=== PATIENT | female | born 1940 | race Native Hawaiian/Other Pacific Islander ===

== ENCOUNTER 2018-01-06 08:29 | Day surgery (SDC) | payer MEDICARE ==
[~2018-01-06] VITALS: Ht 157.5 cm; Wt 41.0 kg
[~2018-01-06 08:29] MED LIST: BUDE10.2 IH; CEFD300C3 PO; CIPR-225 PO; CIPR-226 PO; DOCU100C37 PO; GUAI177L4 PO; IBUP-1780 PO; OXYC-465 PO; TIOT18CA2 IH
[2018-01-06] MEDS ORDERED: MIDAZOLAM 2 MG/2 ML (VERSED) VIAL ONE (08:45)
[2018-01-06 09:00] VITALS: BP 139/68
[2018-01-06] MEDS ORDERED: POVIDONE (BETADINE) OPHTH SOLN 5% 30 ML OP ONE (09:00)
[2018-01-06] MEDS: TETRACAINE 0.5% OPHTH SOLN 4 ML BTL (SINGLE DOSE ONLY) OU PRN ×4 (09:15→09:46)
[2018-01-06] MEDS: PHENYLEPHRINE 10% OPHTH (NEO-SYN) 5 ML BTL OU SCH ×3 (09:28→09:46)
[2018-01-06] MEDS: CYCLOPENTOLATE 1% (CYCLOGYL) 2 ML DROPS OP SCH ×3 (09:28→09:46)
--- NOTE | 2018-01-06 09:47 | Progress Note-Pre Operative ---
Pre-Operative Progress Note H&P Reviewed The H&P was reviewed, patient examined and no changes noted. Date Seen by Provider: Jan 06, 2018 Time Seen by Provider: :46 Date H&P Reviewed: Jan 06, 2018 Time H&P Reviewed: 09:46 Pre-Operative Diagnosis: CATARACT MICHELLE GREENE MD Jan 06, 2018 09:47
[2018-01-06] MEDS: VANCOMYCIN/BSS (COMPOUNDED) 10 MG/ML SYR OP ONE (10:00)
[2018-01-06 10:14] VITALS: BP 139/71
--- NOTE | 2018-01-06 10:16 | Ophthalmology Operative Report ---
Cataract removal/placement IOL PREOPERATIVE DIAGNOSIS: Cataract Right Eye POSTOPERATIVE DIAGNOSIS: Cataract Right Eye PROCEDURE: Cataract removal and placement of posterior chamber implant, right eye SURGEON: Saad Greene ANESTHESIA: Topical with sedation COMPLICATIONS: None ESTIMATED BLOOD LOSS: Minimal DESCRIPTION OF PROCEDURE: After proper informed consent was obtained, the patient, a 77 female, was taken to the Operating Room and the right eye was anesthetized with tetracaine. They right eye was then prepped and draped in the usual manner. A wire lid speculum was placed. A paracentesis was made at the left hand position. Preservative free lidocaine was injected into the anterior chamber followed by viscoelastic. A clear corneal incision was made in the temporal position. A capsulorrhexis was preformed and the central nuclear and cortical material were removed. The posterior capsule was polished and an Selvin SN6CWS 26.5 IOL was placed into the capsular bag. The residual viscoelastic was aspirated and balanced saline solution was injected into the anterior chamber. 0.1 ml of Vancomycin (1mg/0.1ml ) was injected into the anterior chamber. The would was checked and found to be water tight. The patient tolerated the procedure well without complications. SAAD GREENE MD Jan 06, 2018 10:16
[2018-01-06] MEDS ORDERED: VANCOMYCIN/BSS (COMPOUNDED) 10 MG/ML SYR OP ONE (12:00)
[2018-01-06] MEDS ORDERED: TIMOLOL MALEATE 0.5% 5 ML (TIMOPTIC) BTL OU ONE (12:00)
[2018-01-06] MEDS ORDERED: LIDOCAINE PF 1% 2 ML AMP INJ ONE (12:00)
--- OUTSIDE RECORDS SUMMARY | 2018-01-06 16:24 | XMS REPORT | Continuity of Care Document ---
Author Author [facility] Organization [facility] Address Unknown Phone Unavailable Allergies Active Description Code Type Severity Reaction Onset Reported/Identified Relationship to Patient Clinical Status Yes No Known Drug Allergies [id number] Drug Allergy Unknown N/A 03/12/2009 Yes budesonide [id number] Drug Allergy Mild NAUSEA 01/06/2016 Yes formoterol [id number] Drug Allergy Mild NAUSEA 01/06/2016 Medications There is no data. Problems Date Dx Coded Attending Type Code Diagnosis Diagnosed By 11/25/2014 Ot 496 11/25/2014 Ot 786.7 11/25/2014 Ot 793.19 12/20/2014 RAJESH DAVENPORT MD Ot 786.2 12/20/2014 RAJESH DAVENPORT MD Ot 786.9 11/10/2015 NIKOLAS CHAHAL MD Ot N32.81 11/10/2015 NIKOLAS CHAHAL MD Ot N39.0 01/08/2016 LEOPOLDO GUADALUPE MD, Ot E87.70 FLUID OVERLOAD, UNSPECIFIED 01/08/2016 LEOPOLDO GUADAULPE MD, Ot J44.9 CHRONIC OBSTRUCTIVE PULMONARY DISEASE, U 01/08/2016 LEOPOLDO GUADALUPE MD, Ot J81.1 CHRONIC PULMONARY EDEMA 01/08/2016 LEOPOLDO GUADALUPE MD, Ot N32.81 OVERACTIVE BLADDER 01/08/2016 LEOPOLDO GUADALUPE MD, Ot N36.42 INTRINSIC SPHINCTER DEFICIENCY (ISD) 01/08/2016 LEOPOLDO GUADALUPE MD, Ot N39.3 STRESS INCONTINENCE (FEMALE) (MALE) 01/08/2016 LEOPOLDO GUADALUPE MD, Ot N81.10 CYSTOCELE, UNSPECIFIED 01/08/2016 LEOOPLDO GUADALUPE MD, Ot R09.02 HYPOXEMIA 01/08/2016 LEOPOLDO GUADALUPE MD, Ot N81.5 01/08/2016 LEOPOLDO GUADALUPE MD Ot Z01.812 01/08/2016 LEOPOLDO GUADALUPE MD Ot Z11.2 Procedures There is no data. Results There is no data. Encounters ACCT No. Visit Date/Time Discharge Status Pt. Type Provider Facility Loc./Unit Complaint [id number] 01/07/2016 15:05:00 01/08/2016 13:10:00 DIS Inpatient LEOPOLDO GUADALUPE MD [facility] LDRP [id number] 12/29/2015 10:16:00 12/29/2015 23:59:59 CLS Outpatient LEOPOLDO GUADALUPE MD [facility] PREOP [id number] 10/28/2015 14:28:00 10/28/2015 23:59:59 CLS Outpatient NIKOLAS CHAHAL MD [facility] RAD [id number] 11/25/2014 11:57:00 11/25/2014 23:59:59 CLS Outpatient RAJESH DAVENPORT MD [facility] RAD [id number] 01/06/2018 09:48:00 Document Registration [id number] 05/04/2012 11:27:00 Document Registration [id number] 04/10/2012 11:20:00 Document Registration [id number] 11/04/2011 11:31:00 Document Registration
[2018-01-10] MEDS ORDERED: EPINEPHrine INJECTION 1 MG/ML AMP IR ONE (12:59)
== END 2018-01-06 10:20 | disposition home or self-care (01) ==
LOC: SDC 08:29
PROVIDERS: ATTEND Specialist
DX: H26.9 Unspecified cataract (principal); J44.9 Chronic obstructive pulmonary disease, unspecified

== ENCOUNTER 2018-01-20 05:41 | Outpatient (CLI) | payer MEDICARE | END 2018-01-20 15:07 | LOC: PREOP 05:41 | PROVIDERS: ATTEND Specialist | DX: Z01.818 Encounter for other preprocedural examination (principal); H25.12 Age-related nuclear cataract, left eye ==

== ENCOUNTER 2018-01-27 08:31 | Day surgery (SDC) | payer MEDICARE ==
[~2018-01-27] VITALS: Ht 157.5 cm; Wt 41.0 kg
[2018-01-27] MEDS ORDERED: EPINEPHrine INJECTION 1 MG/ML AMP INJ ONE (08:45)
[2018-01-27] MEDS ORDERED: POVIDONE (BETADINE) OPHTH SOLN 5% 30 ML OP ONE (08:45)
[2018-01-27] MEDS ORDERED: LIDOCAINE PF 1% 2 ML AMP IR PRN (08:45)
[2018-01-27] MEDS ORDERED: VANCOMYCIN/BSS (COMPOUNDED) 10 MG/ML SYR OP ONE (08:45)
[2018-01-27] MEDS ORDERED: TIMOLOL MALEATE 0.5% 5 ML (TIMOPTIC) BTL OU PRN (08:45)
[2018-01-27 08:55] VITALS: BP 132/74
[2018-01-27] MEDS: TETRACAINE 0.5% OPHTH SOLN 4 ML BTL (SINGLE DOSE ONLY) OU PRN ×4 (08:55→09:17)
[2018-01-27] MEDS: CYCLOPENTOLATE 1% (CYCLOGYL) 2 ML DROPS OP SCH ×3 (09:05→09:17)
[2018-01-27] MEDS: PHENYLEPHRINE 10% OPHTH (NEO-SYN) 5 ML BTL OU SCH ×3 (09:05→09:17)
--- NOTE | 2018-01-27 09:42 | Ophthalmologist Pre-Op Note ---
Pre-Operative Progress Note H&P Reviewed The H&P was reviewed, patient examined and no changes noted. Date H&P Reviewed: Jan 27, 2018 Time H&P Reviewed: 09:42 Pre-Op Dx Cataract, Left Eye MICHELLE GREENE MD Jan 27, 2018 09:42
[2018-01-27] MEDS ORDERED: MIDAZOLAM 2 MG/2 ML (VERSED) VIAL ONE (09:52)
--- NOTE | 2018-01-27 10:07 | Ophthalmology Operative Report ---
Cataract removal/placement IOL PREOPERATIVE DIAGNOSIS: Cataract Left Eye POSTOPERATIVE DIAGNOSIS: Cataract Left Eye PROCEDURE: Cataract removal and placement of posterior chamber implant, left eye SURGEON: Saad Greene ANESTHESIA: Topical with sedation COMPLICATIONS: None ESTIMATED BLOOD LOSS: Minimal DESCRIPTION OF PROCEDURE: After proper informed consent was obtained, the patient, a 77 female, was taken to the Operating Room and the left eye was anesthetized with tetracaine. They left eye was then prepped and draped in the usual manner. A wire lid speculum was placed. A paracentesis was made at the left hand position. Preservative free lidocaine was injected into the anterior chamber followed by viscoelastic. A clear corneal incision was made in the temporal position. A capsulorrhexis was preformed and the central nuclear and cortical material were removed. The posterior capsule was polished and Selvin SN6CWS 24.0 IOL was placed into the capsular bag. The residual viscoelastic was aspirated and balanced saline solution was injected into the anterior chamber. 1.0 ml of Vancomycin (10mg/ 1.0ml) was injected into the anterior chamber. The would was checked and found to be water tight. The patient tolerated the procedure well without complications. SAAD GREENE MD Jan 27, 2018 10:07
[2018-01-27 10:15] VITALS: BP 131/73
--- NOTE | 2018-01-27 15:04 | Anesthesia-General Post-Op ---
MAC Patient Condition Mental Status/LOC: Same as Preop Cardiovascular: Satisfactory Nausea/Vomiting: Absent Respiratory: Satisfactory Pain: Controlled Complications: Absent Post Op Complications Complications None Follow Up Care/Instructions Patient Instructions None needed. Anesthesiology Discharge Order Discharge Order Patient is doing well, no complaints, stable vital signs, no apparent adverse anesthesia problems. No complications reported per nursing. GEGE BILL CRNA Jan 27, 2018 15:04
--- OUTSIDE RECORDS SUMMARY | 2018-01-29 04:08 | XMS REPORT | Continuity of Care Document ---
Author Author [facility] Organization [facility] Address Unknown Phone Unavailable Allergies Active Description Code Type Severity Reaction Onset Reported/Identified Relationship to Patient Clinical Status Yes No Known Drug Allergies [id number] Drug Allergy Unknown N/A 03/12/2009 Yes budesonide [id number] Drug Allergy Mild NAUSEA 01/06/2016 Yes formoterol [id number] Drug Allergy Mild NAUSEA 01/06/2016 Medications There [...] Ot E87.70 FLUID OVERLOAD, UNSPECIFIED 01/08/2016 LEOPOLDO GUADALUPE MD, Ot J44.9 CHRONIC OBSTRUCTIVE PULMONARY DISEASE, U 01/08/2016 LEOPOLDO GUADALUPE MD, Ot J81.1 CHRONIC PULMONARY EDEMA 01/08/2016 LEOPOLDO GUADALUPE MD, Ot N32.81 OVERACTIVE BLADDER 01/08/2016 LEOPOLDO GUADALUPE MD, Ot N36.42 INTRINSIC SPHINCTER DEFICIENCY (ISD) 01/08/2016 LEOPOLDO GUADALUPE MD, Ot N39.3 STRESS INCONTINENCE (FEMALE) (MALE) 01/08/2016 LEOPOLDO GUADALUPE MD, Ot N81.10 CYSTOCELE, UNSPECIFIED 01/08/2016 LEOPOLDO GUADALUPE MD, Ot R09.02 HYPOXEMIA 01/08/2016 LEOPOLDO GUADALUPE MD, Ot N81.5 01/08/2016 LEOPOLDO GUADALUPE MD Ot Z01.812 01/08/2016 LEOPOLDO GUADALUPE MD Ot Z11.2 01/04/2018 MICHELLE GREENE MD Ot H26.9 UNSPECIFIED CATARACT 01/04/2018 MICHELLE GREENE MD Ot Z01.818 ENCOUNTER FOR OTHER PREPROCEDURAL EXAMIN 01/05/2018 MICHELLE GREENE MD Ot H26.9 UNSPECIFIED CATARACT 01/05/2018 MICHELLE GREENE MD Ot Z01.818 ENCOUNTER FOR OTHER PREPROCEDURAL EXAMIN 01/10/2018 MICHELLE GREENE MD Ot H26.9 UNSPECIFIED CATARACT 01/10/2018 MICHELLE GREENE MD Ot J44.9 CHRONIC OBSTRUCTIVE PULMONARY DISEASE, U 01/10/2018 MICHELLE GREENE MD Ot H26.9 UNSPECIFIED CATARACT 01/10/2018 MICHELLE GREENE MD Ot Z01.818 ENCOUNTER FOR OTHER PREPROCEDURAL EXAMIN 01/24/2018 MICHELLE GREENE MD Ot H25.12 AGE-RELATED NUCLEAR CATARACT, LEFT EYE 01/24/2018 IMCHELLE GREENE MD Ot Z01.818 ENCOUNTER FOR OTHER PREPROCEDURAL EXAMIN Procedures There is no data. Results There is no data. Encounters ACCT No. Visit Date/Time Discharge Status Pt. Type Provider Facility Loc./Unit Complaint [id number] 01/20/2018 05:41:00 01/20/2018 15:07:00 DIS Outpatient MICHELLE GREENE MD [facility] PREOP CATARACT LEFT EYE [id number] 01/06/2018 08:29:00 01/06/2018 10:20:00 DIS Outpatient MICHELLE GREENE MD [facility] SDC CATARACT RIGHT EYE [id number] 01/05/2018 12:00:00 01/05/2018 23:59:59 CLS Outpatient MICHELLE GREENE MD [facility] PREOP CATARACT RIGHT EYE [id number] 01/07/2016 15:05:00 01/08/2016 13:10:00 DIS Inpatient LEOPOLDO GUADALUPE MD [facility] LDRP [id number] 12/29/2015 10:16:00 12/29/2015 23:59:59 CLS Outpatient COLLINS MOHAN, LEOPOLDO Linares [facility] PREOP [id number] 10/28/2015 14:28:00 10/28/2015 23:59:59 CLS Outpatient FELA MOHAN, NIKOLAS Sutton [facility] RAD [id number] 11/25/2014 11:57:00 11/25/2014 23:59:59 CLS Outpatient ISSAC MOHAN, RAJESH Coates [facility] RAD [id number] 01/27/2018 10:00:00 PEN Preadmit RAMONA [facility]AN[facility] [id number] 05/04/2012 11:27:00 Document Registration [id number] 04/10/2012 11:20:00 Document Registration [id number] 11/04/2011 11:31:00 Document Registration
== END 2018-01-27 10:24 | disposition home or self-care (01) ==
LOC: SDC 08:31
PROVIDERS: ATTEND Specialist
DX: H25.9 Unspecified age-related cataract (principal); J44.9 Chronic obstructive pulmonary disease, unspecified

== ENCOUNTER 2020-09-19 19:20 | Inpatient (IN) | payer MEDICARE ==
[~2020-09-19] VITALS: Ht 157 cm; Wt 45.1 kg
[~2020-09-19 19:20] MED LIST changes: +ALBU90AE PO; +CIPR250T3 PO; +IBUP-30 PO; -OXYC-465 PO; +OXYC-556 PO; +TIOT4MIS2 PO
[2020-09-19] MEDS ORDERED: RT-ALBUTEROL SULF 2.5 MG/3 ML PRE-MIX VIAL ONE (19:26)
[2020-09-19] MEDS ORDERED: methylPREDNISolone 125 MG (Solu-MEDROL) VIAL IV STA (19:30)
[2020-09-19] MEDS ORDERED: RT-ALBUTEROL/IPRATROPIUM 3 ML (DUONEB) VIAL INH ONE (19:30)
[2020-09-19] MEDS ORDERED: RT-ALBUTEROL SULF 2.5 MG/3 ML PRE-MIX VIAL INH STA (19:30)
[2020-09-19] MEDS ORDERED: LACTATED RINGERS 1,000 ML IV ONE ×2 (19:30→21:42)
[2020-09-19] MEDS ORDERED: methylPREDNISolone 125 MG (Solu-MEDROL) VIAL IVP ONE (19:30)
[2020-09-19] MEDS ORDERED: RT-IPRATROPIUM (ATROVENT) 0.5MG/2.5ML AMP IH ONE (19:35)
[2020-09-19] MEDS ORDERED: NS IV 1000 ML 1,000 ML IV SCH ×2 (19:43→20:24)
--- NOTE | 2020-09-19 19:45 | NUR ---
Pt arrived by EMS with c/o respiratory distress; pt had recently been at and had a trach placed. Pt arrived being bagged via BVM with little chest rise and fall. No notable sp02 noted on the monitor. RT at bedside as well as Dr. Potter and Rosalino Emanuel. Trach suctioned, in-line breathing treatment started and pt to vent. IV's x 2 started, and meds given as ordered. sp02 to nare and noted to be 100% on the monitor.
[2020-09-19 19:48] LABS: BASOPHILS # (AUTO) 0.1 10^3/uL (0.0-0.1); BASOPHILS % (AUTO) 1 % (0-10); EOSINOPHILS # (AUTO) 0.5 10^3/uL (0.0-0.3); EOSINOPHILS % (AUTO) 2 % (0-10); HEMATOCRIT 40 % (35-52); HEMOGLOBIN 11.7 g/dL (11.5-16.0); LYMPHOCYTES # (AUTO) 4.3 10^3/uL (1.0-4.0); LYMPHOCYTES % (AUTO) 21 % (12-44); MEAN CORPUSCULAR HEMOGLOBIN 28 pg (25-34); MEAN CORPUSCULAR HGB CONC 29 g/dL (32-36); MEAN CORPUSCULAR VOLUME 95 fL (80-99); MEAN PLATELET VOLUME 9.6 fL (9.0-12.2); MONOCYTES # (AUTO) 1.6 10^3/uL (0.0-1.0); MONOCYTES % (AUTO) 8 % (0-12); NEUTROPHILS # (AUTO) 13.8 10^3/uL (1.8-7.8); NEUTROPHILS % (AUTO) 67 % (42-75); PLATELET COUNT 659 10^3/uL (130-400); WHITE BLOOD COUNT 20.5 10^3/uL (4.3-11.0)
[2020-09-19 19:54] LABS: BILIRUBIN,URINE NEGATIVE (NEGATIVE); CLARITY,URINE CLOUDY; COLOR,URINE YELLOW; GLUCOSE, URINE (UA) NEGATIVE (NEGATIVE); KETONES,URINE NEGATIVE (NEGATIVE); LEUKOCYTE ESTERASE ,URINE 2+ (NEGATIVE); NITRITE,URINE POSITIVE (NEGATIVE); PROTEIN,URINE TRACE (NEGATIVE)
[2020-09-19 19:59] LABS: BACTERIA,URINE LARGE /HPF; CALCIUM OXALATE CRYSTALS,UR FEW /LPF; RBC,URINE RARE /HPF; SQUAMOUS EPITHELIAL CELL,UR 0-2 /HPF; WBC,URINE TNTC /HPF
[2020-09-19 20:04] LABS: ABG BASE EXCESS 2.2 MMOL/L (-2.5-2.5); ABG OXYGEN SATURATION 100 % (94-100); ABG PCO2 66 MMHG (35-45); ABG PO2 273 MMHG (79-93); ABG TCO2 30.9 MMOL/L (21.0-31.0)
[2020-09-19 20:05] LABS: INSPIRED O2 80%; PATIENT TEMP 36.3; VENTILATOR YES
[2020-09-19 20:06] LABS: ABG PH 7.26 (7.37-7.43)
[2020-09-19 20:06] LABS: ANISOCYTOSIS SLIGHT; BAND NEUTROPHILS 0 %; BASOPHILS % (MANUAL) 1 %; ELLIPT/OVALOCYTES SLIGHT; EOSINOPHILS % (MANUAL) 2 %; HYPOCHROMASIA SLIGHT; LYMPHOCYTES % (MANUAL) 16 %; MONOCYTES % (MANUAL) 7 %; NEUTROPHILS % (MANUAL) 74 %; POIKILOCYTOSIS SLIGHT; POLYCHROMASIA SLIGHT; TOXIC GRANULATION/VACUOLAZATIO 1+
[2020-09-19 20:07] LABS: ERYTHROCYTE SEDIMENTATION RATE 60 MM/HR (0-30)
[2020-09-19 20:10] LABS: INR 1.1 (0.8-1.4); PROTHROMBIN TIME PATIENT 14.9 SEC (12.2-14.7)
[2020-09-19 20:12] LABS: ALANINE AMINOTRANSFERASE 13 U/L (0-55); ALBUMIN 3.2 GM/DL (3.2-4.5); ALKALINE PHOSPHATASE 108 U/L (40-136); BILIRUBIN,TOTAL 0.2 MG/DL (0.1-1.0); BUN/CREATININE RATIO 21; CALCIUM 8.9 MG/DL (8.5-10.1); CARBON DIOXIDE 30 MMOL/L (21-32); CHLORIDE 99 MMOL/L (98-107); CREATINE KINASE 25 U/L (29-168); CREATININE SERUM 0.78 MG/DL (0.60-1.30); GFR ESTIMATED > 60; GLUCOSE 274 MG/DL (70-105); LIPASE 112 U/L (8-78); MAGNESIUM 2.1 MG/DL (1.6-2.4); POTASSIUM 4.5 MMOL/L (3.6-5.0); SODIUM 142 MMOL/L (135-145); TOTAL PROTEIN 7.6 GM/DL (6.4-8.2)
[2020-09-19] MEDS ORDERED: CEFEPIME INJECTION 2,000 MG in WATER (STERILE) FOR INJECTION 20 ML IV ONE (20:15)
[2020-09-19] MEDS ORDERED: VANCOMYCIN INJECTION 1,000 MG in NS (IVPB) 250 ML IV ONE (20:15)
--- NOTE | 2020-09-19 20:20 | Diagnostic Imaging Report ---
INDICATION: Respiratory distress, tracheostomy. COMPARISON: 06/03/2020. EXAMINATION: Single view of the chest was obtained. FINDINGS: Cardiac enlargement with central vascular congestion with questionable interstitial edema. There is some increasing consolidation in the mid right lung base. Bilateral pleural effusions are present. There is no pneumothorax. Tracheostomy appears midline. IMPRESSION: 1. Worsening and/or new consolidation infiltrate right base. 2. Cardiac enlargement, central vascular congestion and likely underlying pulmonary edema. 3. Bilateral pleural effusions, right greater than left. Dictated by: Dictated on workstation # [id number]
--- NOTE | 2020-09-19 20:30 | NUR ---
Rosalino Emanuel in room for central line placement. Room prepared for placement. Pt able to communicate consent for procedure.
[2020-09-19 20:33] LABS: CREATINE KINASE MB 2.1 NG/ML (<6.6)
--- NOTE | 2020-09-19 20:36 | ED Respiratory ---
General Chief Complaint: Respiratory Problems Stated Complaint: LOW OXYGEN LEVEL Nursing Triage Note: Pt here with respiratory distress; EMS reports patient was recently in [facility]. Pt has a trach but little air movement with bagging by BVM. Source: patient, spouse (MISTY DOWNS DO) History of Present Illness Date Seen by Provider: Sep 19, 2020 Time Seen by Provider: 19:20 Initial Comments PT ARRIVES VIA EMS FROM HOME EMS CALLED FOR PT WITH RESPIRATORY DISTRESS "HAS BEEN BAD SINCE TUESDAY" PT HAS HAD INCREASED "CONGESTION" AND "ALOT OF PHLEGM" AND VERY SHORT OF BREATH THE LAST FEW DAYS, AND WORSE SINCE EATING DINNER TONIGHT, DENIES ANY CHOKING, ETC. NO FEVER PT HAS HAD EXTENSIVE RESPIRATORY PROBLEMS THE LAST FEW MONTHS PT WAS ADMITTED HERE 05/16/20-06/03/20 FOR COPD WITH RESPIRATORY FAILURE FEEDING TUBE WAS PLACED DURING THAT ADMIT. WAS THEN TRANSFERRED TO [facility] IN [place], WHERE SHE HAS BEEN UNTIL BEING DISMISSED TO HOME 08/21/20 PT HAD A TRACHEOSTOMY PLACED WHILE THERE PT HAS BEEN ON HOME VENTILATOR SINCE THEN REPORTS THAT PT HAD BEEN USING THE VENT MOSTLY AT NIGHT, AND ON O2/NC DURING THE DAY, BUT FOR THE LAST WEEK "COULDN'T COME OFF THE VENT" --HAS BEEN ON VENTILATOR / FOR THE LAST WEEK DUE TO SHORTNESS OF BREATH TONIGHT, O2 SAT GOT DOWN TO 74% PT IS BEING BAGGED VIA TRACH BY EMS ON ARRIVAL PCP: DR. DAVENPOTR (MISTY DOWNS DO) Allergies and Home Medications Allergies Coded Allergies: budesonide (Unverified Allergy, Mild, NAUSEA, 01/06/16) PT REPORTS NAUSEA, FLUSHING AND NIGHTMARES formoterol (Unverified Allergy, Mild, NAUSEA, 01/06/16) PT REPORTS NAUSEA, FLUSHING AND NIGHTMARES Home Medications ALPRAZolam 0.25 Mg Tablet, 0.25 MG Q6H PRN for ANXIETY/SLEEP, (Reported) Acetaminophen 650 Mg/20.3 Ml Oral.susp, 650 MG PO Q6H PRN for PAIN-MILD (1-4) OR TEMPATURE, (Reported) Acetylcysteine 200 Mg/1 Ml Vial, 3 ML NEB QID, (Reported) Apixaban 5 Mg Tablet, 5 MG BID, (Reported) Cholecalciferol (Vitamin D3) 25 Mcg Capsule, 100 MCG DAILY, (Reported) TAKES 4 (25MCG) TABS Ciprofloxacin HCl 250 Mg Tablet, 250 MG PO DAILY, (Reported) LAST FILLED 02-05-2020 #90/90 DAY SUPPLY Furosemide 20 Mg Tablet, 20 MG DAILY, (Reported) Hydrocodone/Acetaminophen 1 Each Tablet, 1 EA BID PRN for PAIN-SEVERE (8-10), (Reported) Ipratropium/Albuterol Sulfate 3 Ml Ampul.neb, 3 ML NEB BID, (Reported) Levothyroxine Sodium 75 Mcg Tablet, 75 MCG DAILY, (Reported) Melatonin 3 Mg Tablet, 3 MG PO HS PRN for SLEEP, (Reported) Meropenem 1 Gm Vial, 2 GM IV Q12H Prescribed by: THELMA PEREZ on 09/25/20 0721 Pantoprazole Sodium 40 Mg Tablet.dr, 40 MG DAILY, (Reported) Potassium Chloride 10 Meq Tab.er.prt, 10 MEQ DAILY, (Reported) Sennosides/Docusate Sodium 1 Each Tablet, 2 EACH HS, (Reported) Sertraline HCl 50 Mg Tablet, 50 MG DAILY, (Reported) Patient Home Medication List Home Medication List Reviewed: Yes (MISTY DOWNS DO) Review of Systems Review of Systems Constitutional: No diaphoresis, No fever; malaise, weakness EENTM: no symptoms reported Respiratory: cough, orthopnea, phlegm, short of breath Cardiovascular: No chest pain, No edema Gastrointestinal: no symptoms reported; No abdominal pain, No nausea, No vomiting Genitourinary: no symptoms reported, other (PT ON CIPRO DAILY FOR UTI'S ) Musculoskeletal: no symptoms reported Skin: no symptoms reported Psychiatric/Neurological: No Symptoms Reported Hematologic/Lymphatic: No Symptoms Reported Immunological/Allergic: no symptoms reported (MISTY DOWNS DO) Past Dfwjcyu-Hnyjlt-Qkqsmc Hx Past Med/Social Hx: Reviewed and Corrections made (MISTY DOWNS DO) Patient Social History 2nd Hand Smoke Exposure: No Recent Foreign Travel: No Contact w/Someone Who Travel: No Recent Infectious Disease Expo: No Recent Hopitalizations: Yes (MISTY DOWNS DO) Immunizations Up To Date Date of Pneumonia Vaccine: Aug 21, 2014 Date of Influenza Vaccine: Aug 21, 2015 (MISTY DOWNS DO) Past Medical History Surgeries: Yes ( HERNIA REPAIR; FEEDING TUBE ; BILATERAL CATARACTS) Abdominal, Eye Surgery, Tracheostomy Respiratory: Yes (COPD; TRACH PLACED 05/2020; PULMONARY EDEMA) Pneumonia, COPD Cardiac: Yes Atrial Fibrillation, Hypertension Neurological: No Reproductive Disorders: No Genitourinary: Yes UTI-Chronic Gastrointestinal: Yes (FEEDING TUBE IN PLACE 05/2020) Musculoskeletal: Yes Arthritis Endocrine: No HEENT: Yes Cataract Cancer: No Psychosocial: No Integumentary: No Blood Disorders: No Adverse Reaction/Blood Tranf: No (BLOOD TRANSFUSION AFTER CHILDBIRTH) (MISTY DOWNS DO) Family Medical History Cardiovascular disease G8 BROTHER Congenital heart disease G8 BROTHER FH: cancer G8 SISTER (UTERINE) Glaucoma 19 MOTHER Hypertension G8 SISTER Respiratory disorder 19 FATHER No Pertinent Family Hx (MISTY DOWNS DO) Physical Exam Vital Signs - First Documented 09/19/20 09/19/20 19:54 20:42 Temp 36.3 Pulse 122 Resp 34 B/P (MAP) 114/78 (90) Pulse Ox 99 O2 Delivery Ambu Bag FiO2 80 (MATTHEW RAMIREZ APRN) Capillary Refill : Less Than 3 Seconds (MISTY DOWNS DO) Height: 5'2.00" Weight: 90lbs. 6.0oz. [id number]; 15.00 BMI Method: General Appearance: mild distress, cachetic, other (LETHARGIC AND NOT TALKING ON ARRIVAL, SEMI-OBTUNDED ON ARRIVAL) HEENT: other (ORAL MUCOSA SLIGHTLY DRY) Neck: other (TRACH IN PLACE--SITE CLEAN) Respiratory: decreased breath sounds (IN BASES), rales (IN BASES), other (MILD DISTRESS ON ARRIVAL) Cardiovascular: no murmur, tachycardia, extra beats Gastrointestinal: soft, other (FEEDING TUBE IN PLACE. SITE CLEAN) Extremities: pedal edema (2+ BILATERALLY) Neurologic/Psychiatric: no motor/sensory deficits, alert, oriented x 3 Skin: warm/dry, pallor (MISTY DOWNS DO) Focused Exam Lactate Level 09/19/20 19:27: Lactic Acid Level 4.16*H 09/19/20 21:09: (MATTHEW RAMIREZ APRN) Lactic Acid Level Laboratory Tests Test 09/19/20 19:27 09/19/20 21:09 Lactic Acid Level 4.16 MMOL/L (0.50-2.00) *H (MATTHEW RAMIREZ APRN) Procedures/Interventions Lumen: triple Position: femoral (L) Anesthesia: local Volume Anesthetic (ccs): 2 Post Position: sutured, good blood return Attempted right femoral vein central line placement unsuccessfully, went to the left side and placed a central line on the left times one attempt successfully. (MATTHEW RAMIREZ APRN) Date of ETT Placement: May 31, 2020 (MISTY DOWNS DO) Progress/Results/Core Measures Suspected Sepsis Recent Fever Within 48 Hours: No Infection Criteria Present: Suspected New Infection New/Unexplained Altered Menta: No Sepsis Screen: Possible Severe Sepsis Risk SIRS Temperature: Pulse: 124 Respiratory Rate: 24 Blood Pressure 106 /68 Mean: 81 Laboratory Tests 09/19/20 19:27: INR Comment 1.1, Total Bilirubin 0.2 (MISTY DOWNS DO) Results/Orders Lab Results Laboratory Tests Test 09/19/20 19:27 09/19/20 19:37 09/19/20 19:43 09/19/20 19:50 Range/Units White Blood Count 20.5 H 4.3-11.0 10^3/uL Red Blood Count 4.24 3.80-5.11 10^6/uL Hemoglobin 11.7 11.5-16.0 g/dL Hematocrit 40 35-52 % Mean Corpuscular Volume 95 80-99 fL Mean Corpuscular Hemoglobin 28 25-34 pg Mean Corpuscular Hemoglobin Concent 29 L 32-36 g/dL Red Cell Distribution Width 15.7 H 10.0-14.5 % Platelet Count 659 H 130-400 10^3/uL Mean Platelet Volume 9.6 9.0-12.2 fL Immature Granulocyte % (Auto) 1 % Neutrophils (%) (Auto) 67 42-75 % Lymphocytes (%) (Auto) 21 12-44 % Monocytes (%) (Auto) 8 0-12 % Eosinophils (%) (Auto) 2 0-10 % Basophils (%) (Auto) 1 0-10 % Neutrophils # (Auto) 13.8 H 1.8-7.8 10^3/uL Lymphocytes # (Auto) 4.3 H 1.0-4.0 10^3/uL Monocytes # (Auto) 1.6 H 0.0-1.0 10^3/uL Eosinophils # (Auto) 0.5 H 0.0-0.3 10^3/uL Basophils # (Auto) 0.1 0.0-0.1 10^3/uL Immature Granulocyte # (Auto) 0.2 H 0.0-0.1 10^3/uL Neutrophils % (Manual) 74 % Lymphocytes % (Manual) 16 % Monocytes % (Manual) 7 % Eosinophils % (Manual) 2 % Basophils % (Manual) 1 % Band Neutrophils 0 % Toxic Granulation 1+ Polychromasia SLIGHT Hypochromasia SLIGHT Poikilocytosis SLIGHT Anisocytosis SLIGHT Elliptocytes SLIGHT Erythrocyte Sedimentation Rate 60 H 0-30 MM/HR Prothrombin Time 14.9 H 12.2-14.7 SEC INR Comment 1.1 0.8-1.4 Activated Partial Thromboplast Time 39 H 24-35 SEC Sodium Level 142 135-145 MMOL/L Potassium Level 4.5 3.6-5.0 MMOL/L Chloride Level 99 98-107 MMOL/L Carbon Dioxide Level 30 21-32 MMOL/L Anion Gap 13 5-14 MMOL/L Blood Urea Nitrogen 16 7-18 MG/DL Creatinine 0.78 0.60-1.30 MG/DL Estimat Glomerular Filtration Rate > 60 BUN/Creatinine Ratio 21 Glucose Level 274 H 70-105 MG/DL Lactic Acid Level 4.16 *H 0.50-2.00 MMOL/L Calcium Level 8.9 8.5-10.1 MG/DL Corrected Calcium 9.5 8.5-10.1 MG/DL Magnesium Level 2.1 1.6-2.4 MG/DL Total Bilirubin 0.2 0.1-1.0 MG/DL Aspartate Amino Transf (AST/SGOT) 17 5-34 U/L Alanine Aminotransferase (ALT/SGPT) 13 0-55 U/L Alkaline Phosphatase 108 40-136 U/L Lactate Dehydrogenase 282 H 125-220 U/L Total Creatine Kinase 25 L 29-168 U/L Creatine Kinase MB 2.1 <6.6 NG/ML Myoglobin 39.5 10.0-92.0 NG/ML Troponin I < 0.028 <0.028 NG/ML C-Reactive Protein High Sensitivity 14.44 H 0.00-0.50 MG/DL B-Type Natriuretic Peptide 529.2 H <100.0 PG/ML Total Protein 7.6 6.4-8.2 GM/DL Albumin 3.2 3.2-4.5 GM/DL Lipase 112 H 8-78 U/L Procalcitonin 0.03 <0.10 NG/ML Coronavirus 2019 (EMILY) Negative Negative Urine Color YELLOW Urine Clarity CLOUDY Urine pH 6.0 5-9 Urine Specific [place] 1.025 H 1.016-1.022 Urine Protein TRACE H NEGATIVE Urine Glucose (UA) NEGATIVE NEGATIVE Urine Ketones NEGATIVE NEGATIVE Urine Nitrite POSITIVE H NEGATIVE Urine Bilirubin NEGATIVE NEGATIVE Urine Urobilinogen 0.2 < = 1.0 MG/DL Urine Leukocyte Esterase 2+ H NEGATIVE Urine RBC (Auto) 2+ H NEGATIVE Urine RBC RARE /HPF Urine WBC TNTC H /HPF Urine Squamous Epithelial Cells 0-2 /HPF Urine Crystals PRESENT H /LPF Urine Calcium Oxalate Crystals FEW H /LPF Urine Bacteria LARGE H /HPF Urine Casts NONE /LPF Urine Mucus SMALL H /LPF Urine Culture Indicated YES Blood Gas Puncture Site NOT INDICATED Blood Gas Patient Temperature 36.3 Arterial Blood pH 7.26 *L 7.37-7.43 Arterial Blood Partial Pressure CO2 66 H 35-45 MMHG Arterial Blood Partial Pressure O2 273 H 79-93 MMHG Arterial Blood HCO3 29 H 23-27 MMOL/L Arterial Blood Total CO2 30.9 21.0-31.0 MMOL/L Arterial Blood Oxygen Saturation 100 94-100 % Arterial Blood Base Excess 2.2 -2.5-2.5 MMOL/L Kang Test NA Blood Gas Ventilator Setting YES Blood Gas Inspired Oxygen 80% Test 09/19/20 21:09 Range/Units (MATTHEW RAMIREZ APRN) Micro Results Microbiology 09/19/20 Influenza Types A,B Antigen ([facility]) - Final, Complete (MATTHEW RAMIREZ APRN) Medications Given in ED Current Medications Medications Dose Ordered Sig/Virgie Route Start Time Stop Time Status Last Admin Dose Admin Cefepime HCl 2000 mg/Sterile Water 20 ml @ 240 mls/hr ONCE ONCE IV 09/19/20 20:15 09/19/20 20:19 DC 09/19/20 20:23 240 MLS/HR Lactated Ringer's 1,000 ml @ 0 mls/hr Q0M ONCE IV 09/19/20 19:30 09/19/20 19:36 DC 09/19/20 20:14 1,000 MLS/HR Methylprednisolone Sodium Succinate 125 mg ONCE ONCE IVP 09/19/20 19:30 09/19/20 19:36 DC 09/19/20 19:36 125 MG Vancomycin HCl 1000 mg/Sodium Chloride 250 ml @ 250 mls/hr ONCE ONCE IV 09/19/20 20:15 09/19/20 21:14 DC 09/19/20 20:40 250 MLS/HR (MATTHEW RAMIREZ APRN) Vital Signs/I&O 09/19/20 09/19/20 09/19/20 09/19/20 19:54 20:10 20:12 20:42 Temp 36.3 Pulse 122 124 88 Resp 34 24 24 B/P (MAP) 114/78 (90) 106/68 Pulse Ox 99 99 100 99 O2 Delivery Ambu Bag Mechanical Ventilator Mechanical Ventilator FiO2 80 (MATTHEW RAMIREZ APRN) Vital Signs/I&O Capillary Refill : Less Than 3 Seconds (MISTY DOWNS DO) Blood Pressure Mean: 81 Progress Note : Progress Note PPE WORN AT ALL TIMES IMMEDIATELY PLACED ON VENTILATOR BY RT STAFF O2 SATS UP TO 100%, AND RESPIRATIONS EVEN AND UNLABORED AT TIME OF ADMIT. GIVEN IV FLUIDS WITH IMPROVEMENT IN HEART RATE AND BLOOD PRESSURE. 2019--PT IS NOW ALERT AND ORIENTED X 3.MUCH IMPROVEMENT IN MENTATION. STATES SHE WISHES TO BE A FULL CODE (MISTY DOWNS DO) ECG Initial ECG Impression Date: Sep 19, 2020 Initial ECG Impression Time: 19:39 Initial ECG Rate: 143 Initial ECG Rhythm: S.Tach Initial ECG Impression: Nonspecific Changes (MISTY DOWNS DO) Diagnostic Imaging Comments CXR--PER RADIOLOGIST REPORT AT 2034 FINDINGS: Cardiac enlargement with central vascular congestion with questionable interstitial edema. There is some increasing consolidation in the mid right lung base. Bilateral pleural effusions are present. There is no pneumothorax. Tracheostomy appears midline. IMPRESSION: 1. Worsening and/or new consolidation infiltrate right base. 2. Cardiac enlargement, central vascular congestion and likely underlying pulmonary edema. 3. Bilateral pleural effusions, right greater than left. Reviewed: Reviewed by Me (MISTY DOWNS DO) Critical Care Note Critical Care Total Time (minutes) 30 (MISTY DOWNS DO) Departure Communication (Admissions) Family Conversation 1934--CHILDCARE ATTENDANT ON PHONE WITH , STATES PT DOES NOT HAVE ANY ADVANCE DIRECTIVES, HAS BEEN FULL CODE, BUT STATES IF HER CONDITION DETERIORATES, HE WOULD LIKE HER TO BE ON COMFORT MEASURES ONLY. 2011--SPOKE WITH PT'S AND UPDATED HIM ON PT'S CONDITION. 2022--SPOKE WITH DR. JASSO, HOSPITALIST, ACCEPTS PT FOR ADMIT 2030--SPOKE WITH DR. FOUNTAIN, WELDING MACHINE ASSEMBLER. NO ADDITIONAL RECOMMENDATIONS AT THIS TIME 2039--SPOKE WITH DR. MARROQUIN, CAR REPAIRER PULLMAN, NO ADDITIONAL RECOMMENDATIONS AT THIS TIME. (MISTY DOWNS DO) Impression Primary Impression: Severe sepsis Additional Impressions: Acute on chronic respiratory failure Tracheostomy in place History of atrial fibrillation RLL pneumonia Bilateral pleural effusion CHF (congestive heart failure) Person under investigation for COVID-19 UTI (urinary tract infection) FEEDING TUBE IN PLACE Disposition: ADMITTED INPATIENT Condition: Improved Admissions Decision to Admit Reason: Admit from ER (General) Decision to Admit/Date: Sep 19, 2020 Time/Decision to Admit Time: 20:15 (MISTY DOWNS DO) Departure-Patient Inst. Referrals: RAJESH DAVENPORT MD (PCP/Family) Primary Care Physician Scripts Meropenem (Meropenem) 1 Gm Vial 2 GM IV Q12H for 10 Days, #40 VIAL Prov: NORAH FOUNTAIN DO 09/25/20 MISTY DOWNS DO Sep 19, 2020 20:36 MATTHEW RAMIREZ APRN Sep 19, 2020 21:19
--- NOTE | 2020-09-19 21:42 | NUR ---
Lab called with Lactic of 2.18; Dr. Potter notified.
[2020-09-19 21:55] LABS: ABG OXYGEN SATURATION 94 % (94-100); ABG PO2 88 MMHG (79-93); ABG TCO2 31.2 MMOL/L (21.0-31.0)
[2020-09-19 22:00] VITALS: BP 92/63
[2020-09-19] MEDS: LACTATED RINGERS 1,000 ML IV SCH (22:00)
--- NOTE | 2020-09-19 22:00 | NUR ---
received from ed, 80 year old female with dx of severe sepsis, resp failure,covid pui, pneumonia, uti, chf. pt has trach attached to a vent with settings of ac mode, tv 350, rate 14, 5 peep and 60% fio2. pt also has peg tube to abdomen. pt is a/o, not sedated
[2020-09-19 22:02] LABS: ABG PCO2 71 MMHG (35-45); ABG PH 7.23 (7.37-7.43); ALLENS TEST YES-POS; INSPIRED O2 80%
[2020-09-19 22:03] LABS: PATIENT TEMP 36.3; VENTILATOR YES
[2020-09-19 22:15] VITALS: BP 91/60
[2020-09-19] MEDS ORDERED: NS IV ONE (22:15)
[2020-09-19 22:21] LABS: ABG BASE EXCESS 3.2 MMOL/L (-2.5-2.5); ABG OXYGEN SATURATION 98 % (94-100); ABG PCO2 49 MMHG (35-45); ABG PH 7.37 (7.37-7.43); ABG PO2 97 MMHG (79-93)
[2020-09-19] MEDS: ENOXAPARIN 30 MG/0.3 ML (LOVENOX) SYR SC SCH (22:22)
[2020-09-19 22:23] LABS: ALLENS TEST YES-POS; INSPIRED O2 45%; PATIENT TEMP 35.2; VENTILATOR YES
[2020-09-19 22:30] VITALS: BP 91/54
[2020-09-19 22:45] VITALS: BP 87/54
[2020-09-19] MEDS ORDERED: VASOPRESSIN 20 UNITS/NS 100 ML DRIP IV SCH ×2 (22:45)
[2020-09-19 23:15] VITALS: BP 93/63
[2020-09-19] MEDS: EPINEPHrine 1 MG INJECTION 4 MG in NS (IVPB) 246 ML IV SCH (23:43)
[2020-09-19 23:45] VITALS: BP 87/58
[2020-09-19] MEDS: NOREPINEPHRINE 4 MG/250 ML 250 ML IV SCH (23:55)
[2020-09-20] VITALS (28 sets, daily range): BP systolic 85–108; BP diastolic 56–69
[2020-09-20] MEDS: LACTATED RINGERS 1,000 ML IV SCH ×5 (02:27→19:22)
[2020-09-20 03:34] LABS: ABG BASE EXCESS 3.9 MMOL/L (-2.5-2.5); ABG OXYGEN SATURATION 98 % (94-100); ABG PCO2 55 MMHG (35-45); ABG PO2 106 MMHG (79-93); ABG TCO2 31.1 MMOL/L (21.0-31.0)
[2020-09-20 03:35] LABS: ABG PH 7.35 (7.37-7.43)
[2020-09-20 03:36] LABS: ALLENS TEST YES-POS; INSPIRED O2 60%; PATIENT TEMP 36.4; VENTILATOR YES
[2020-09-20 03:38] LABS: BASOPHILS % (AUTO) 0 % (0-10); EOSINOPHILS % (AUTO) 0 % (0-10); HEMATOCRIT 31 % (35-52); HEMOGLOBIN 9.3 g/dL (11.5-16.0); LYMPHOCYTES # (AUTO) 0.2 10^3/uL (1.0-4.0); LYMPHOCYTES % (AUTO) 1 % (12-44); MEAN CORPUSCULAR HEMOGLOBIN 28 pg (25-34); MEAN CORPUSCULAR HGB CONC 30 g/dL (32-36); MEAN CORPUSCULAR VOLUME 93 fL (80-99); MEAN PLATELET VOLUME 9.4 fL (9.0-12.2); MONOCYTES # (AUTO) 0.1 10^3/uL (0.0-1.0); MONOCYTES % (AUTO) 1 % (0-12); NEUTROPHILS # (AUTO) 27.4 10^3/uL (1.8-7.8); NEUTROPHILS % (AUTO) 98 % (42-75); PLATELET COUNT 478 10^3/uL (130-400)
[2020-09-20 04:06] LABS: ALBUMIN 2.7 GM/DL (3.2-4.5); CHLORIDE 103 MMOL/L (98-107); POTASSIUM 4.3 MMOL/L (3.6-5.0); SODIUM 141 MMOL/L (135-145)
[2020-09-20 04:08] LABS: GLUCOSE 222 MG/DL (70-105); TOTAL PROTEIN 6.2 GM/DL (6.4-8.2)
[2020-09-20 04:09] LABS: CARBON DIOXIDE 27 MMOL/L (21-32)
[2020-09-20 04:10] LABS: BILIRUBIN,TOTAL 0.1 MG/DL (0.1-1.0)
[2020-09-20 04:11] LABS: PHOSPHORUS 3.3 MG/DL (2.3-4.7)
[2020-09-20 04:12] LABS: ALKALINE PHOSPHATASE 82 U/L (40-136); CREATININE SERUM 0.59 MG/DL (0.60-1.30); GFR ESTIMATED > 60
[2020-09-20 04:13] LABS: BUN/CREATININE RATIO 27
[2020-09-20 04:15] LABS: ALANINE AMINOTRANSFERASE 32 U/L (0-55); MAGNESIUM 1.7 MG/DL (1.6-2.4)
[2020-09-20] MEDS ORDERED: CEFEPIME INJECTION 1,000 MG in WATER (STERILE) FOR INJECTION 10 ML IV SCH (06:00)
--- NOTE | 2020-09-20 06:26 | Pulmonary Consultation ---
History of Present Illness History of Present Illness Date Seen by Provider: Sep 20, 2020 Time Seen by Provider: 06:21 Date of Admission Allergies and Home Medications Allergies Coded Allergies: budesonide (Unverified Allergy, Mild, NAUSEA, 01/06/16) PT REPORTS NAUSEA, FLUSHING AND NIGHTMARES formoterol (Unverified Allergy, Mild, NAUSEA, 01/06/16) PT REPORTS NAUSEA, FLUSHING AND NIGHTMARES Home Medications Albuterol Sulfate 90 Mcg Aer.pow.ba, 2 PUFF PO Q6H PRN for SHORTNESS OF BREATH, (Reported) Ciprofloxacin HCl 250 Mg Tablet, 250 MG PO Q48H, (Reported) Ibuprofen 200 Mg Tablet, 400-600 MG PO Q8H PRN for PAIN-MILD (1-4), (Reported) Tiotropium [place] 4 Gm Mist.inhal, 1 PUFF PO DAILY, (Reported) Past Vawteqk-Deqjsr-Jdsasg Hx Patient Social History Alcohol Use: Denies Use Recreational Drug Use: No Smoking Status: Unknown if Ever Smoked 2nd Hand Smoke Exposure: No Recent Foreign Travel: No Contact w/Someone Who Travel: No Recent Infectious Disease Expo: No Recent Hopitalizations: Yes Immunizations Up To Date Date of Pneumonia Vaccine: Aug 21, 2014 Date of Influenza Vaccine: Aug 21, 2015 Past Medical History Surgeries: Yes ( HERNIA REPAIR) Respiratory: Yes (COPD) COPD Cardiac: No Neurological: No Reproductive Disorders: No UTI-Chronic Gastrointestinal: No Musculoskeletal: Yes Arthritis Endocrine: No Cancer: No Psychosocial: No Integumentary: No Blood Disorders: No Adverse Reaction/Blood Tranf: No (BLOOD TRANSFUSION AFTER CHILDBIRTH) Family Medical History Cardiovascular disease G8 BROTHER Congenital heart disease G8 BROTHER FH: cancer G8 SISTER (UTERINE) Glaucoma 19 MOTHER Hypertension G8 SISTER Respiratory disorder 19 FATHER No Pertinent Family Hx Review of Systems Time Seen by Provider: 06:29 Sepsis Event Evaluation Height, Weight, BMI Height: 5'2.00" Weight: 90lbs. 6.0oz. 40.431345ah; 15.00 BMI Method: Exam Exam Vital Signs Date Time Temp Pulse Resp B/P (MAP) Pulse Ox O2 Delivery O2 Flow Rate FiO2 09/20/20 05:00 113 20 104/68 (80) 98 Mechanical Ventilator 60.00 09/20/20 04:00 115 19 104/66 (79) 98 Mechanical Ventilator 60.00 09/20/20 03:00 120 24 102/69 (80) 97 Mechanical Ventilator 60.00 09/20/20 02:52 130 28 98 60 09/20/20 02:00 112 16 108/64 (79) 97 Mechanical Ventilator 60.00 09/20/20 01:00 108 13 96/67 (77) 98 Mechanical Ventilator 60.00 09/20/20 01:00 107 09/20/20 00:07 97 Mechanical Ventilator 60 09/19/20 23:45 108 16 87/58 (68) 98 Mechanical Ventilator 60.00 09/19/20 23:15 108 27 93/63 (73) 96 Mechanical Ventilator 60.00 09/19/20 22:48 Mechanical Ventilator 60.00 09/19/20 22:45 110 25 87/54 (65) 88 Mechanical Ventilator 45.00 09/19/20 22:30 112 12 91/54 (66) 93 Mechanical Ventilator 45.00 09/19/20 22:15 115 28 91/60 (70) 93 Mechanical Ventilator 45.00 09/19/20 22:11 120 09/19/20 22:02 126 30 99 100 09/19/20 22:00 35.2 115 21 92/63 (73) 93 Mechanical Ventilator 45.00 09/19/20 21:00 121 35 94/64 98 Mechanical Ventilator 09/19/20 20:42 88 24 99 80 09/19/20 20:12 124 24 106/68 100 Mechanical Ventilator 09/19/20 20:10 99 Mechanical Ventilator 09/19/20 19:54 36.3 122 34 114/78 (90) 99 Ambu Bag I & O 09/20/20 07:00 Intake Total 2000 ml Balance 2000 ml Height & Weight Height: 5'2.00" Weight: 90lbs. 6.0oz. 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
[2020-09-20] MEDS: MAGNESIUM 1 GM/100 ML IVPB 100 ML IV SCH (06:35)
[2020-09-20] MEDS: POTASSIUM CL 10MEQ/50ML IVPB 50 ML IV SCH (06:35)
[2020-09-20] MEDS: KCL 20 MEQ TAB (K-DUR) PO SCH (06:36)
[2020-09-20] MEDS: MEROPENEM 1,000 MG in WATER (STERILE) FOR INJECTION 20 ML IV SCH ×3 (06:36→20:12)
[2020-09-20] MEDS ORDERED: FLU QUAD HIGH DOSE 240 MCG/0.7 ML 2020-21 (FLUZONE) IM ONE (07:15)
--- NOTE | 2020-09-20 09:21 | Consultation-Cardiology ---
HPI-Cardiology Cardiology Consultation Date of Consultation 09/20/20 Date of Admission Time Seen by Provider: 06:29 Indication: acute respiratory failure HPI 80 years old lady with history of Pseudomonas pneumonia resistant to multiple medication, transfer to and required prolonged intubation and tracheostomy. She still on a ventilator at home for the past month. Admitted through the emergency room with acute respiratory failure and shortness of breath, she is ventilatory dependent. Unable to provide any further history Home Medications & Allergies Allergies: Coded Allergies: budesonide (Unverified Allergy, Mild, NAUSEA, 01/06/16) PT REPORTS NAUSEA, FLUSHING AND NIGHTMARES formoterol (Unverified Allergy, Mild, NAUSEA, 01/06/16) PT REPORTS NAUSEA, FLUSHING AND NIGHTMARES Home Medication List Reviewed: Yes EIO-[id number]-[id number] Hx Patient Social History Alcohol Use: Denies Use Recreational Drug Use: No Smoking Status: Unknown if Ever Smoked 2nd Hand Smoke Exposure: No Recent Foreign Travel: No Recent Infectious Disease Expo: No Recent Hopitalizations: Yes Immunizations Up To Date Date of Pneumonia Vaccine: Aug 21, 2014 Date of Influenza Vaccine: Aug 21, 2015 Past Medical History Discussed below Family Medical History Significant Family History: No Pertinent Family Hx Family History: Cardiovascular disease G8 BROTHER Congenital heart disease G8 BROTHER FH: cancer G8 SISTER (UTERINE) Glaucoma 19 MOTHER Hypertension G8 SISTER Respiratory disorder 19 FATHER Review of Systems-General Review of Systems Constitutional: other (unable to provide review of systems) Respiratory: other (ventilatory dependent) Reviewed Test Results Reviewed Test Results Lab Laboratory Tests Test 09/19/20 19:27 09/19/20 19:37 09/19/20 19:43 09/19/20 19:50 Range/Units White Blood Count 20.5 H 4.3-11.0 10^3/uL Red Blood Count 4.24 3.80-5.11 10^6/uL Hemoglobin 11.7 11.5-16.0 g/dL Hematocrit 40 35-52 % Mean Corpuscular Volume 95 80-99 fL Mean Corpuscular Hemoglobin 28 25-34 pg Mean Corpuscular Hemoglobin Concent 29 L 32-36 g/dL Red Cell Distribution Width 15.7 H 10.0-14.5 % Platelet Count 659 H 130-400 10^3/uL Mean Platelet Volume 9.6 9.0-12.2 fL Immature Granulocyte % (Auto) 1 % Neutrophils (%) (Auto) 67 42-75 % Lymphocytes (%) (Auto) 21 12-44 % Monocytes (%) (Auto) 8 0-12 % Eosinophils (%) (Auto) 2 0-10 % Basophils (%) (Auto) 1 0-10 % Neutrophils # (Auto) 13.8 H 1.8-7.8 10^3/uL Lymphocytes # (Auto) 4.3 H 1.0-4.0 10^3/uL Monocytes # (Auto) 1.6 H 0.0-1.0 10^3/uL Eosinophils # (Auto) 0.5 H 0.0-0.3 10^3/uL Basophils # (Auto) 0.1 0.0-0.1 10^3/uL Immature Granulocyte # (Auto) 0.2 H 0.0-0.1 10^3/uL Neutrophils % (Manual) 74 % Lymphocytes % (Manual) 16 % Monocytes % (Manual) 7 % Eosinophils % (Manual) 2 % Basophils % (Manual) 1 % Band Neutrophils 0 % Toxic Granulation 1+ Polychromasia SLIGHT Hypochromasia SLIGHT Poikilocytosis SLIGHT Anisocytosis SLIGHT Elliptocytes SLIGHT Erythrocyte Sedimentation Rate 60 H 0-30 MM/HR Prothrombin Time 14.9 H 12.2-14.7 SEC INR Comment 1.1 0.8-1.4 Activated Partial Thromboplast Time 39 H 24-35 SEC Sodium Level 142 135-145 MMOL/L Potassium Level 4.5 3.6-5.0 MMOL/L Chloride Level 99 98-107 MMOL/L Carbon Dioxide Level 30 21-32 MMOL/L Anion Gap 13 5-14 MMOL/L Blood Urea Nitrogen 16 7-18 MG/DL Creatinine 0.78 0.60-1.30 MG/DL Estimat Glomerular Filtration Rate > 60 BUN/Creatinine Ratio 21 Glucose Level 274 H 70-105 MG/DL Lactic Acid Level 4.16 *H 0.50-2.00 MMOL/L Calcium Level 8.9 8.5-10.1 MG/DL Corrected Calcium 9.5 8.5-10.1 MG/DL Magnesium Level 2.1 1.6-2.4 MG/DL Total Bilirubin 0.2 0.1-1.0 MG/DL Aspartate Amino Transf (AST/SGOT) 17 5-34 U/L Alanine Aminotransferase (ALT/SGPT) 13 0-55 U/L Alkaline Phosphatase 108 40-136 U/L Lactate Dehydrogenase 282 H 125-220 U/L Total Creatine Kinase 25 L 29-168 U/L Creatine Kinase MB 2.1 <6.6 NG/ML Myoglobin 39.5 10.0-92.0 NG/ML Troponin I < 0.028 <0.028 NG/ML C-Reactive Protein High Sensitivity 14.44 H 0.00-0.50 MG/DL B-Type Natriuretic Peptide 529.2 H <100.0 PG/ML Total Protein 7.6 6.4-8.2 GM/DL Albumin 3.2 3.2-4.5 GM/DL Lipase 112 H 8-78 U/L Procalcitonin 0.03 <0.10 NG/ML Coronavirus 2019 (EMILY) Negative Negative Urine Color YELLOW Urine Clarity CLOUDY Urine pH 6.0 5-9 Urine Specific [place] 1.025 H 1.016-1.022 Urine Protein TRACE H NEGATIVE Urine Glucose (UA) NEGATIVE NEGATIVE Urine Ketones NEGATIVE NEGATIVE Urine Nitrite POSITIVE H NEGATIVE Urine Bilirubin NEGATIVE NEGATIVE Urine Urobilinogen 0.2 < = 1.0 MG/DL Urine Leukocyte Esterase 2+ H NEGATIVE Urine RBC (Auto) 2+ H NEGATIVE Urine RBC RARE /HPF Urine WBC TNTC H /HPF Urine Squamous Epithelial Cells 0-2 /HPF Urine Crystals PRESENT H /LPF Urine Calcium Oxalate Crystals FEW H /LPF Urine Bacteria LARGE H /HPF Urine Casts NONE /LPF Urine Mucus SMALL H /LPF Urine Culture Indicated YES Blood Gas Puncture Site NOT INDICATED Blood Gas Patient Temperature 36.3 Arterial Blood pH 7.26 *L 7.37-7.43 Arterial Blood Partial Pressure CO2 66 H 35-45 MMHG Arterial Blood Partial Pressure O2 273 H 79-93 MMHG Arterial Blood HCO3 29 H 23-27 MMOL/L Arterial Blood Total CO2 30.9 21.0-31.0 MMOL/L Arterial Blood Oxygen Saturation 100 94-100 % Arterial Blood Base Excess 2.2 -2.5-2.5 MMOL/L Kang Test NA Blood Gas Ventilator Setting YES Blood Gas Inspired Oxygen 80% Test 09/19/20 21:09 09/19/20 21:20 09/19/20 21:35 09/19/20 22:15 Range/Units Lactic Acid Level 2.18 *H 0.50-2.00 MMOL/L Blood Gas Puncture Site RIGHT RADIAL R RAD Blood Gas Patient Temperature 36.3 35.2 Arterial Blood pH 7.23 *L 7.37 7.37-7.43 Arterial Blood Partial Pressure CO2 71 *H 49 H 35-45 MMHG Arterial Blood Partial Pressure O2 88 97 H 79-93 MMHG Arterial Blood HCO3 29 H 28 H 23-27 MMOL/L Arterial Blood Total CO2 31.2 H 30.0 21.0-31.0 MMOL/L Arterial Blood Oxygen Saturation 94 98 94-100 % Arterial Blood Base Excess 2.0 3.2 H -2.5-2.5 MMOL/L Kang Test YES-POS YES-POS Blood Gas Ventilator Setting YES YES Blood Gas Inspired Oxygen 80% 45% Test 09/19/20 23:20 09/20/20 03:10 Range/Units Lactic Acid Level 1.74 0.50-2.00 MMOL/L White Blood Count 28.0 H 4.3-11.0 10^3/uL Red Blood Count 3.36 L 3.80-5.11 10^6/uL Hemoglobin 9.3 #L 11.5-16.0 g/dL Hematocrit 31 L 35-52 % Mean Corpuscular Volume 93 80-99 fL Mean Corpuscular Hemoglobin 28 25-34 pg Mean Corpuscular Hemoglobin Concent 30 L 32-36 g/dL Red Cell Distribution Width 15.8 H 10.0-14.5 % Platelet Count 478 H 130-400 10^3/uL Mean Platelet Volume 9.4 9.0-12.2 fL Immature Granulocyte % (Auto) 1 % Neutrophils (%) (Auto) 98 H 42-75 % Lymphocytes (%) (Auto) 1 L 12-44 % Monocytes (%) (Auto) 1 0-12 % Eosinophils (%) (Auto) 0 0-10 % Basophils (%) (Auto) 0 0-10 % Neutrophils # (Auto) 27.4 H 1.8-7.8 10^3/uL Lymphocytes # (Auto) 0.2 L 1.0-4.0 10^3/uL Monocytes # (Auto) 0.1 0.0-1.0 10^3/uL Eosinophils # (Auto) 0.0 0.0-0.3 10^3/uL Basophils # (Auto) 0.0 0.0-0.1 10^3/uL Immature Granulocyte # (Auto) 0.2 H 0.0-0.1 10^3/uL Blood Gas Puncture Site RIGHT RADIAL Blood Gas Patient Temperature 36.4 Arterial Blood pH 7.35 L 7.37-7.43 Arterial Blood Partial Pressure CO2 55 H 35-45 MMHG Arterial Blood Partial Pressure O2 106 H 79-93 MMHG Arterial Blood HCO3 29 H 23-27 MMOL/L Arterial Blood Total CO2 31.1 H 21.0-31.0 MMOL/L Arterial Blood Oxygen Saturation 98 94-100 % Arterial Blood Base Excess 3.9 H -2.5-2.5 MMOL/L Kang Test YES-POS Blood Gas Ventilator Setting YES Blood Gas Inspired Oxygen 60% Sodium Level 141 135-145 MMOL/L Potassium Level 4.3 3.6-5.0 MMOL/L Chloride Level 103 98-107 MMOL/L Carbon Dioxide Level 27 21-32 MMOL/L Anion Gap 11 5-14 MMOL/L Blood Urea Nitrogen 16 7-18 MG/DL Creatinine 0.59 L 0.60-1.30 MG/DL Estimat Glomerular Filtration Rate > 60 BUN/Creatinine Ratio 27 Glucose Level 222 H 70-105 MG/DL Calcium Level 8.0 L 8.5-10.1 MG/DL Corrected Calcium 9.0 8.5-10.1 MG/DL Phosphorus Level 3.3 2.3-4.7 MG/DL Magnesium Level 1.7 1.6-2.4 MG/DL Total Bilirubin 0.1 0.1-1.0 MG/DL Aspartate Amino Transf (AST/SGOT) 37 H 5-34 U/L Alanine Aminotransferase (ALT/SGPT) 32 0-55 U/L Alkaline Phosphatase 82 40-136 U/L Troponin I 0.256 H <0.028 NG/ML B-Type Natriuretic Peptide 473.9 H <100.0 PG/ML Total Protein 6.2 L 6.4-8.2 GM/DL Albumin 2.7 L 3.2-4.5 GM/DL Physical Exam Physical Exam Vital Signs Vital Signs - First Documented 09/19/20 09/19/20 09/19/20 19:54 20:42 22:00 Temp 36.3 Pulse 122 Resp 34 B/P (MAP) 114/78 (90) Pulse Ox 99 O2 Delivery Ambu Bag O2 Flow Rate 45.00 FiO2 80 Capillary Refill : Less Than 3 Seconds Height, Weight, BMI Height: 5'2.00" Weight: 90lbs. 6.0oz. 40.661937oe; 17.85 BMI Method: General Appearance: WD/WN, Moderate Distress Eyes: Bilateral Eye Normal Inspection, Bilateral Eye PERRL, Bilateral Eye EOMI HEENT: PERRL/EOMI, Pharynx Normal, Moist Mucous Membranes Respiratory: Chest Non Tender, Decreased Breath Sounds, Respiratory Distress, Other (ventilatory dependent) Cardiovascular: Regular Rate, Rhythm Skin: Normal Color, Warm/Dry Lymphatic: No Adenopathy A/P-Cardiology Admission Diagnosis Acute respiratory failure Sepsis Type II myocardial infarction Assessment/Plan Acute on chronic respiratory failure, 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 Progressed into respiratory failure and admitted through the emergency room. Currently sedated. Managed by Dr. Velazquez. COVID-19 testing is pending Mild elevation in troponin, probably type II myocardial infarction due to severe hypoxemia and sepsis Sepsis, leukocytosis. Started on septic protocol and managed by Dr. Velazquez History of paroxysmal atrial fibrillation, had few episode of atrial fibrillation in May during her admission and she was maintained on amiodarone and digoxin on transfer to History of COPD. Clinical Quality Measures DVT/VTE Risk/Contraindication: Risk Factor Score Per Nursin RFS Level Per Nursing on Admit: 4+=Very High PORTILLO MARROQUIN MD Sep 20, 2020 09:21
[2020-09-20] MEDS ORDERED: NS IV 1000 ML 2,000 ML ONE (09:29)
--- NOTE | 2020-09-20 11:32 | History & Physical-Hospitalist ---
History of Present Illness HPI/Chief Complaint CC: Dyspnea HPI: This is an 80yoWF clinic patient of Dr Henderson who has had a long hospital course the past few months ultimately requiring trach and PEG and DC home on home ventilator who presented to the [facility] ER with dyspnea and hypoxia. Patient was swabbed for COVID. Patient placed on empiric abx and placed on the vent via trach. Patient not talking to us at this time. Source: RN/MD Exam Limitations: clinical condition Date Seen 09/20/20 Time Seen by a Provider: 11:00 Attending Physician Mike Henderson MD PCP Mike Henderson MD Referring Physician Date of Admission Sep 19, 2020 at 20:20 Home Medications & Allergies Home Medications Reviewed patient Home Medication Reconciliation performed by pharmacy medication reconciliations mechanical design technician and/or nursing. Patients Allergies have been reviewed. Allergies Allergies Coded Allergies budesonide (Unverified Allergy, Mild, NAUSEA, 01/06/16) PT REPORTS NAUSEA, FLUSHING AND NIGHTMARES formoterol (Unverified Allergy, Mild, NAUSEA, 01/06/16) PT REPORTS NAUSEA, FLUSHING AND NIGHTMARES Past [id number] Hx Past Med/Social Hx: Reviewed Nursing Past Med/Soc Hx, Reviewed and Corrections made Patient Social History Marrital Status: Employed/Student: retired Alcohol Use: Denies Use Recreational Drug Use: No Smoking Status: Unknown if Ever Smoked 2nd Hand Smoke Exposure: No Recent Foreign Travel: No Contact w/other who traveled: No Recent Hopitalizations: Yes Recent Infectious Disease Expo: No Immunizations Up To Date Date of Pneumonia Vaccine: Aug 21, 2014 Date of Influenza Vaccine: Aug 21, 2015 Past Medical History Respiratory: Pneumonia trach Cardiac: High Cholesterol, Hypertension Neurological: Dementia : No Reproductive: No Genitourinary: UTI-Chronic Musculoskeletal: Arthritis History of Blood Disorders: No Adverse Reaction to Blood Márquez: No (BLOOD TRANSFUSION AFTER CHILDBIRTH) Family History Cardiovascular disease G8 BROTHER Congenital heart disease G8 BROTHER FH: cancer G8 SISTER (UTERINE) Glaucoma 19 MOTHER Hypertension G8 SISTER Respiratory disorder 19 FATHER No Pertinent Family Hx Review of Systems Constitutional: see HPI Physical Exam Physical Exam Vital Signs Vital Signs - First Documented 09/19/20 09/19/20 09/19/20 19:54 20:42 22:00 Temp 36.3 Pulse 122 Resp 34 B/P (MAP) 114/78 (90) Pulse Ox 99 O2 Delivery Ambu Bag O2 Flow Rate 45.00 FiO2 80 Capillary Refill : Less Than 3 Seconds Height, Weight, BMI Height: 5'2.00" Weight: 90lbs. 6.0oz. 40.310274gl; 17.85 BMI Method: General Appearance: No Apparent Distress, Anxious, Chronically ill, Cachetic Eyes: Right Eye Normal Inspection, Right Eye PERRL HEENT: PERRL/EOMI, Moist Mucous Membranes, Other (trach ) Neck: Full Range of Motion, Normal Inspection, Non Tender Respiratory: Chest Non Tender, Lungs Clear, No Accessory Muscle Use, No Respiratory Distress, Decreased Breath Sounds Cardiovascular: Regular Rate, Rhythm, No Edema, No Gallop, No JVD, No Murmur, Normal Peripheral Pulses Gastrointestinal: Normal Bowel Sounds, No Organomegaly, No Pulsatile Mass, Soft Back: Normal Inspection, No CVA Tenderness, No Vertebral Tenderness Extremity: Normal Capillary Refill, Normal Inspection, Normal Range of Motion, Non Tender, No Calf Tenderness, No Pedal Edema Neurologic/Psychiatric: Disoriented Skin: Normal Color, Warm/Dry Lymphatic: No Adenopathy Results Results/Procedures Labs Laboratory Tests 09/19/20 19:27 09/20/20 03:10 09/21/20 02:30 Patient resulted labs reviewed. Assessment/Plan Admission Diagnosis Assessment: Respiratory failure acute on chronic Trach PEG Cachexia Advanced age Plan: Vent Dr Velazquez appreciated Admission Status: Inpatient Order (span 2 midnights) Reason for Inpatient Admission: vent management Diagnosis/Problems Diagnosis/Problems (1) Respiratory failure with hypoxia and hypercapnia Status: Acute (2) COPD (chronic obstructive pulmonary disease) Status: Acute Clinical Quality Measures DVT/VTE Risk/Contraindication: Risk Factor Score Per Nursin RFS Level Per Nursing on Admit: 4+=Very High TARIK JASSO DO Sep 20, 2020 11:32
[2020-09-20] MEDS: morphine INJ 10 MG/ML 1ML (SYR OR VIAL) IVP PRN ×2 (14:39→20:12)
[2020-09-20] MEDS: RT-ALBUTEROL INHALER HFA (VENTOLIN HFA) 18 GM IH SCH ×3 (14:45→21:45)
[2020-09-20] MEDS: NOREPINEPHRINE 4 MG/250 ML 250 ML IV SCH (16:41)
[2020-09-20] MEDS: EPINEPHrine 1 MG INJECTION 4 MG in NS (IVPB) 246 ML IV SCH (16:42)
[2020-09-20] MEDS: ENOXAPARIN 30 MG/0.3 ML (LOVENOX) SYR SC SCH (20:11)
[2020-09-20] MEDS: VANCOMYCIN INJECTION 500 MG in NS (IVPB) 100 ML IV SCH (20:12)
[2020-09-20] MEDS ORDERED: MELATONIN 3 MG TABLET ONE (20:55)
[2020-09-20] MEDS: MELATONIN 3 MG TABLET PO SCH (21:45)
[2020-09-21] VITALS (28 sets, daily range): BP systolic 86–106; BP diastolic 44–72
[2020-09-21 02:43] LABS: BASOPHILS % (AUTO) 0 % (0-10); EOSINOPHILS # (AUTO) 0.1 10^3/uL (0.0-0.3); EOSINOPHILS % (AUTO) 1 % (0-10); HEMATOCRIT 27 % (35-52); HEMOGLOBIN 8.2 g/dL (11.5-16.0); LYMPHOCYTES # (AUTO) 0.9 10^3/uL (1.0-4.0); LYMPHOCYTES % (AUTO) 6 % (12-44); MEAN CORPUSCULAR HEMOGLOBIN 28 pg (25-34); MEAN CORPUSCULAR HGB CONC 30 g/dL (32-36); MEAN CORPUSCULAR VOLUME 93 fL (80-99); MONOCYTES # (AUTO) 0.9 10^3/uL (0.0-1.0); MONOCYTES % (AUTO) 6 % (0-12); NEUTROPHILS # (AUTO) 13.2 10^3/uL (1.8-7.8); NEUTROPHILS % (AUTO) 87 % (42-75); PLATELET COUNT 371 10^3/uL (130-400); WHITE BLOOD COUNT 15.1 10^3/uL (4.3-11.0)
[2020-09-21 02:57] LABS: CHLORIDE 101 MMOL/L (98-107)
[2020-09-21 02:58] LABS: POTASSIUM 4.2 MMOL/L (3.6-5.0); SODIUM 139 MMOL/L (135-145)
[2020-09-21 02:59] LABS: CALCIUM 8.1 MG/DL (8.5-10.1); GLUCOSE 86 MG/DL (70-105)
[2020-09-21 03:01] LABS: CARBON DIOXIDE 31 MMOL/L (21-32)
[2020-09-21 03:03] LABS: CREATININE SERUM 0.45 MG/DL (0.60-1.30); GFR ESTIMATED > 60; PHOSPHORUS 2.6 MG/DL (2.3-4.7)
[2020-09-21 03:04] LABS: BUN/CREATININE RATIO 29
[2020-09-21 03:05] LABS: MAGNESIUM 1.7 MG/DL (1.6-2.4)
[2020-09-21] MEDS: RT-ALBUTEROL INHALER HFA (VENTOLIN HFA) 18 GM IH SCH ×5 (03:26→18:35)
--- NOTE | 2020-09-21 05:14 | Pulmonary Progress Note ---
Subjective Time Seen by a Provider: 05:11 Subjective/Events-last exam Pt is on vent. No complications noted. Sepsis Event Evaluation Height, Weight, BMI Height: 5'2.00" Weight: 90lbs. 6.0oz. 40.339506gh; 17.85 BMI Method: Focused Exam Lactate Level 09/19/20 19:27: Lactic Acid Level 4.16*H 09/19/20 21:09: Lactic Acid Level 2.18*H 09/19/20 23:20: Lactic Acid Level 1.74 Exam Exam Vital Signs Date Time Temp Pulse Resp B/P (MAP) Pulse Ox O2 Delivery O2 Flow Rate FiO2 09/21/20 03:26 77 20 94 40 09/21/20 03:00 82 15 90/56 (67) 94 Mechanical Ventilator 50.00 09/21/20 02:00 94 18 95/54 (68) 97 Mechanical Ventilator 50.00 09/21/20 01:00 87 21 106/72 (83) 94 Mechanical Ventilator 50.00 09/21/20 01:00 83 09/21/20 00:00 96 14 101/63 (76) 93 Mechanical Ventilator 50.00 09/20/20 23:00 92 16 100/62 (75) 95 Mechanical Ventilator 50.00 09/20/20 22:00 100 14 97/57 (70) 99 Mechanical Ventilator 50.00 09/20/20 21:45 96 19 99 50 09/20/20 21:00 94 19 97/59 (72) 98 Mechanical Ventilator 50.00 09/20/20 21:00 97 Mechanical Ventilator 09/20/20 20:19 36.1 Mechanical Ventilator 50.00 09/20/20 20:00 104 22 100/63 (75) 95 Mechanical Ventilator 60.00 09/20/20 19:25 110 19 95 50 09/20/20 19:00 105 20 101/59 (73) 96 Mechanical Ventilator 60.00 09/20/20 19:00 110 09/20/20 18:00 96 22 93/59 (70) 96 Mechanical Ventilator 60.00 09/20/20 17:00 90 26 96/62 (73) 94 Mechanical Ventilator 60.00 09/20/20 16:00 104 25 96/61 (73) 97 Mechanical Ventilator 60.00 09/20/20 15:45 37.0 09/20/20 15:00 110 21 93/59 (70) 94 Mechanical Ventilator 60.00 09/20/20 14:46 112 25 94 50 09/20/20 14:00 101 22 92/66 (75) 97 Mechanical Ventilator 60.00 09/20/20 13:00 108 9 85/60 (68) 97 Mechanical Ventilator 60.00 09/20/20 12:54 103 09/20/20 12:00 109 9 95/58 (70) 97 Mechanical Ventilator 60.00 09/20/20 11:21 36.1 09/20/20 11:09 112 22 97 50 09/20/20 11:00 113 24 95/67 (76) 97 Mechanical Ventilator 60.00 09/20/20 10:00 105 17 93/64 (74) 98 Mechanical Ventilator 60.00 09/20/20 09:00 107 29 98/58 (71) 98 Mechanical Ventilator 60.00 09/20/20 09:00 97 Mechanical Ventilator 09/20/20 08:00 110 18 102/65 (77) 98 Mechanical Ventilator 60.00 09/20/20 07:44 35.8 09/20/20 07:06 115 24 98 60 09/20/20 07:00 109 09/20/20 07:00 110 20 96/69 (78) 98 Mechanical Ventilator 60.00 09/20/20 06:00 112 29 99/68 (78) 98 Mechanical Ventilator 60.00 I & O 09/21/20 07:00 Intake Total 60 ml Output Total 705 ml Balance -645 ml Height & Weight Height: 5'2.00" Weight: 90lbs. 6.0oz. 40.752688wd; 17.85 BMI Method: General Appearance: WD/WN, Moderate Distress HEENT: PERRL/EOMI, Pharynx Normal, Moist Mucous Membranes Respiratory: Chest Non Tender, Decreased Breath Sounds, Respiratory Distress, Other (ventilatory dependent) Cardiovascular: Regular Rate, Rhythm Capillary Refill: Less Than 3 Seconds Skin: Normal Color, Warm/Dry Lymphatic: No Adenopathy Results Lab Laboratory Tests 09/19/20 19:27 09/20/20 03:10 09/21/20 02:30 Assessment/Plan Assessment/Plan Acute on chronic respiratory failure s/p tracheostomy at [facility] -Continue ventilatory care -COVID Negative -Influenza is negative -MRSA swab pending Pneumonia with sepsis hx of resistent Pseudomonus -Change Cefepime to Merrem -Richter cultures pending Anemia -Monitor Metabolic lactic acidosis -IVF -Monitor NORAH FOUNTAIN DO Sep 21, 2020 05:14
[2020-09-21] MEDS: morphine INJ 10 MG/ML 1ML (SYR OR VIAL) IVP PRN ×3 (05:27→22:10)
[2020-09-21] MEDS: MEROPENEM 1,000 MG in WATER (STERILE) FOR INJECTION 20 ML IV SCH ×3 (05:27→21:33)
[2020-09-21] MEDS: POTASSIUM CL 10MEQ/50ML IVPB 50 ML IV SCH (07:06)
[2020-09-21] MEDS: KCL 20 MEQ TAB (K-DUR) PO SCH (07:06)
[2020-09-21] MEDS: MAGNESIUM 1 GM/100 ML IVPB 100 ML IV SCH (07:06)
[2020-09-21] MEDS: LACTATED RINGERS 1,000 ML IV SCH ×2 (08:36→17:26)
--- NOTE | 2020-09-21 08:46 | Cardiology Progress Note ---
Subjective Date Seen by Provider: Sep 21, 2020 Time Seen by Provider: 08:44 Subjective/Events-last exam Patient is on a ventilator, has tracheostomy, awake and following commands Review of Systems General: No Chills, No Night Sweats; Fatigue, Malaise; No Appetite, No Other Pulmonary: Dyspnea, Cough; No Pleuritic Chest Pain, No Other Cardiovascular: No: Chest Pain, Palpitations, Orthopnea, Paroxysmal Noc. Dyspnea, Edema, Lt Headedness, Other Focused Exam Lactate Level 09/19/20 19:27: Lactic Acid Level 4.16*H 09/19/20 21:09: Lactic Acid Level 2.18*H 09/19/20 23:20: Lactic Acid Level 1.74 Objective-Cardiology Exam Last Set of Vital Signs Vital Signs 09/21/20 09/21/20 09/21/20 09/21/20 03:26 07:59 08:00 08:41 Temp 36.0 Pulse 82 Resp 14 B/P (MAP) 89/49 (62) Pulse Ox 92 O2 Delivery Mechanical Ventilator O2 Flow Rate 50.00 FiO2 40 Capillary Refill : Less Than 3 Seconds I&O Intake and Output 09/21/20 00:00 Intake Total 70 ml Output Total 800 ml Balance -730 ml Intake Oral 60 ml IV Total 10 ml Output Urine Total 800 ml Daily Weight Change Unsure/Unresponsive General: Alert, Cooperative, Mild Distress HEENT: Atraumatic Neck: Supple Lungs: Normal Air Movement, Other (bilateral rhonchi) Heart: Regular Rate, Normal S1, Normal S2 Abdomen: Normal Bowel Sounds Extremities: No Clubbing Skin: No Rashes, No Breakdown Neuro: Other (Coon and ventilator dependent) Psych/Mental Status: Mental Status NL, Other (ventilator dependent) Results Lab Laboratory Tests 09/21/20 02:30 A/P-Cardiology Admission Diagnosis Acute respiratory failure Sepsis Type II myocardial infarction Assessment/Plan Acute on chronic respiratory failure, 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 Currently awake, ventilator dependent, has tracheostomy, sputum grew gram-negative rods. Managed by Dr. Velazquez Mild elevation in troponin, probably type II myocardial infarction due to severe hypoxemia and sepsis Sepsis, leukocytosis. managed by Dr. Velazquez History of paroxysmal atrial fibrillation, had few episode of atrial fibrillation in May during her admission and she was maintained on amiodarone and digoxin on transfer to History of COPD. Clinical Quality Measures DVT/VTE Risk/Contraindication: Risk Factor Score Per Nursin RFS Level Per Nursing on Admit: 4+=Very High PORTILLO MARROQUIN MD Sep 21, 2020 08:46
[2020-09-21] MEDS: LORazepam INJ 2 MG/ML (ATIVAN) VIAL IVP PRN ×2 (09:54→18:20)
--- NOTE | 2020-09-21 10:18 | NUR ---
PATIENT REPORTS FEELING SOA, O2 SATS 93-94%. NOTIFIED DR. FOUNTAIN, RECEIVED NEW ORDERS.
[2020-09-21 10:23] LABS: ABG BASE EXCESS 5.1 MMOL/L (-2.5-2.5); ABG OXYGEN SATURATION 98 % (94-100); ABG PCO2 62 MMHG (35-45); ABG PO2 103 MMHG (79-93)
[2020-09-21 10:35] LABS: ABG PH 7.32 (7.37-7.43); ALLENS TEST POS; INSPIRED O2 50; PATIENT TEMP 36.3; VENTILATOR YES
[2020-09-21] MEDS: EPINEPHrine 1 MG INJECTION 4 MG in NS (IVPB) 246 ML IV SCH (10:41)
[2020-09-21] MEDS: NOREPINEPHRINE 4 MG/250 ML 250 ML IV SCH (10:41)
[2020-09-21] MEDS ORDERED: DEXTROSE 50% 50 ML (IMS) SYR IV ONE (11:30)
[2020-09-21] MEDS: D5 LR IV SOLUTION 1,000 ML IV SCH (11:35)
--- NOTE | 2020-09-21 12:18 | Progress Note - Hospitalist ---
Subjective HPI/CC On Admission Date Seen by Provider: Sep 21, 2020 Time Seen by Provider: 11:45 Subjective/Events-last exam No major issues Very frail Trach and vent Focused Exam Lactate Level 09/19/20 19:27: Lactic Acid Level 4.16*H 09/19/20 21:09: Lactic Acid Level 2.18*H 09/19/20 23:20: Lactic Acid Level 1.74 Objective Exam Vital Signs Vital Signs Date Time Temp Pulse Resp B/P (MAP) Pulse Ox O2 Delivery O2 Flow Rate FiO2 09/21/20 20:02 36.8 09/21/20 19:00 93 09/21/20 18:00 11 99/62 (74) 96 Mechanical Ventilator 50.00 09/21/20 09:19 40 Capillary Refill : Less Than 3 Seconds General Appearance: No Apparent Distress, WD/WN, Chronically ill, Cachetic Respiratory: Lungs Clear Results/Procedures Lab Laboratory Tests 09/21/20 02:30 Patient resulted labs reviewed. Assessment/Plan Assessment and Plan Assess & Plan/Chief Complaint Prognosis poor Trach Vent Clinical Quality Measures DVT/VTE Risk/Contraindication: Risk Factor Score Per Nursin RFS Level Per Nursing on Admit: 4+=Very High TARIK JASSO DO Sep 21, 2020 12:18
[2020-09-21] MEDS: VANCOMYCIN INJECTION 500 MG in NS (IVPB) 100 ML IV SCH (21:28)
[2020-09-21] MEDS: MELATONIN 3 MG TABLET PO SCH (21:31)
[2020-09-21] MEDS: ENOXAPARIN 30 MG/0.3 ML (LOVENOX) SYR SC SCH (21:32)
[2020-09-22] VITALS (29 sets, daily range): BP systolic 89–112; BP diastolic 47–71
[2020-09-22] MEDS: LACTATED RINGERS 1,000 ML IV SCH ×4 (00:34→18:15)
[2020-09-22 02:23] LABS: ABG OXYGEN SATURATION 92 % (94-100); ABG PCO2 51 MMHG (35-45); ABG PH 7.43 (7.37-7.43); ABG PO2 67 MMHG (79-93); ABG TCO2 35.2 MMOL/L (21.0-31.0)
[2020-09-22 02:24] LABS: ALLENS TEST YES-POS; INSPIRED O2 45%; PATIENT TEMP 36.3; VENTILATOR YES
[2020-09-22 02:27] LABS: BASOPHILS # (AUTO) 0.1 10^3/uL (0.0-0.1); BASOPHILS % (AUTO) 1 % (0-10); EOSINOPHILS # (AUTO) 0.2 10^3/uL (0.0-0.3); EOSINOPHILS % (AUTO) 2 % (0-10); HEMATOCRIT 29 % (35-52); HEMOGLOBIN 8.6 g/dL (11.5-16.0); LYMPHOCYTES # (AUTO) 0.6 10^3/uL (1.0-4.0); LYMPHOCYTES % (AUTO) 6 % (12-44); MEAN CORPUSCULAR HEMOGLOBIN 28 pg (25-34); MEAN CORPUSCULAR HGB CONC 30 g/dL (32-36); MEAN CORPUSCULAR VOLUME 92 fL (80-99); MEAN PLATELET VOLUME 9.1 fL (9.0-12.2); MONOCYTES # (AUTO) 0.6 10^3/uL (0.0-1.0); MONOCYTES % (AUTO) 5 % (0-12); NEUTROPHILS # (AUTO) 9.7 10^3/uL (1.8-7.8); NEUTROPHILS % (AUTO) 86 % (42-75); PLATELET COUNT 397 10^3/uL (130-400); WHITE BLOOD COUNT 11.2 10^3/uL (4.3-11.0)
[2020-09-22 02:34] LABS: CHLORIDE 99 MMOL/L (98-107); SODIUM 139 MMOL/L (135-145)
[2020-09-22 02:35] LABS: CALCIUM 7.9 MG/DL (8.5-10.1); GLUCOSE 82 MG/DL (70-105)
[2020-09-22 02:37] LABS: CARBON DIOXIDE 31 MMOL/L (21-32)
[2020-09-22 02:39] LABS: CREATININE SERUM 0.42 MG/DL (0.60-1.30); GFR ESTIMATED > 60; PHOSPHORUS 2.5 MG/DL (2.3-4.7)
[2020-09-22 02:40] LABS: BUN/CREATININE RATIO 29
[2020-09-22 02:42] LABS: MAGNESIUM 1.6 MG/DL (1.6-2.4)
[2020-09-22] MEDS: RT-ALBUTEROL INHALER HFA (VENTOLIN HFA) 18 GM IH SCH ×4 (03:03→21:30)
--- NOTE | 2020-09-22 04:36 | Pulmonary Progress Note ---
Subjective Time Seen by a Provider: 04:31 Subjective/Events-last exam No complications noted. Sepsis Event Evaluation Height, Weight, BMI Height: 5'2.00" Weight: 90lbs. 6.0oz. 40.154793bh; 17.85 BMI Method: Focused Exam Lactate Level 09/19/20 19:27: Lactic Acid Level 4.16*H 09/19/20 21:09: Lactic Acid Level 2.18*H 09/19/20 23:20: Lactic Acid Level 1.74 Exam Exam Vital Signs Date Time Temp Pulse Resp B/P (MAP) Pulse Ox O2 Delivery O2 Flow Rate FiO2 09/22/20 04:00 92 112/59 (76) 94 Mechanical Ventilator 50.00 09/22/20 03:03 99 18 92 45 09/22/20 03:00 97 14 95/54 (68) 93 Mechanical Ventilator 50.00 09/22/20 02:00 87 95/54 (68) 94 Mechanical Ventilator 50.00 09/22/20 01:13 89 09/22/20 01:00 87 20 104/49 (67) 93 Mechanical Ventilator 50.00 09/22/20 00:00 90 14 98/54 (69) 94 Mechanical Ventilator 50.00 09/21/20 23:33 89 18 94 45 09/21/20 23:00 92 16 99/49 (66) 94 Mechanical Ventilator 50.00 09/21/20 22:00 92 18 93/58 (70) 94 Mechanical Ventilator 50.00 09/21/20 21:57 36.8 93 97 45 09/21/20 21:00 92 Mechanical Ventilator 09/21/20 21:00 91 93/58 (70) 94 Mechanical Ventilator 50.00 09/21/20 20:02 36.8 09/21/20 20:00 92 38 93/56 (68) Mechanical Ventilator 50.00 09/21/20 19:00 93 09/21/20 19:00 96 86/53 (64) 86 Mechanical Ventilator 50.00 09/21/20 18:35 109 30 97 45 09/21/20 18:00 94 11 99/62 (74) 96 Mechanical Ventilator 50.00 09/21/20 17:00 91 20 99/59 (72) 94 Mechanical Ventilator 50.00 09/21/20 16:57 36.6 09/21/20 16:03 113 9 98/58 (71) 93 Mechanical Ventilator 50.00 09/21/20 15:00 112 14 93/62 (72) 93 Mechanical Ventilator 50.00 09/21/20 14:00 88 90/62 (71) 93 Mechanical Ventilator 50.00 09/21/20 13:00 85 91/54 (66) 92 Mechanical Ventilator 50.00 09/21/20 12:20 103 09/21/20 12:00 101 95/53 (67) 93 Mechanical Ventilator 50.00 09/21/20 11:50 36.7 09/21/20 11:00 106 15 96/60 (72) 96 Mechanical Ventilator 50.00 09/21/20 10:00 115 10 94/57 (69) 97 Mechanical Ventilator 50.00 09/21/20 09:19 117 27 94 40 09/21/20 09:00 110 31 97/65 (76) 92 Mechanical Ventilator 50.00 09/21/20 08:41 92 Mechanical Ventilator 09/21/20 08:00 82 14 89/49 (62) 94 Mechanical Ventilator 50.00 09/21/20 07:59 36.0 09/21/20 07:00 107 09/21/20 07:00 75 23 101/44 (63) 100 Mechanical Ventilator 50.00 09/21/20 06:00 86 15 106/64 (78) 93 Mechanical Ventilator 50.00 09/21/20 05:00 86 12 94/54 (67) 93 Mechanical Ventilator 50.00 I & O 09/22/20 07:00 Intake Total 1030 ml Output Total 700 ml Balance 330 ml Height & Weight Height: 5'2.00" Weight: 90lbs. 6.0oz. 40.141298je; 17.85 BMI Method: General Appearance: No Apparent Distress, WD/WN, Chronically ill, Cachetic HEENT: PERRL/EOMI, Moist Mucous Membranes, Other (trach ) Neck: Full Range of Motion, Normal Inspection, Non Tender Respiratory: Lungs Clear Cardiovascular: Regular Rate, Rhythm, No Edema, No Gallop, No JVD, No Murmur, Normal Peripheral Pulses Capillary Refill: Less Than 3 Seconds Extremity: Normal Capillary Refill, Normal Inspection, Normal Range of Motion, Non Tender, No Calf Tenderness, No Pedal Edema Neurologic/Psychiatric: Disoriented Skin: Normal Color, Warm/Dry Lymphatic: No Adenopathy Results Lab Laboratory Tests 09/21/20 02:30 09/22/20 02:12 Assessment/Plan Assessment/Plan Acute on chronic respiratory failure s/p tracheostomy at [facility] -Obtain home Vent -Continue ventilatory care -COVID Negative -Influenza is negative -MRSA swab pending 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
[2020-09-22] MEDS: POTASSIUM CL 10MEQ/50ML IVPB 50 ML IV SCH (05:39)
[2020-09-22] MEDS: MAGNESIUM 1 GM/100 ML IVPB 100 ML IV SCH (05:39)
[2020-09-22] MEDS: EPINEPHrine 1 MG INJECTION 4 MG in NS (IVPB) 246 ML IV SCH ×2 (05:39→21:35)
[2020-09-22] MEDS: NOREPINEPHRINE 4 MG/250 ML 250 ML IV SCH ×2 (05:39→20:45)
[2020-09-22] MEDS: KCL 20 MEQ TAB (K-DUR) PO SCH (05:40)
[2020-09-22] MEDS: MEROPENEM 1,000 MG in WATER (STERILE) FOR INJECTION 20 ML IV SCH ×3 (06:48→20:49)
[2020-09-22] MEDS: morphine INJ 10 MG/ML 1ML (SYR OR VIAL) IVP PRN ×5 (07:04→20:47)
--- NOTE | 2020-09-22 07:14 | Progress Note ---
Subjective Date Seen by a Provider: Sep 22, 2020 Time Seen by a Provider: 06:45 Subjective/Events-last exam Patient is communicating and doesn't appear to be in any distress. She is feeding better comparing to when she came in. Focused Exam Lactate Level 09/19/20 19:27: Lactic Acid Level 4.16*H 09/19/20 21:09: Lactic Acid Level 2.18*H 09/19/20 23:20: Lactic Acid Level 1.74 Objective Exam Vital Signs Date Time Temp Pulse Resp B/P (MAP) Pulse Ox O2 Delivery O2 Flow Rate FiO2 09/22/20 06:00 96 93/71 (78) Mechanical Ventilator 50.00 09/22/20 05:00 96 107/56 (73) 93 Mechanical Ventilator 50.00 09/22/20 04:00 92 112/59 (76) 94 Mechanical Ventilator 50.00 09/22/20 03:03 99 18 92 45 09/22/20 03:00 97 14 95/54 (68) 93 Mechanical Ventilator 50.00 09/22/20 02:00 87 95/54 (68) 94 Mechanical Ventilator 50.00 09/22/20 01:13 89 09/22/20 01:00 87 20 104/49 (67) 93 Mechanical Ventilator 50.00 09/22/20 00:00 90 14 98/54 (69) 94 Mechanical Ventilator 50.00 09/21/20 23:33 89 18 94 45 09/21/20 23:00 92 16 99/49 (66) 94 Mechanical Ventilator 50.00 09/21/20 22:00 92 18 93/58 (70) 94 Mechanical Ventilator 50.00 09/21/20 21:57 36.8 93 97 45 09/21/20 21:00 92 Mechanical Ventilator 09/21/20 21:00 91 93/58 (70) 94 Mechanical Ventilator 50.00 09/21/20 20:02 36.8 09/21/20 20:00 92 38 93/56 (68) Mechanical Ventilator 50.00 09/21/20 19:00 93 09/21/20 19:00 96 86/53 (64) 86 Mechanical Ventilator 50.00 09/21/20 18:35 109 30 97 45 09/21/20 18:00 94 11 99/62 (74) 96 Mechanical Ventilator 50.00 11/1/20 17:00 91 20 99/59 (72) 94 Mechanical Ventilator 50.00 09/21/20 16:57 36.6 09/21/20 16:03 113 9 98/58 (71) 93 Mechanical Ventilator 50.00 09/21/20 15:00 112 14 93/62 (72) 93 Mechanical Ventilator 50.00 09/21/20 14:00 88 90/62 (71) 93 Mechanical Ventilator 50.00 09/21/20 13:00 85 91/54 (66) 92 Mechanical Ventilator 50.00 09/21/20 12:20 103 09/21/20 12:00 101 95/53 (67) 93 Mechanical Ventilator 50.00 09/21/20 11:50 36.7 09/21/20 11:00 106 15 96/60 (72) 96 Mechanical Ventilator 50.00 09/21/20 10:00 115 10 94/57 (69) 97 Mechanical Ventilator 50.00 09/21/20 09:19 117 27 94 40 09/21/20 09:00 110 31 97/65 (76) 92 Mechanical Ventilator 50.00 09/21/20 08:41 92 Mechanical Ventilator 09/21/20 08:00 82 14 89/49 (62) 94 Mechanical Ventilator 50.00 09/21/20 07:59 36.0 I & O 09/22/20 07:00 Intake Total 1130 ml Output Total 925 ml Balance 205 ml Capillary Refill : Less Than 3 Seconds General Appearance: No Apparent Distress, Cachetic Neck: Supple Respiratory: Lungs Clear (predominant) Cardiovascular: Regular Rate, Rhythm Gastrointestinal: soft Extremity: Normal Capillary Refill, No Pedal Edema Neurologic/Psychiatric: Alert, Oriented x3 Results Lab Laboratory Tests 09/21/20 10:21: Blood Gas Puncture Site RT RAD, Blood Gas Patient Temperature 36.3, Arterial Blood pH 7.32*L, Arterial Blood Partial Pressure CO2 62H, Arterial Blood Partial Pressure O2 103H, Arterial Blood HCO3 31H, Arterial Blood Total CO2 33.0H, Arterial Blood Oxygen Saturation 98, Arterial Blood Base Excess 5.1H, Kang Test POS, Blood Gas Ventilator Setting YES, Blood Gas Inspired Oxygen 50 09/21/20 11:19: Glucometer 68L 09/22/20 02:10: Blood Gas Puncture Site RIGHT RADIAL, Blood Gas Patient Temperature 36.3, Arterial Blood pH 7.43, Arterial Blood Partial Pressure CO2 51H, Arterial Blood Partial Pressure O2 67L, Arterial Blood HCO3 34H, Arterial Blood Total CO2 35.2H , Arterial Blood Oxygen Saturation 92L, Arterial Blood Base Excess 9.0H, Kang Test YES-POS, Blood Gas Ventilator Setting YES, Blood Gas Inspired Oxygen 45% 09/22/20 02:12: White Blood Count 11.2H, Red Blood Count 3.11L, Hemoglobin 8.6L, Hematocrit 29L, Mean Corpuscular Volume 92, Mean Corpuscular Hemoglobin 28, Mean Corpuscular Hemoglobin Concent 30L, Red Cell Distribution Width 15.8H, Platelet Count 397, Mean Platelet Volume 9.1, Immature Granulocyte % (Auto) 0, Neutrophils (%) (Auto) 86H, Lymphocytes (%) (Auto) 6L, Monocytes (%) (Auto) 5, Eosinophils (%) (Auto) 2, Basophils (%) (Auto) 1, Neutrophils # (Auto) 9.7H, Lymphocytes # (Auto) 0.6L, Monocytes # (Auto) 0.6, Eosinophils # (Auto) 0.2, Basophils # (Auto) 0.1, Immature Granulocyte # (Auto) 0.1, Sodium Level 139, Potassium Level 4.0, Chloride Level 99, Carbon Dioxide Level 31, Anion Gap 9, Blood Urea Nitrogen 12, Creatinine 0.42L, Estimat Glomerular Filtration Rate > 60, BUN/Creatinine Ratio 29, Glucose Level 82, Calcium Level 7.9L, Phosphorus Level 2.5, Magnesium Level 1.6 Microbiology 09/19/20 Gram Stain - Final, Resulted 09/19/20 Sputum Culture - Preliminary, Resulted Pseudomonas aeruginosa 09/19/20 Urine Culture - Preliminary, Resulted Escherichia coli 09/19/20 Blood Culture - Preliminary, Resulted No growth Assessment/Plan Assessment/Plan Assess & Plan/Chief Complaint 1. Acute on chronic respiratory failure s/p tracheostomy -covid and influenza negative -on home vent 2. 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 S/P Trach from [facility] hospital in 4. Anemia -stable at 8.6 -daily CBC Clinical Quality Measures DVT/VTE Risk/Contraindication: Risk Factor Score Per Nursin RFS Level Per Nursing on Admit: 4+=Very High RAJESH DAVENPORT MD Sep 22, 2020 07:13
--- NOTE | 2020-09-22 07:17 | Diagnostic Imaging Report ---
INDICATION: Tracheostomy and pneumonia. COMPARISON: 09/19/2020. FINDINGS: Single view of the chest demonstrates increasing effusion in the left base. Consolidation and infiltrates in the right base are stable. Subtle infiltrates are present in the left base. There is no pneumothorax. The heart is prominent. Tracheostomy is stable. IMPRESSION: Increasing effusion left base otherwise unchanged aeration. Dictated by: Dictated on workstation # [id number]
[2020-09-22] MEDS: aCETylcysteine 20% (MUCOMYST) 30ML SOLN VIAL INH SCH ×3 (07:34→21:42)
[2020-09-22] MEDS: guaiFENesin (MUCINEX) 600 MG TAB PO SCH ×2 (08:55→20:45)
[2020-09-22] MEDS ORDERED: aCETylcysteine 20% (MUCOMYST) 30ML SOLN VIAL INH SCH (09:00)
--- NOTE | 2020-09-22 09:11 | Cardiology Progress Note ---
Subjective Date Seen by Provider: Sep 22, 2020 Time Seen by Provider: 09:08 Subjective/Events-last exam Patient is sitting in bed, improving. Still on ventilatory Review of Systems General: No Chills, No Night Sweats; Fatigue, Malaise; No Appetite, No Other HEENT: No Head Aches, No Visual Changes, No Eye Pain, No Ear Pain, No Dysphasia, No Sinus Congestion, No Post Nasal Drip, No Sore Throat, No Other Pulmonary: Dyspnea; No Cough, No Pleuritic Chest Pain, No Other Cardiovascular: No: Chest Pain, Palpitations, Orthopnea, Paroxysmal Noc. Dyspnea, Edema, Lt Headedness, Other Focused Exam Lactate Level 09/19/20 19:27: Lactic Acid Level 4.16*H 09/19/20 21:09: Lactic Acid Level 2.18*H 09/19/20 23:20: Lactic Acid Level 1.74 Objective-Cardiology Exam Last Set of Vital Signs Vital Signs 09/21/20 09/22/20 09/22/20 21:57 06:00 07:34 Temp 36.8 Pulse 105 Resp 20 B/P (MAP) 93/71 (78) Pulse Ox 96 O2 Delivery Mechanical Ventilator O2 Flow Rate 50.00 FiO2 45 Capillary Refill : Less Than 3 Seconds I&O Intake and Output 09/22/20 00:00 Intake Total 1130 ml Output Total 1055 ml Balance 75 ml Intake Oral 0 ml IV Total 1100 ml Other 30 ml Output Urine Total 1055 ml General: Alert, Cooperative, Mild Distress HEENT: Atraumatic Neck: Supple Lungs: Normal Air Movement, Other (bilateral rhonchi) Heart: Regular Rate, Normal S1, Normal S2 Abdomen: Normal Bowel Sounds Extremities: No Clubbing Skin: No Rashes, No Breakdown Neuro: Other (tracheostomy and ventilator dependent) Psych/Mental Status: Mental Status NL, Other (ventilator dependent) Results Lab Laboratory Tests 09/22/20 02:12 A/P-Cardiology Admission Diagnosis Acute respiratory failure Sepsis Type II myocardial infarction Assessment/Plan Acute on chronic respiratory failure, 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 Currently awake, ventilator dependent, has tracheostomy, sputum grew gram-negative rods. Managed by Dr. Velazquez Mild elevation in troponin, probably type II myocardial infarction due to severe hypoxemia and sepsis Sepsis, leukocytosis. managed by Dr. Velazquez History of paroxysmal atrial fibrillation, had few episode of atrial fibrillation in May during her admission and she was maintained on amiodarone and digoxin on transfer to History of COPD. Clinical Quality Measures DVT/VTE Risk/Contraindication: Risk Factor Score Per Nursin RFS Level Per Nursing on Admit: 4+=Very High PORTILLO MARROQUIN MD Sep 22, 2020 09:11
--- NOTE | 2020-09-22 10:34 | Physical Therapy Evaluation ---
PT Evaluation-General Medical Diagnosis Admission Date Sep 19, 2020 at 20:20 Medical Diagnosis: severe sepsis/acute/chronic respiratory failure Onset Date: Oct 20, 2010 Therapy Diagnosis Therapy Diagnosis: debility Height/Weight Height (Feet): 5 Height (Inches): 2.00 Weight (Pounds): 90 Weight (Ounces): 6.0 Precautions Precautions/Isolations: Fall Prevention, Standard Precautions Referral Physician: Caroline Reason for Referral: Evaluation/Treatment Medical History Pertinent Medical History: COPD, Dementia, HTN Additional Medical History PEG, trach/home vent Current History EMS secondary to respiratory distress/patient has trach and on home vent (recent dismissal from ) Reviewed History: Yes Social History Home: Single Level Current Living Status: Spouse Entry Into Home: Ramp Prior Prior Level of Function SCALE: Activities may be completed with or without assistive devices. 7-Kpivqtlsiy-fmllbla completes the activity by him/herself with no assistance from a helper. 5-Set-up or Clean-up Assistance-helper sets up or cleans up; patient completes activity. [place] assists only prior to or following the activity. 4-Supervision or Touching Assistance-helper provides verbal cues and/or touching/steadying and/or contact guard assistance as patient completes activity. Assistance may be provided throughout the activity or intermittently. 3-Partial/Moderate Assistance-helper does LESS THAN HALF the effort. [place] lifts, holds or supports trunk or limbs, but provides less than half the effort. 2-Substantial/Maximal Assistance-helper does MORE THAN HALF the effort. [place] lifts or holds trunk or limbs and provides more than half the effort. 6-Xtoyodgpe-xmuxve does ALL the effort. Patient does none of the effort to complete the activity. Or, the assistance of 2 or more helpers is required for the patient to complete the activity. If activity was not attempted, code reason: 7-Patient Refused. 9-Not Applicable-not attempted and the patient did not perform the activity before the current illness, exacerbation or injury. 10-Not Attempted due to Environmental Limitations-(lack of equipment, weather restraints, etc.). 88-Not Attempted due to Medical Conditions or Safety Concerns. Bed Mobility: 1 Transfers (B,C,W/C): 1 Gait: 9 Stairs: 9 Wheelchair Mobility: 9 Indoor Mobility (Ambulation): Not Applicalbe Stairs: Not Applicalbe PT Evaluation-Current Subjective Patient agrees to PT. Objective Patient Orientation: Person Attachments: Oxygen (trach/vent), PEG Tube, Diego Catheter, IV ROM/Strength ROM Lower Extremities bilateral LE WFL Strength Lower Extremities noted atrophy bilateral LE with drop foot (grossly 2-/5 bilaterally) Integumentary/Posture Integumentary refer to nursing notes Bladder Incontinence: Diego Cath Posture kyphotic Neuromuscular (Tone, Coordination, Reflexes) severely diminished due to deconditioned state PLOF Sensory Vision: Functional Hearing: Functional Transfers Roll Left to Right (QC): 1 (x 2) Sit to Lying (QC): 1 (x 2) Lying to Sitting/Side of Bed(Q: 1 (x 2) Sit to Stand (QC): 1 (x 2) bilateral extension with sit to stand transfers/patient sat EOB with max assist to maintain upright while RN tended to patient needs. Gait Does the Patient Walk?: No and Walking Goal NOT indicated Balance Sitting Static: Poor Sitting Dynamic: Poor Assessment/Needs 80 y.o. female will be seen short term by skilled PT to address functional strength and mobility. Patient is dependent PLOF. Rehab Potential: Guarded PT Shelter Goals Hospital Cleaner Goals PT Hospital Cleaner Goals Time Frame: Oct 04, 2020 Roll Left & Right (QC): 1 Sit to Lying (QC): 1 Lying-Sitting on Side/Bed(QC): 1 Sit to Stand (QC): 1 Chair/Yay-cb-Nmygu Xfer(QC): 1 PT Plan Problem List Problem List: Activity Tolerance, Functional Strength, Safety, Balance, Transfer, Bed Mobility Treatment/Plan Treatment Plan: Continue Plan of Care Treatment Plan: Bed Mobility, Education, Functional Activity Marybeth, Functional Strength, Safety, Therapeutic Exercise, Transfers Treatment Duration: Oct 04, 2020 Frequency: 5 times per week Estimated Hrs Per Day: .25 hour per day Patient and/or Family Agrees t: Yes Time/GCodes Time In: 830 Time Out: 856 Total Billed Treatment Time: 26 Total Billed Treatment 1 visit EVModC 10 min FA 16 min BISMARK SNOWDEN PT Sep 22, 2020 10:34
[2020-09-22] MEDS: D5 LR IV SOLUTION 1,000 ML IV SCH (12:43)
[2020-09-22] MEDS ORDERED: MELA3TAB39 PO (14:27)
[2020-09-22] MEDS ORDERED: FURO20TA4 (14:27)
[2020-09-22] MEDS ORDERED: APIX5TAB (14:27)
[2020-09-22] MEDS ORDERED: CHOL100048 (14:27)
[2020-09-22] MEDS ORDERED: SERT50TA9 (14:27)
[2020-09-22] MEDS ORDERED: ACHD5005 (14:27)
[2020-09-22] MEDS ORDERED: PANT40TA52 (14:27)
[2020-09-22] MEDS ORDERED: ALPR0.254 (14:27)
[2020-09-22] MEDS ORDERED: LEVO75TA6 (14:27)
[2020-09-22] MEDS ORDERED: POTA10TA14 (14:27)
[2020-09-22] MEDS ORDERED: SENN-109 (14:27)
[2020-09-22] MEDS ORDERED: IPRA3AMP31 NEB (14:27)
[2020-09-22] MEDS ORDERED: ACET650O4 PO (14:27)
[2020-09-22] MEDS ORDERED: [UNRECOGNIZED DRUG - CODE] NEB (14:33)
--- NOTE | 2020-09-22 14:33 | NUR ---
UNABLE TO SPEAK WITH PT AT THIS TIME- I CALLED PTS (JIMMY) AND HE LET ME KNOW THERE WAS A MEDICATION LIST FROM [facility] IN ICU. THE MEDICATION LIST ON PTS CHART IS THE DISCHARGE ORDER. I CALLED AND SPOKE WITH JIMMY AGAIN, GOT THE DISCHARGE ORDERS, WENT THRU THE EXT MED HISTORY AND CALLED LILIA AND GIN[facility] TO COMPLETE THE MED REC CIPROFLOXACIN 250MG IS NOT LISTED ON THE DISCHARGE ORDER, HOWEVER ACCORDING TO JIMMY PT IS TAKING 1 TAB DAILY FOR UTI PREVENTION OTC MEDS: MELATONIN TYLENOL VITAMIN D SENNA S FENTANYL 50MCG/ML IS LISTED ON THE DISCHARGE ORDERS BUT JIMMY SAID THAT WAS NEVER FILLED AT THE PHARMACY
--- NOTE | 2020-09-22 15:39 | NUR ---
CM/SS: Visited with pt as per consult related to home vent and needing records from previous hospital. Plan: Pt is from home and has had Sully at home. Plan to resume Sully at home at time of discharge Summary: Pt is able to answer questions for this worker. She has been at home for about three weeks to a month and has a vent at home. Pt reports that she does not have any help in the home - her spouse takes care of her. They are managing at this time. Explain my role with discharge planning and that this worker will follow up with spouse Giancarlo. Pt seems ok with that at this time. This worker will follow up.
--- NOTE | 2020-09-22 15:44 | NUR ---
CM/SS: Giancarlo ( phone number [phone]) brings pt trilogy machine from home and a copy of records from [facility]. Staff return the trilogy machine to ICU for pt. This worker received the records and place on the chart for Dr Velazquez to review. Spouse reports that pt has been home since August 21. He reports they have been managing and that they have [facility]. The trilogy/vent is from [facility]. Spouse reports that he thinks the pt should be out of the hospital pretty quick. Giancarlo has this workers number and is encouraged to call with questions or concerns. He verbalizes understanding. This worker will follow up.
[2020-09-22] MEDS: MELATONIN 3 MG TABLET PO SCH (20:45)
[2020-09-22] MEDS: ENOXAPARIN 30 MG/0.3 ML (LOVENOX) SYR SC SCH (20:49)
[2020-09-22] MEDS ORDERED: LACTATED RINGERS 500 ML IV SCH (22:15)
--- NOTE | 2020-09-22 22:49 | Physician Query Clarification ---
"Physician Query-General Query to Physician: The medical record reflects the following clinical scenario: History/Risk factors: Trach, Pneumonia, Cachexia Clinical Findings: P 122, RR 34, WBC 20.5 LA 4.16 Treatment: IV ABX, IV Fluids, Vent per trach Question: What condition best reflects the above clinical scenario? Please document response in the Progress notes or Discharge Summary. 1. Sepsis with Septic Shock present on admission 2. Sepsis (as currently documented) 3. Other , with explanation of the clinical findings 4. Clinically undetermined, no explanation for the clinical findings Please remember a lack of response to the above will prompt a phone page by CDI/coding staff In responding to this query, please exercise your independent professional judgment. The purpose of this communication is to more accurately reflect the complexity of your patients condition. The fact that a question is asked does not imply that any particular answer is desired or expected. Thank you for timely response to this clarification. Daphney Bhagat, MSN, RN RN Specialist-Clinical Doc Improvement CD -Health Info Mgmt Operations [address] [facility] t: [phone] | f: [phone] If you are unable to reach me at my extension, I may be working from home. Please contact me at [phone] PHYSICIAN RESPONSE: Based on the clinical findings in the record, please respond to the query above on this document as an addendum. Physician Response: Physician Response based upon her vital signs that were present on admission, sepsis with shock seems very appropriate If you have questions please contact: Key Account Representative: Ext: Thank you for your time and cooperation. Clinical Granite Fab[employer]ator/Key Account Representative This is a permanent part of the medical record DAPHNEY BHAGAT Sep 22, 2020 22:49 RAJESH DAVENPORT MD Sep 28, 2020 06:34"
[2020-09-23] VITALS (27 sets, daily range): BP systolic 86–118; BP diastolic 37–80
[2020-09-23] MEDS: aCETylcysteine 20% (MUCOMYST) 30ML SOLN VIAL INH SCH ×4 (02:39→22:42)
[2020-09-23] MEDS: RT-ALBUTEROL INHALER HFA (VENTOLIN HFA) 18 GM IH SCH (02:39)
[2020-09-23] MEDS: LACTATED RINGERS 1,000 ML IV SCH (02:44)
[2020-09-23] MEDS: morphine INJ 10 MG/ML 1ML (SYR OR VIAL) IVP PRN ×5 (03:16→20:33)
[2020-09-23 03:25] LABS: ABG BASE EXCESS 8.8 MMOL/L (-2.5-2.5); ABG OXYGEN SATURATION 75 % (94-100); ABG PCO2 44 MMHG (35-45); ABG PH 7.49 (7.37-7.43); ABG PO2 47 MMHG (79-93); ABG TCO2 34.1 MMOL/L (21.0-31.0)
[2020-09-23 03:28] LABS: BASOPHILS % (AUTO) 0 % (0-10); EOSINOPHILS # (AUTO) 0.2 10^3/uL (0.0-0.3); EOSINOPHILS % (AUTO) 2 % (0-10); HEMATOCRIT 27 % (35-52); HEMOGLOBIN 8.2 g/dL (11.5-16.0); LYMPHOCYTES # (AUTO) 0.5 10^3/uL (1.0-4.0); LYMPHOCYTES % (AUTO) 5 % (12-44); MEAN CORPUSCULAR HEMOGLOBIN 28 pg (25-34); MEAN CORPUSCULAR HGB CONC 30 g/dL (32-36); MEAN CORPUSCULAR VOLUME 91 fL (80-99); MEAN PLATELET VOLUME 9.3 fL (9.0-12.2); MONOCYTES # (AUTO) 0.6 10^3/uL (0.0-1.0); MONOCYTES % (AUTO) 6 % (0-12); NEUTROPHILS # (AUTO) 8.2 10^3/uL (1.8-7.8); NEUTROPHILS % (AUTO) 87 % (42-75); PLATELET COUNT 376 10^3/uL (130-400); WHITE BLOOD COUNT 9.4 10^3/uL (4.3-11.0)
[2020-09-23 03:29] LABS: ALLENS TEST YES-POS; INSPIRED O2 50%; PATIENT TEMP 36.9; VENTILATOR YES
[2020-09-23 03:39] LABS: CHLORIDE 98 MMOL/L (98-107); POTASSIUM 3.6 MMOL/L (3.6-5.0); SODIUM 139 MMOL/L (135-145)
[2020-09-23 03:41] LABS: GLUCOSE 75 MG/DL (70-105)
[2020-09-23 03:43] LABS: CARBON DIOXIDE 30 MMOL/L (21-32)
[2020-09-23 03:45] LABS: GFR ESTIMATED > 60; PHOSPHORUS 2.2 MG/DL (2.3-4.7)
[2020-09-23 03:46] LABS: BUN/CREATININE RATIO 23
[2020-09-23 03:47] LABS: MAGNESIUM 1.5 MG/DL (1.6-2.4)
--- NOTE | 2020-09-23 05:30 | Pulmonary Progress Note ---
Subjective Time Seen by a Provider: 05:27 Subjective/Events-last exam Pt is now on home vent. Sepsis Event Evaluation Height, Weight, BMI Height: 5'2.00" Weight: 90lbs. 6.0oz. 40.109775rx; 17.85 BMI Method: Exam Exam Vital Signs Date Time Temp Pulse Resp B/P (MAP) Pulse Ox O2 Delivery O2 Flow Rate FiO2 09/23/20 04:00 92 20 105/58 (74) 91 Mechanical Ventilator 50.00 09/23/20 04:00 36.7 09/23/20 03:00 96 22 100/52 (68) 99 Mechanical Ventilator 50.00 09/23/20 02:40 92 14 90 45 09/23/20 02:00 84 11 104/49 (67) 93 Mechanical Ventilator 50.00 09/23/20 01:00 89 11 100/47 (64) 93 Mechanical Ventilator 50.00 09/23/20 01:00 89 09/23/20 00:00 86 12 102/50 (67) 94 Mechanical Ventilator 50.00 09/23/20 00:00 36.5 09/22/20 23:00 95 9 98/47 (64) 92 Mechanical Ventilator 50.00 09/22/20 22:00 99 14 100/48 (65) 95 Mechanical Ventilator 50.00 09/22/20 21:45 85 15 95 45 09/22/20 21:00 95 Mechanical Ventilator 09/22/20 21:00 86 99/50 (66) 94 Mechanical Ventilator 50.00 09/22/20 20:45 101/53 09/22/20 20:01 36.7 09/22/20 20:00 86 15 103/60 (74) 96 Mechanical Ventilator 50.00 09/22/20 19:00 85 09/22/20 19:00 85 16 98/48 (65) 97 Mechanical Ventilator 50.00 09/22/20 18:33 95 14 96 45 09/22/20 18:00 105 24 108/56 (73) 97 Mechanical Ventilator 50.00 09/22/20 17:00 97 22 102/69 (80) 91 Mechanical Ventilator 50.00 09/22/20 16:00 84 26 108/57 (74) 96 Mechanical Ventilator 50.00 09/22/20 15:00 94 14 104/54 (71) 95 Mechanical Ventilator 50.00 09/22/20 14:34 93 15 95 45 09/22/20 14:00 87 18 89/47 (61) 95 Mechanical Ventilator 50.00 09/22/20 13:00 89 14 105/50 (68) 96 Mechanical Ventilator 50.00 09/22/20 12:40 91 09/22/20 12:00 85 18 112/55 (74) 96 Mechanical Ventilator 50.00 09/22/20 11:50 36.2 09/22/20 11:00 85 17 109/58 (75) 97 Mechanical Ventilator 50.00 09/22/20 10:00 89 24 100/54 (69) 96 Mechanical Ventilator 50.00 09/22/20 09:00 95 Mechanical Ventilator 09/22/20 09:00 96 20 97/55 (69) 93 Mechanical Ventilator 50.00 09/22/20 08:00 36.7 09/22/20 08:00 104 41 105/47 (66) 94 Mechanical Ventilator 50.00 09/22/20 07:34 105 20 96 45 09/22/20 07:00 89 13 106/66 (79) 93 Mechanical Ventilator 50.00 09/22/20 06:34 96 09/22/20 06:00 96 93/71 (78) Mechanical Ventilator 50.00 I & O 09/23/20 07:00 Intake Total 530 ml Output Total 500 ml Balance 30 ml Height & Weight Height: 5'2.00" Weight: 90lbs. 6.0oz. 40.059845mv; 17.85 BMI Method: General Appearance: No Apparent Distress, Cachetic HEENT: PERRL/EOMI, Moist Mucous Membranes, Other (trach ) Neck: Supple Respiratory: Lungs Clear (predominant) Cardiovascular: Regular Rate, Rhythm Capillary Refill: Less Than 3 Seconds Gastrointestinal: soft Extremity: Normal Capillary Refill, No Pedal Edema Neurologic/Psychiatric: Alert, Oriented x3 Skin: Normal Color, Warm/Dry Lymphatic: No Adenopathy Results Lab Laboratory Tests 09/22/20 02:12 09/23/20 03:15 Assessment/Plan Assessment/Plan Acute on chronic respiratory failure s/p tracheostomy at [facility] -PT is now on home Vent -Continue ventilatory care -COVID Negative -Influenza is negative -MRSA swab pending 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 SW is consulted. NORAH FOUNTAIN DO Sep 23, 2020 05:30
[2020-09-23] MEDS ORDERED: FUROSEMIDE 40 MG/4 ML INJ (LASIX) ONE (05:54)
[2020-09-23] MEDS: POTASSIUM CL 10MEQ/50ML IVPB 50 ML IV SCH (06:20)
[2020-09-23] MEDS: MAGNESIUM 1 GM/100 ML IVPB 100 ML IV SCH ×4 (06:20→08:15)
[2020-09-23] MEDS: KCL 20 MEQ TAB (K-DUR) PO SCH (06:21)
[2020-09-23] MEDS: MEROPENEM 1,000 MG in WATER (STERILE) FOR INJECTION 20 ML IV SCH (06:23)
--- NOTE | 2020-09-23 06:36 | Progress Note ---
Subjective Date Seen by a Provider: Sep 23, 2020 Time Seen by a Provider: 06:40 Subjective/Events-last exam Currently on home vent. She appear to be in no distress. Objective Exam Vital Signs Date Time Temp Pulse Resp B/P (MAP) Pulse Ox O2 Delivery O2 Flow Rate FiO2 09/23/20 05:00 90 14 104/52 (69) 93 Mechanical Ventilator 50.00 09/23/20 04:00 92 20 105/58 (74) 91 Mechanical Ventilator 50.00 09/23/20 04:00 36.7 09/23/20 03:00 96 22 100/52 (68) 99 Mechanical Ventilator 50.00 09/23/20 02:40 92 14 90 45 09/23/20 02:00 84 11 104/49 (67) 93 Mechanical Ventilator 50.00 09/23/20 01:00 89 11 100/47 (64) 93 Mechanical Ventilator 50.00 09/23/20 01:00 89 09/23/20 00:00 86 12 102/50 (67) 94 Mechanical Ventilator 50.00 09/23/20 00:00 36.5 09/22/20 23:00 95 9 98/47 (64) 92 Mechanical Ventilator 50.00 09/22/20 22:00 99 14 100/48 (65) 95 Mechanical Ventilator 50.00 09/22/20 21:45 85 15 95 45 09/22/20 21:00 95 Mechanical Ventilator 09/22/20 21:00 86 99/50 (66) 94 Mechanical Ventilator 50.00 09/22/20 20:45 101/53 09/22/20 20:01 36.7 09/22/20 20:00 86 15 103/60 (74) 96 Mechanical Ventilator 50.00 09/22/20 19:00 85 09/22/20 19:00 85 16 98/48 (65) 97 Mechanical Ventilator 50.00 09/22/20 18:33 95 14 96 45 09/22/20 18:00 105 24 108/56 (73) 97 Mechanical Ventilator 50.00 09/22/20 17:00 97 22 102/69 (80) 91 Mechanical Ventilator 50.00 09/22/20 16:00 84 26 108/57 (74) 96 Mechanical Ventilator 50.00 09/22/20 15:00 94 14 104/54 (71) 95 Mechanical Ventilator 50.00 09/22/20 14:34 93 15 95 45 09/22/20 14:00 87 18 89/47 (61) 95 Mechanical Ventilator 50.00 09/22/20 13:00 89 14 105/50 (68) 96 Mechanical Ventilator 50.00 09/22/20 12:40 91 09/22/20 12:00 85 18 112/55 (74) 96 Mechanical Ventilator 50.00 09/22/20 11:50 36.2 09/22/20 11:00 85 17 109/58 (75) 97 Mechanical Ventilator 50.00 09/22/20 10:00 89 24 100/54 (69) 96 Mechanical Ventilator 50.00 09/22/20 09:00 95 Mechanical Ventilator 09/22/20 09:00 96 20 97/55 (69) 93 Mechanical Ventilator 50.00 09/22/20 08:00 36.7 09/22/20 08:00 104 41 105/47 (66) 94 Mechanical Ventilator 50.00 09/22/20 07:34 105 20 96 45 09/22/20 07:00 89 13 106/66 (79) 93 Mechanical Ventilator 50.00 I & O 09/23/20 07:00 Intake Total 530 ml Output Total 500 ml Balance 30 ml Capillary Refill : Less Than 3 Seconds General Appearance: No Apparent Distress Results Lab Laboratory Tests 09/22/20 11:50: Glucometer 88 09/22/20 17:55: Glucometer 71 09/22/20 20:24: Glucometer 86 09/23/20 03:15: White Blood Count 9.4, Red Blood Count 2.98L, Hemoglobin 8.2L, Hematocrit 27L, Mean Corpuscular Volume 91, Mean Corpuscular Hemoglobin 28, Mean Corpuscular Hemoglobin Concent 30L, Red Cell Distribution Width 15.7H, Platelet Count 376, Mean Platelet Volume 9.3, Immature Granulocyte % (Auto) 0, Neutrophils (%) ( Auto) 87H, Lymphocytes (%) (Auto) 5L, Monocytes (%) (Auto) 6, Eosinophils (%) (Auto) 2, Basophils (%) (Auto) 0, Neutrophils # (Auto) 8.2H, Lymphocytes # (Auto) 0.5L, Monocytes # (Auto) 0.6, Eosinophils # (Auto) 0.2, Basophils # (Auto) 0.0, Immature Granulocyte # (Auto) 0.0, Blood Gas Puncture Site LEFT RADIAL, Blood Gas Patient Temperature 36.9, Arterial Blood pH 7.49H, Arterial Blood Partial Pressure CO2 44, Arterial Blood Partial Pressure O2 47L, Arterial Blood HCO3 33H, Arterial Blood Total CO2 34.1H, Arterial Blood Oxygen Saturation 75L, Arterial Blood Base Excess 8.8H, Kang Test YES-POS, Blood Gas Ventilator Setting YES, Blood Gas Inspired Oxygen 50%, Sodium Level 139, Potassium Level 3.6, Chloride Level 98, Carbon Dioxide Level 30, Anion Gap 11, Blood Urea Nitrogen 9, Creatinine 0.40L, Estimat Glomerular Filtration Rate > 60, BUN/Creatinine Ratio 23, Glucose Level 75, Calcium Level 8.0L, Phosphorus Level 2.2L, Magnesium Level 1.5L Microbiology 09/19/20 Gram Stain - Final, Resulted 09/19/20 Sputum Culture - Preliminary, Resulted Usual upper respiratory jose martin Pseudomonas aeruginosa 09/19/20 Urine Culture - Final, Complete Escherichia coli Escherichia coli#2 09/19/20 Blood Culture - Preliminary, Resulted No growth Assessment/Plan Assessment/Plan Assess & Plan/Chief Complaint 1. Acute on chronic respiratory failure s/p tracheostomy -covid and influenza negative -on home vent 11-3 -on home vent and no current respiratory distress 2. 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 S/P Trach from [facility] in 4. Anemia -stable at 8.6 -daily CBC Clinical Quality Measures DVT/VTE Risk/Contraindication: Risk Factor Score Per Nursin RFS Level Per Nursing on Admit: 4+=Very High RAJESH DAVENPORT MD Sep 23, 2020 06:36
[2020-09-23] MEDS ORDERED: POTASSIUM PHOSPHATE INJ 30 MM in NS (IVPB) 250 ML IV ONE (07:30)
--- NOTE | 2020-09-23 07:45 | Cardiology Progress Note ---
Subjective Date Seen by Provider: Sep 23, 2020 Time Seen by Provider: 07:45 Subjective/Events-last exam She is laying down in bed, back on the home ventilator. No new complaint Review of Systems General: Fatigue, Malaise Pulmonary: Dyspnea Objective-Cardiology Exam Last Set of Vital Signs Vital Signs 09/23/20 09/23/20 09/23/20 06:00 07:06 07:20 Temp 36.8 Pulse 87 Resp 12 B/P (MAP) 101/56 (71) Pulse Ox 92 O2 Delivery Mechanical Ventilator O2 Flow Rate 50.00 FiO2 21 Capillary Refill : Less Than 3 Seconds I&O Intake and Output 09/23/20 00:00 Intake Total 530 ml Output Total 600 ml Balance -70 ml Intake Oral 0 ml IV Total 500 ml Other 30 ml Output Urine Total 600 ml General: Alert, Cooperative, Mild Distress HEENT: Atraumatic Neck: Supple Lungs: Normal Air Movement, Other (bilateral rhonchi) Heart: Regular Rate, Normal S1, Normal S2 Abdomen: Normal Bowel Sounds Extremities: No Clubbing Skin: No Rashes, No Breakdown Neuro: Other (tracheostomy and ventilator dependent) Psych/Mental Status: Mental Status NL, Other (ventilator dependent) Results Lab Laboratory Tests 09/23/20 03:15 A/P-Cardiology Admission Diagnosis Acute respiratory failure Sepsis Type II myocardial infarction Assessment/Plan Acute on chronic respiratory failure, 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 Currently back on the home ventilator, improving, managed by Dr. Velazquez Mild elevation in troponin, probably type II myocardial infarction due to severe hypoxemia and sepsis conservative management recommended Sepsis, leukocytosis. managed by Dr. Velazquez History of paroxysmal atrial fibrillation, had few episode of atrial fibrillation in May during her admission and she was maintained on amiodarone and digoxin on transfer to History of COPD. Clinical Quality Measures DVT/VTE Risk/Contraindication: Risk Factor Score Per Nursin RFS Level Per Nursing on Admit: 4+=Very High PORTILLO MARROQUIN MD Sep 23, 2020 7:45 am
--- NOTE | 2020-09-23 07:50 | Diagnostic Imaging Report ---
Portable semierect AP chest at 350 hours. INDICATION: Respiratory distress. FINDINGS: The heart is enlarged but stable when compared to the prior exam of 09/22/2020. As on the previous study, there is atelectasis/infiltrate and fluid obscuring both lung bases, particularly the right lung base. The density in each lung base is essentially no different. If anything, the density is slightly greater than on the prior exam. The upper lungs remain clear. The mediastinum is not widened. The osseous structures are intact. The tracheostomy tube seen previously still appears to be in good position. IMPRESSION: The overall appearance of the chest has not changed significantly since the prior exam. However, there may be slightly greater involvement of both lung bases by atelectasis/infiltrate and fluid. A follow-up study would be recommended for continued evaluation. Dictated by: Dictated on workstation # [id number]
[2020-09-23] MEDS: LEVOTHYROXINE 75 MCG (LEVOTHROID) TABLET GT SCH (08:15)
[2020-09-23] MEDS: APIXABAN 5 MG (ELIQUIS) TABLET FEEDING SCH ×2 (08:15→20:33)
[2020-09-23] MEDS: guaiFENesin (MUCINEX) 600 MG TAB PO SCH ×2 (08:16→20:33)
[2020-09-23] MEDS: SERTRALINE 50 MG (ZOLOFT) TABLET GT SCH (08:16)
--- NOTE | 2020-09-23 08:57 | ST Dysphagia Evaluation ---
Speech Evaluation-General Medical Diagnosis severe sepsis/acute/chronic respiratory failure Onset Date: Oct 20, 2010 Therapy Diagnosis Therapy Diagnosis: Oropharyngeal Dysphagia Precautions Precautions: Aspiration Referral Referring Physician: Dr. Velazquez Medical History Pertinent Medical History: COPD, Dementia, HTN Reviewed History: Yes Social History Current Living Status: Spouse Speech PLF/Current-Dysphagia Prior Level of Function Patient lives in the home with her where she is total dependent on him for daily needs. Subjective Patient was pleasant and cooperative with the Bedside Dysphagia Evaluation. Oral Motor Skills Denture Type: Full- Upper & Lower Ability to Follow Directions: Good Patient has a PEG for intake Oral Expression Ability: Mild Impairment Tracheostomy Type: Speaking Valve Other Contributing Factors: PEG Tube Voice Voice Phonatory-Based Quality: Breathy, Weak Voice Pitch: Normal Voice Loudness: Moderately Soft/Quiet Face Facial Symmetry: Symmetrical Oral-Facial Assessment Oral-Facial Dentition: Normal Labial Seal Description: Normal Lingual Protrusion: Normal Lingual ROM: Normal Lingual Strength: Normal Pharynx Velopharyngeal Move.: Normal Volitional Dry Swallow: Yes Voluntary Cough: Yes Productive Cough: Yes Dysphagia Evaluation Consistencies Presented: Thin Liquid, Mechanical Soft Patient states she drinks coffee at home, no solids Oral phase is within normal function for thin liquids. Pharyngeal phase is within normal function for thin liquids. Funct. Velo/Pharyngeal Symptom: Cough Before Swallow Dietary Recommendations: NPO Liquid Recommendations: Thin Swallowing Precautions: Liquids from Straw, Liquids from Spoon, Small Bites and Sips, Sitting Upright 90 Degrees, Sitting 90 Degrees 30 Post Intake Dysphagia Evaluation Summary Patient is a pleasant 80 y/o female who was admitted to the ICU due to severe sepsis and respiratory failure. The patient is vented with a trach as well as a PEG. The patient takes all solids and meds via PEG. Patient states she drank coffee at home without a problem. Patient was presented 1/2 tsp (x2) of thin liquids and small sips via straw (x3) without difficulty. The patient did exhibit a productive cough prior to presentations, Patient is cleared for thin liquid intake. This information was provided to her nurse. Barriers to Learning Patient's severe medical status Speech-Plan Patient/Family Goals Patient/Family Goals: Patient plans on returning to her home upon discharge. Treatment Plan Speech Therapy Treatment Plan: Discontinue ST Treatment Duration: Sep 23, 2020 Frequency: 1 time per week Estimated Hrs Per Day: .25 hour per day Rehab Potential: Guarded Barriers to Learning: Patient's severe medical status Pt/Family Agrees to Plan: Yes Safety Risks/Education Teaching Recipient: Patient Teaching Methods: Discussion Response to Teaching: Verbalize Understanding Education Topics Provided: Safety strategies for intake Time Speech Therapy Time In: 08:30 Speech Therapy Time Out: 08:50 Total Billed Time: 20 Billed Treatment Time 1, MARIA ESTHER JARRETT B[address] ST Sep 23, 2020 08:57
[2020-09-23] MEDS ORDERED: FUROSEMIDE 40 MG/4 ML INJ (LASIX) IVP SCH (09:00)
--- NOTE | 2020-09-23 09:20 | Physical Therapy Daily Note ---
PT Daily Note-Current Subjective Patient agrees to exercises only. Declined EOB activity on this date. Transfers SCALE: Activities may be completed with or without assistive devices. 7-Jlkvtokixq-wvwrnxa completes the activity by him/herself with no assistance from a helper. 5-Set-up or Clean-up Assistance-helper sets up or cleans up; patient completes activity. [place] assists only prior to or following the activity. 4-Supervision or Touching Assistance-helper provides verbal cues and/or touching/steadying and/or contact guard assistance as patient completes a ctivity. Assistance may be provided throughout the activity or intermittently. 3-Partial/Moderate Assistance-helper does LESS THAN HALF the effort. [place] lifts, holds or supports trunk or limbs, but provides less than half the effort. 2-Substantial/Maximal Assistance-helper does MORE THAN HALF the effort. [place] lifts or holds trunk or limbs and provides more than half the effort. 1-Eqlqeihyf-pljnsv does ALL the effort. Patient does none of the effort to complete the activity. Or, the assistance of 2 or more helpers is required for the patient to complete the activity. If activity was not attempted, code reason: 7-Patient Refused. 9-Not Applicable-not attempted and the patient did not perform the activity before the current illness, exacerbation or injury. 10-Not Attempted due to Environmental Limitations-(lack of equipment, weather restraints, etc.). 88-Not Attempted due to Medical Conditions or Safety Concerns. Exercises Supine Ex: Ankle pumps, Heel Slides, Straight leg raise, Hip abd/add Supine Reps: 15 (AAROM bilaterally) Assessment Patient tolerated treatment and remained in bed. RN present. PT Manager Alliance Goals Manager Alliance Goals PT Manager Alliance Goals Time Frame: Oct 04, 2020 Roll Left & Right (QC): 1 Sit to Lying (QC): 1 Lying-Sitting on Side/Bed(QC): 1 Sit to Stand (QC): 1 Chair/Oca-df-Pasip Xfer(QC): 1 PT Plan Treatment/Plan Treatment Plan: Continue Plan of Care Treatment Plan: Bed Mobility, Education, Functional Activity Marybeth, Functional Strength, Safety, Therapeutic Exercise, Transfers Treatment Duration: Oct 04, 2020 Frequency: 5 times per week Estimated Hrs Per Day: .25 hour per day Patient and/or Family Agrees t: Yes Time/GCodes Time In: 800 Time Out: 814 Total Billed Treatment Time: 14 Total Billed Treatment 1 visit EX 14 min BISMARK SNOWDEN PT Sep 23, 2020 09:20
--- NOTE | 2020-09-23 09:47 | NUR ---
PULMOCARE TF STARTED W/ 15ML/HR W/ 50ML H20 Q4 HRS PER DIETARY RECS. OK TO START PER DR FOUNTAIN.
[2020-09-23] MEDS ORDERED: RT-ALBUTEROL SULF 2.5 MG/3 ML PRE-MIX VIAL ONE (10:21)
--- NOTE | 2020-09-23 11:34 | NUR ---
FLU VACCINE NON ADMINISTERED. PT REPORTS SHE HAD FLU VAC LAST MONTH WHILE IN .
--- NOTE | 2020-09-23 13:34 | Physician Query Clarification ---
"Physician Query-General Query to Physician: The medical record reflects the following clinical scenario: History/Risk factors: Recent lengthy hospitalization, Trach and Peg, Oropharyngeal Dysphagia Clinical Findings: BMI 15, Severe Weakness, Albumin 2.7, Cachexia Treatment: Dietary consult, IVFs, enteral feeds when able to tolerate Question: What condition best reflects the above clinical scenario? Please document response in the Progress notes or Discharge Summary. 1. Severe Protein/Calorie Malnutrition 2. Cachexia (as currently documented) 3. Other , with explanation of the clinical findings 4. Clinically undetermined, no explanation for the clinical findings Please remember a lack of response to the above will prompt a phone page by CDI/coding staff In responding to this query, please exercise your independent professional judg ment. The purpose of this communication is to more accurately reflect the complexity of your patients condition. The fact that a question is asked does not imply that any particular answer is desired or expected. Thank you for timely response to this clarification. Daphney Bhagat, MSN, RN RN Specialist-Clinical Doc Improvement CD -Health Info Mgmt Operations [address] [facility] t: [phone] | f: [phone] If you are unable to reach me at my extension, I may be working from home. Please contact me at [phone] PHYSICIAN RESPONSE: Based on the clinical findings in the record, please respond to the query above on this document as an addendum. Physician Response: Physician Response cachexia. Prior to even hospitalization she was with a very low BMI If you have questions please contact: Tungsten Tender: Ext: Thank you for your time and cooperation. Clinical Hydrology Professor/Tungsten Tender This is a permanent part of the medical record DAPHNEY BHAGAT Sep 23, 2020 13:34 RAJESH DAVENPORT MD Sep 28, 2020 06:35"
[2020-09-23] MEDS: EPINEPHrine 1 MG INJECTION 4 MG in NS (IVPB) 246 ML IV SCH (13:45)
[2020-09-23] MEDS: NOREPINEPHRINE 4 MG/250 ML 250 ML IV SCH (13:45)
[2020-09-23] MEDS: MEROPENEM 2 GM/NS 100 ML IVPB IV SCH ×4 (15:08→22:54)
--- NOTE | 2020-09-23 15:11 | NUR ---
"RD ASSESSMENT PMHx: hypercholesterolemia; HTN; dementia; chronic UTI PT INTERACTION: Pt was awake and pleasant during dietary consult for MST score. Note pt currently has a trach tube and a PEG, per chart review. Note pt has dementia, per chart review. Pt states tolerating TF well at home, and that she is on a continuous TF regimen. Pt states no recent issues with nausea, vomiting, or diarrhea. Pt states some recent issues with constipation, and that her last BM was 09/21. Note pt not currently on bowel regimen per chart review. Pt states unsure of recent wt changes. Note recent 42# wt loss x4mon, per chart review. This is significant at 27% wt loss. Upon visual assessment, pt appears undernourished with visible signs of muscle/fat wasting that may or may not be attributed to advanced age, and a BMI of 22.9 (Underweight BMI for age). Note abnormal lab values of phos (2.2), and Mg (1.5), per chart review. Given wt hx and visual assessment, pt meets criteria for malnutrition per ASPEN guidelines. ABNORMAL NUTRITION-RELATED LAB VALUES LOW: cr 0.40; Ca 8.0; phos 2.2; Mg 1.5 HIGH: Est. kcal needs: 1525 kcal | 30 kcal/kg Est. Pro needs: 51 g Pro | 1.0 g Pro/kg PES STATEMENT: Inadequate oral intake (NI-2.1) related NPO status and constipation, as evidenced by chart review and pt interview. INTERVENTION: Note pt currently NPO, per chart review. During care rounds, it was noted that she was able to tolerate sips of fluids orally. Would recommend the following TF: Pulmocare 1.5 kcal at rate of 15ml/hr with flushes of 50ml water q4h. Recommend increase by 10ml q8h as tolerated, toward goal rate of 45ml/hr. Will continue to follow and reassess as pt needs, intake, and status change. Deepak Mejia, MS RD LD"
[2020-09-23] MEDS: RT-ALBUTEROL SULF 2.5 MG/3 ML PRE-MIX VIAL INH SCH ×2 (15:26→22:42)
[2020-09-23] MEDS ORDERED: RT-ALBUTEROL INHALER HFA (VENTOLIN HFA) 18 GM IH PRN (15:45)
[2020-09-23] MEDS: ALPRAZolam 0.5 MG (XANAX) TAB PO PRN (18:41)
[2020-09-23] MEDS: MELATONIN 3 MG TABLET PO SCH (20:33)
--- NOTE | 2020-09-23 22:15 | NUR ---
RESIDUAL FROM TF <10 ML AT THIS TIME. TF INCREASED BY 10 ML PER DIETARY RECOMMENDATIONS. TF NOW RUNNING AT 25 ML/HR.
[2020-09-23] MEDS: TOBRAMYCIN (NEBCIN) 80 MG/2 ML VIAL IH SCH (22:42)
[2020-09-24] VITALS (30 sets, daily range): BP systolic 77–123; BP diastolic 43–71
[2020-09-24] MEDS ORDERED: NS IV 500 ML 500 ML ONE (01:21)
--- NOTE | 2020-09-24 01:30 | NUR ---
SBP SUSTAINING IN THE 80'S. THIS RN CALLED E-ICU TO DISCUSS PT'S STATUS, DECREASED BLOOD PRESSURE AND URINE OUTPUT. NEW ORDERS RECEIVED FOR 500 ML NS BOLUS X1 NOW AND TO CHECK A LACTIC ACID. E-ICU ALSO REQUESTED TO BE NOTIFIED OF LACTIC ACID RESULTS. THIS RN WILL FOLLOW UP ONCE LAB IS RESULTED.
[2020-09-24] MEDS: aCETylcysteine 20% (MUCOMYST) 30ML SOLN VIAL INH SCH ×3 (01:43→14:37)
[2020-09-24] MEDS: RT-ALBUTEROL SULF 2.5 MG/3 ML PRE-MIX VIAL INH SCH (01:44)
[2020-09-24 01:53] LABS: BASOPHILS % (AUTO) 0 % (0-10); EOSINOPHILS # (AUTO) 0.2 10^3/uL (0.0-0.3); EOSINOPHILS % (AUTO) 2 % (0-10); HEMATOCRIT 28 % (35-52); HEMOGLOBIN 8.6 g/dL (11.5-16.0); LYMPHOCYTES # (AUTO) 0.6 10^3/uL (1.0-4.0); LYMPHOCYTES % (AUTO) 6 % (12-44); MEAN CORPUSCULAR HEMOGLOBIN 27 pg (25-34); MEAN CORPUSCULAR HGB CONC 31 g/dL (32-36); MEAN CORPUSCULAR VOLUME 90 fL (80-99); MEAN PLATELET VOLUME 9.1 fL (9.0-12.2); MONOCYTES # (AUTO) 0.7 10^3/uL (0.0-1.0); MONOCYTES % (AUTO) 7 % (0-12); NEUTROPHILS # (AUTO) 8.2 10^3/uL (1.8-7.8); NEUTROPHILS % (AUTO) 85 % (42-75); PLATELET COUNT 380 10^3/uL (130-400); WHITE BLOOD COUNT 9.7 10^3/uL (4.3-11.0)
[2020-09-24 02:06] LABS: CHLORIDE 92 MMOL/L (98-107); POTASSIUM 3.4 MMOL/L (3.6-5.0); SODIUM 135 MMOL/L (135-145)
[2020-09-24 02:08] LABS: CALCIUM 7.5 MG/DL (8.5-10.1); GLUCOSE 153 MG/DL (70-105)
[2020-09-24 02:10] LABS: CARBON DIOXIDE 35 MMOL/L (21-32)
[2020-09-24 02:12] LABS: CREATININE SERUM 0.45 MG/DL (0.60-1.30); GFR ESTIMATED > 60; PHOSPHORUS 2.9 MG/DL (2.3-4.7)
[2020-09-24 02:13] LABS: BUN/CREATININE RATIO 16
[2020-09-24 02:14] LABS: MAGNESIUM 1.8 MG/DL (1.6-2.4)
--- NOTE | 2020-09-24 02:14 | NUR ---
LACTIC ACID: 0.83. E-ICU NOTIFIED REQUESTED. BP NOW 104/49. WILL CONTINUE TO MONITOR.
[2020-09-24] MEDS: NOREPINEPHRINE 4 MG/250 ML 250 ML IV SCH (02:30)
[2020-09-24] MEDS: KCL 20 MEQ TAB (K-DUR) PO SCH (02:30)
[2020-09-24] MEDS: MAGNESIUM 1 GM/100 ML IVPB 100 ML IV SCH (02:30)
[2020-09-24] MEDS: POTASSIUM CL 10MEQ/50ML IVPB 50 ML IV SCH ×7 (02:30→07:56)
[2020-09-24] MEDS: morphine INJ 10 MG/ML 1ML (SYR OR VIAL) IVP PRN ×6 (02:53→20:25)
[2020-09-24 04:23] LABS: ABG BASE EXCESS 13.8 MMOL/L (-2.5-2.5); ABG OXYGEN SATURATION 93 % (94-100); ABG PCO2 58 MMHG (35-45); ABG PH 7.44 (7.37-7.43); ABG PO2 76 MMHG (79-93); ABG TCO2 40.6 MMOL/L (21.0-31.0)
--- NOTE | 2020-09-24 04:24 | Pulmonary Progress Note ---
Subjective Time Seen by a Provider: 04:21 Subjective/Events-last exam Pt did not tolerate her home vent yesterday. Will trial her on it again. Sepsis Event Evaluation Height, Weight, BMI Height: 5'2.00" Weight: 90lbs. 6.0oz. [id number]; 17.85 BMI Method: Focused Exam Lactate Level 09/24/20 01:42: Lactic Acid Level 0.83 Lactic Acid Level Laboratory Tests Test 09/24/20 01:42 Lactic Acid Level 0.83 MMOL/L (0.50-2.00) Exam Exam Vital Signs Date Time Temp Pulse Resp B/P (MAP) Pulse Ox O2 Delivery O2 Flow Rate FiO2 09/24/20 03:00 93 116/58 (77) 91 Mechanical Ventilator 35.00 09/24/20 02:18 Mechanical Ventilator 35.00 09/24/20 02:00 89 104/49 (67) 91 Mechanical Ventilator 35.00 09/24/20 01:53 Mechanical Ventilator 35.00 09/24/20 01:44 89 13 100 40 09/24/20 01:00 84 09/24/20 01:00 89 105/58 (74) 93 Mechanical Ventilator 40.00 09/24/20 00:00 84 93/43 (60) 92 Mechanical Ventilator 40.00 09/23/20 23:00 80 86/44 (58) 91 Mechanical Ventilator 40.00 09/23/20 22:43 74 13 97 40 09/23/20 22:00 77 111/58 (75) 95 Mechanical Ventilator 40.00 09/23/20 21:00 92 Mechanical Ventilator 40 09/23/20 21:00 79 113/60 (77) 94 Mechanical Ventilator 40.00 09/23/20 20:00 87 92/50 (64) 92 Mechanical Ventilator 40.00 09/23/20 19:34 37.0 09/23/20 19:31 86 18 118/62 (80) 92 Mechanical Ventilator 40.00 09/23/20 19:05 100 19 92 40 09/23/20 19:00 90 09/23/20 18:00 105 19 105/67 (80) 91 Mechanical Ventilator 40.00 09/23/20 17:00 99 19 98/54 (69) 91 Mechanical Ventilator 40.00 09/23/20 16:00 98 28 104/37 (59) 93 Mechanical Ventilator 40.00 09/23/20 15:26 84 15 91 40 09/23/20 15:00 85 32 106/60 (75) 92 Mechanical Ventilator 40.00 09/23/20 14:00 91 13 106/55 (72) 88 Mechanical Ventilator 40.00 09/23/20 13:00 96 19 97/80 (86) 92 Mechanical Ventilator 40.00 09/23/20 12:50 106 09/23/20 12:00 108 17 100/61 (74) 86 Mechanical Ventilator 40.00 09/23/20 11:46 36.7 09/23/20 11:00 106 30 87/50 (62) 92 Mechanical Ventilator 40.00 09/23/20 10:28 89 15 91 40 09/23/20 10:00 90 17 100/70 (80) 91 Mechanical Ventilator 40.00 09/23/20 09:51 Mechanical Ventilator 40.00 09/23/20 09:00 76 13 113/50 (71) 88 Mechanical Ventilator 7.00 09/23/20 09:00 92 Mechanical Ventilator 40 09/23/20 08:00 87 24 97/66 (76) 83 Mechanical Ventilator 7.00 09/23/20 07:20 36.8 09/23/20 07:06 87 12 92 21 09/23/20 07:00 Mechanical Ventilator 7.00 09/23/20 07:00 86 14 103/54 (70) 89 Mechanical Ventilator 7.00 09/23/20 06:45 95 09/23/20 06:00 91 14 101/56 (71) 88 Mechanical Ventilator 50.00 09/23/20 05:00 90 14 104/52 (69) 93 Mechanical Ventilator 50.00 I & O 09/24/20 07:00 Intake Total 1750 ml Output Total 2600 ml Balance -850 ml Height & Weight Height: 5'2.00" Weight: 90lbs. 6.0oz. [id number]; 17.85 BMI Method: General Appearance: No Apparent Distress HEENT: PERRL/EOMI, Moist Mucous Membranes, Other (trach ) Neck: Supple Respiratory: Lungs Clear (predominant) Cardiovascular: Regular Rate, Rhythm Capillary Refill: Less Than 3 Seconds Gastrointestinal: soft Extremity: Normal Capillary Refill, No Pedal Edema Neurologic/Psychiatric: Alert, Oriented x3 Skin: Normal Color, Warm/Dry Lymphatic: No Adenopathy Results Lab Laboratory Tests 09/23/20 03:15 09/24/20 01:42 Assessment/Plan Assessment/Plan Acute on chronic respiratory failure s/p tracheostomy at [facility] -Continue ventilatory care -COVID Negative -Influenza is negative -MRSA swab pending 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 -Richter cultures pending Anemia -Monitor Metabolic lactic acidosis -IVF -Monitor Anticipate discharge in 2-3days if we can establish home Abx. SW is consulted. NORAH FOUNTAIN DO Sep 24, 2020 04:24
[2020-09-24 04:27] LABS: ALLENS TEST YES-POS; INSPIRED O2 35%; VENTILATOR YES
[2020-09-24] MEDS: NS IV 500 ML 500 ML IV SCH ×2 (04:44→17:02)
[2020-09-24] MEDS: MEROPENEM 2 GM/NS 100 ML IVPB IV SCH ×6 (06:51→20:25)
[2020-09-24] MEDS: RT-ALBUTEROL/IPRATROPIUM 3 ML (DUONEB) VIAL INH SCH ×5 (06:59→22:57)
--- NOTE | 2020-09-24 07:26 | Progress Note ---
Subjective Date Seen by a Provider: Sep 24, 2020 Time Seen by a Provider: 06:50 Subjective/Events-last exam Apparently there was a problem with her home vent machine. This is being looked into. At current she appears to be comfortable and does communicate with me well. Focused Exam Lactate Level 09/24/20 01:42: Lactic Acid Level 0.83 Objective Exam Vital Signs Date Time Temp Pulse Resp B/P (MAP) Pulse Ox O2 Delivery O2 Flow Rate FiO2 09/24/20 07:18 35.6 Mechanical Ventilator 35.00 09/24/20 07:07 102 22 91 35 09/24/20 06:00 85 16 116/59 (78) 92 Mechanical Ventilator 35.00 09/24/20 05:00 82 101/58 (72) 96 Mechanical Ventilator 35.00 09/24/20 04:00 81 120/59 (79) 92 Mechanical Ventilator 35.00 09/24/20 03:00 93 116/58 (77) 91 Mechanical Ventilator 35.00 09/24/20 02:18 Mechanical Ventilator 35.00 09/24/20 02:00 89 104/49 (67) 91 Mechanical Ventilator 35.00 09/24/20 01:53 Mechanical Ventilator 35.00 09/24/20 01:44 89 13 100 40 09/24/20 01:00 84 09/24/20 01:00 89 105/58 (74) 93 Mechanical Ventilator 40.00 09/24/20 00:00 84 93/43 (60) 92 Mechanical Ventilator 40.00 09/23/20 23:00 80 86/44 (58) 91 Mechanical Ventilator 40.00 09/23/20 22:43 74 13 97 40 09/23/20 22:00 77 111/58 (75) 95 Mechanical Ventilator 40.00 09/23/20 21:00 92 Mechanical Ventilator 40 09/23/20 21:00 79 113/60 (77) 94 Mechanical Ventilator 40.00 09/23/20 20:00 87 92/50 (64) 92 Mechanical Ventilator 40.00 09/23/20 19:34 37.0 09/23/20 19:31 86 18 118/62 (80) 92 Mechanical Ventilator 40.00 09/23/20 19:05 100 19 92 40 09/23/20 19:00 90 09/23/20 18:00 105 19 105/67 (80) 91 Mechanical Ventilator 40.00 09/23/20 17:00 99 19 98/54 (69) 91 Mechanical Ventilator 40.00 09/23/20 16:00 98 28 104/37 (59) 93 Mechanical Ventilator 40.00 09/23/20 15:26 84 15 91 40 09/23/20 15:00 85 32 106/60 (75) 92 Mechanical Ventilator 40.00 09/23/20 14:00 91 13 106/55 (72) 88 Mechanical Ventilator 40.00 09/23/20 13:00 96 19 97/80 (86) 92 Mechanical Ventilator 40.00 09/23/20 12:50 106 09/23/20 12:00 108 17 100/61 (74) 86 Mechanical Ventilator 40.00 09/23/20 11:46 36.7 09/23/20 11:00 106 30 87/50 (62) 92 Mechanical Ventilator 40.00 09/23/20 10:28 89 15 91 40 09/23/20 10:00 90 17 100/70 (80) 91 Mechanical Ventilator 40.00 09/23/20 09:51 Mechanical Ventilator 40.00 09/23/20 09:00 76 13 113/50 (71) 88 Mechanical Ventilator 7.00 09/23/20 09:00 92 Mechanical Ventilator 40 09/23/20 08:00 87 24 97/66 (76) 83 Mechanical Ventilator 7.00 I & O 09/24/20 07:00 Intake Total 1750 ml Output Total 2775 ml Balance -1025 ml Capillary Refill : Less Than 3 Seconds General Appearance: No Apparent Distress Neck: Supple Respiratory: Lungs Clear (with slight coarseness) Cardiovascular: Regular Rate, Rhythm Gastrointestinal: soft Results Lab Laboratory Tests 09/23/20 11:45: Glucometer 180H 09/23/20 15:33: Glucometer 134H 09/23/20 19:39: Glucometer 150H 09/24/20 01:42: White Blood Count 9.7, Red Blood Count 3.15L, Hemoglobin 8.6L, Hematocrit 28L, Mean Corpuscular Volume 90, Mean Corpuscular Hemoglobin 27, Mean Corpuscular Hemoglobin Concent 31L, Red Cell Distribution Width 15.9H, Platelet Count 380, Mean Platelet Volume 9.1, Immature Granulocyte % (Auto) 0, Neutrophils (%) (Auto) 85H, Lymphocytes (%) (Auto) 6L, Monocytes (%) (Auto) 7, Eosinophils (%) (Auto) 2, Basophils (%) (Auto) 0, Neutrophils # (Auto) 8.2H, Lymphocytes # (Auto) 0.6L, Monocytes # (Auto) 0.7, Eosinophils # (Auto) 0.2, Basophils # (Auto) 0.0, Immature Granulocyte # (Auto) 0.0, Sodium Level 135, Potassium Level 3.4L, Chloride Level 92L, Carbon Dioxide Level 35H, Anion Gap 8, Blood Urea Nitrogen 7, Creatinine 0.45L, Estimat Glomerular Filtration Rate > 60, BUN/Creatinine Ratio 16, Glucose Level 153H, Lactic Acid Level 0.83, Calcium Level 7.5L, Phosphorus Level 2.9, Magnesium Level 1.8 09/24/20 04:15: Blood Gas Puncture Site LEFT RADIAL, Blood Gas Patient Temperature 37.0, Arterial Blood pH 7.44H, Arterial Blood Partial Pressure CO2 58H, Arterial Blood Partial Pressure O2 76L, Arterial Blood HCO3 39H, Arterial Blood Total CO2 40.6H , Arterial Blood Oxygen Saturation 93L, Arterial Blood Base Excess 13.8H, Kang Test YES-POS, Blood Gas Ventilator Setting YES, Blood Gas Inspired Oxygen 35% Microbiology 09/19/20 Gram Stain - Final, Resulted 09/19/20 Sputum Culture - Preliminary, Resulted Usual upper respiratory jose martin Pseudomonas aeruginosa 09/19/20 Urine Culture - Final, Complete Escherichia coli Escherichia coli#2 09/19/20 Blood Culture - Preliminary, Resulted No growth Assessment/Plan Assessment/Plan Assess & Plan/Chief Complaint 1. Acute on chronic respiratory failure s/p tracheostomy -covid and influenza negative -on home vent 11-3 -on home vent and no current respiratory distress 09/24 -hopefully the home vent machine problem will be corrected -plant nursery worker has been consulted per Dr. Velazquez hopefully to arrange home antibiotics 2. 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 S/P Trach from [facility] in 4. Anemia -stable at 8.6 -daily CBC Clinical Quality Measures DVT/VTE Risk/Contraindication: Risk Factor Score Per Nursin RFS Level Per Nursing on Admit: 4+=Very High ISSAC,RAJESH J MD Sep 24, 2020 07:26
[2020-09-24] MEDS: SERTRALINE 50 MG (ZOLOFT) TABLET GT SCH (07:56)
[2020-09-24] MEDS: APIXABAN 5 MG (ELIQUIS) TABLET FEEDING SCH ×2 (07:56→20:25)
[2020-09-24] MEDS: guaiFENesin (MUCINEX) 600 MG TAB PO SCH ×2 (07:56→20:25)
[2020-09-24] MEDS: LEVOTHYROXINE 75 MCG (LEVOTHROID) TABLET GT SCH (07:56)
[2020-09-24] MEDS: EPINEPHrine 1 MG INJECTION 4 MG in NS (IVPB) 246 ML IV SCH (08:08)
--- NOTE | 2020-09-24 08:53 | Diagnostic Imaging Report ---
EXAMINATION: Chest 1 view HISTORY: Sepsis. Respiratory failure. COMPARISON: Chest radiograph on 09/23/2020. FINDINGS: Tracheostomy is stable in configuration. Stable consolidative opacities are seen in the mid and lower right lung with patchy opacities in the left lung base. Bilateral opvmt-jl-jejogidm pleural effusions are unchanged. No large pneumothorax. Stable cardiac silhouette. IMPRESSION: 1. Stable chest with stable consolidative opacities in the right mid and lower lung and patchy opacities in the left lung base. There are also likely glsoq-fh-rmfxetdg bilateral pleural effusions. Dictated by: Dictated on workstation # [id number]
[2020-09-24] MEDS ORDERED: FUROSEMIDE 20 MG (LASIX) TAB PO SCH (09:00)
--- NOTE | 2020-09-24 09:20 | NUR ---
0800 - Order received for PICC line placement. Chart reviewed. 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 Dr. Velazquez contacted by this RN in regards to history of DVT, okay received for placement in right upper arm; okay for single lumen 4Fr secondary to history of DVT. - This RN patient's room for PICC line placement. Verbal consent obtained for PICC placement from patient, Marley Cruz RN at patient's bedside for conversation. Timeout taken. Attempted PICC placement with ultrasound guidance, vein accessed x2 however PICC line placement unsuccessful due to being unable to place guidewire in vein, procedure aborted. 924 - MONTY Magallon phoned Dr. Velazquez, physician informed that PICC line placement unsuccessful.
--- NOTE | 2020-09-24 09:20 | NUR ---
[id number] - Leandra Petty RN (rep for [employer]) at bedside for entire PICC placement attempts supervising this RN.
--- NOTE | 2020-09-24 10:19 | NUR ---
RESIDUAL FROM TF <10 ML AT THIS TIME. TF INCREASED BY 10 ML PER DIETARY RECOMMENDATIONS. TF NOW RUNNING AT 35 ML/HR.
[2020-09-24] MEDS: TOBRAMYCIN (NEBCIN) 80 MG/2 ML VIAL IH SCH ×2 (10:44→22:57)
--- NOTE | 2020-09-24 11:01 | NUR ---
PT PLACED ON HOME VENT PER HOME SETTINGS. PT ON 7L, APPROX 50% FIO2. SATS IN MID 90S.
[2020-09-24] MEDS: ALPRAZolam 0.5 MG (XANAX) TAB PO PRN ×2 (11:50→20:25)
--- NOTE | 2020-09-24 13:57 | Physical Therapy Daily Note ---
PT Daily Note-Current Subjective Pt presents supine in bed. Pt agrees to PT, pt wants to try standing but wants to test EOB first. Pt reports need to suction. Appearance At conclusion of PT treatment patient remains in bed where she has access to tray, call button, and all needs have been met. Nurse is present in room to suction patient. Mental Status Patient Orientation: Person, Place, Eyes Open, Situation Attachments: PEG Tube, Ventilator, Diego Catheter Transfers SCALE: Activities may be completed with or without assistive devices. 5-Pvtmzhjlgk-fxgkxyz completes the activity by him/herself with no assistance from a helper. 5-Set-up or Clean-up Assistance-helper sets up or cleans up; patient completes activity. [place] assists only prior to or following the activity. 4-Supervision or Touching Assistance-helper provides verbal cues and/or touching/steadying and/or contact guard assistance as patient completes activity. Assistance may be provided throughout the activity or intermittently. 3-Partial/Moderate Assistance-helper does LESS THAN HALF the effort. [place] lifts, holds or supports trunk or limbs, but provides less than half the effort. 2-Substantial/Maximal Assistance-helper does MORE THAN HALF the effort. [place] lifts or holds trunk or limbs and provides more than half the effort. 3-Hggpfuafe-iziegp does ALL the effort. Patient does none of the effort to complete the activity. Or, the assistance of 2 or more helpers is required for the patient to complete the activity. If activity was not attempted, code reason: 7-Patient Refused. 9-Not Applicable-not attempted and the patient did not perform the activity before the current illness, exacerbation or injury. 10-Not Attempted due to Environmental Limitations-(lack of equipment, weather restraints, etc.). 88-Not Attempted due to Medical Conditions or Safety Concerns. Sit to Lying (QC): 3 Lying to Sitting/Side of Bed(Q: 3 Patient required mod assist with lying<-> EOB. Exercises Supine Ex: Heel Slides Supine Reps: 10 Seated Therapy Exercises: Ankle pumps, Long arc quads, Hip abd/add Seated Reps: 15 Treatments LE strengthening Assessment Current Status: Fair Progress Pt able to make it EOB. Pt required min assist to maintain torso upright. While waiting for proper equipment to stand patient fatigued with sitting and was assisted back to bed. PT Resource Conservationist Goals Resource Conservationist Goals PT Group Home Goals Time Frame: Oct 04, 2020 Roll Left & Right (QC): 1 Sit to Lying (QC): 1 Lying-Sitting on Side/Bed(QC): 1 Sit to Stand (QC): 1 Chair/Hyz-ze-Kyije Xfer(QC): 1 PT Plan Problem List Problem List: Activity Tolerance, Functional Strength, Safety, Balance, Gait, Transfer, Bed Mobility, ROM Treatment/Plan Treatment Plan: Continue Plan of Care Treatment Plan: Bed Mobility, Education, Functional Activity Marybeth, Functional Strength, Safety, Therapeutic Exercise, Transfers Treatment Duration: Oct 04, 2020 Frequency: 5 times per week Estimated Hrs Per Day: .25 hour per day Patient and/or Family Agrees t: Yes Safety Risks/Education Patient Education: Transfer Techniques, Correct Positioning, Safety Issues Teaching Recipient: Patient Teaching Methods: Demonstration, Discussion Response to Teaching: Reinforcement Needed Time/GCodes Time In: 1308 Time Out: 1326 Total Billed Treatment Time: 18 Total Billed Treatment 1 visit FA ИВАН LORA PT Sep 24, 2020 13:57
--- NOTE | 2020-09-24 14:53 | NUR ---
RENAL ADJUSTED MEROPENEM TO 2 GRAMS IV Q 12 HOURS, WILL GIVE NEXT DOSE TONIGHT @2100.
--- NOTE | 2020-09-24 14:57 | NUR ---
During care rounds, it was noted that pt is receiving TF of Pulmocare at rate of 25ml/hr with flushes of 50ml water q4h. Would recommend continuation of 10ml q8h as tolerated, toward goal rate of 45ml/hr. Will continue to follow and reassess as pt needs, intake, and status change. Deepak Mejia, MS RD LD
--- NOTE | 2020-09-24 15:44 | NUR ---
CM/SS: Telephone to Giancarlo, spouse ([phone]) - He reports in talking with Dr Henderson that pt will be able to come home in the next day or two. He is aware that pt will need an antibiotic after she is home. Home infusion is explained to spouse. He does not have a preference on which company to use. He would like for pt to be home in the next day or two. He is explained the process in getting the antibiotics. He verbalizes understanding. His home address is verified. This worker will follow up with him when more information is known.
--- NOTE | 2020-09-24 16:37 | Cardiology Progress Note ---
Cardiology SOAP Progress Note Subjective: On a ventilator. Objective: I&O/Vital Signs Weight (Pounds): 90 Weight (Ounces): 6.0 Weight (Calculated Kilograms): 40.327635 Constitutional: other (on a ventilator.) Respiratory: chest is bilaterally symmetric, lungs clear to auscultation Cardiovascular: regular rate-rhythm, S1 and S2 Gastrointestional: soft Extremities: normal range of motion, non-tender, normal inspection, no lower extremity edema bilateral Neurologic/Psychiatric: other (on a ventilator.) Results/Procedures: Labs Microbiology 09/23/20 Catheter Tip Culture - Final, Complete No growth 09/19/20 Gram Stain - Final, Complete 09/19/20 Sputum Culture - Final, Complete Usual upper respiratory jose martin Pseudomonas aeruginosa 09/19/20 Urine Culture - Final, Complete Escherichia coli Escherichia coli#2 A/P: Assessment/Dx: Acute respiratory failure Sepsis Type II myocardial infarction Plan: Assessment/Plan Acute on chronic respiratory failure, 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 Currently back on the home ventilator, improving, managed by Dr. Velazquez Mild elevation in troponin, probably type II myocardial infarction due to severe hypoxemia and sepsis conservative management recommended Sepsis, leukocytosis. managed by Dr. Velazquez History of paroxysmal atrial fibrillation, had few episode of atrial fibri llation in May during her admission and she was maintained on amiodarone and digoxin on transfer to History of COPD. Thank you for your consultation. Please call me if you have any questions. Zonia Chu MD, FACP, FACC, FSCAI, FHRS, CCDS Interventional Cardiology Cardiac Electrophysiology Vascular Medicine and Endovascular Interventions Focused Exam Lactate Level Rose Marie CHU MD Sep 24, 2020 16:37
[2020-09-24] MEDS: MELATONIN 3 MG TABLET PO SCH (20:25)
[2020-09-25] VITALS (27 sets, daily range): BP systolic 74–116; BP diastolic 52–88
[2020-09-25] MEDS: EPINEPHrine 1 MG INJECTION 4 MG in NS (IVPB) 246 ML IV SCH (01:46)
[2020-09-25] MEDS: NOREPINEPHRINE 4 MG/250 ML 250 ML IV SCH (01:46)
[2020-09-25] MEDS: ALPRAZolam 0.5 MG (XANAX) TAB PO PRN ×3 (03:03→21:09)
[2020-09-25] MEDS: morphine INJ 10 MG/ML 1ML (SYR OR VIAL) IVP PRN ×4 (03:03→21:09)
[2020-09-25 03:26] LABS: BASOPHILS % (AUTO) 0 % (0-10); EOSINOPHILS # (AUTO) 0.5 10^3/uL (0.0-0.3); EOSINOPHILS % (AUTO) 4 % (0-10); HEMATOCRIT 30 % (35-52); HEMOGLOBIN 9.3 g/dL (11.5-16.0); LYMPHOCYTES # (AUTO) 0.4 10^3/uL (1.0-4.0); LYMPHOCYTES % (AUTO) 4 % (12-44); MEAN CORPUSCULAR HEMOGLOBIN 27 pg (25-34); MEAN CORPUSCULAR HGB CONC 31 g/dL (32-36); MEAN CORPUSCULAR VOLUME 89 fL (80-99); MEAN PLATELET VOLUME 9.3 fL (9.0-12.2); MONOCYTES # (AUTO) 0.7 10^3/uL (0.0-1.0); MONOCYTES % (AUTO) 7 % (0-12); NEUTROPHILS # (AUTO) 8.9 10^3/uL (1.8-7.8); NEUTROPHILS % (AUTO) 84 % (42-75); PLATELET COUNT 393 10^3/uL (130-400); WHITE BLOOD COUNT 10.6 10^3/uL (4.3-11.0)
[2020-09-25 03:47] LABS: EOSINOPHILS % (MANUAL) 2 %; LYMPHOCYTES % (MANUAL) 2 %; MONOCYTES % (MANUAL) 3 %; NEUTROPHILS % (MANUAL) 92 %; RBC MORPH NORMAL
[2020-09-25] MEDS: aCETylcysteine 20% (MUCOMYST) 30ML SOLN VIAL INH SCH ×6 (03:49→19:17)
[2020-09-25] MEDS: RT-ALBUTEROL/IPRATROPIUM 3 ML (DUONEB) VIAL INH SCH ×5 (03:49→19:17)
[2020-09-25 04:04] LABS: CHLORIDE 92 MMOL/L (98-107); POTASSIUM 4.3 MMOL/L (3.6-5.0); SODIUM 135 MMOL/L (135-145)
[2020-09-25 04:06] LABS: CALCIUM 7.8 MG/DL (8.5-10.1); GLUCOSE 106 MG/DL (70-105)
[2020-09-25 04:08] LABS: CARBON DIOXIDE 35 MMOL/L (21-32)
[2020-09-25 04:10] LABS: CREATININE SERUM 0.43 MG/DL (0.60-1.30); GFR ESTIMATED > 60; PHOSPHORUS 2.5 MG/DL (2.3-4.7)
[2020-09-25 04:11] LABS: BUN/CREATININE RATIO 12
[2020-09-25 04:12] LABS: MAGNESIUM 1.8 MG/DL (1.6-2.4)
--- NOTE | 2020-09-25 04:38 | Pulmonary Progress Note ---
Subjective Time Seen by a Provider: 04:33 Subjective/Events-last exam Pt is now on her home vent and doing well. ABG is pending. Sepsis Event Evaluation Height, Weight, BMI Height: 5'2.00" Weight: 90lbs. 6.0oz. 40.993132ak; 17.85 BMI Method: Focused Exam Lactate Level 09/24/20 01:42: Lactic Acid Level 0.83 Exam Exam Vital Signs Date Time Temp Pulse Resp B/P (MAP) Pulse Ox O2 Delivery O2 Flow Rate FiO2 09/25/20 04:05 36.6 09/25/20 03:50 100 16 97 50 09/25/20 01:00 100 09/25/20 00:12 36.8 09/25/20 00:00 96 15 96/61 (73) 96 Mechanical Ventilator 50.00 09/24/20 23:00 87 13 102/60 (74) 97 Mechanical Ventilator 50.00 09/24/20 22:58 89 18 96 50 09/24/20 22:58 40 09/24/20 22:00 91 11 101/57 (72) 97 Mechanical Ventilator 50.00 09/24/20 21:00 92 Mechanical Ventilator 35 09/24/20 21:00 96 12 102/58 (73) 97 Mechanical Ventilator 50.00 09/24/20 20:21 37.1 09/24/20 20:00 101 19 117/70 (86) 93 Mechanical Ventilator 50.00 09/24/20 19:00 104 20 105/48 (67) 94 Mechanical Ventilator 50.00 09/24/20 19:00 101 09/24/20 18:21 89 18 96 50 09/24/20 18:00 112 26 121/71 (88) 93 Mechanical Ventilator 50.00 09/24/20 17:00 98 18 107/60 (76) 94 Mechanical Ventilator 50.00 09/24/20 16:00 95 12 111/64 (80) 95 Mechanical Ventilator 50.00 09/24/20 15:17 36.6 09/24/20 15:00 103 21 112/68 (83) 94 Mechanical Ventilator 50.00 09/24/20 14:40 102 18 96 50 09/24/20 14:00 96 20 112/66 (81) 96 Mechanical Ventilator 50.00 09/24/20 13:00 91 11 116/67 (83) 97 Mechanical Ventilator 50.00 09/24/20 12:44 95 09/24/20 12:00 99 20 113/61 (78) 96 Mechanical Ventilator 50.00 09/24/20 11:55 36.2 09/24/20 11:02 Mechanical Ventilator 50.00 09/24/20 11:00 129 25 123/67 (85) 94 Mechanical Ventilator 35.00 09/24/20 10:53 103 24 94 35 09/24/20 10:00 104 19 107/57 (74) 92 Mechanical Ventilator 35.00 09/24/20 09:00 92 21 120/66 (84) 93 Mechanical Ventilator 35.00 09/24/20 09:00 92 Mechanical Ventilator 35 09/24/20 08:00 100 19 99/56 (70) 91 Mechanical Ventilator 35.00 09/24/20 07:18 35.6 Mechanical Ventilator 35.00 09/24/20 07:07 102 22 91 35 09/24/20 07:00 101 22 77/52 (60) 89 Mechanical Ventilator 35.00 09/24/20 06:47 90 09/24/20 06:00 85 16 116/59 (78) 92 Mechanical Ventilator 35.00 09/24/20 05:00 82 101/58 (72) 96 Mechanical Ventilator 35.00 I & O 09/25/20 07:00 Intake Total 3109 ml Output Total 1325 ml Balance 1784 ml Height & Weight Height: 5'2.00" Weight: 90lbs. 6.0oz. 40.162397ii; 17.85 BMI Method: General Appearance: No Apparent Distress HEENT: PERRL/EOMI, Moist Mucous Membranes, Other (trach ) Neck: Supple Respiratory: Lungs Clear (with slight coarseness) Cardiovascular: Regular Rate, Rhythm Capillary Refill: Less Than 3 Seconds Gastrointestinal: soft Extremity: Normal Capillary Refill, No Pedal Edema Neurologic/Psychiatric: Alert, Oriented x3 Skin: Normal Color, Warm/Dry Lymphatic: No Adenopathy Results Lab Laboratory Tests 09/24/20 01:42 09/25/20 02:55 Assessment/Plan Assessment/Plan Acute on chronic respiratory failure s/p tracheostomy at [facility] -Continue ventilatory care -Pt is now on home vent. 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 -Richter cultures pending Anemia -Monitor Metabolic lactic acidosis -IVF -Monitor Small bilateral pleural effusions Echo shows normal EF with grade 1 diastolic dysfunction -Start Lasix daily - Anticipate pt being ok for discharge tomorrow from pulmonary standpoint if pt is still doing well and if we can establish home Abx. SW is consulted. NORAH FOUNTAIN DO Sep 25, 2020 04:38
[2020-09-25 04:57] LABS: ABG BASE EXCESS 14.9 MMOL/L (-2.5-2.5); ABG OXYGEN SATURATION 91 % (94-100); ABG PCO2 61 MMHG (35-45); ABG PH 7.44 (7.37-7.43); ABG PO2 62 MMHG (79-93)
[2020-09-25 05:06] LABS: ALLENS TEST POS; INSPIRED O2 4L; PATIENT TEMP 37; VENTILATOR YES
[2020-09-25] MEDS: POTASSIUM CL 10MEQ/50ML IVPB 50 ML IV SCH (05:52)
[2020-09-25] MEDS: KCL 20 MEQ TAB (K-DUR) PO SCH (05:53)
[2020-09-25] MEDS: MAGNESIUM 1 GM/100 ML IVPB 100 ML IV SCH (05:53)
--- NOTE | 2020-09-25 06:48 | Diagnostic Imaging Report ---
INDICATION: Sepsis. Comparison made with prior examination from 09/24/2020. FINDINGS: There is cardiomegaly. There is venous congestion. There are bibasal infiltrates and bilateral pleural effusions right greater than left. There is no pneumothorax. Mediastinum is unremarkable. Tracheostomy tube in place. IMPRESSION: Bibasal infiltrates and bilateral pleural effusions right greater than left. Cardiomegaly and some central pulmonary venous congestion. Dictated by: Dictated on workstation # [id number]
[2020-09-25] MEDS: TOBRAMYCIN (NEBCIN) 80 MG/2 ML VIAL IH SCH (06:54)
--- NOTE | 2020-09-25 07:06 | Progress Note ---
Subjective Date Seen by a Provider: Sep 25, 2020 Time Seen by a Provider: 07:15 Subjective/Events-last exam patient is currently on her home vent. She is communicating and does not appear to be in any distress. Focused Exam Lactate Level 09/24/20 01:42: Lactic Acid Level 0.83 Objective Exam Vital Signs Date Time Temp Pulse Resp B/P (MAP) Pulse Ox O2 Delivery O2 Flow Rate FiO2 09/25/20 06:54 105 18 91 35 09/25/20 06:00 95 12 91/59 (70) 95 Mechanical Ventilator 50.00 09/25/20 05:00 107 12 94/65 (75) 94 Mechanical Ventilator 50.00 09/25/20 04:05 36.6 09/25/20 04:00 107 13 94/56 (69) 95 Mechanical Ventilator 50.00 09/25/20 03:50 100 16 97 50 09/25/20 03:00 110 31 95/55 (68) 95 Mechanical Ventilator 50.00 09/25/20 02:00 94 13 98/58 (71) 96 Mechanical Ventilator 50.00 09/25/20 01:00 100 09/25/20 01:00 99 13 94/57 (69) 96 Mechanical Ventilator 50.00 09/25/20 00:12 36.8 09/25/20 00:00 96 15 96/61 (73) 96 Mechanical Ventilator 50.00 09/24/20 23:00 87 13 102/60 (74) 97 Mechanical Ventilator 50.00 09/24/20 22:58 89 18 96 50 09/24/20 22:58 40 09/24/20 22:00 91 11 101/57 (72) 97 Mechanical Ventilator 50.00 09/24/20 21:00 92 Mechanical Ventilator 35 09/24/20 21:00 96 12 102/58 (73) 97 Mechanical Ventilator 50.00 09/24/20 20:21 37.1 09/24/20 20:00 101 19 117/70 (86) 93 Mechanical Ventilator 50.00 09/24/20 19:00 104 20 105/48 (67) 94 Mechanical Ventilator 50.00 09/24/20 19:00 101 09/24/20 18:21 89 18 96 50 09/24/20 18:00 112 26 121/71 (88) 93 Mechanical Ventilator 50.00 11/4/20 17:00 98 18 107/60 (76) 94 Mechanical Ventilator 50.00 09/24/20 16:00 95 12 111/64 (80) 95 Mechanical Ventilator 50.00 09/24/20 15:17 36.6 09/24/20 15:00 103 21 112/68 (83) 94 Mechanical Ventilator 50.00 09/24/20 14:40 102 18 96 50 09/24/20 14:00 96 20 112/66 (81) 96 Mechanical Ventilator 50.00 09/24/20 13:00 91 11 116/67 (83) 97 Mechanical Ventilator 50.00 09/24/20 12:44 95 09/24/20 12:00 99 20 113/61 (78) 96 Mechanical Ventilator 50.00 09/24/20 11:55 36.2 09/24/20 11:02 Mechanical Ventilator 50.00 09/24/20 11:00 129 25 123/67 (85) 94 Mechanical Ventilator 35.00 09/24/20 10:53 103 24 94 35 09/24/20 10:00 104 19 107/57 (74) 92 Mechanical Ventilator 35.00 09/24/20 09:00 92 21 120/66 (84) 93 Mechanical Ventilator 35.00 09/24/20 09:00 92 Mechanical Ventilator 35 09/24/20 08:00 100 19 99/56 (70) 91 Mechanical Ventilator 35.00 09/24/20 07:18 35.6 Mechanical Ventilator 35.00 09/24/20 07:07 102 22 91 35 I & O 09/25/20 07:00 Intake Total 3254 ml Output Total 1825 ml Balance 1429 ml Capillary Refill : Less Than 3 Seconds General Appearance: No Apparent Distress Respiratory: Lungs Clear Cardiovascular: Regular Rate, Rhythm Gastrointestinal: soft Extremity: Normal Capillary Refill; No Pedal Edema Skin: Normal Color Results Lab Laboratory Tests 09/24/20 10:59: Glucometer 152H 09/24/20 15:12: Glucometer 145H 09/24/20 20:45: Glucometer 117H 09/25/20 02:55: White Blood Count 10.6, Red Blood Count 3.40L, Hemoglobin 9.3L, Hematocrit 30L, Mean Corpuscular Volume 89, Mean Corpuscular Hemoglobin 27, Mean Corpuscular Hemoglobin Concent 31L, Red Cell Distribution Width 15.8H, Platelet Count 393, Mean Platelet Volume 9.3, Immature Granulocyte % (Auto) 1, Neutrophils (%) (Auto) 84H, Lymphocytes (%) (Auto) 4L, Monocytes (%) (Auto) 7, Eosinophils (%) (Auto) 4, Basophils (%) (Auto) 0, Neutrophils # (Auto) 8.9H, Lymphocytes # (Auto) 0.4L, Monocytes # (Auto) 0.7, Eosinophils # (Auto) 0.5H, Basophils # (Auto) 0.0, Immature Granulocyte # (Auto) 0.1, Neutrophils % (Manual) 92, Lymphocytes % (Manual) 2, Monocytes % (Manual) 3, Eosinophils % (Manual) 2, Blood Morphology Comment NORMAL, Sodium Level 135, Potassium Level 4.3, Chloride Level 92L, Carbon Dioxide Level 35H, Anion Gap 8, Blood Urea Nitrogen 5L, Creatinine 0.43L, Estimat Glomerular Filtration Rate > 60, BUN/Creatinine Ratio 12, Glucose Level 106H, Calcium Level 7.8L, Phosphorus Level 2.5, Magnesium Level 1.8, B-Type Natriuretic Peptide 354.6H 09/25/20 04:40: Blood Gas Puncture Site RT RADIAL, Blood Gas Patient Temperature 37, Arterial Blood pH 7.44H, Arterial Blood Partial Pressure CO2 61H, Arterial Blood Partial Pressure O2 62L, Arterial Blood HCO3 40H, Arterial Blood Total CO2 42.0H, Arterial Blood Oxygen Saturation 91L, Arterial Blood Base Excess 14.9H, Kang Test POS, Blood Gas Ventilator Setting YES, Blood Gas Inspired Oxygen 4L Microbiology 09/23/20 Catheter Tip Culture - Preliminary, Resulted No growth 09/19/20 Gram Stain - Final, Complete 09/19/20 Sputum Culture - Final, Complete Usual upper respiratory jose martin Pseudomonas aeruginosa 09/19/20 Urine Culture - Final, Complete Escherichia coli Escherichia coli#2 Assessment/Plan Assessment/Plan Assess & Plan/Chief Complaint 1. Acute on chronic respiratory failure s/p tracheostomy -covid and influenza negative -on home vent 11-3 -on home vent and no current respiratory distress 09/24 -hopefully the home vent machine problem will be corrected -packing floor worker has been consulted per Dr. Velazquez hopefully to arrange home antibiotics 09/25 -noted patient okay to be discharged home tomorrow provided home antibiotics 2. 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 S/P Trach from [facility] in 4. Anemia -stable at 8.6 -daily CBC Clinical Quality Measures DVT/VTE Risk/Contraindication: Risk Factor Score Per Nursin RFS Level Per Nursing on Admit: 4+=Very High RAJESH DAVENPORT MD Sep 25, 2020 07:06
[2020-09-25] MEDS ORDERED: MERO1VIA23 IV (07:21)
[2020-09-25] MEDS: guaiFENesin (MUCINEX) 600 MG TAB PO SCH ×2 (08:09→21:09)
[2020-09-25] MEDS: MEROPENEM 2 GM/NS 100 ML IVPB IV SCH ×4 (08:10→21:09)
[2020-09-25] MEDS: FUROSEMIDE 40 MG/4 ML INJ (LASIX) IVP SCH (08:11)
[2020-09-25] MEDS: SERTRALINE 50 MG (ZOLOFT) TABLET GT SCH (08:11)
[2020-09-25] MEDS: LEVOTHYROXINE 75 MCG (LEVOTHROID) TABLET GT SCH (08:11)
[2020-09-25] MEDS: APIXABAN 5 MG (ELIQUIS) TABLET FEEDING SCH ×2 (08:11→21:09)
[2020-09-25] MEDS: NS IV 500 ML 500 ML IV SCH (11:02)
--- NOTE | 2020-09-25 12:01 | Physical Therapy Daily Note ---
PT Daily Note-Current Subjective Patient is up in recliner via nursing. Agrees to exercises. Mental Status Patient Orientation: Person Attachments: Ventilator (trach), Diego Catheter Transfers SCALE: Activities may be completed with or without assistive devices. 4-Ghactsvmkp-mcjeiht completes the activity by him/herself with no assistance from a helper. 5-Set-up or Clean-up Assistance-helper sets up or cleans up; patient completes activity. [place] assists only prior to or following the activity. 4-Supervision or Touching Assistance-helper provides verbal cues and/or touching/steadying and/or contact guard assistance as patient completes activity. Assistance may be provided throughout the activity or intermittently. 3-Partial/Moderate Assistance-helper does LESS THAN HALF the effort. [place] lifts, holds or supports trunk or limbs, but provides less than half the effort. 2-Substantial/Maximal Assistance-helper does MORE THAN HALF the effort. [place] lifts or holds trunk or limbs and provides more than half the effort. 7-Enmqxwjos-rogrvu does ALL the effort. Patient does none of the effort to complete the activity. Or, the assistance of 2 or more helpers is required for the patient to complete the activity. If activity was not attempted, code reason: 7-Patient Refused. 9-Not Applicable-not attempted and the patient did not perform the activity before the current illness, exacerbation or injury. 10-Not Attempted due to Environmental Limitations-(lack of equipment, weather restraints, etc.). 88-Not Attempted due to Medical Conditions or Safety Concerns. Exercises Supine Ex: Ankle pumps, Heel Slides, Straight leg raise, Hip abd/add Supine Reps: 15 (2 sets AAROM in recliner with bilateral LE elevated.) Assessment Patient tolerated minimal activity due to PLOF. Continue to address functional strength as tolerated by patient. PT Pr Internship Goals Fdc Goals PT Fdc Goals Time Frame: Oct 04, 2020 Roll Left & Right (QC): 1 Sit to Lying (QC): 1 Lying-Sitting on Side/Bed(QC): 1 Sit to Stand (QC): 1 Chair/Szz-lm-Lwhpk Xfer(QC): 1 PT Plan Treatment/Plan Treatment Plan: Continue Plan of Care Treatment Plan: Bed Mobility, Education, Functional Activity Marybeth, Functional Strength, Safety, Therapeutic Exercise, Transfers Treatment Duration: Oct 04, 2020 Frequency: 5 times per week Estimated Hrs Per Day: .25 hour per day Patient and/or Family Agrees t: Yes Time/GCodes Time In: 1115 Time Out: 1124 Total Billed Treatment Time: 9 Total Billed Treatment 1 visit EX 9 min BISMARK SNOWDEN PT Sep 25, 2020 12:01
--- NOTE | 2020-09-25 14:02 | NUR ---
During care rounds, it was noted that pt is receiving Pulmocare at rate of 35ml/hr with flushes of 50ml water q4h. This provides 78% of est kcal needs. Would recommend increases of 10ml q8h as tolerated, toward goal rate of 45ml/hr. Will continue to follow and reassess as pt needs, intake, and status change. Deepak Mejia, MS RD LD
--- NOTE | 2020-09-25 15:00 | NUR ---
CM/SS: Telephone call to Giancarlo - spouse [phone] - wanting to clarify pt's level of function and what pt was doing at home prior to her admission to the hospital. Spouse reports that pt was able to have nasal cannula on during the day and the vent on at night. Was sitting in the chair during the day, she uses the bedpan when needed, and that Pt was wearing the vent round the clock two days prior to her coming to the hospital. Spouse reports she felt as if she was short of breath. His goal is for pt to return home. He does not desire for pt to return to [facility], his desire is for her to be home with [facility] care services. He is explained the process for IV antibiotics. He is aware of there may be out of pocket expense involved with the antibiotics, he is ok with that. He would like for someone to check to see if pt's trach needs to be changed as the home theater expert thought it was near time to change. This information is passed along to MONTY Cooper.
[2020-09-25] MEDS: IBUPROFEN 600 MG (MOTRIN) TAB PO PRN (15:11)
--- NOTE | 2020-09-25 15:21 | NUR ---
CM/SS: Information sent to [facility] - Follow up from [place], They are able to do the antibiotics and the out of pocket expense is $142.80 per week. The duration is 10 day. They will need to know the exact date of discharge. This worker will follow up.
--- NOTE | 2020-09-25 17:00 | NUR ---
CM/SS: Telephone call to Giancarlo - spouse - he is updated on the plan related to [place] and informed that the information was passed along to the MONTY Hutton as to the trach. He is given an update on the pt sitting up in her chair today. He is glad to hear that. He is given the out of pocket cost from [place]. Approximate $145.00. He is ok with that. He thanks this worker for the update. This worker will follow up.
[2020-09-25] MEDS: MELATONIN 3 MG TABLET PO SCH (21:09)
[2020-09-26] VITALS (20 sets, daily range): BP systolic 87–122; BP diastolic 46–83
[2020-09-26] MEDS: RT-ALBUTEROL/IPRATROPIUM 3 ML (DUONEB) VIAL INH SCH ×7 (01:13→22:56)
[2020-09-26] MEDS: aCETylcysteine 20% (MUCOMYST) 30ML SOLN VIAL INH SCH ×6 (01:13→22:56)
[2020-09-26] MEDS: TOBRAMYCIN (NEBCIN) 80 MG/2 ML VIAL IH SCH ×2 (01:13→07:22)
--- NOTE | 2020-09-26 01:17 | NUR ---
PT'S HOME VENT CONTINUOSLY ALARMING BREAK IN CIRCUIT. RT UNABLE TO FIX, PT PLACED BACK ON HOSPITAL VENTILATOR AT THIS TIME, TV 420, RATE 12, 5 OF PEEP, AND 50% FIO2
[2020-09-26] MEDS: EPINEPHrine 1 MG INJECTION 4 MG in NS (IVPB) 246 ML IV SCH ×2 (01:23→12:53)
[2020-09-26 03:13] LABS: ABG BASE EXCESS 18.2 MMOL/L (-2.5-2.5); ABG OXYGEN SATURATION 97 % (94-100); ABG PCO2 69 MMHG (35-45); ABG PH 7.42 (7.37-7.43); ABG PO2 92 MMHG (79-93); ABG TCO2 46.3 MMOL/L (21.0-31.0)
[2020-09-26 03:15] LABS: ALLENS TEST POSITIVE; INSPIRED O2 40; PATIENT TEMP 36; VENTILATOR YES
[2020-09-26 03:23] LABS: BASOPHILS % (AUTO) 0 % (0-10); EOSINOPHILS # (AUTO) 0.3 10^3/uL (0.0-0.3); EOSINOPHILS % (AUTO) 2 % (0-10); HEMATOCRIT 31 % (35-52); HEMOGLOBIN 9.1 g/dL (11.5-16.0); LYMPHOCYTES # (AUTO) 0.4 10^3/uL (1.0-4.0); LYMPHOCYTES % (AUTO) 3 % (12-44); MEAN CORPUSCULAR HEMOGLOBIN 27 pg (25-34); MEAN CORPUSCULAR HGB CONC 30 g/dL (32-36); MEAN CORPUSCULAR VOLUME 91 fL (80-99); MEAN PLATELET VOLUME 9.4 fL (9.0-12.2); MONOCYTES # (AUTO) 0.7 10^3/uL (0.0-1.0); MONOCYTES % (AUTO) 5 % (0-12); NEUTROPHILS % (AUTO) 89 % (42-75); PLATELET COUNT 374 10^3/uL (130-400); WHITE BLOOD COUNT 13.4 10^3/uL (4.3-11.0)
[2020-09-26 03:33] LABS: CHLORIDE 90 MMOL/L (98-107); POTASSIUM 4.1 MMOL/L (3.6-5.0); SODIUM 137 MMOL/L (135-145)
[2020-09-26 03:34] LABS: CALCIUM 8.3 MG/DL (8.5-10.1)
[2020-09-26 03:35] LABS: GLUCOSE 124 MG/DL (70-105)
[2020-09-26 03:36] LABS: CARBON DIOXIDE 39 MMOL/L (21-32)
[2020-09-26 03:39] LABS: CREATININE SERUM 0.42 MG/DL (0.60-1.30); GFR ESTIMATED > 60; PHOSPHORUS 3.2 MG/DL (2.3-4.7)
[2020-09-26 03:40] LABS: BUN/CREATININE RATIO 19
[2020-09-26 03:41] LABS: MAGNESIUM 1.9 MG/DL (1.6-2.4)
--- NOTE | 2020-09-26 04:13 | Pulmonary Progress Note ---
Subjective Time Seen by a Provider: 04:09 Subjective/Events-last exam No complications noted. Sepsis Event Evaluation Height, Weight, BMI Height: 5'2.00" Weight: 90lbs. 6.0oz. 40.179635uy; 17.85 BMI Method: Focused Exam Lactate Level 09/24/20 01:42: Lactic Acid Level 0.83 Exam Exam Vital Signs Date Time Temp Pulse Resp B/P (MAP) Pulse Ox O2 Delivery O2 Flow Rate FiO2 09/26/20 01:13 188 28 94 50 09/25/20 21:00 96 Mechanical Ventilator 4.00 09/25/20 20:45 37.0 09/25/20 19:30 121 32 112/71 (85) 98 Mechanical Ventilator 50.00 09/25/20 19:18 T Piece 7.00 09/25/20 19:00 108 09/25/20 19:00 108 48 88/61 (70) 98 Mechanical Ventilator 40.00 09/25/20 18:00 116 30 105/63 (77) 98 Mechanical Ventilator 50.00 09/25/20 17:00 112 22 105/65 (78) 98 Mechanical Ventilator 50.00 09/25/20 16:00 36.1 09/25/20 16:00 122 28 91/61 (71) 98 Mechanical Ventilator 50.00 09/25/20 15:36 36.7 09/25/20 15:00 129 42 113/68 (83) 98 Mechanical Ventilator 50.00 09/25/20 14:16 T Piece 7.00 09/25/20 14:00 129 26 105/68 (80) 96 Mechanical Ventilator 50.00 09/25/20 13:00 133 38 116/69 (85) 93 Mechanical Ventilator 50.00 09/25/20 12:44 132 09/25/20 12:04 36.7 09/25/20 12:00 140 35 111/54 (73) 94 Mechanical Ventilator 50.00 09/25/20 11:00 154 114/60 (78) 96 Mechanical Ventilator 50.00 09/25/20 10:30 T Piece 7.00 09/25/20 10:00 120 20 88/58 (68) 91 Mechanical Ventilator 50.00 09/25/20 09:00 96 Mechanical Ventilator 4.00 09/25/20 09:00 109 11 103/61 (75) 93 Mechanical Ventilator 50.00 09/25/20 08:00 113 14 74/58 (63) 90 Mechanical Ventilator 50.00 09/25/20 07:00 108 15 97/53 (68) 90 Mechanical Ventilator 50.00 09/25/20 07:00 36.1 09/25/20 06:54 105 18 91 35 09/25/20 06:51 128 09/25/20 06:00 95 12 91/59 (70) 95 Mechanical Ventilator 50.00 09/25/20 05:00 107 12 94/65 (75) 94 Mechanical Ventilator 50.00 I & O 09/26/20 07:00 Intake Total 1440 ml Output Total 2350 ml Balance -910 ml Height & Weight Height: 5'2.00" Weight: 90lbs. 6.0oz. 40.671364dl; 17.85 BMI Method: General Appearance: No Apparent Distress HEENT: PERRL/EOMI, Moist Mucous Membranes, Other (trach ) Neck: Supple Respiratory: Lungs Clear (with slight coarseness) Cardiovascular: Regular Rate, Rhythm Capillary Refill: Less Than 3 Seconds Gastrointestinal: soft Extremity: Normal Capillary Refill, No Pedal Edema Neurologic/Psychiatric: Alert, Oriented x3 Skin: Normal Color, Warm/Dry Lymphatic: No Adenopathy Results Lab Laboratory Tests 09/25/20 02:55 09/26/20 02:57 Assessment/Plan Assessment/Plan Acute on chronic respiratory failure s/p tracheostomy at [facility] -Continue ventilatory care -Home vent was not working last night. Vent was change out to hospital vent. -Pt was off Ventilator to T tube yesterday. 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 -Richter cultures pending Anemia -Monitor Metabolic lactic acidosis -IVF -Monitor Small bilateral pleural effusions Echo shows normal EF with grade 1 diastolic dysfunction -Start Lasix daily - Secondary to worsening leukocytosis and issues with home vent last night. I recommend holding discharge for now. NORAH FOUNTAIN DO Sep 26, 2020 04:13
[2020-09-26] MEDS: MAGNESIUM 1 GM/100 ML IVPB 100 ML IV SCH (05:57)
[2020-09-26] MEDS: NS IV 500 ML 500 ML IV SCH ×2 (05:57→23:50)
[2020-09-26] MEDS: POTASSIUM CL 10MEQ/50ML IVPB 50 ML IV SCH (05:57)
[2020-09-26] MEDS: KCL 20 MEQ TAB (K-DUR) PO SCH (05:58)
--- NOTE | 2020-09-26 06:15 | Diagnostic Imaging Report ---
CLINICAL INDICATION: Follow-up sepsis. ICU care management. EXAM: Portable chest x-ray upright view. COMPARISON: Portable chest x-ray upright view dated 09/25/2020. FINDINGS: Tracheostomy tube again seen in good stable position. Stable blunting of the costophrenic angles bilaterally consistent with pleural effusions. There is bilateral airspace infiltrates with right midlung field right basilar region and left lung base regions affected the most. There is mild peripheral amorphous opacities in the periphery of the lung apices bilaterally. There is patchy consolidation right lung base as well. Cardiomegaly is again noted. Pulmonary vasculature is within normal limits. The remainder of this exam shows no significant interval change compared to the prior study of comparison. IMPRESSION: 1: Stable chest x-ray exam of bilateral lung bibasilar infiltrates and bilateral apical pleural parenchymal thickening/scarring and/or infiltrates. 2: Stable bilateral pleural effusions. Dictated by: Dictated on workstation # [id number]
[2020-09-26 09:02] LABS: BASOPHILS % (AUTO) 0 % (0-10); EOSINOPHILS # (AUTO) 0.3 10^3/uL (0.0-0.3); EOSINOPHILS % (AUTO) 2 % (0-10); HEMATOCRIT 33 % (35-52); HEMOGLOBIN 9.6 g/dL (11.5-16.0); LYMPHOCYTES # (AUTO) 0.4 10^3/uL (1.0-4.0); LYMPHOCYTES % (AUTO) 3 % (12-44); MEAN CORPUSCULAR HEMOGLOBIN 27 pg (25-34); MEAN CORPUSCULAR HGB CONC 29 g/dL (32-36); MEAN CORPUSCULAR VOLUME 92 fL (80-99); MEAN PLATELET VOLUME 9.5 fL (9.0-12.2); MONOCYTES # (AUTO) 0.5 10^3/uL (0.0-1.0); MONOCYTES % (AUTO) 4 % (0-12); NEUTROPHILS # (AUTO) 11.9 10^3/uL (1.8-7.8); NEUTROPHILS % (AUTO) 91 % (42-75); PLATELET COUNT 412 10^3/uL (130-400); WHITE BLOOD COUNT 13.2 10^3/uL (4.3-11.0)
[2020-09-26] MEDS: LEVOTHYROXINE 75 MCG (LEVOTHROID) TABLET GT SCH (09:08)
[2020-09-26] MEDS: APIXABAN 5 MG (ELIQUIS) TABLET FEEDING SCH ×2 (09:08→22:24)
[2020-09-26] MEDS: SERTRALINE 50 MG (ZOLOFT) TABLET GT SCH (09:08)
[2020-09-26] MEDS: guaiFENesin (MUCINEX) 600 MG TAB PO SCH ×2 (09:08→22:26)
[2020-09-26] MEDS: MEROPENEM 2 GM/NS 100 ML IVPB IV SCH ×4 (09:10→22:24)
[2020-09-26] MEDS: FUROSEMIDE 40 MG/4 ML INJ (LASIX) IVP SCH ×2 (09:10→09:45)
[2020-09-26] MEDS: morphine INJ 10 MG/ML 1ML (SYR OR VIAL) IVP PRN ×2 (09:39→13:47)
[2020-09-26] MEDS ORDERED: HYDROcodone/APAP 5 MG/325 MG (LORTAB) TAB PO PRN (10:15)
--- NOTE | 2020-09-26 10:23 | Progress Note ---
Subjective Date Seen by a Provider: Sep 26, 2020 Time Seen by a Provider: 06:55 Subjective/Events-last exam patient is resting comfortably and is in no distress. Apparently there was a problem with her home vent and is now back at [facility]. Focused Exam Lactate Level 09/24/20 01:42: Lactic Acid Level 0.83 Objective Exam Vital Signs Date Time Temp Pulse Resp B/P (MAP) Pulse Ox O2 Delivery O2 Flow Rate FiO2 09/26/20 10:00 99 17 100/55 (70) 96 Mechanical Ventilator 40.00 09/26/20 09:42 35.7 09/26/20 09:00 144 22 91/57 (68) 97 Mechanical Ventilator 40.00 09/26/20 08:00 116 28 88/56 (67) 94 Mechanical Ventilator 40.00 09/26/20 07:49 121 37 95 40 09/26/20 07:27 94 T Piece 12.00 70 09/26/20 07:13 95 T Piece 12.00 70 09/26/20 07:00 124 87/48 (61) 95 Mechanical Ventilator 40.00 09/26/20 07:00 122 09/26/20 06:00 111 38 97/69 (78) 92 Mechanical Ventilator 40.00 09/26/20 05:00 105 14 91/46 (61) 92 Mechanical Ventilator 40.00 09/26/20 04:31 115 18 115/62 (79) 100 Mechanical Ventilator 40.00 09/26/20 04:00 36.0 Mechanical Ventilator 40.00 09/26/20 03:00 101 30 92/54 (67) 96 Mechanical Ventilator 40.00 09/26/20 02:52 101 12 90/52 (65) 95 Mechanical Ventilator 40.00 09/26/20 01:13 188 28 94 50 09/26/20 01:00 125 29 122/83 (96) 92 Mechanical Ventilator 40.00 09/26/20 01:00 136 09/26/20 00:00 105 22 117/55 (75) 94 Mechanical Ventilator 40.00 09/25/20 23:00 115 23 101/53 (69) 95 Mechanical Ventilator 40.00 09/25/20 22:00 98 18 105/52 (69) 95 Mechanical Ventilator 40.00 09/25/20 21:55 123 113/67 (82) 88 Mechanical Ventilator 40.00 09/25/20 21:00 96 Mechanical Ventilator 4.00 09/25/20 20:45 37.0 09/25/20 20:00 144 40 106/88 (94) 90 Mechanical Ventilator 40.00 09/25/20 19:30 121 32 112/71 (85) 98 Mechanical Ventilator 40.00 09/25/20 19:18 T Piece 7.00 09/25/20 19:00 108 09/25/20 19:00 108 48 88/61 (70) 98 Mechanical Ventilator 40.00 09/25/20 18:00 116 30 105/63 (77) 98 Mechanical Ventilator 50.00 09/25/20 17:00 112 22 105/65 (78) 98 Mechanical Ventilator 50.00 09/25/20 16:00 36.1 09/25/20 16:00 122 28 91/61 (71) 98 Mechanical Ventilator 50.00 09/25/20 15:36 36.7 09/25/20 15:00 129 42 113/68 (83) 98 Mechanical Ventilator 50.00 09/25/20 14:16 T Piece 7.00 09/25/20 14:00 129 26 105/68 (80) 96 Mechanical Ventilator 50.00 09/25/20 13:00 133 38 116/69 (85) 93 Mechanical Ventilator 50.00 09/25/20 12:44 132 09/25/20 12:04 36.7 09/25/20 12:00 140 35 111/54 (73) 94 Mechanical Ventilator 50.00 09/25/20 11:00 154 114/60 (78) 96 Mechanical Ventilator 50.00 09/25/20 10:30 T Piece 7.00 I & O 09/26/20 07:00 Intake Total 1630 ml Output Total 2495 ml Balance -865 ml Capillary Refill : Less Than 3 Seconds General Appearance: No Apparent Distress Neck: Supple Respiratory: Lungs Clear Cardiovascular: Regular Rate, Rhythm Gastrointestinal: soft Results Lab Laboratory Tests 09/25/20 15:47: Glucometer 118H 09/25/20 21:24: Glucometer 131H 09/26/20 02:57: White Blood Count 13.4H, Red Blood Count 3.37L, Hemoglobin 9.1L, Hematocrit 31L, Mean Corpuscular Volume 91, Mean Corpuscular Hemoglobin 27, Mean Corpuscular Hemoglobin Concent 30L, Red Cell Distribution Width 15.6H, Platelet Count 374, Mean Platelet Volume 9.4, Immature Granulocyte % (Auto) 0, Neutrophils (%) (Auto) 89H, Lymphocytes (%) (Auto) 3L, Monocytes (%) (Auto) 5, Eosinophils (%) (Auto) 2, Basophils (%) (Auto) 0, Neutrophils # (Auto) 12.0H, Lymphocytes # (Auto) 0.4L, Monocytes # (Auto) 0.7, Eosinophils # (Auto) 0.3, Basophils # (Auto) 0.0, Immature Granulocyte # (Auto) 0.1, Sodium Level 137, Potassium Level 4.1, Chloride Level 90L, Carbon Dioxide Level 39H, Anion Gap 8, Blood Urea Nitrogen 8, Creatinine 0.42L, Estimat Glomerular Filtration Rate > 60, BUN/Creatinine Ratio 19, Glucose Level 124H, Calcium Level 8.3L, Phosphorus Level 3.2, Magnesium Level 1.9 09/26/20 03:00: Blood Gas Puncture Site RIGHT RADIAL, Blood Gas Patient Temperature 36, Arterial Blood pH 7.42, Arterial Blood Partial Pressure CO2 69H, Arterial Blood Partial Pressure O2 92, Arterial Blood HCO3 44*H, Arterial Blood Total CO2 46.3H, Arterial Blood Oxygen Saturation 97, Arterial Blood Base Excess 18.2H, Kang Test POSITIVE, Blood Gas Ventilator Setting YES, Blood Gas Inspired Oxygen 40 09/26/20 07:50: White Blood Count 13.2H, Red Blood Count 3.57L, Hemoglobin 9.6L, Hematocrit 33L, Mean Corpuscular Volume 92, Mean Corpuscular Hemoglobin 27, Mean Corpuscular Hemoglobin Concent 29L, Red Cell Distribution Width 15.8H, Platelet Count 412H, Mean Platelet Volume 9.5, Immature Granulocyte % (Auto) 0, Neutrophils (%) (Auto) 91H, Lymphocytes (%) (Auto) 3L, Monocytes (%) (Auto) 4, Eosinophils (%) (Auto) 2, Basophils (%) (Auto) 0, Neutrophils # (Auto) 11.9H, Lymphocytes # (Auto) 0.4L, Monocytes # (Auto) 0.5, Eosinophils # (Auto) 0.3, Basophils # (Auto) 0.0, Immature Granulocyte # (Auto) 0.0 Microbiology 09/23/20 Catheter Tip Culture - Preliminary, Resulted No growth 09/19/20 Gram Stain - Final, Complete 09/19/20 Sputum Culture - Final, Complete Usual upper respiratory jose martin Pseudomonas aeruginosa 09/19/20 Urine Culture - Final, Complete Escherichia coli Escherichia coli#2 Assessment/Plan Assessment/Plan Assess & Plan/Chief Complaint 1. Acute on chronic respiratory failure s/p tracheostomy -covid and influenza negative -on home vent 11-3 -on home vent and no current respiratory distress 09/24 -hopefully the home vent machine problem will be corrected -life skills worker has been consulted per Dr. Velazquez hopefully to arrange home antibiotics 09/25 -noted patient okay to be discharged home tomorrow provided home antibiotics 09/26 -at this point [place] for home antibiotics. She had slight bump in the white blood cell count and this will be rechecked later. 2. 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 S/P Trach from [facility] hospital in 4. Anemia -stable at 8.6 -daily CBC Clinical Quality Measures DVT/VTE Risk/Contraindication: Risk Factor Score Per Nursin RFS Level Per Nursing on Admit: 4+=Very High RAJESH DAVENPORT MD Sep 26, 2020 10:23
--- NOTE | 2020-09-26 10:27 | Physical Therapy Daily Note ---
PT Daily Note-Current Subjective Patient agrees to exercises in bed but declined OOB at this time. Mental Status Patient Orientation: Person, Time Attachments: Ventilator (trach), Diego Catheter, IV Transfers SCALE: Activities may be completed with or without assistive devices. 9-Lpchpksuhk-hpklgxn completes the activity by him/herself with no assistance from a helper. 5-Set-up or Clean-up Assistance-helper sets up or cleans up; patient completes activity. [place] assists only prior to or following the activity. 4-Supervision or Touching Assistance-helper provides verbal cues and/or touching/steadying and/or contact guard assistance as patient completes activity. Assistance may be provided throughout the activity or intermittently. 3-Partial/Moderate Assistance-helper does LESS THAN HALF the effort. [place] lifts, holds or supports trunk or limbs, but provides less than half the effort. 2-Substantial/Maximal Assistance-helper does MORE THAN HALF the effort. [place] lifts or holds trunk or limbs and provides more than half the effort. 1-Jblujcxzl-hwdarm does ALL the effort. Patient does none of the effort to complete the activity. Or, the assistance of 2 or more helpers is required for the patient to complete the activity. If activity was not attempted, code reason: 7-Patient Refused. 9-Not Applicable-not attempted and the patient did not perform the activity before the current illness, exacerbation or injury. 10-Not Attempted due to Environmental Limitations-(lack of equipment, weather restraints, etc.). 88-Not Attempted due to Medical Conditions or Safety Concerns. Exercises Supine Ex: Ankle pumps, Heel Slides, Straight leg raise, Hip abd/add Supine Reps: 15 (x 2 AAROM bilateral LE) Assessment Patient tolerates minimal activity. PT to increase activity as tolerated by patient. PT Lock Installer Goals Residential Goals PT Lock Installer Goals Time Frame: Oct 04, 2020 Roll Left & Right (QC): 1 Sit to Lying (QC): 1 Lying-Sitting on Side/Bed(QC): 1 Sit to Stand (QC): 1 Chair/Lxl-nx-Bkqxd Xfer(QC): 1 PT Plan Treatment/Plan Treatment Plan: Continue Plan of Care Treatment Plan: Bed Mobility, Education, Functional Activity Marybeth, Functional Strength, Safety, Therapeutic Exercise, Transfers Treatment Duration: Oct 04, 2020 Frequency: 5 times per week Estimated Hrs Per Day: .25 hour per day Patient and/or Family Agrees t: Yes Time/GCodes Time In: 907 Time Out: 922 Total Billed Treatment Time: 15 Total Billed Treatment 1 visit EX 15 min BISMARK SNOWDEN PT Sep 26, 2020 10:27
--- NOTE | 2020-09-26 12:10 | Physical Therapy Daily Note ---
PT Daily Note-Current Subjective Patient agrees to up in recliner. RN present to assist for vent placement with transfer. Transfers SCALE: Activities may be completed with or without assistive devices. 5-Orlqgjoior-irzdveo completes the activity by him/herself with no assistance from a helper. 5-Set-up or Clean-up Assistance-helper sets up or cleans up; patient completes activity. [place] assists only prior to or following the activity. 4-Supervision or Touching Assistance-helper provides verbal cues and/or touching/steadying and/or contact guard assistance as patient completes activity. Assistance may be provided throughout the activity or intermittently. 3-Partial/Moderate Assistance-helper does LESS THAN HALF the effort. [place] lifts, holds or supports trunk or limbs, but provides less than half the effort. 2-Substantial/Maximal Assistance-helper does MORE THAN HALF the effort. [place] lifts or holds trunk or limbs and provides more than half the effort. 9-Vgtujwwkm-tmnkll does ALL the effort. Patient does none of the effort to complete the activity. Or, the assistance of 2 or more helpers is required for the patient to complete the activity. If activity was not attempted, code reason: 7-Patient Refused. 9-Not Applicable-not attempted and the patient did not perform the activity before the current illness, exacerbation or injury. 10-Not Attempted due to Environmental Limitations-(lack of equipment, weather restraints, etc.). 88-Not Attempted due to Medical Conditions or Safety Concerns. Lying to Sitting/Side of Bed(Q: 1 Sit to Stand (QC): 1 (retropulsive with inability to stand on bilateral LE to assist) Assessment Patient is up in recliner with needs met. Patient is dependent with this task. PT Medical Insurance Verifier Goals [facility] Goals PT [facility] Goals Time Frame: Oct 04, 2020 Roll Left & Right (QC): 1 Sit to Lying (QC): 1 Lying-Sitting on Side/Bed(QC): 1 Sit to Stand (QC): 1 Chair/Xrq-ib-Bbpvh Xfer(QC): 1 PT Plan Treatment/Plan Treatment Plan: Continue Plan of Care Treatment Plan: Bed Mobility, Education, Functional Activity Marybeth, Functional Strength, Safety, Therapeutic Exercise, Transfers Treatment Duration: Oct 04, 2020 Frequency: 5 times per week Estimated Hrs Per Day: .25 hour per day Patient and/or Family Agrees t: Yes Time/GCodes Time In: 1045 Time Out: 1055 Total Billed Treatment Time: 10 Total Billed Treatment 1 visit FA 10 min BISMARK SNOWDEN PT Sep 26, 2020 12:10
--- NOTE | 2020-09-26 13:02 | NUR ---
LATE ENTRY: DURING MORNING ROUNDS DR FOUNTAIN NOTIFIED THAT THIS RN HELD AM DOSE OF LASIX BP WAS NOTED TO BE 100 SYSTOLIC NEW ORDERS RECEIVED TO HOLD LASIX FOR SYSTOLIC BP <110.
--- NOTE | 2020-09-26 14:09 | NUR ---
PT REPORTED THAT THE "PAIN PILL DIDN'T HELP MUCH." DR FOUNTAIN NOTIFIED AND NEW ORDERS RECEIVED. SEE ORDER HX
--- NOTE | 2020-09-26 14:57 | NUR ---
CM/SS: Telephone call from Peter -spouse, he was checking on the status of the discharge plan. He is informed of the updated information on pt. Plan: Pt to be discharged to home on Saturday 09/29 with [facility] and IV antibiotics from [facility] Summary: Pt will remain through the weekend based on elevated white count and to check the home vent and ensure it is working properly. Spouse is aware that pt will not leave today and that the plan is for Saturday 09/29 [facility] is notified that pt will discharge on Saturday 09/29 Sam ([facility]) [phone] - is notified that pt will not leave today and that she will discharge to home on Saturday 09/29 [facility] is notified about the Home Vent - talk with Ayla - she will have the machine switched out to determine it is working properly This worker will follow up.
--- NOTE | 2020-09-26 15:48 | NUR ---
During care rounds, it was noted that pt is receiving Pulmocare at rate of 35ml/hr with flushes of 50ml water q4h. This provides 78% of est kcal needs. Would recommend increase of 10ml toward goal rate of 45ml/hr. Will continue to follow and reassess as pt needs, intake, and status change. Deepak Mejia, MS RD LD
--- NOTE | 2020-09-26 20:14 | Cardiology Progress Note ---
Cardiology SOAP Progress Note Subjective: On a ventilator. Objective: I&O/Vital Signs Weight (Pounds): 90 Weight (Ounces): 6.0 Weight (Calculated Kilograms): 40.429132 Constitutional: other (on a ventilator.) Respiratory: chest is bilaterally symmetric, lungs clear to auscultation Cardiovascular: regular rate-rhythm, S1 and S2 Gastrointestional: audible bowel sounds Extremities: normal range of motion, non-tender, normal inspection, no lower extremity edema bilateral Neurologic/Psychiatric: other (on a ventilator.) Results/Procedures: Labs Microbiology 09/23/20 Catheter Tip Culture - Final, Complete No growth 09/19/20 Gram Stain - Final, Complete 09/19/20 Sputum Culture - Final, Complete Usual upper respiratory jose martin Pseudomonas aeruginosa 09/19/20 Urine Culture - Final, Complete Escherichia coli Escherichia coli#2 A/P: Assessment/Dx: Acute respiratory failure Sepsis Type II myocardial infarction Plan: Acute on chronic respiratory failure, 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 Currently back on the home ventilator, improving, managed by Dr. Velazquez Mild elevation in troponin, probably type II myocardial infarction due to severe hypoxemia and sepsis conservative management recommended Sepsis, leukocytosis. managed by Dr. Velazquez History of paroxysmal atrial fibrillation, had few episode of atrial fibr illation in May during her admission and she was maintained on amiodarone and digoxin on transfer to History of COPD. Thank you for your consultation. Please call me if you have any questions. Zonia Chu MD, FACP, FACC, FSCAI, FHRS, CCDS Interventional Cardiology Cardiac Electrophysiology Vascular Medicine and Endovascular Interventions Focused Exam Lactate Level Rose Marie CHU MD Sep 26, 2020 20:14
[2020-09-26] MEDS: HYDROcodone/APAP 5 MG/325 MG (LORTAB) TAB PO PRN (22:24)
[2020-09-26] MEDS: MELATONIN 3 MG TABLET PO SCH (22:24)
[2020-09-26] MEDS: ALPRAZolam 0.5 MG (XANAX) TAB PO PRN (22:24)
[2020-09-27] VITALS (8 sets, daily range): BP systolic 91–113; BP diastolic 56–69
[2020-09-27] MEDS: aCETylcysteine 20% (MUCOMYST) 30ML SOLN VIAL INH SCH ×2 (02:28→07:09)
[2020-09-27] MEDS: RT-ALBUTEROL/IPRATROPIUM 3 ML (DUONEB) VIAL INH SCH ×6 (02:28→21:59)
[2020-09-27 03:57] LABS: BASOPHILS % (AUTO) 0 % (0-10); EOSINOPHILS # (AUTO) 0.5 10^3/uL (0.0-0.3); EOSINOPHILS % (AUTO) 5 % (0-10); HEMATOCRIT 30 % (35-52); HEMOGLOBIN 9.1 g/dL (11.5-16.0); LYMPHOCYTES # (AUTO) 0.6 10^3/uL (1.0-4.0); LYMPHOCYTES % (AUTO) 5 % (12-44); MEAN CORPUSCULAR HEMOGLOBIN 27 pg (25-34); MEAN CORPUSCULAR HGB CONC 30 g/dL (32-36); MEAN CORPUSCULAR VOLUME 90 fL (80-99); MEAN PLATELET VOLUME 9.6 fL (9.0-12.2); MONOCYTES # (AUTO) 0.6 10^3/uL (0.0-1.0); MONOCYTES % (AUTO) 5 % (0-12); NEUTROPHILS # (AUTO) 8.6 10^3/uL (1.8-7.8); NEUTROPHILS % (AUTO) 83 % (42-75); PLATELET COUNT 399 10^3/uL (130-400); WHITE BLOOD COUNT 10.3 10^3/uL (4.3-11.0)
[2020-09-27 04:19] LABS: CHLORIDE 89 MMOL/L (98-107); POTASSIUM 4.2 MMOL/L (3.6-5.0); SODIUM 136 MMOL/L (135-145)
[2020-09-27 04:20] LABS: CALCIUM 8.3 MG/DL (8.5-10.1)
[2020-09-27 04:21] LABS: GLUCOSE 98 MG/DL (70-105)
[2020-09-27 04:22] LABS: CARBON DIOXIDE 40 MMOL/L (21-32)
[2020-09-27 04:25] LABS: CREATININE SERUM 0.42 MG/DL (0.60-1.30); GFR ESTIMATED > 60; PHOSPHORUS 2.3 MG/DL (2.3-4.7)
[2020-09-27 04:26] LABS: BUN/CREATININE RATIO 21
[2020-09-27 04:27] LABS: MAGNESIUM 1.9 MG/DL (1.6-2.4)
--- NOTE | 2020-09-27 04:45 | Pulmonary Progress Note ---
Subjective Time Seen by a Provider: 04:43 Subjective/Events-last exam No complications noted. Sepsis Event Evaluation Height, Weight, BMI Height: 5'2.00" Weight: 90lbs. 6.0oz. 40.694293ih; 17.85 BMI Method: Exam Exam Vital Signs Date Time Temp Pulse Resp B/P (MAP) Pulse Ox O2 Delivery O2 Flow Rate FiO2 09/27/20 03:42 36.7 97 16 97/58 (71) 94 Mechanical Ventilator 10.00 09/27/20 02:28 85 18 92 09/27/20 01:00 78 09/27/20 00:00 36.4 75 17 102/63 (76) 95 Mechanical Ventilator 10.00 09/26/20 22:56 94 Mechanical Ventilator 12.00 70 09/26/20 21:00 36.7 94 16 94/53 (67) 95 Mechanical Ventilator 10.00 09/26/20 21:00 95 Mechanical Ventilator 10.00 09/26/20 19:14 15.00 09/26/20 19:00 90 Mechanical Ventilator 12.00 70 09/26/20 19:00 94 09/26/20 18:55 90 Mechanical Ventilator 12.00 70 09/26/20 17:00 80 17 97/78 (84) 96 APAP 7.00 09/26/20 16:00 82 14 98/62 (74) 95 APAP 7.00 09/26/20 16:00 36.4 09/26/20 15:52 APAP 7.00 09/26/20 15:00 85 18 92 09/26/20 15:00 96 21 113/69 (84) 93 09/26/20 14:03 36.1 APAP 09/26/20 14:00 88 22 94 Mechanical Ventilator 40.00 09/26/20 13:00 85 17 Mechanical Ventilator 40.00 09/26/20 13:00 110 09/26/20 12:00 102 28 110/75 (87) 96 Mechanical Ventilator 40.00 09/26/20 11:00 107 29 94/77 (83) 92 Mechanical Ventilator 40.00 09/26/20 10:32 101 18 97 40 09/26/20 10:00 99 17 100/55 (70) 96 Mechanical Ventilator 40.00 09/26/20 09:42 35.7 09/26/20 09:00 144 22 91/57 (68) 97 Mechanical Ventilator 40.00 09/26/20 08:35 93 Mechanical Ventilator 40 09/26/20 08:00 116 28 88/56 (67) 94 Mechanical Ventilator 40.00 09/26/20 07:49 121 37 95 40 09/26/20 07:27 94 T Piece 12.00 70 09/26/20 07:13 95 T Piece 12.00 70 09/26/20 07:00 124 87/48 (61) 95 Mechanical Ventilator 40.00 09/26/20 07:00 122 09/26/20 06:00 111 38 97/69 (78) 92 Mechanical Ventilator 40.00 09/26/20 05:00 105 14 91/46 (61) 92 Mechanical Ventilator 40.00 I & O 09/27/20 07:00 Intake Total 1020 ml Output Total 785 ml Balance 235 ml Height & Weight Height: 5'2.00" Weight: 90lbs. 6.0oz. 40.938631uu; 17.85 BMI Method: General Appearance: No Apparent Distress HEENT: PERRL/EOMI, Moist Mucous Membranes, Other (trach ) Neck: Supple Respiratory: Lungs Clear Cardiovascular: Regular Rate, Rhythm Capillary Refill: Less Than 3 Seconds Gastrointestinal: soft Extremity: Normal Capillary Refill; No Pedal Edema Neurologic/Psychiatric: Alert, Oriented x3 Skin: Normal Color Lymphatic: No Adenopathy Results Lab Laboratory Tests 09/26/20 02:57 09/26/20 07:50 09/27/20 03:47 Assessment/Plan Assessment/Plan Acute on chronic respiratory failure s/p tracheostomy at [facility] -Continue ventilatory care -No issues with home vent last night. Improved leukocytosis. No issues per RN last night. -Pt is ok for discharge from pulmonary standpoint with home Abx with Merrem for total of 14days. -Pt was off Ventilator to T tube yesterday. 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 -Richter cultures pending Anemia -Monitor Metabolic lactic acidosis -IVF -Monitor Small bilateral pleural effusions Echo shows normal EF with grade 1 diastolic dysfunction -Start Lasix daily NORAH FOUNTAIN DO Sep 27, 2020 04:45
[2020-09-27] MEDS: EPINEPHrine 1 MG INJECTION 4 MG in NS (IVPB) 246 ML IV SCH ×2 (07:06→23:48)
--- NOTE | 2020-09-27 08:00 | Discharge Inst-Simple/Standard ---
Discharge Inst-Standard Reconcile Patient Problems Problems Reviewed?: Yes Patient Instructions/Follow Up Plan of Care/Instructions/FU: Dr Davenport within the week. Giancarlo to call to arrange ZOOM FU. Activity as Tolerated: Yes Discharge Diet: Tube Feeding Return to [facility]: Fever persisting, labored breathing RAJESH DAVENPORT MD Sep 27, 2020 08:00
--- NOTE | 2020-09-27 08:04 | Progress Note ---
Subjective Date Seen by a Provider: Sep 27, 2020 Time Seen by a Provider: 07:00 Subjective/Events-last exam patient appears to be in no distress. Her home vent machine is now on use. Objective Exam Vital Signs Date Time Temp Pulse Resp B/P (MAP) Pulse Ox O2 Delivery O2 Flow Rate FiO2 09/27/20 07:06 95 Mechanical Ventilator 10.00 09/27/20 07:00 86 09/27/20 05:27 85 18 92 09/27/20 03:42 36.7 97 16 97/58 (71) 94 Mechanical Ventilator 10.00 09/27/20 02:28 85 18 92 09/27/20 01:00 78 09/27/20 00:00 36.4 75 17 102/63 (76) 95 Mechanical Ventilator 10.00 09/26/20 22:56 94 Mechanical Ventilator 12.00 70 09/26/20 21:00 36.7 94 16 94/53 (67) 95 Mechanical Ventilator 10.00 09/26/20 21:00 95 Mechanical Ventilator 10.00 09/26/20 19:14 15.00 09/26/20 19:00 90 Mechanical Ventilator 12.00 70 09/26/20 19:00 94 09/26/20 18:55 90 Mechanical Ventilator 12.00 70 09/26/20 17:00 80 17 97/78 (84) 96 APAP 7.00 09/26/20 16:00 82 14 98/62 (74) 95 APAP 7.00 09/26/20 16:00 36.4 09/26/20 15:52 APAP 7.00 09/26/20 15:00 85 18 92 09/26/20 15:00 96 21 113/69 (84) 93 09/26/20 14:03 36.1 APAP 09/26/20 14:00 88 22 94 Mechanical Ventilator 40.00 09/26/20 13:00 85 17 Mechanical Ventilator 40.00 09/26/20 13:00 110 09/26/20 12:00 102 28 110/75 (87) 96 Mechanical Ventilator 40.00 09/26/20 11:00 107 29 94/77 (83) 92 Mechanical Ventilator 40.00 09/26/20 10:32 101 18 97 40 09/26/20 10:00 99 17 100/55 (70) 96 Mechanical Ventilator 40.00 09/26/20 09:42 35.7 11/6/20 09:00 144 22 91/57 (68) 97 Mechanical Ventilator 40.00 09/26/20 08:35 93 Mechanical Ventilator 40 I & O 09/27/20 07:00 Intake Total 1450 ml Output Total 1035 ml Balance 415 ml Capillary Refill : Less Than 3 Seconds General Appearance: No Apparent Distress Respiratory: Lungs Clear Cardiovascular: Regular Rate, Rhythm Gastrointestinal: soft Extremity: Normal Capillary Refill Skin: Normal Color Results Lab Laboratory Tests 09/26/20 16:33: Glucometer 138H 09/26/20 20:19: Glucometer 110 09/27/20 03:47: White Blood Count 10.3, Red Blood Count 3.36L, Hemoglobin 9.1L, Hematocrit 30L, Mean Corpuscular Volume 90, Mean Corpuscular Hemoglobin 27, Mean Corpuscular Hemoglobin Concent 30L, Red Cell Distribution Width 15.7H, Platelet Count 399, Mean Platelet Volume 9.6, Immature Granulocyte % (Auto) 0, Neutrophils (%) (Auto) 83H, Lymphocytes (%) (Auto) 5L, Monocytes (%) (Auto) 5, Eosinophils (%) (Auto) 5, Basophils (%) (Auto) 0, Neutrophils # (Auto) 8.6H, Lymphocytes # (Auto) 0.6L, Monocytes # (Auto) 0.6, Eosinophils # (Auto) 0.5H, Basophils # (Auto) 0.0, Immature Granulocyte # (Auto) 0.0, Sodium Level 136, Potassium Level 4.2, Chloride Level 89L, Carbon Dioxide Level 40H, Anion Gap 7, Blood Urea Nitrogen 9, Creatinine 0.42L, Estimat Glomerular Filtration Rate > 60, BUN/Creatinine Ratio 21, Glucose Level 98, Calcium Level 8.3L, Phosphorus Level 2.3, Magnesium Level 1.9 Microbiology 09/23/20 Catheter Tip Culture - Final, Complete No growth 09/19/20 Gram Stain - Final, Complete 09/19/20 Sputum Culture - Final, Complete Usual upper respiratory jose martin Pseudomonas aeruginosa 09/19/20 Urine Culture - Final, Complete Escherichia coli Escherichia coli#2 Assessment/Plan Assessment/Plan Assess & Plan/Chief Complaint 1. Acute on chronic respiratory failure s/p tracheostomy -covid and influenza negative -on home vent 3 -on home vent and no current respiratory distress 09/24 -hopefully the home vent machine problem will be corrected -licensed clinical social worker has been consulted per Dr. Velazquez hopefully to arrange home antibiotics 09/25 -noted patient okay to be discharged home tomorrow provided home antibiotics 09/26 -at this point [place] for home antibiotics. She had slight bump in the white blood cell count and this will be rechecked later. 09/27 -patient to be discharged to home today if home health can deliver her meropenem 2000 mg IV twice daily 2. 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 S/P Trach from [facility] in 4. Anemia -stable at 8.6 -daily CBC Clinical Quality Measures DVT/VTE Risk/Contraindication: Risk Factor Score Per Nursin RFS Level Per Nursing on Admit: 4+=Very High RAJESH DAVENPORT MD Sep 27, 2020 08:04
[2020-09-27] MEDS: guaiFENesin (MUCINEX) 600 MG TAB PO SCH ×2 (08:39→21:35)
[2020-09-27] MEDS: TOBRAMYCIN (NEBCIN) 80 MG/2 ML VIAL IH SCH ×2 (08:39→22:08)
[2020-09-27] MEDS: LEVOTHYROXINE 75 MCG (LEVOTHROID) TABLET GT SCH (08:39)
[2020-09-27] MEDS: FUROSEMIDE 40 MG/4 ML INJ (LASIX) IVP SCH (08:40)
[2020-09-27] MEDS: APIXABAN 5 MG (ELIQUIS) TABLET FEEDING SCH ×2 (08:40→21:35)
[2020-09-27] MEDS: SERTRALINE 50 MG (ZOLOFT) TABLET GT SCH (08:40)
[2020-09-27] MEDS: MEROPENEM 2 GM/NS 100 ML IVPB IV SCH ×4 (08:40→21:35)
--- NOTE | 2020-09-27 09:32 | Diagnostic Imaging Report ---
INDICATION: Sepsis. TECHNIQUE: Single view chest 4:23 AM. CORRELATION STUDY: 09/26/2020 FINDINGS: Tracheostomy tube perhaps slightly retracted. Tip at the level of the clavicles. Heart size and mediastinum appear generally stable but are somewhat obscured. Vasculature appears increased. Extensive predominantly airspace disease involving the lower lobe distributions and to a lesser degree upper lobe distributions overall generally stable. Moderate bilateral pleural effusions could potentially be loculated as well. Question more focal rounded nodule right lung apex. Asymmetric areas of biapical pleural thickening. IMPRESSION: 1. Extensive bilateral pulmonary infiltrates most pronounced at the lung bases appear generally stable. Bilateral pleural effusions which could potentially be loculated. 2. Vasculature appears somewhat increased. Dictated by: Dictated on workstation # [id number]
--- NOTE | 2020-09-27 10:26 | Discharge Summary ---
Discharge Summary Reconcile Patient Problems Problems Reviewed?: Yes Instructions for Patient Via [employer], Assessment/Instructions [facility] to provide Merropenem 2 gm IV q12 hours until next Tuesday. Physician to follow Patient: Ilya samuels within the week Discharge Diet for Home: Tube Feeding Hospital Course Date of Admission: Sep 19, 2020 at 20:20 Admission Diagnosis : Family Physician/Provider: Rajesh Davenport MD Date of Discharge: 09/27/20 Discharge Diagnosis: [ ] Hospital Course: [ ] Labs and Pending Lab Test: Laboratory Tests 09/26/20 16:33: Glucometer 138H 09/26/20 20:19: Glucometer 110 09/27/20 03:47: White Blood Count 10.3, Red Blood Count 3.36L, Hemoglobin 9.1L, Hematocrit 30L, Mean Corpuscular Volume 90, Mean Corpuscular Hemoglobin 27, Mean Corpuscular Hemoglobin Concent 30L, Red Cell Distribution Width 15.7H, Platelet Count 399, Mean Platelet Volume 9.6, Immature Granulocyte % (Auto) 0, Neutrophils (%) (Auto) 83H, Lymphocytes (%) (Auto) 5L, Monocytes (%) (Auto) 5, Eosinophils (%) (Auto) 5, Basophils (%) (Auto) 0, Neutrophils # (Auto) 8.6H, Lymphocytes # (Auto) 0.6L, Monocytes # (Auto) 0.6, Eosinophils # (Auto) 0.5H, Basophils # (Auto) 0.0, Immature Granulocyte # (Auto) 0.0, Sodium Level 136, Potassium Level 4.2, Chloride Level 89L, Carbon Dioxide Level 40H, Anion Gap 7, Blood Urea Nitrogen 9, Creatinine 0.42L, Estimat Glomerular Filtration Rate > 60, BUN/Creatinine Ratio 21, Glucose Level 98, Calcium Level 8.3L, Phosphorus Level 2.3, Magnesium Level 1.9 Microbiology 09/23/20 Catheter Tip Culture - Final, Complete No growth 09/19/20 Gram Stain - Final, Complete 09/19/20 Sputum Culture - Final, Complete Usual upper respiratory jose martin Pseudomonas aeruginosa 09/19/20 Urine Culture - Final, Complete Escherichia coli Escherichia coli#2 Home Meds Active Meropenem 1 Gm Vial 2 Gm IV Q12H 10 Days Reported Acetylcysteine 200 Mg/1 Ml Vial 3 Ml NEB QID Acetaminophen 650 Mg/20.3 Ml Oral.susp 650 Mg PO Q6H PRN Melatonin 3 Mg Tablet 3 Mg PO HS PRN Vitamin D3 (Cholecalciferol (Vitamin D3)) 25 Mcg Capsule 100 Mcg DAILY TAKES 4 (25MCG) TABS Senna-S Tablet (Sennosides/Docusate Sodium) 1 Each Tablet 2 Each HS Furosemide 20 Mg Tablet 20 Mg DAILY Hydrocodone-Acetamin 5-325 mg (Hydrocodone/Acetaminophen) 1 Each Tablet 1 Ea BID PRN Klor-Con M10 (Potassium Chloride) 10 Meq Tab.er.prt 10 Meq DAILY Eliquis (Apixaban) 5 Mg Tablet 5 Mg BID Iprat-Albut 0.5-3(2.5) mg/3 ml (Ipratropium/Albuterol Sulfate) 3 Ml Ampul.neb 3 Ml NEB BID Sertraline HCl 50 Mg Tablet 50 Mg DAILY Pantoprazole Sodium 40 Mg Tablet.dr 40 Mg DAILY Levothyroxine Sodium 75 Mcg Tablet 75 Mcg DAILY ALPRAZolam 0.25 Mg Tablet 0.25 Mg Q6H PRN Ciprofloxacin HCl 250 Mg Tablet 250 Mg PO DAILY LAST FILLED 02-05-2020 #90/ DAY SUPPLY Patient Allergies: Coded Allergies: budesonide (Unverified Allergy, Mild, NAUSEA, 01/06/16) PT REPORTS NAUSEA, FLUSHING AND NIGHTMARES formoterol (Unverified Allergy, Mild, NAUSEA, 01/06/16) PT REPORTS NAUSEA, FLUSHING AND NIGHTMARES Height (Feet): 5 Height (Inches): 2.00 Weight (Pounds): 90 Weight (Ounces): 6.0 Home Health Need/Face to Face Date of Face to Face: Sep 27, 2020 Clinical Findings: Other-list in note I have seen Pt [id number]: Yes Discharged To: Home Diagnosis/Conditions: COPD, Vent dependent, P. aerogenosa pneumonia Patient is Homebound due to: Muscle weakness Homebound Status Due to the above stated illness, injury or surgical procedure (medical cond ition or diagnosis) and associated clinical findings, the patient is homebound because of his/her inability to leave home except with aid of a supportive device and/or person AND leaving the home requires a considerable and taxing effort or is medically contraindicated. Pt req the following assistanc: Aid of another person Home Health Nursing Orders Home Health Services Order: Nursing Services Home Health Infusion Therapy Line Start Date: Sep 19, 2020 Certify Stmt I certify that this patient is under my care and that I, a nurse practitioner or a physician; a economic research assistant working with me, had a face to face encounter that - meets the physician face to face encounter requirements with this patient as dated. Discharge Physical Exam General: Alert, Oriented X3 HEENT: Other (Trach) Lungs: Clear to Auscultation Heart: Regular Rate RAJESH DAVENPORT MD Sep 27, 2020 10:26
[2020-09-27] MEDS: NS IV 500 ML 500 ML IV SCH (11:50)
[2020-09-27] MEDS: aCETylcysteine 20% (MUCOMYST) 30ML SOLN VIAL INH PRN ×2 (13:06→22:01)
[2020-09-27] MEDS: HYDROcodone/APAP 5 MG/325 MG (LORTAB) TAB PO PRN ×2 (15:32→21:35)
[2020-09-27] MEDS: MELATONIN 3 MG TABLET PO SCH (21:35)
[2020-09-28] VITALS (7 sets, daily range): BP systolic 100–109; BP diastolic 55–91
[2020-09-28] MEDS: morphine INJ 10 MG/ML 1ML (SYR OR VIAL) IVP PRN (01:39)
--- NOTE | 2020-09-28 04:34 | Pulmonary Progress Note ---
Subjective Time Seen by a Provider: 04:34 Subjective/Events-last exam Pt now has picc line. Sepsis Event Evaluation Height, Weight, BMI Height: 5'2.00" Weight: 90lbs. 6.0oz. 40.917741au; 17.85 BMI Method: Exam Exam Vital Signs Date Time Temp Pulse Resp B/P (MAP) Pulse Ox O2 Delivery O2 Flow Rate FiO2 09/28/20 03:46 36.4 93 16 106/78 (87) 96 09/28/20 01:00 90 09/28/20 00:26 36.8 86 12 100/55 (70) 100 09/27/20 21:59 105 20 94 09/27/20 21:00 94 Mechanical Ventilator 15.00 60 09/27/20 20:52 37.0 122 12 94/56 (69) 92 09/27/20 19:07 114 20 94 09/27/20 19:00 90 09/27/20 16:00 37.1 96 12 91/62 (72) 95 APAP 15.00 60.00 09/27/20 14:37 95 Mechanical Ventilator 15.00 09/27/20 12:36 107 09/27/20 12:00 37.5 15 16 96/59 (71) 94 Mechanical Ventilator 10.00 09/27/20 10:29 91 Mechanical Ventilator 12.00 09/27/20 08:00 36.4 85 20 113/65 (81) 94 Mechanical Ventilator 10.00 09/27/20 08:00 94 Mechanical Ventilator 10.00 40 09/27/20 07:06 95 Mechanical Ventilator 10.00 09/27/20 07:00 86 09/27/20 05:27 85 18 92 I & O 09/28/20 07:00 Intake Total 410 ml Output Total 2350 ml Balance -1940 ml Height & Weight Height: 5'2.00" Weight: 90lbs. 6.0oz. 40.388810li; 17.85 BMI Method: General Appearance: No Apparent Distress HEENT: PERRL/EOMI, Moist Mucous Membranes, Other (trach ) Neck: Supple Respiratory: Lungs Clear Cardiovascular: Regular Rate, Rhythm Capillary Refill: Less Than 3 Seconds Gastrointestinal: soft Extremity: Normal Capillary Refill Neurologic/Psychiatric: Alert, Oriented x3 Skin: Normal Color Lymphatic: No Adenopathy Results Lab Laboratory Tests 09/26/20 07:50 09/27/20 03:47 Assessment/Plan Assessment/Plan Acute on chronic respiratory failure s/p tracheostomy at [facility] -Continue ventilatory care -No issues with home vent last night. Improved leukocytosis. No issues per RN last night. -Pt is ok for discharge from pulmonary standpoint with home Abx with Merrem for total of 14days. -Pt was off Ventilator to T tube yesterday. 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 -Richter cultures pending Anemia -Monitor Metabolic lactic acidosis -IVF -Monitor Small bilateral pleural effusions Echo shows normal EF with grade 1 diastolic dysfunction -Start Lasix daily Problem List NORAH FOUNTAIN DO Sep 28, 2020 04:34
[2020-09-28] MEDS: NS IV 500 ML 500 ML IV SCH ×2 (05:30→22:21)
[2020-09-28 05:50] LABS: BASOPHILS % (AUTO) 0 % (0-10); EOSINOPHILS # (AUTO) 0.5 10^3/uL (0.0-0.3); EOSINOPHILS % (AUTO) 5 % (0-10); HEMATOCRIT 28 % (35-52); HEMOGLOBIN 8.5 g/dL (11.5-16.0); LYMPHOCYTES # (AUTO) 0.7 10^3/uL (1.0-4.0); LYMPHOCYTES % (AUTO) 8 % (12-44); MEAN CORPUSCULAR HEMOGLOBIN 27 pg (25-34); MEAN CORPUSCULAR HGB CONC 31 g/dL (32-36); MEAN CORPUSCULAR VOLUME 87 fL (80-99); MEAN PLATELET VOLUME 9.6 fL (9.0-12.2); MONOCYTES # (AUTO) 0.6 10^3/uL (0.0-1.0); MONOCYTES % (AUTO) 7 % (0-12); NEUTROPHILS # (AUTO) 6.9 10^3/uL (1.8-7.8); NEUTROPHILS % (AUTO) 80 % (42-75); PLATELET COUNT 441 10^3/uL (130-400); WHITE BLOOD COUNT 8.6 10^3/uL (4.3-11.0)
[2020-09-28 06:06] LABS: CHLORIDE 87 MMOL/L (98-107); POTASSIUM 3.5 MMOL/L (3.6-5.0); SODIUM 136 MMOL/L (135-145)
[2020-09-28 06:08] LABS: CALCIUM 7.9 MG/DL (8.5-10.1); GLUCOSE 86 MG/DL (70-105)
[2020-09-28 06:10] LABS: CARBON DIOXIDE 41 MMOL/L (21-32)
[2020-09-28 06:12] LABS: CREATININE SERUM 0.42 MG/DL (0.60-1.30); GFR ESTIMATED > 60; PHOSPHORUS 2.7 MG/DL (2.3-4.7)
[2020-09-28 06:13] LABS: BUN/CREATININE RATIO 29
[2020-09-28 06:15] LABS: MAGNESIUM 1.9 MG/DL (1.6-2.4)
--- NOTE | 2020-09-28 07:24 | Progress Note ---
Subjective Date Seen by a Provider: Sep 28, 2020 Time Seen by a Provider: 06:45 Subjective/Events-last exam patient is in no respiratory distress. She is communicating very well. Objective Exam Vital Signs Date Time Temp Pulse Resp B/P (MAP) Pulse Ox O2 Delivery O2 Flow Rate FiO2 09/28/20 03:46 36.4 93 16 106/78 (87) 96 09/28/20 01:00 90 09/28/20 00:26 36.8 86 12 100/55 (70) 100 09/27/20 21:59 105 20 94 09/27/20 21:00 94 Mechanical Ventilator 15.00 60 09/27/20 20:52 37.0 122 12 94/56 (69) 92 09/27/20 19:07 114 20 94 09/27/20 19:00 90 09/27/20 16:00 37.1 96 12 91/62 (72) 95 APAP 15.00 60.00 09/27/20 14:37 95 Mechanical Ventilator 15.00 09/27/20 12:36 107 09/27/20 12:00 37.5 15 16 96/59 (71) 94 Mechanical Ventilator 10.00 09/27/20 10:29 91 Mechanical Ventilator 12.00 09/27/20 08:00 36.4 85 20 113/65 (81) 94 Mechanical Ventilator 10.00 09/27/20 08:00 94 Mechanical Ventilator 10.00 40 I & O 09/28/20 07:00 Intake Total 770 ml Output Total 2600 ml Balance -1830 ml Capillary Refill : Less Than 3 Seconds General Appearance: No Apparent Distress Respiratory: Lungs Clear Cardiovascular: Regular Rate, Rhythm Gastrointestinal: soft Results Lab Laboratory Tests 09/28/20 05:25: White Blood Count 8.6, Red Blood Count 3.17L, Hemoglobin 8.5L, Hematocrit 28L, Mean Corpuscular Volume 87, Mean Corpuscular Hemoglobin 27, Mean Corpuscular Hemoglobin Concent 31L, Red Cell Distribution Width 15.8H, Platelet Count 441H, Mean Platelet Volume 9.6, Immature Granulocyte % (Auto) 0, Neutrophils (%) (Auto) 80H, Lymphocytes (%) (Auto) 8L, Monocytes (%) (Auto) 7, Eosinophils (%) (Auto) 5, Basophils (%) (Auto) 0, Neutrophils # (Auto) 6.9, Lymphocytes # (Auto) 0.7L, Monocytes # (Auto) 0.6, Eosinophils # (Auto) 0.5H, Basophils # (Auto) 0.0, Immature Granulocyte # (Auto) 0.0, Sodium Level 136, Potassium Level 3.5L, Chloride Level 87L, Carbon Dioxide Level 41H, Anion Gap 8, Blood Urea Nitrogen 1 2, Creatinine 0.42L, Estimat Glomerular Filtration Rate > 60, BUN/Creatinine Ratio 29, Glucose Level 86, Calcium Level 7.9L, Phosphorus Level 2.7, Magnesium Level 1.9 Microbiology 09/23/20 Catheter Tip Culture - Final, Complete No growth 09/19/20 Gram Stain - Final, Complete 09/19/20 Sputum Culture - Final, Complete Usual upper respiratory jose martin Pseudomonas aeruginosa 09/19/20 Urine Culture - Final, Complete Escherichia coli Escherichia coli#2 Assessment/Plan Assessment/Plan Assess & Plan/Chief Complaint 1. Acute on chronic respiratory failure s/p tracheostomy -covid and influenza negative -on home vent 09-23 -on home vent and no current respiratory distress 09/24 -hopefully the home vent machine problem will be corrected -caisson worker has been consulted per Dr. Velazquez hopefully to arrange home antibiotics 09/25 -noted patient okay to be discharged home tomorrow provided home antibiotics 09/26 -at this point [place] for home antibiotics. She had slight bump in the white blood cell count and this will be rechecked later. 09/27 -patient to be discharged to home today if home health can deliver her meropenem 2000 mg IV twice daily 09/28 -patient unable to be discharged yesterday. Apparently discharge will now be on September 29, 2020 2. 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 S/P [facility] from [facility] in 4. Anemia -stable at 8.6 -daily CBC Clinical Quality Measures DVT/VTE Risk/Contraindication: Risk Factor Score Per Nursin RFS Level Per Nursing on Admit: 4+=Very High RAJESH DAVENPORT MD Sep 28, 2020 07:24
[2020-09-28] MEDS: RT-ALBUTEROL/IPRATROPIUM 3 ML (DUONEB) VIAL INH SCH ×6 (08:42→21:49)
[2020-09-28] MEDS: TOBRAMYCIN (NEBCIN) 80 MG/2 ML VIAL IH SCH ×2 (08:43→18:55)
[2020-09-28] MEDS: guaiFENesin (MUCINEX) 600 MG TAB PO SCH ×2 (09:29→21:35)
[2020-09-28] MEDS: LEVOTHYROXINE 75 MCG (LEVOTHROID) TABLET GT SCH (09:29)
[2020-09-28] MEDS: APIXABAN 5 MG (ELIQUIS) TABLET FEEDING SCH ×2 (09:29→21:36)
[2020-09-28] MEDS: SERTRALINE 50 MG (ZOLOFT) TABLET GT SCH (09:29)
[2020-09-28] MEDS: FUROSEMIDE 40 MG/4 ML INJ (LASIX) IVP SCH (09:30)
[2020-09-28] MEDS: MEROPENEM 2 GM/NS 100 ML IVPB IV SCH ×4 (09:30→21:34)
--- NOTE | 2020-09-28 10:01 | Diagnostic Imaging Report ---
EXAMINATION: Chest radiograph, portable AP view. DATE: 09/28/2020 3:49 AM hours. INDICATION: 80-year-old female, sepsis. COMPARISON: September 27, 2020. FINDINGS: There is a tracheostomy tube again noted. Heart size and mediastinal contours are unchanged. There is no identified pneumothorax. There is multifocal bilateral lung consolidation with probable bilateral pleural effusions. IMPRESSION: 1. Grossly unchanged multifocal bilateral lung consolidation with probable bilateral pleural effusions. Dictated by: Dictated on workstation # [id number]
[2020-09-28] MEDS: aCETylcysteine 20% (MUCOMYST) 30ML SOLN VIAL INH PRN ×2 (11:25→22:28)
--- NOTE | 2020-09-28 13:41 | NUR ---
THIS RN SPOKE WITH [facility] STAFF REGARDING DISCHARGE ON 09/27/20 AND TODAY 09/28/20. [facility] STATED PT NEEDED MIDLINE OR GREATER IV ACCESS FOR HOME ABX, MIDLINE PLACED EARLY THIS AM ON PT. THIS RN UPDATED [facility], PAPERWORK SENT FOR DISCHARGE AND HOME HEALTH ORDERS. [facility] STATED UNABLE TO ACCEPT ORDERS DUE TO NO PHYSICAL SIGNATURE FROM DR ON PAPERWORK. THIS RN NOTIFIED [employer] TE[employer]. PT FAMILY UPDATED.
[2020-09-28] MEDS: EPINEPHrine 1 MG INJECTION 4 MG in NS (IVPB) 246 ML IV SCH (17:37)
[2020-09-28] MEDS: ALPRAZolam 0.5 MG (XANAX) TAB PO PRN (21:34)
[2020-09-28] MEDS: HYDROcodone/APAP 5 MG/325 MG (LORTAB) TAB PO PRN (21:35)
[2020-09-28] MEDS: MELATONIN 3 MG TABLET PO SCH (21:35)
[2020-09-29] VITALS: BP 102/60
[2020-09-29] MEDS: RT-ALBUTEROL/IPRATROPIUM 3 ML (DUONEB) VIAL INH SCH ×3 (02:10→09:44)
[2020-09-29 02:11] VITALS: BP 102/60
[2020-09-29] MEDS: ALPRAZolam 0.5 MG (XANAX) TAB PO PRN (02:55)
[2020-09-29 03:02] VITALS: BP 95/61
[2020-09-29 03:18] LABS: BASOPHILS % (AUTO) 0 % (0-10); EOSINOPHILS # (AUTO) 0.3 10^3/uL (0.0-0.3); EOSINOPHILS % (AUTO) 3 % (0-10); HEMATOCRIT 28 % (35-52); HEMOGLOBIN 8.7 g/dL (11.5-16.0); LYMPHOCYTES # (AUTO) 0.7 10^3/uL (1.0-4.0); LYMPHOCYTES % (AUTO) 9 % (12-44); MEAN CORPUSCULAR HEMOGLOBIN 27 pg (25-34); MEAN CORPUSCULAR HGB CONC 31 g/dL (32-36); MEAN CORPUSCULAR VOLUME 87 fL (80-99); MEAN PLATELET VOLUME 9.5 fL (9.0-12.2); MONOCYTES # (AUTO) 0.6 10^3/uL (0.0-1.0); MONOCYTES % (AUTO) 8 % (0-12); NEUTROPHILS # (AUTO) 6.5 10^3/uL (1.8-7.8); NEUTROPHILS % (AUTO) 79 % (42-75); PLATELET COUNT 468 10^3/uL (130-400); WHITE BLOOD COUNT 8.2 10^3/uL (4.3-11.0)
[2020-09-29 03:35] LABS: CHLORIDE 85 MMOL/L (98-107); SODIUM 136 MMOL/L (135-145)
[2020-09-29 03:36] LABS: CALCIUM 8.1 MG/DL (8.5-10.1)
[2020-09-29 03:37] LABS: GLUCOSE 131 MG/DL (70-105)
[2020-09-29 03:38] LABS: CARBON DIOXIDE 41 MMOL/L (21-32)
[2020-09-29 03:41] LABS: CREATININE SERUM 0.49 MG/DL (0.60-1.30); GFR ESTIMATED > 60; PHOSPHORUS 2.8 MG/DL (2.3-4.7)
[2020-09-29 03:42] LABS: BUN/CREATININE RATIO 29
[2020-09-29 03:43] LABS: MAGNESIUM 1.9 MG/DL (1.6-2.4)
[2020-09-29] MEDS ORDERED: FUROSEMIDE 40 MG/4 ML INJ (LASIX) IVP ONE (05:45)
[2020-09-29] MEDS ORDERED: POTASSIUM CL 10MEQ/50ML IVPB 50 ML IV SCH ×2 (05:45)
[2020-09-29] MEDS ORDERED: NS IV 1000 ML 1,000 ML ONE (06:50)
--- NOTE | 2020-09-29 06:51 | Diagnostic Imaging Report ---
Indication: Sepsis Comparison: 09/28/2020 Findings: Single view of the chest demonstrates unchanged bilateral pulmonary infiltrates and effusions. There is no pneumothorax. The heart is prominent. Tracheostomy is midline. Impression: Unchanged aeration. Dictated by: Dictated on workstation # [id number]
--- NOTE | 2020-09-29 07:12 | Discharge Summary ---
Diagnosis/Chief Complaint Date of Admission Sep 19, 2020 at 20:20 Date of Discharge September 29, 2020 Discharge Date: Sep 27, 2020 Admission Diagnosis Admission Diagnosis 1. Acute on chronic respiratory failure s/p tracheostomy 2. Pneumonia with sepsis hx of resistent Pseudomonus 3. S/P Trach from [facility] in 4. Anemia Discharge Diagnosis 1. Septic shock due to pneumonia 2. Acute on chronic respiratory failure status post tracheostomy 3. Pseudomonas pneumonia 4. Anemia due to chronic illness 5. Hypokalemia Reason Hospital Visit 80-year-old Presents to [facility] emergency room with shortness of breath and hypoxia. She has had a long hospital course over the past few months due to COPD requiring tracheostomy as well as PEG tube placement. She was on home ventilator after being released from [facility]. Discharge Summary Hospital Course Was the Problem List Reviewed?: Yes Hospital Course patient was admitted on September 20, 2020 with acute on chronic respiratory failure status post tracheostomy. She was noted to be coronavirus negative as well as influenza negative. She is on home vent. She recently was dismissed from [facility] in [place]. Patient was found to have a pneumonia in the emergency department. Dr. Velazquez automotive sales manager consult to and she was placed in ICU. She was also started on meropenem and continued on this during the duration of her hospital stay. She was also found to have pseudomonas aeruginosa on sputum culture. She was noted to be with anemia during the course of her hospital stay. The anemia was stable but she did not require any blood transfusion. She also had hypokalemia this was corrected with replacement. Ultimately arrangements were made for her to receive meropenem outpatient by home health. Patient was on day number 10 on dismissal. She will need a total of 14 days of meropenem for complete treatment. Patient understood and all questions were answered. Labs Laboratory Tests 09/26/20 07:50: White Blood Count 13.2H, Red Blood Count 3.57L, Hemoglobin 9.6L, Hematocrit 33L, Mean Corpuscular Hemoglobin Concent 29L, Red Cell Distribution Width 15.8H, Platelet Count 412H, Neutrophils (%) (Auto) 91H, Lymphocytes (%) (Auto) 3L, Neutrophils # (Auto) 11.9H, Lymphocytes # (Auto) 0.4L 09/26/20 16:33: Glucometer 138H 09/26/20 20:19: 09/27/20 03:47: Red Blood Count 3.36L, Hemoglobin 9.1L, Hematocrit 30L, Mean Corpuscular Hemoglobin Concent 30L, Red Cell Distribution Width 15.7H, Neutrophils (%) (Auto) 83H, Lymphocytes (%) (Auto) 5L, Neutrophils # (Auto) 8.6H, Lymphocytes # (Auto) 0.6L, Eosinophils # (Auto) 0.5H, Chloride Level 89L, Carbon Dioxide Level 40H, Creatinine 0.42L, Calcium Level 8.3L 09/28/20 05:25: Red Blood Count 3.17L, Hemoglobin 8.5L, Hematocrit 28L, Mean Corpuscular Hemoglobin Concent 31L, Red Cell Distribution Width 15.8H, Platelet Count 441H, Neutrophils (%) (Auto) 80H, Lymphocytes (%) (Auto) 8L, Lymphocytes # (Auto) 0.7L , Eosinophils # (Auto) 0.5H, Potassium Level 3.5L, Chloride Level 87L, Carbon Dioxide Level 41H, Creatinine 0.42L, Calcium Level 7.9L 09/29/20 03:00: Red Blood Count 3.22L, Hemoglobin 8.7L, Hematocrit 28L, Mean Corpuscular Hemoglobin Concent 31L, Red Cell Distribution Width 15.9H, Platelet Count 468H, Neutrophils (%) (Auto) 79H, Lymphocytes (%) (Auto) 9L, Lymphocytes # (Auto) 0.7L , Potassium Level 3.0L, Chloride Level 85L, Carbon Dioxide Level 41H, Creatinine 0.49L, Calcium Level 8.1L, Glucose Level 131H Procedures None. Consultations 1. Pulmonology Dr. Velazquez 2. Cardiology Discharge Physical Examination Allergies: Coded Allergies: budesonide (Unverified Allergy, Mild, NAUSEA, 01/06/16) PT REPORTS NAUSEA, FLUSHING AND NIGHTMARES formoterol (Unverified Allergy, Mild, NAUSEA, 01/06/16) PT REPORTS NAUSEA, FLUSHING AND NIGHTMARES Vitals & I&Os Vital Signs Date Time Temp Pulse Resp B/P (MAP) Pulse Ox O2 Delivery O2 Flow Rate FiO2 09/29/20 03:02 36.7 105 18 95/61 (72) 99 Mechanical Ventilator 7.00 09/28/20 21:00 40 General Appearance: No Acute Distress Respiratory: Clear to Auscultation Cardiovascular: Regular Rate Abdominal: Soft Discussion & Recommendations I spoke with patient regarding her potassium and stated we would check this later on this week. Also will arrange a Zoom conference midweek. Discharge Home Medications Reviewed and agree with Discharge Medication list on patient's Discharge Instruction sheet Instructions to Patient/Family Please see electronic discharge instructions given to patient. Clinical Quality Measures DVT/VTE Risk/Contraindication: Risk Factor Score Per Nursin RFS Level Per Nursing on Admit: 4+=Very High RAJESH DAVENPORT MD Sep 29, 2020 07:12
[2020-09-29 07:47] VITALS: BP 111/86
[2020-09-29] MEDS: TOBRAMYCIN (NEBCIN) 80 MG/2 ML VIAL IH SCH (07:47)
--- NOTE | 2020-09-29 07:58 | NUR ---
THIS RN REPORTED TO DR. FOUNTAIN THAT PATIENT IS NOT TOLERATING IV POTASSIUM, EVEN WITH MAINTENANCE FLUIDS. NEW ORDER RECEIVED FOR LIQUID POTASSIUM 80 MEQ. THIS RN SPOKE WITH MATTHEW IN PHARMACY TO NOTIFY OF NEW ORDER.
[2020-09-29 08:00] VITALS: BP 111/86
[2020-09-29] MEDS ORDERED: KCL 20 MEQ TAB (K-DUR) PO NR ×2 (08:00→11:00)
[2020-09-29] MEDS: HYDROcodone/APAP 5 MG/325 MG (LORTAB) TAB PO PRN ×2 (08:24→13:24)
[2020-09-29] MEDS: APIXABAN 5 MG (ELIQUIS) TABLET FEEDING SCH (08:24)
[2020-09-29] MEDS: MEROPENEM 2 GM/NS 100 ML IVPB IV SCH ×2 (08:24)
[2020-09-29] MEDS: SERTRALINE 50 MG (ZOLOFT) TABLET GT SCH (08:24)
[2020-09-29] MEDS: LEVOTHYROXINE 75 MCG (LEVOTHROID) TABLET GT SCH (08:24)
[2020-09-29] MEDS: guaiFENesin (MUCINEX) 600 MG TAB PO SCH (08:24)
[2020-09-29] MEDS: FUROSEMIDE 40 MG/4 ML INJ (LASIX) IVP SCH (10:17)
--- NOTE | 2020-09-29 11:21 | NUR ---
CM/SS: Telephone call from Giancarlo - spouse - [phone] - Checking on the status of the pt's discharge. Spouse is informed that it will happen today, the time to be determined. Discuss mode of transportation - he is ok with the non emergent EMS transport. This worker will follow up. Telephone contact with [facility] home - letting them know that pt would be leaving today. Telephone call to Sam Eduardo [phone] - left message that pt would be leaving the hospital today. Paperwork given to MONTY Lou for non emergent EMS transport, when pt is ready to be discharged.
[2020-09-29] MEDS: EPINEPHrine 1 MG INJECTION 4 MG in NS (IVPB) 246 ML IV SCH (11:24)
--- NOTE | 2020-09-29 11:54 | Physical Therapy Daily Note ---
PT Daily Note-Current Subjective Patient reports she is going home today. Agrees to PT. Mental Status Patient Orientation: Person, Time Attachments: Ventilator, Diego Catheter Transfers SCALE: Activities may be completed with or without assistive devices. 1-Ayjzppziab-syhjvle completes the activity by him/herself with no assistance from a helper. 5-Set-up or Clean-up Assistance-helper sets up or cleans up; patient completes activity. Catarina assists only prior to or following the activity. 4-Supervision or Touching Assistance-helper provides verbal cues and/or touching/steadying and/or contact guard assistance as patient completes activity. Assistance may be provided throughout the activity or intermittently. 3-Partial/Moderate Assistance-helper does LESS THAN HALF the effort. Catarina lifts, holds or supports trunk or limbs, but provides less than half the effort. 2-Substantial/Maximal Assistance-helper does MORE THAN HALF the effort. Catarina lifts or holds trunk or limbs and provides more than half the effort. 7-Emhmfkggn-zedtwn does ALL the effort. Patient does none of the effort to complete the activity. Or, the assistance of 2 or more helpers is required for the patient to complete the activity. If activity was not attempted, code reason: 7-Patient Refused. 9-Not Applicable-not attempted and the patient did not perform the activity before the current illness, exacerbation or injury. 10-Not Attempted due to Environmental Limitations-(lack of equipment, weather restraints, etc.). 88-Not Attempted due to Medical Conditions or Safety Concerns. Roll Left & Right (QC): 1 (x 2 repositioned to left sidelying) Exercises Supine Ex: Ankle pumps, Heel Slides, Straight leg raise Supine Reps: 12 (AAROM) Assessment Patient declined OOB activity this a.m. Patient tolerates minimal activity. Dismiss to home per report. PT [facility] Goals [facility] Goals PT [facility] Goals Time Frame: Oct 04, 2020 Roll Left & Right (QC): 1 Sit to Lying (QC): 1 Lying-Sitting on Side/Bed(QC): 1 Sit to Stand (QC): 1 Chair/Xia-ak-Liasn Xfer(QC): 1 PT Plan Treatment/Plan Treatment Plan: Continue Plan of Care Treatment Plan: Bed Mobility, Education, Functional Activity Marybeth, Functional Strength, Safety, Therapeutic Exercise, Transfers Treatment Duration: Oct 04, 2020 Frequency: 5 times per week Estimated Hrs Per Day: .25 hour per day Patient and/or Family Agrees t: Yes Time/GCodes Time In: 1040 Time Out: 1050 Total Billed Treatment Time: 10 Total Billed Treatment 1 visit FA 10 min BISMARK SNOWDEN PT Sep 29, 2020 11:54
[2020-09-29] MEDS: IBUPROFEN 600 MG (MOTRIN) TAB PO PRN (12:19)
--- NOTE | 2020-09-29 14:19 | NUR ---
CM/SS: Returned call from [facility] [phone] - Notifying of pt discharge today. She reports that the antibiotic will be delivered today.
--- NOTE | 2020-09-29 14:20 | NUR ---
CM/SS: Pt is wished well as she is getting ready to leave the hospital. EMS is here to get pt. Pt expresses thanks and appreciation for helping her while she was a pt at the hospital. Pt is wished well.
== END 2020-09-29 13:40 | disposition home health service (06) | DRG 870 ==
LOC: EDUNIT# 19:25 → ER 19:27 → ICU 20:20 → CSD 09-26 18:22
PROVIDERS: ADMIT Internal Medicine; ATTEND Family Medicine
PROC: 5A1955Z Respiratory Ventilation, Greater than 96 Consecutive Hours (ICD-10-PCS; principal; 2020-09-19)
DX: A41.9 Sepsis, unspecified organism (principal); J15.1 Pneumonia due to Pseudomonas; J96.21 Acute and chronic respiratory failure with hypoxia; J96.22 Acute and chronic respiratory failure with hypercapnia; I21.A1 Myocardial infarction type 2; R65.21 Severe sepsis with septic shock; J44.0 Chronic obstructive pulmonary disease with (acute) lower respiratory infection; R64 Cachexia; E87.2 Acidosis; Z99.11 Dependence on respirator [ventilator] status; Z16.30 Resistance to unspecified antimicrobial drugs; J90 Pleural effusion, not elsewhere classified; Z20.828 Contact with and (suspected) exposure to other viral communicable diseases; E87.6 Hypokalemia; D63.8 Anemia in other chronic diseases classified elsewhere; I10 Essential (primary) hypertension; I48.0 Paroxysmal atrial fibrillation; M19.91 Primary osteoarthritis, unspecified site; F03.90 Unspecified dementia, unspecified severity, without behavioral disturbance, psychotic disturbance, mood disturbance, and anxiety; Z87.440 Personal history of urinary (tract) infections; Z93.0 Tracheostomy status
CPT/HCPCS: 36415; 71045; 76937; 80048; 80053; 81000; 82550; 82553; 82805; 82962; 83605; 83615; 83690; 83735; 83874; 83880; 84100; 84145; 84484; 85007; 85025; 85027; 85610; 85652; 85730; 86141; 87040; 87070; 87077; 87088; 87186; 87205; 87635; 87804; 93005; 93041; 93306; 94002; 94003; 94640; 94760; 94799; 96361; 96374; 96375; 99291

== ENCOUNTER 2020-09-30 20:05 | Inpatient (IN) | payer MEDICARE ==
[~2020-09-30] VITALS: Ht 157.5 cm; Wt 41.0 kg
[~2020-09-30 20:05] MED LIST changes: +ACET650O4 PO; +ACHD5005; +ALPR0.254; +APIX5TAB; +CHOL100048; +FURO20TA4; +IPRA3AMP31 NEB; +LEVO75TA6; +MELA3TAB39 PO; +MERO1VIA23 IV; +PANT40TA52; +POTA10TA14; +SENN-109; +SERT50TA9; +[UNRECOGNIZED DRUG - CODE] NEB
[2020-09-30] MEDS ORDERED: dilTIAZem DRIP PRE-MIX 0 ML IV ONE (20:22)
[2020-09-30] MEDS ORDERED: NS IV 1000 ML 1,000 ML IV SCH ×2 (20:23→21:37)
[2020-09-30] MEDS ORDERED: dilTIAZem DRIP PRE-MIX 125 ML IV SCH (20:30)
[2020-09-30 20:37] LABS: BILIRUBIN,URINE NEGATIVE (NEGATIVE); CLARITY,URINE CLEAR; COLOR,URINE YELLOW; GLUCOSE, URINE (UA) NEGATIVE (NEGATIVE); KETONES,URINE NEGATIVE (NEGATIVE); LEUKOCYTE ESTERASE ,URINE 3+ (NEGATIVE); NITRITE,URINE NEGATIVE (NEGATIVE); PH,URINE 7.5 (5-9); PROTEIN,URINE 2+ (NEGATIVE)
--- NOTE | 2020-09-30 20:37 | NUR ---
Pt states, "I feel smothered." Pt taken off vent et BVM initiated. Addendum: 09/30/20 at 2047 by TLVALERIECE Deep suctioned x2 prior to being taken off vent.
[2020-09-30 20:40] LABS: BASOPHILS # (AUTO) 0.1 10^3/uL (0.0-0.1); BASOPHILS % (AUTO) 1 % (0-10); EOSINOPHILS # (AUTO) 1.3 10^3/uL (0.0-0.3); EOSINOPHILS % (AUTO) 6 % (0-10); HEMATOCRIT 37 % (35-52); HEMOGLOBIN 11.3 g/dL (11.5-16.0); LYMPHOCYTES # (AUTO) 4.4 10^3/uL (1.0-4.0); LYMPHOCYTES % (AUTO) 21 % (12-44); MEAN CORPUSCULAR HEMOGLOBIN 27 pg (25-34); MEAN CORPUSCULAR HGB CONC 30 g/dL (32-36); MEAN CORPUSCULAR VOLUME 90 fL (80-99); MEAN PLATELET VOLUME 9.8 fL (9.0-12.2); MONOCYTES # (AUTO) 1.5 10^3/uL (0.0-1.0); MONOCYTES % (AUTO) 7 % (0-12); NEUTROPHILS % (AUTO) 65 % (42-75); PLATELET COUNT 811 10^3/uL (130-400); WHITE BLOOD COUNT 21.6 10^3/uL (4.3-11.0)
[2020-09-30 20:47] LABS: CHLORIDE 88 MMOL/L (98-107); POTASSIUM 4.3 MMOL/L (3.6-5.0); SODIUM 136 MMOL/L (135-145)
[2020-09-30 20:49] LABS: CALCIUM 8.4 MG/DL (8.5-10.1); INR 1.2 (0.8-1.4); PROTHROMBIN TIME PATIENT 15.3 SEC (12.2-14.7)
[2020-09-30 20:50] LABS: GLUCOSE 167 MG/DL (70-105); TOTAL PROTEIN 7.7 GM/DL (6.4-8.2)
[2020-09-30] MEDS ORDERED: methylPREDNISolone 125 MG (Solu-MEDROL) VIAL ONE (20:50)
[2020-09-30 20:51] LABS: CARBON DIOXIDE 34 MMOL/L (21-32)
[2020-09-30 20:52] LABS: BILIRUBIN,TOTAL 0.2 MG/DL (0.1-1.0)
[2020-09-30 20:53] LABS: ALKALINE PHOSPHATASE 108 U/L (40-136)
[2020-09-30 20:54] LABS: CREATININE SERUM 0.63 MG/DL (0.60-1.30); GFR ESTIMATED > 60
[2020-09-30 20:55] LABS: BUN/CREATININE RATIO 27
[2020-09-30 20:56] LABS: ALANINE AMINOTRANSFERASE 16 U/L (0-55)
[2020-09-30 20:57] LABS: MAGNESIUM 2.1 MG/DL (1.6-2.4)
[2020-09-30] MEDS: RT-ALBUTEROL INHALER HFA (VENTOLIN HFA) 18 GM IH SCH (21:00)
[2020-09-30 21:07] LABS: BACTERIA,URINE FEW /HPF; WBC,URINE 25-50 /HPF
[2020-09-30 21:08] LABS: AMORPHOUS SEDIMENT,UR FEW AMOR PHOSPHATE /LPF
--- NOTE | 2020-09-30 21:16 | NUR ---
After multiple attempts by RT, unable to obtain ABG. Provider notified.
--- NOTE | 2020-09-30 21:35 | Diagnostic Imaging Report ---
INDICATION: Chest pain Portable chest shows cardiomegaly with mild venous distention. There are bilateral infiltrates with some consolidation in the right lower lobe. There are small effusions. Tracheostomy tube is present. All of these findings are similar to the prior study from 09/29/2020. IMPRESSION: Stable chest. Dictated by: Dictated on workstation # [id number]
[2020-09-30 21:38] LABS: LYMPHOCYTES % (MANUAL) 22 %; NEUTROPHILS % (MANUAL) 70 %
[2020-09-30 21:39] LABS: EOSINOPHILS % (MANUAL) 4 %; MONOCYTES % (MANUAL) 4 %; RBC MORPH NORMAL
[2020-09-30] MEDS ORDERED: TOBRAMYCIN IV ONE (21:45)
[2020-09-30] MEDS ORDERED: NS IV ONE (21:45)
[2020-09-30] MEDS ORDERED: CEFEPIME INJECTION 2,000 MG in WATER (STERILE) FOR INJECTION 20 ML IV ONE (22:00)
--- NOTE | 2020-09-30 22:04 | ED General ---
General Chief Complaint: Respiratory Problems Stated Complaint: LOW O2 SATURATION Nursing Triage Note: Pt to room #3 via [facility] ems cart from home with c/o decreased oxygen sat. Ems report upon arrival on scene, pt vent alarm alarming with initial spo2 between 36%-57%. Ems advise pt vent dc'd et placed on 15L non rebreather via trach. Upon arrival initial spo2 95% with labored breathing noted. Pt dc'd from this facility 09/29/20 with home ventilator via trach. Pt able to make needs and wanted noted. A&OX4. Nursing Sepsis Screen: Possible Sepsis Risk Source of Information: Patient, EMS, Old Records Exam Limitations: No Limitations History of Present Illness Date Seen by Provider: Sep 30, 2020 Time Seen by Provider: 20:06 Initial Comments This 80-year-old woman presents to the emergency room with respiratory failure at home despite tracheostomy and ventilator support. She had been admitted September 19 with septic shock and pneumonia. She was discharged yesterday on IV meropenem therapy. EMS reports on arrival her oxygen saturation was ranging from the 30s to the 50s and her ventilator was giving some sort of air alarm. Her oxygen saturations quickly corrected with blow-by O2 support. However, she was moving very little air with coarse crackles in the right lung base. She felt like she was being smothered. She is noted to have significant tachycardia with irregular rhythm. Allergies and Home Medications Allergies Coded Allergies: budesonide (Unverified Allergy, Mild, NAUSEA, 01/06/16) PT REPORTS NAUSEA, FLUSHING AND NIGHTMARES formoterol (Unverified Allergy, Mild, NAUSEA, 01/06/16) PT REPORTS NAUSEA, FLUSHING AND NIGHTMARES Home Medications ALPRAZolam 0.25 Mg Tablet, 0.25 MG Q6H PRN for ANXIETY/SLEEP, (Reported) Acetaminophen 650 Mg/20.3 Ml Oral.susp, 650 MG PO Q6H PRN for PAIN-MILD (1-4) OR TEMPATURE, (Reported) Acetylcysteine 200 Mg/1 Ml Vial, 3 ML NEB QID, (Reported) Apixaban 5 Mg Tablet, 5 MG BID, (Reported) Cholecalciferol (Vitamin D3) 25 Mcg Capsule, 100 MCG DAILY, (Reported) TAKES 4 (25MCG) TABS Ciprofloxacin HCl 250 Mg Tablet, 250 MG PO DAILY, (Reported) LAST FILLED 02-05-2020 #90/90 DAY SUPPLY Furosemide 20 Mg Tablet, 20 MG DAILY, (Reported) Hydrocodone/Acetaminophen 1 Each Tablet, 1 EA BID PRN for PAIN-SEVERE (8-10), (Reported) Ipratropium/Albuterol Sulfate 3 Ml Ampul.neb, 3 ML NEB BID, (Reported) Levothyroxine Sodium 75 Mcg Tablet, 75 MCG DAILY, (Reported) Melatonin 3 Mg Tablet, 3 MG PO HS PRN for SLEEP, (Reported) Meropenem 1 Gm Vial, 2 GM IV Q12H Prescribed by: THELMA PEREZ on 09/25/20 0721 Pantoprazole Sodium 40 Mg Tablet.dr, 40 MG DAILY, (Reported) Potassium Chloride 10 Meq Tab.er.prt, 10 MEQ DAILY, (Reported) Sennosides/Docusate Sodium 1 Each Tablet, 2 EACH HS, (Reported) Sertraline HCl 50 Mg Tablet, 50 MG DAILY, (Reported) Patient Home Medication List Home Medication List Reviewed: Yes Review of Systems Review of Systems Constitutional: no symptoms reported EENTM: no symptoms reported Respiratory: see HPI Cardiovascular: see HPI Gastrointestinal: no symptoms reported Genitourinary: no symptoms reported : No Musculoskeletal: no symptoms reported Skin: no symptoms reported Psychiatric/Neurological: See HPI Hematologic/Lymphatic: No Symptoms Reported Immunological/Allergic: no symptoms reported Past Ygfwdsp-Vyzski-Aodhcz Hx Past Med/Social Hx: Reviewed Nursing Past Med/Soc Hx Patient Social History Alcohol Use: Denies Use Recreational Drug Use: No Smoking Status: Never a Smoker 2nd Hand Smoke Exposure: No Recent Foreign Travel: No Contact w/Someone Who Travel: No Recent Infectious Disease Expo: No Recent Hopitalizations: Yes Immunizations Up To Date Date of Pneumonia Vaccine: Aug 21, 2014 Date of Influenza Vaccine: Aug 21, 2015 Past Medical History Surgeries: Yes ( HERNIA REPAIR; FEEDING TUBE ; BILATERAL CATARACTS) Abdominal, Eye Surgery, Tracheostomy Respiratory: Yes (COPD; TRACH PLACED 05/2020; PULMONARY EDEMA) Pneumonia, COPD Cardiac: Yes Atrial Fibrillation, Hypertension Neurological: No Dementia Reproductive Disorders: No Genitourinary: Yes UTI-Chronic Gastrointestinal: Yes (FEEDING TUBE IN PLACE 05/2020) Musculoskeletal: Yes Arthritis Endocrine: No HEENT: Yes Cataract Cancer: No Psychosocial: No Integumentary: No Blood Disorders: No Adverse Reaction/Blood Tranf: No (BLOOD TRANSFUSION AFTER CHILDBIRTH) Family Medical History Reviewed Nursing Family Hx Cardiovascular disease G8 BROTHER Congenital heart disease G8 BROTHER FH: cancer G8 SISTER (UTERINE) Glaucoma 19 MOTHER Hypertension G8 SISTER Respiratory disorder 19 FATHER No Pertinent Family Hx Physical Exam-Suspected Sepsis Physical Exam Vital Signs Vital Signs - First Documented 09/30/20 09/30/20 09/30/20 20:17 20:25 20:26 Temp 36.0 Pulse 141 Resp 30 B/P (MAP) 147/87 (107) Pulse Ox 100 O2 Delivery Mechanical Ventilator O2 Flow Rate 15.00 FiO2 100 Capillary Refill : Less Than 3 Seconds Blood Pressure Mean: 107 Height, Weight, BMI Height: 5'2.00" Weight: 90lbs. 6.0oz. 40.206390hy; 17.00 BMI Method: General Appearance: WD/WN, Moderate Distress HEENT: PERRL/EOMI, Normal ENT Inspection Neck: Other (Tracheostomy in good position with no significant inflammation) Respiratory: No Respiratory Distress, Decreased Breath Sounds, Other (Very poor air movement with coarse crackles in the right lung base. No audible wheezing.) Cardiovascular: No Edema, No Murmur, Irregularly Irregular, Tachycardia Gastrointestinal: Non Tender, Soft Extremity: Normal Inspection, No Pedal Edema Neurologic/Psychiatric: Alert, Oriented x3, No Motor/Sensory Deficits, Normal Mood/Affect, hospital cna II-XII Norm as Tested Skin: normal color, warm/dry Focused Exam Sepsis Stage: Severe Sepsis Possible Source: Pulmonary (And urinary tract) Lactate Level 09/30/20 20:20: Lactic Acid Level 3.12*H Time of Focused Exam: 22:05 Respiratory: No Respiratory Distress, Crackles (Right base), Decreased Breath Sounds Cardiovascular: No Edema, Normal Peripheral Pulses, Irregularly Irregular, Tachycardia Capillary Refill: Less Than 3 Seconds Skin: normal color, warm/dry Lactic Acid Level Laboratory Tests Test 09/30/20 20:20 Lactic Acid Level 3.12 MMOL/L (0.50-2.00) *H Within 3hrs of presentation: Admin fluids, Admin 30ml/kg IBW due to BMI>30, Admin ABX, Blood cultures prior to ABX's, Focus exam, Lactate level Procedures/Interventions Date of ETT Placement: Sep 23, 2020 Progress/Results/Core Measures Suspected Sepsis Recent Fever Within 48 Hours: No Infection Criteria Present: Documented Infection New/Unexplained Altered Menta: No Sepsis Screen: Possible Sepsis Risk SIRS Temperature: Pulse: 141 Respiratory Rate: 30 Laboratory Tests 09/30/20 20:20: White Blood Count 21.6H Blood Pressure 147 /87 Mean: 107 09/30/20 20:20: Lactic Acid Level 3.12*H Laboratory Tests 09/30/20 20:20: Creatinine 0.63, INR Comment 1.2, Platelet Count 811H, Total Bilirubin 0.2 Results/Orders Lab Results Laboratory Tests Test 09/30/20 20:20 09/30/20 20:26 09/30/20 20:30 Range/Units White Blood Count 21.6 H 4.3-11.0 10^3/uL Red Blood Count 4.18 3.80-5.11 10^6/uL Hemoglobin 11.3 #L 11.5-16.0 g/dL Hematocrit 37 35-52 % Mean Corpuscular Volume 90 80-99 fL Mean Corpuscular Hemoglobin 27 25-34 pg Mean Corpuscular Hemoglobin Concent 30 L 32-36 g/dL Red Cell Distribution Width 16.1 H 10.0-14.5 % Platelet Count 811 H 130-400 10^3/uL Mean Platelet Volume 9.8 9.0-12.2 fL Immature Granulocyte % (Auto) 1 % Neutrophils (%) (Auto) 65 42-75 % Lymphocytes (%) (Auto) 21 12-44 % Monocytes (%) (Auto) 7 0-12 % Eosinophils (%) (Auto) 6 0-10 % Basophils (%) (Auto) 1 0-10 % Neutrophils # (Auto) 14.0 H 1.8-7.8 10^3/uL Lymphocytes # (Auto) 4.4 H 1.0-4.0 10^3/uL Monocytes # (Auto) 1.5 H 0.0-1.0 10^3/uL Eosinophils # (Auto) 1.3 H 0.0-0.3 10^3/uL Basophils # (Auto) 0.1 0.0-0.1 10^3/uL Immature Granulocyte # (Auto) 0.1 0.0-0.1 10^3/uL Neutrophils % (Manual) 70 % Lymphocytes % (Manual) 22 % Monocytes % (Manual) 4 % Eosinophils % (Manual) 4 % Blood Morphology Comment NORMAL Prothrombin Time 15.3 H 12.2-14.7 SEC INR Comment 1.2 0.8-1.4 Activated Partial Thromboplast Time 48 H 24-35 SEC Sodium Level 136 135-145 MMOL/L Potassium Level 4.3 3.6-5.0 MMOL/L Chloride Level 88 L 98-107 MMOL/L Carbon Dioxide Level 34 H 21-32 MMOL/L Anion Gap 14 5-14 MMOL/L Blood Urea Nitrogen 17 7-18 MG/DL Creatinine 0.63 0.60-1.30 MG/DL Estimat Glomerular Filtration Rate > 60 BUN/Creatinine Ratio 27 Glucose Level 167 H 70-105 MG/DL Lactic Acid Level 3.12 *H 0.50-2.00 MMOL/L Calcium Level 8.4 L 8.5-10.1 MG/DL Corrected Calcium 9.2 8.5-10.1 MG/DL Magnesium Level 2.1 1.6-2.4 MG/DL Total Bilirubin 0.2 0.1-1.0 MG/DL Aspartate Amino Transf (AST/SGOT) 28 5-34 U/L Alanine Aminotransferase (ALT/SGPT) 16 0-55 U/L Alkaline Phosphatase 108 40-136 U/L Lactate Dehydrogenase 370 H 125-220 U/L Myoglobin 53.2 10.0-92.0 NG/ML Troponin I < 0.028 <0.028 NG/ML C-Reactive Protein High Sensitivity 5.88 H 0.00-0.50 MG/DL Total Protein 7.7 6.4-8.2 GM/DL Albumin 3.0 L 3.2-4.5 GM/DL Procalcitonin 3.08 H <0.10 NG/ML Coronavirus 2019 (EMILY) Negative Negative Urine Color YELLOW Urine Clarity CLEAR Urine pH 7.5 5-9 Urine Specific [place] 1.010 L 1.016-1.022 Urine Protein 2+ H NEGATIVE Urine Glucose (UA) NEGATIVE NEGATIVE Urine Ketones NEGATIVE NEGATIVE Urine Nitrite NEGATIVE NEGATIVE Urine Bilirubin NEGATIVE NEGATIVE Urine Urobilinogen 0.2 < = 1.0 MG/DL Urine Leukocyte Esterase 3+ H NEGATIVE Urine RBC (Auto) 3+ H NEGATIVE Urine RBC 10-25 H /HPF Urine WBC 25-50 H /HPF Urine Crystals PRESENT H /LPF Urine Amorphous Sediment FEW SABINE PHOSPHATE H /LPF Urine Bacteria FEW H /HPF Urine Casts NONE /LPF Urine Mucus NEGATIVE /LPF Urine Culture Indicated YES Micro Results Microbiology 09/30/20 Influenza Types A,B Antigen ([facility]) - Final, Complete My Orders Orders - ROSALIA WANG MD Cbc With Automated Diff (09/30/20:) Magnesium (09/30/20:) Chest 1 View, Ap/Pa Only (09/30/20:) Ekg Tracing (09/30/20) Comprehensive Metabolic Panel (09/30/20) Myoglobin Serum (09/30/20) Protime With Inr (09/30/20) Partial Thromboplastin Time (09/30/20) O2 (09/30/20) Monitor-Rhythm Ecg Trace Only (09/30/20) Lipid Panel (10/01/20 06:00) Ed Iv/Invasive Line Start (09/30/20:) Blood Culture (09/30/20:) Sputum Culture (09/30/20) Urinalysis (09/30/20) Urine Culture (09/30/20:) Vital Signs Adult Sepsis Patie Q15M (09/30/20:) Remove Rings In Anticipation O (09/30/20:) Lactic Acid Analyzer (09/30/20:) Ns Iv 1000 Ml (Sodium Chloride 0.9%) (09/30/20 20:) Diltiazem Injection (Cardizem Injection) (09/30/20 20:30) Diltiazem Drip Pre-Mix (Cardizem Drip Pr (09/30/20 20:30) Diltiazem Drip Pre-Mix (Cardizem Drip Pr (09/30/20:22) Diltiazem Injection (Cardizem Injection) (09/30/20:) Albuterol Inhaler (Ventolin Hfa) (09/30/20 22:00) Influenza A And B Antigens (09/30/20 20:42) Covid 19 Inhouse Test (09/30/20 20:42) Manual Differential (09/30/20:) Hs C Reactive Protein (11/10/20 20:20) LDH (09/30/20 20:20) Procalcitonin (Pct) (09/30/20 20:20) Troponin I (09/30/20 20:20) Methylprednisolone Sod Succ (Solu-Medrol (09/30/20 20:50) Arterial Blood Gas (09/30/20 21:03) Urine Culture (09/30/20 20:30) Tobramycin Injection (Nebcin Injection) (09/30/20 21:45) Ns Iv 1000 Ml (Sodium Chloride 0.9%) (09/30/20 21:37) Cefepime Injection (Maxipime Injection) (09/30/20 22:00) Medications Given in ED Current Medications Medications Dose Ordered Sig/Virgie Route Start Time Stop Time Status Last Admin Dose Admin Methylprednisolone Sodium Succinate 125 mg STK-MED ONCE .ROUTE 09/30/20 20:50 09/30/20 20:52 DC 09/30/20 20:52 125 MG Tobramycin Sulfate 300 mg/ Sodium Chloride 107.5 ml @ 107.5 mls/ hr ONCE ONCE IV 09/30/20 21:45 09/30/20 22:44 09/30/20 22:02 107.5 MLS/HR Vital Signs/I&O 09/30/20 09/30/20 09/30/20 09/30/20 20:17 20:25 20:26 20:34 Temp 36.0 Pulse 141 Resp 30 B/P (MAP) 147/87 (107) Pulse Ox 100 95 99 O2 Delivery Mechanical Ventilator Trach Collar O2 Flow Rate 15.00 FiO2 100 100 Capillary Refill : Less Than 3 Seconds Blood Pressure Mean: 107 Progress Note : Time: 22:18 Progress Note Patient is now comfortable after numerous interventions. She had a tacky arrhythmia initially thought to be atrial fibrillation. However, after EKG it was discovered this was sinus tachycardia with numerous PACs. This was discussed with Dr. Chu. No particular interventions were advised besides IV fluids. Patient was not doing well despite being placed back on the ventilator. She required numerous attempts at suctioning. Finally saline lavage with extensive suctioning improved her respiratory status. Repeat chest x-ray showed persistent pneumonia. Laboratory evaluation showed a significant leukocytosis and elevation in procalcitonin. Review of her chart notes a highly resistant Pseudomonas bacteria cultured from urine and sputum. Patient had been started on meropenem at home but the sputum culture showed only intermediate susceptibility to the meropenem. For this reason tobramycin was started in the emergency room. Patient did have episodes of hypotension which were treated w ith IV fluids. She received a total of 2 L in boluses. Heart rate did responded to improved respiratory status and IV fluids. When she was relaxed heart rate was running around 110. Solu-Medrol 125 mg was administered. She received albuterol MDI in line with the ventilator tubing. eICU was consulted. Case was also discussed with Dr. Davenport. CODE STATUS reviewed with the patient and she wishes to remain full code. Rapid flu and COVID-19 swabs were negative. Patient was taken out of PUI status. We will continue contact precautions due to the highly resistant strain of Pseudomonas cultured out on her prior admission. ECG Initial ECG Impression Date: Sep 30, 2020 Initial ECG Impression Time: 20:24 Initial ECG Rate: 136 Comment Sinus tachycardia with arrhythmia due to frequent PACs. No ST elevation or depression to suggest ischemia. Diagnostic Imaging Diagonstic Imaging: Xray Plain Films/CT/US/NM/MRI: chest Comments Chest x-ray reviewed by me and report reviewed. Compared with prior. See report below: NAME: CLAUDIA MEEKS [facility] REC#: [id number] PT STATUS: REG ER : 1940 PHYSICIAN: ROSALIA WANG MD ADMIT DATE: 09/30/20/ER Signed Date of Exam:09/30/20 CHEST 1 VIEW, AP/PA ONLY INDICATION: Chest pain Portable chest shows cardiomegaly with mild venous distention. There are bilateral infiltrates with some consolidation in the right lower lobe. There are small effusions. Tracheostomy tube is present. All of these findings are similar to the prior study from 09/29/2020. IMPRESSION: Stable chest. Dictated by: Dictated on workstation # [id number] Dict: 09/30/202122 Trans: 09/30/202145 [facility] [id number] Interpreted by: CHANCE LOW MD Electronically signed by: CHANCE LOW MD 09/30/202145 Departure Communication (Admissions) Time/Spoke to Admitting Phy: 21:30 Dr. Davenport Time/Spoke to Consulting Phy: 20:56 Dr. Chu Impression Primary Impression: Severe sepsis Additional Impressions: Acute on chronic respiratory failure Qualified Codes: J96.21 - Acute and chronic respiratory failure with hypoxia Bilateral pneumonia Qualified Codes: J15.1 - Pneumonia due to Pseudomonas Urinary tract infection Qualified Codes: N39.0 - Urinary tract infection, site not specified Disposition: 09 ADMITTED INPATIENT Condition: Improved Admissions Decision to Admit Reason: Admit from ER (General) Decision to Admit/Date: Sep 30, 2020 Time/Decision to Admit Time: 20:10 Departure-Patient Inst. Referrals: RAJESH DAVENPORT MD (PCP/Family) Primary Care Physician ROSALIA WANG MD Sep 30, 2020 22:04
--- NOTE | 2020-09-30 22:40 | NUR ---
RECEIVED FROM ED, 80 YEAR OLD FEMALE WITH DX OF ACUTE ON CHRONIC RESP FAILURE, SEPSIS, AND PNEUMONIA. PT HAS TRACH AND IS VENT DEPENDENT AT HOME. VENT SETTINGS ARE TV 420, RATE OF12 5 OF PEEP,100% FIO2
[2020-09-30 23:00] VITALS: BP 92/50
[2020-09-30] MEDS ORDERED: ONDANSETRON 4 MG/2 ML (SDV) Z0FRAN IVP PRN (23:00)
[2020-09-30] MEDS ORDERED: CEFEPIME 1,000 MG/SWFI 10 ML IV PUSH IV SCH ×2 (23:15)
[2020-09-30] MEDS ORDERED: LACTATED RINGERS 1,000 ML IV SCH (23:15)
[2020-09-30] MEDS ORDERED: LACTATED RINGERS 1,000 ML IV ONE (23:17)
[2020-09-30] MEDS ORDERED: VANCOMYCIN 1000 MG/VIAL ONE (23:27)
[2020-09-30] MEDS ORDERED: NS (IVPB) 250 ML ONE (23:27)
[2020-09-30] MEDS ORDERED: VANCOMYCIN 1 GM/NS 250 ML IVPB IV SCH ×2 (23:30)
[2020-10-01] VITALS (28 sets, daily range): BP systolic 83–125; BP diastolic 52–82
[2020-10-01] MEDS: methylPREDNISolone 40 MG/ML (Solu-MEDROL) VIAL IV SCH ×4 (00:28→18:14)
[2020-10-01] MEDS: RT-ALBUTEROL INHALER HFA (VENTOLIN HFA) 18 GM IH SCH (02:46)
[2020-10-01 03:59] LABS: BASOPHILS % (AUTO) 0 % (0-10); EOSINOPHILS % (AUTO) 0 % (0-10); HEMATOCRIT 28 % (35-52); HEMOGLOBIN 8.6 g/dL (11.5-16.0); LYMPHOCYTES # (AUTO) 0.3 10^3/uL (1.0-4.0); LYMPHOCYTES % (AUTO) 2 % (12-44); MEAN CORPUSCULAR HEMOGLOBIN 27 pg (25-34); MEAN CORPUSCULAR HGB CONC 31 g/dL (32-36); MEAN CORPUSCULAR VOLUME 88 fL (80-99); MEAN PLATELET VOLUME 9.4 fL (9.0-12.2); MONOCYTES # (AUTO) 0.1 10^3/uL (0.0-1.0); MONOCYTES % (AUTO) 1 % (0-12); NEUTROPHILS # (AUTO) 13.4 10^3/uL (1.8-7.8); NEUTROPHILS % (AUTO) 97 % (42-75); PLATELET COUNT 501 10^3/uL (130-400); WHITE BLOOD COUNT 13.8 10^3/uL (4.3-11.0)
[2020-10-01 04:23] LABS: CHLORIDE 95 MMOL/L (98-107); POTASSIUM 4.1 MMOL/L (3.6-5.0); SODIUM 136 MMOL/L (135-145)
[2020-10-01 04:24] LABS: CALCIUM 7.3 MG/DL (8.5-10.1)
[2020-10-01 04:25] LABS: GLUCOSE 159 MG/DL (70-105); TRIGLYCERIDES 44 MG/DL (<150); VLDL CHOLESTEROL 9 MG/DL (5-40)
[2020-10-01] MEDS: MAGNESIUM 1 GM/100 ML IVPB 100 ML IV SCH (04:26)
[2020-10-01] MEDS: KCL 20 MEQ TAB (K-DUR) PO SCH (04:26)
[2020-10-01] MEDS: POTASSIUM CL 10MEQ/50ML IVPB 50 ML IV SCH (04:26)
[2020-10-01 04:27] LABS: CARBON DIOXIDE 33 MMOL/L (21-32)
[2020-10-01 04:29] LABS: CREATININE SERUM 0.45 MG/DL (0.60-1.30); GFR ESTIMATED > 60; PHOSPHORUS 2.5 MG/DL (2.3-4.7)
[2020-10-01 04:30] LABS: BUN/CREATININE RATIO 36; CHOLESTEROL 109 MG/DL (< 200)
[2020-10-01 04:31] LABS: HDL CHOLESTEROL 52 MG/DL (40-60)
[2020-10-01 04:32] LABS: MAGNESIUM 1.7 MG/DL (1.6-2.4)
--- NOTE | 2020-10-01 04:52 | Pulmonary Consultation ---
History of Present Illness History of Present Illness Date Seen by Provider: Oct 01, 2020 Time Seen by Provider: 04:51 Date of Admission Allergies and Home Medications Allergies Coded Allergies: budesonide (Unverified Allergy, Mild, NAUSEA, 01/06/16) PT REPORTS NAUSEA, FLUSHING AND NIGHTMARES formoterol (Unverified Allergy, Mild, NAUSEA, 01/06/16) PT REPORTS NAUSEA, FLUSHING AND NIGHTMARES Home Medications ALPRAZolam 0.25 Mg Tablet, 0.25 MG Q6H PRN for ANXIETY/SLEEP, (Reported) Acetaminophen 650 Mg/20.3 Ml Oral.susp, 650 MG PO Q6H PRN for PAIN-MILD (1-4) OR TEMPATURE, (Reported) Acetylcysteine 200 Mg/1 Ml Vial, 3 ML NEB QID, (Reported) Apixaban 5 Mg Tablet, 5 MG BID, (Reported) Cholecalciferol (Vitamin D3) 25 Mcg Capsule, 100 MCG DAILY, (Reported) TAKES 4 (25MCG) TABS Ciprofloxacin HCl 250 Mg Tablet, 250 MG PO DAILY, (Reported) LAST FILLED 02-05-2020 #90/90 DAY SUPPLY Furosemide 20 Mg Tablet, 20 MG DAILY, (Reported) Hydrocodone/Acetaminophen 1 Each Tablet, 1 EA BID PRN for PAIN-SEVERE (8-10), (Reported) Ipratropium/Albuterol Sulfate 3 Ml Ampul.neb, 3 ML NEB BID, (Reported) Levothyroxine Sodium 75 Mcg Tablet, 75 MCG DAILY, (Reported) Melatonin 3 Mg Tablet, 3 MG PO HS PRN for SLEEP, (Reported) Meropenem 1 Gm Vial, 2 GM IV Q12H Prescribed by: THELMA PEREZ on 09/25/20 0721 Pantoprazole Sodium 40 Mg Tablet.dr, 40 MG DAILY, (Reported) Potassium Chloride 10 Meq Tab.er.prt, 10 MEQ DAILY, (Reported) Sennosides/Docusate Sodium 1 Each Tablet, 2 EACH HS, (Reported) Sertraline HCl 50 Mg Tablet, 50 MG DAILY, (Reported) Past Hcyoftx-Wrflqv-Frpplc Hx Past Med/Social Hx: Reviewed Nursing Past Med/Soc Hx Patient Social History Alcohol Use: Denies Use Recreational Drug Use: No Smoking Status: Never a Smoker 2nd Hand Smoke Exposure: No Recent Foreign Travel: No Contact w/Someone Who Travel: No Recent Infectious Disease Expo: No Recent Hopitalizations: Yes Immunizations Up To Date Date of Pneumonia Vaccine: Aug 21, 2014 Date of Influenza Vaccine: Aug 21, 2015 Past Medical History Surgeries: Yes ( HERNIA REPAIR; FEEDING TUBE ; BILATERAL CATARACTS) Abdominal, Eye Surgery, Tracheostomy Respiratory: Yes (COPD; TRACH PLACED 05/2020; PULMONARY EDEMA) Pneumonia, COPD Cardiac: Yes Atrial Fibrillation, Hypertension Neurological: No Dementia Reproductive Disorders: No Genitourinary: Yes UTI-Chronic Gastrointestinal: Yes (FEEDING TUBE IN PLACE 05/2020) Musculoskeletal: Yes Arthritis Endocrine: No HEENT: Yes Cataract Cancer: No Psychosocial: No Integumentary: No Blood Disorders: No Adverse Reaction/Blood Tranf: No (BLOOD TRANSFUSION AFTER CHILDBIRTH) Family Medical History Reviewed Nursing Family Hx Cardiovascular disease G8 BROTHER Congenital heart disease G8 BROTHER FH: cancer G8 SISTER (UTERINE) Glaucoma 19 MOTHER Hypertension G8 SISTER Respiratory disorder 19 FATHER No Pertinent Family Hx Review of Systems Time Seen by Provider: 09:12 Sepsis Event Evaluation Height, Weight, BMI Height: 5'2.00" Weight: 90lbs. 6.0oz. 40.830130mz; 19.43 BMI Method: Exam Exam Vital Signs Date Time Temp Pulse Resp B/P (MAP) Pulse Ox O2 Delivery O2 Flow Rate FiO2 10/01/20 04:00 36.3 10/01/20 02:47 89 18 100 70 10/01/20 01:00 80 10/01/20 00:00 100 Mechanical Ventilator 100 09/30/20 23:00 36.4 Mechanical Ventilator 100.00 09/30/20 22:47 117 09/30/20 22:40 36.0 101 22 89/60 (107) 100 Mechanical Ventilator 09/30/20 20:34 99 100 09/30/20 20:26 36.0 141 30 147/87 (107) 95 Trach Collar 15.00 09/30/20 20:25 100 09/30/20 20:17 100 Mechanical Ventilator I & O 10/01/20 07:00 Intake Total 2250 ml Output Total 550 ml Balance 1700 ml Height & Weight Height: 5'2.00" Weight: 90lbs. 6.0oz. 40.046254xj; 19.43 BMI Method: General Appearance: WD/WN, Moderate Distress HEENT: PERRL/EOMI, Normal ENT Inspection Neck: Other (Tracheostomy in good position with no significant inflammation) Respiratory: No Respiratory Distress, Crackles (Right base), Decreased Breath Sounds Cardiovascular: No Edema, Normal Peripheral Pulses, Irregularly Irregular, Tachycardia Capillary Refill: Less Than 3 Seconds Extremity: Normal Inspection, No Pedal Edema Neurologic/Psychiatric: Alert, Oriented x3, No Motor/Sensory Deficits, Normal Mood/Affect, facilities management executive II-XII Norm as Tested Results Lab Laboratory Tests 09/30/20 20:20 10/01/20 03:45 Assessment/Plan Assessment/Plan Acute on chronic respiratory failure s/p tracheostomy at [facility] -Continue ventilatory care -Check ABG -Influenza is negative -MRSA swab pending -Pt has chronic pulmonary infiltrates 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 -Richter cultures pending Anemia -Monitor Metabolic lactic acidosis -IVF -Monitor Small bilateral pleural effusions Echo shows normal EF with grade 1 diastolic dysfunction -Start Lasix daily PT will need ECF upon hospital discharge. Both pt and are agreeable to ECF. NORAH FOUNTAIN DO Oct 01, 2020 04:52
[2020-10-01] MEDS ORDERED: MEROPENEM 500 MG in WATER (STERILE) FOR INJECTION 10 ML IV SCH (05:00)
[2020-10-01] MEDS ORDERED: MEROPENEM 1000 MG (MERREM) VIAL IV ONE (05:14)
[2020-10-01] MEDS ORDERED: WATER (STERILE) FOR INJECTION 20 ML ONE (05:14)
--- NOTE | 2020-10-01 06:00 | NUR ---
PT'S CALLED TO CHECK ON PT, DR FOUNTAIN SPOKE TO AND TOLD HIM THE PT NEEDS TO EITHER GO TO LONG[facility] OR HOME WITH HOSPICE.
[2020-10-01] MEDS ORDERED: morphine INJ 4 MG/ML 1 ML (VIAL/SYRINGE) ONE (06:24)
[2020-10-01] MEDS ORDERED: RT-ALBUTEROL SULF 2.5 MG/3 ML PRE-MIX VIAL ONE (06:59)
[2020-10-01] MEDS: RT-ALBUTEROL SULF 2.5 MG/3 ML PRE-MIX VIAL INH SCH ×5 (07:05→21:45)
--- NOTE | 2020-10-01 07:20 | History & Physicial ---
History of Present Illness History of Present Illness Reason for visit/HPI 80-year-old female presents to emergency room via EMS after apparently respiratory failure at home. Patient was released from hospital on September 29 on ventilator support. She has a tracheostomy that was placed at [facility] in [place]. She is currently receiving meropenem twice daily for pneumonia with Pseudomonas growing from her sputum on recent hospitalization. In the ED her oxygen saturation ranging anywhere from 30-50 percent. In the emergency department she had tachycardia with irregular cardiac rhythm. Date of Admission Sep 30, 2020 at 22:09 Date Seen by a Provider: Oct 01, 2020 Time Seen by a Provider: 07:05 I consulted on this patient on 10/01/20 07:13 Attending Physician Rajesh Davenport MD Admitting Physician Rajesh Davenport MD Consult Allergies and Home Medications Allergies Coded Allergies: budesonide (Unverified Allergy, Mild, NAUSEA, 01/06/16) PT REPORTS NAUSEA, FLUSHING AND NIGHTMARES formoterol (Unverified Allergy, Mild, NAUSEA, 01/06/16) PT REPORTS NAUSEA, FLUSHING AND NIGHTMARES Home Medications ALPRAZolam 0.25 Mg Tablet, 0.25 MG Q6H PRN for ANXIETY/SLEEP, (Reported) Acetaminophen 650 Mg/20.3 Ml Oral.susp, 650 MG PO Q6H PRN for PAIN-MILD (1-4) OR TEMPATURE, (Reported) Acetylcysteine 200 Mg/1 Ml Vial, 3 ML NEB QID, (Reported) Apixaban 5 Mg Tablet, 5 MG BID, (Reported) Cholecalciferol (Vitamin D3) 25 Mcg Capsule, 100 MCG DAILY, (Reported) TAKES 4 (25MCG) TABS Ciprofloxacin HCl 250 Mg Tablet, 250 MG PO DAILY, (Reported) LAST FILLED 02-05-2020 #90/90 DAY SUPPLY Furosemide 20 Mg Tablet, 20 MG DAILY, (Reported) Hydrocodone/Acetaminophen 1 Each Tablet, 1 EA BID PRN for PAIN-SEVERE (8-10), (Reported) Ipratropium/Albuterol Sulfate 3 Ml Ampul.neb, 3 ML NEB BID, (Reported) Levothyroxine Sodium 75 Mcg Tablet, 75 MCG DAILY, (Reported) Melatonin 3 Mg Tablet, 3 MG PO HS PRN for SLEEP, (Reported) Meropenem 1 Gm Vial, 2 GM IV Q12H Prescribed by: THELMA PEREZ on 09/25/20 0721 Pantoprazole Sodium 40 Mg Tablet.dr, 40 MG DAILY, (Reported) Potassium Chloride 10 Meq Tab.er.prt, 10 MEQ DAILY, (Reported) Sennosides/Docusate Sodium 1 Each Tablet, 2 EACH HS, (Reported) Sertraline HCl 50 Mg Tablet, 50 MG DAILY, (Reported) Patient Home Medication List Home Medication List Reviewed: Yes Past Onuikav-Vhikow-Fvqlno Hx Patient Social History Marrital Status: Alcohol Use: Denies Use Recreational Drug Use: No Smoking Status: Never a Smoker 2nd Hand Smoke Exposure: No Recent Foreign Travel: No Contact w/other who traveled: No Recent Hopitalizations: Yes Recent Infectious Disease Expo: No Immunizations Up To Date Date of Pneumonia Vaccine: Aug 21, 2014 Date of Influenza Vaccine: Aug 21, 2015 Surgeries Yes ( HERNIA REPAIR; FEEDING TUBE ; BILATERAL CATARACTS) Abdominal, Eye Surgery, Tracheostomy Respiratory Yes (COPD; TRACH PLACED 05/2020; PULMONARY EDEMA) Pneumonia Cardiovascular Yes Atrial Fibrillation, Hypertension Neurological No Dementia Reproductive System Hx Reproductive Disorders: No Genitourinary Yes UTI-Chronic Gastrointestinal Yes (FEEDING TUBE IN PLACE 05/2020) Musculoskeletal Yes Arthritis Endocrine History of Endocrine Disorders: No HEENT History of HEENT Disorders: Yes HEENT Disorders: Cataract Cancer No Psychosocial History of Psychiatric Problem: No Integumentary History of Skin or Integumenta: No Blood Transfusions History of Blood Disorders: No Adverse Reaction to a Blood Tr: No (BLOOD TRANSFUSION AFTER CHILDBIRTH) Family Medical History Significant Family History: No Pertinent Family Hx Family Hx: Cardiovascular disease G8 BROTHER Congenital heart disease G8 BROTHER FH: cancer G8 SISTER (UTERINE) Glaucoma 19 MOTHER Hypertension G8 SISTER Respiratory disorder 19 FATHER Review of Systems Constitutional: see HPI Physical Exam Vital Signs Vital Signs - First Documented 09/30/20 09/30/20 09/30/20 20:17 20:25 20:26 Temp 36.0 Pulse 141 Resp 30 B/P (MAP) 147/87 (107) Pulse Ox 100 O2 Delivery Mechanical Ventilator O2 Flow Rate 15.00 FiO2 100 Capillary Refill : Less Than 3 Seconds Height, Weight, BMI Height: 5'2.00" Weight: 90lbs. 6.0oz. 40.073711pw; 19.43 BMI Method: General Appearance: No Apparent Distress (in the morning in ICU), Cachetic Eyes: Bilateral Eye Normal Inspection Respiratory: Rhonci Cardiovascular: Regular Rate, Rhythm Gastrointestinal: Soft Rectal: Deferred Extremity: Normal Capillary Refill Neurologic/Psychiatric: Alert, Oriented x3 Comments [facility] [place], [place] NAME: CLAUDIA MEEKS [facility] REC#: [id number] PT STATUS: REG ER : 1940 PHYSICIAN: ROSALIA WANG MD ADMIT DATE: 09/30/20/ER Signed Date of Exam:09/30/20 CHEST 1 VIEW, AP/PA ONLY INDICATION: Chest pain Portable chest shows cardiomegaly with mild venous distention. There are bilateral infiltrates with some consolidation in the right lower lobe. There are small effusions. Tracheostomy tube is present. All of these findings are similar to the prior study from 09/29/2020. IMPRESSION: Stable chest. Dictated by: Dictated on workstation # [id number] Dict: 09/30/202122 Trans: 09/30/202145 [facility] [id number] Interpreted by: CHANCE LOW MD Electronically signed by: CHANCE LOW MD 09/30/202145 Assessment/Plan Assessment and Plan 1. Sepsis -IV fluids initiated -Monitor CBC daily -Dr. Velazquez in consultation and his expertise appreciated 2. PneumoniaPseudomonas -ED initiated tobramycin -Also placed on meropenem 3. Acute on chronic respiratory failure -DME to help sort out her home ventilator issues. 4. Urinary tract infection -Await urine culture -Currently has antibiotic coverage Admission Diagnosis 1. Sepsis 2. PneumoniaPseudomonas 3. Acute on chronic respiratory failure 4. Urinary tract infection Admission Status: Inpatient Order (span 2 midnights) Reason for Inpatient Admission: further IV antibiotic therapy. Her home ventilator will need to be reevaluated by DME. human services care specialist consultation for placement Clinical Quality Measures DVT/VTE Risk/Contraindication: Risk Factor Score Per Nursin RFS Level Per Nursing on Admit: 4+=Very High RAJESH DAVENPORT MD Oct 01, 2020 07:20
[2020-10-01] MEDS: FAMOTIDINE 20MG/2ML IV (PEPCID) IVP SCH (09:05)
[2020-10-01] MEDS: APIXABAN 2.5 MG (ELIQUIS) TABLET PO SCH ×2 (09:05→20:29)
[2020-10-01] MEDS: MEROPENEM 2 GM/NS 100 ML IVPB IV SCH ×4 (09:06→20:30)
[2020-10-01] MEDS ORDERED: VANCOMYCIN 1 GM/NS 250 ML IVPB IV SCH ×2 (11:30)
[2020-10-01 12:05] LABS: ABG BASE EXCESS 9.3 MMOL/L (-2.5-2.5); ABG OXYGEN SATURATION 98 % (94-100); ABG PCO2 45 MMHG (35-45); ABG PH 7.48 (7.37-7.43); ABG PO2 140 MMHG (79-93); ABG TCO2 34.7 MMOL/L (21.0-31.0); ALLENS TEST YES-POS; INSPIRED O2 50%; VENTILATOR NO
[2020-10-01 12:06] LABS: PATIENT TEMP 36.5
[2020-10-01] MEDS: morphine INJ 4 MG/ML 1 ML (VIAL/SYRINGE) IVP PRN ×2 (12:31→20:32)
--- NOTE | 2020-10-01 14:20 | NUR ---
CM/SS: Telephone Call to Giancarlo - spouse - [phone] - as per consult related to manager long term care care placement. Giancarlo reports talking to Dr. Velazquez and they are needing to locate a placement for pt. He is given information as to the name of the facilities, and the medicare compare website. He reports he has also put a call into his insurance [employer]. This worker will follow up.
--- NOTE | 2020-10-01 15:12 | Consultation-Cardiology ---
HPI-Cardiology Cardiology Consultation Date of Consultation 10/01/20 Date of Admission Time Seen by Provider: 09:12 HPI Patient is an 80 y/o female with hx of acute on chronic respiratory failure and multidrug resistent pneudomonas pneumonia. Was recently discharged home from on home ventilator. Presented to the ER with complaints on increased dyspnea and hypoxemia. Denies any chest pain or palpitations. Home Medications & Allergies Allergies: Coded Allergies: budesonide (Unverified Allergy, Mild, NAUSEA, 01/06/16) PT REPORTS NAUSEA, FLUSHING AND NIGHTMARES formoterol (Unverified Allergy, Mild, NAUSEA, 01/06/16) PT REPORTS NAUSEA, FLUSHING AND NIGHTMARES DUP-Aserko-Tqiwkd Hx Patient Social History Marital Status: Alcohol Use: Denies Use Recreational Drug Use: No Smoking Status: Never a Smoker 2nd Hand Smoke Exposure: No Recent Foreign Travel: No Recent Infectious Disease Expo: No Recent Hopitalizations: Yes Immunizations Up To Date Date of Pneumonia Vaccine: Aug 21, 2014 Date of Influenza Vaccine: Aug 21, 2015 Family Medical History Significant Family History: No Pertinent Family Hx Family History: Cardiovascular disease G8 BROTHER Congenital heart disease G8 BROTHER FH: cancer G8 SISTER (UTERINE) Glaucoma 19 MOTHER Hypertension G8 SISTER Respiratory disorder 19 FATHER Review of Systems-General Review of Systems Constitutional: no symptoms reported, see HPI; No fever, No malaise EENTM: see HPI, no symptoms reported; No blurred vision, No double vision Respiratory: see HPI, phlegm, short of breath Cardiovascular: see HPI; No chest pain, No palpitations Gastrointestinal: no symptoms reported; No abdominal pain, No constipation Genitourinary: no symptoms reported : No Musculoskeletal: no symptoms reported Skin: no symptoms reported Psychiatric/Neurological: See HPI Reviewed Test Results Reviewed Test Results Lab Laboratory Tests 09/30/20 20:20: White Blood Count 21.6H, Red Blood Count 4.18, Hemoglobin 11.3#L, Hematocrit 37, Mean Corpuscular Volume 90, Mean Corpuscular Hemoglobin 27, Mean Corpuscular Hemoglobin Concent 30L, Red Cell Distribution Width 16.1H, Platelet Count 811H, Mean Platelet Volume 9.8, Immature Granulocyte % (Auto) 1, Neutrophils (%) (Auto) 65, Lymphocytes (%) (Auto) 21, Monocytes (%) (Auto) 7, Eosinophils (%) (Auto) 6, Basophils (%) (Auto) 1, Neutrophils # (Auto) 14.0H, Lymphocytes # (Auto) 4.4H, Monocytes # (Auto) 1.5H, Eosinophils # (Auto) 1.3H, Basophils # (Auto) 0.1, Immature Granulocyte # (Auto) 0.1, Neutrophils % (Manual) 70, Lymphocytes % (Manual) 22, Monocytes % (Manual) 4, Eosinophils % (Manual) 4, Blood Morphology Comment NORMAL, Prothrombin Time 15.3H, INR Comment 1.2, Activated Partial Thromboplast Time 48H, Sodium Level 136, Potassium Level 4.3, Chloride Level 88L, Carbon Dioxide Level 34H, Anion Gap 14, Blood Urea Nitrogen 17, Creatinine 0.63, Estimat Glomerular Filtration Rate > 60, BUN/Creatinine Ratio 27, Glucose Level 167H, Lactic Acid Level 3.12*H, Calcium Level 8.4L, Corrected Calcium 9.2, Magnesium Level 2.1, Total Bilirubin 0.2, Aspartate Amino Transf (AST/SGOT) 28, Alanine Aminotransferase (ALT/SGPT) 16, Alkaline Phosphatase 108, Lactate Dehydrogenase 370H, Myoglobin 53.2, Troponin I < 0.028, C-Reactive Protein High Sensitivity 5.88H, Total Protein 7.7, Albumin 3.0L, Procalcitonin 3.08H 09/30/20 20:26: Coronavirus 2019 (EMILY) Negative 09/30/20 20:30: Urine Color YELLOW, Urine Clarity CLEAR, Urine pH 7.5, Urine Specific [place] 1.010L, Urine Protein 2+H, Urine Glucose (UA) NEGATIVE, Urine Ketones NEGATIVE, Urine Nitrite NEGATIVE, Urine Bilirubin NEGATIVE, Urine Urobilinogen 0.2, Urine Leukocyte Esterase 3+H, Urine RBC (Auto) 3+H, Urine RBC 10-25H, Urine WBC 25-50H , Urine Crystals PRESENTH, Urine Amorphous Sediment FEW SABINE PHOSPHATEH, Urine B acteria FEWH, Urine Casts NONE, Urine Mucus NEGATIVE, Urine Culture Indicated YES 09/30/20 22:34: Lactic Acid Level 1.07 10/01/20 03:45: White Blood Count 13.8H, Red Blood Count 3.19L, Hemoglobin 8.6#L, Hematocrit 28L , Mean Corpuscular Volume 88, Mean Corpuscular Hemoglobin 27, Mean Corpuscular Hemoglobin Concent 31L, Red Cell Distribution Width 15.9H, Platelet Count 501H, Mean Platelet Volume 9.4, Immature Granulocyte % (Auto) 1, Neutrophils (%) (Auto) 97H, Lymphocytes (%) (Auto) 2L, Monocytes (%) (Auto) 1, Eosinophils (%) (Auto) 0, Basophils (%) (Auto) 0, Neutrophils # (Auto) 13.4H, Lymphocytes # (Auto) 0.3L, Monocytes # (Auto) 0.1, Eosinophils # (Auto) 0.0, Basophils # (Auto) 0.0, Immature Granulocyte # (Auto) 0.1, Sodium Level 136, Potassium Level 4.1, Chloride Level 95L, Carbon Dioxide Level 33H, Anion Gap 8, Blood Urea Nitrogen 16, Creatinine 0.45L, Estimat Glomerular Filtration Rate > 60, BUN/Creatinine Ratio 36, Glucose Level 159H, Calcium Level 7.3L, Phosphorus Level 2.5, Magnesium Level 1.7, B-Type Natriuretic Peptide 473.3H, Triglycerides Level 44, Cholesterol Level 109, LDL Cholesterol Direct 45, VLDL Cholesterol 9, HDL Cholesterol 52 10/01/20 11:53: Blood Gas Puncture Site LR, Blood Gas Patient Temperature 36.5, Arterial Blood pH 7.48H, Arterial Blood Partial Pressure CO2 45, Arterial Blood Partial Pressure O2 140H, Arterial Blood HCO3 33H, Arterial Blood Total CO2 34.7H, Arterial Blood Oxygen Saturation 98, Arterial Blood Base Excess 9.3H, Kang Test YES-POS, Blood Gas Ventilator Setting NO, Blood Gas Inspired Oxygen 50% Microbiology 09/30/20 Influenza Types A,B Antigen (HILLARY) - Final, Complete Physical Exam Physical Exam Vital Signs Vital Signs - First Documented 09/30/20 09/30/20 09/30/20 20:17 20:25 20:26 Temp 36.0 Pulse 141 Resp 30 B/P (MAP) 147/87 (107) Pulse Ox 100 O2 Delivery Mechanical Ventilator O2 Flow Rate 15.00 FiO2 100 Capillary Refill : Less Than 3 Seconds Height, Weight, BMI Height: 5'2.00" Weight: 90lbs. 6.0oz. 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 Was having worsening dyspnea and hypoxemia at home, currently in ICU. Mild elevation in BNP, 2D Echo done 09/21/2020 showed grade 1 diastolic dysfunction with EF 55-65%. PA 30-35mmHg. Continue on lasix and continue to monitor. Hypotension, conitnue to monitor blood pressure Sepsis, leukocytosis. managed by Dr. Velazquez History of paroxysmal atrial fibrillation, having few episodes of tachycardia, continue to monitor. Has been maintained on digoxin in the past. Maintained on E liquis. History of COPD. Thank you for allowing us to participate in the management of Ms. Sanchez. This is Deepa Hogan PA-C, as a scribe for Dr. Khan. Patient was seen and evaluated with Deepa, examination performed, management plan was discussed, agree with the current scribed note, I made few changes to the note using Italic font Patient was seen at bedside, sitting comfortably, has tracheostomy Borderline tachycardic while off the ventilator. I will continue monitoring her heart rate and if she continued to be tachycardic will consider rate controlling agent History of multidrug resistant Pseudomonas and sepsis Clinical Quality Measures DVT/VTE Risk/Contraindication: Risk Factor Score Per Nursin RFS Level Per Nursing on Admit: 4+=Very High DEEPA GONZALEZ Oct 01, 2020 3:12 pm PORTILLO KHAN MD Oct 01, 2020 3:44 pm
--- NOTE | 2020-10-01 16:15 | NUR ---
Pt is [employer]. Fitness Attendant provided prayer and Communion.
--- NOTE | 2020-10-01 16:25 | NUR ---
CM/SS: Visited with pt as to her plan for discharge and plan for needing exterminator care placement Plan: Undetermined at this time Summary: Pt feels as if she will need to talk with Giancarlo and further discuss plans for discharge. Giancarlo is called during the visit. He reports that he would like to have pt home and pt would like to be home. He is asked about caregivers in the home to assist him, as well as his thoughts. He feels as if when pt's oxygen level drops she needs to be in the hospital. He feels as if he will need to visit further with Dr. Henderson as to the next steps. Giancarlo is told of the calls made to facilities to determine if they can meet her needs, as well as some who are not taking pts at this time due to COVID. He does desire for pt to remain in the area if possible.
--- NOTE | 2020-10-01 16:37 | NUR ---
Pt spouse maurice pt glasses to hospital. This RN took them into room for pt. Glasses are in a black case.
--- NOTE | 2020-10-01 16:58 | NUR ---
Attempted to find a [facility] home that would be able to accept a patient with her needs (trach, trilogy, and peg tube). Referral sent to the following facilities and not able to locate a facility yet. The following facilities declined d/t not being able to meet patient's needs; [facility], [facility] not [facility], [facility] in [place], [place] (does not accept [employer]), [facility] Referrals are still being looked at [facility] and waiting for a phone call back from [facility] in [place], [place] I have also asked for help on finding potential accepting facilities from other LTAC's and [facility] and am waiting for calls back from them.
[2020-10-01] MEDS: MELATONIN 10 MG TABLET PO SCH (20:30)
[2020-10-01] MEDS ORDERED: NS IV SCH (22:00)
[2020-10-01] MEDS ORDERED: TOBRAMYCIN (NEBCIN) 80 MG/2 ML VIAL IV SCH (22:00)
[2020-10-01] MEDS ORDERED: TOBRAMYCIN IV SCH (22:00)
[2020-10-02] VITALS (28 sets, daily range): BP systolic 82–116; BP diastolic 44–91
[2020-10-02] MEDS: methylPREDNISolone 40 MG/ML (Solu-MEDROL) VIAL IV SCH (00:17)
[2020-10-02] MEDS: RT-ALBUTEROL SULF 2.5 MG/3 ML PRE-MIX VIAL INH SCH ×6 (01:58→22:00)
[2020-10-02] MEDS: morphine INJ 4 MG/ML 1 ML (VIAL/SYRINGE) IVP PRN ×3 (03:08→21:21)
[2020-10-02 03:29] LABS: BASOPHILS % (AUTO) 0 % (0-10); EOSINOPHILS % (AUTO) 0 % (0-10); HEMATOCRIT 27 % (35-52); HEMOGLOBIN 8.5 g/dL (11.5-16.0); LYMPHOCYTES # (AUTO) 0.3 10^3/uL (1.0-4.0); LYMPHOCYTES % (AUTO) 4 % (12-44); MEAN CORPUSCULAR HEMOGLOBIN 27 pg (25-34); MEAN CORPUSCULAR HGB CONC 31 g/dL (32-36); MEAN CORPUSCULAR VOLUME 87 fL (80-99); MEAN PLATELET VOLUME 9.8 fL (9.0-12.2); MONOCYTES # (AUTO) 0.1 10^3/uL (0.0-1.0); MONOCYTES % (AUTO) 2 % (0-12); NEUTROPHILS # (AUTO) 7.3 10^3/uL (1.8-7.8); NEUTROPHILS % (AUTO) 94 % (42-75); PLATELET COUNT 495 10^3/uL (130-400); WHITE BLOOD COUNT 7.7 10^3/uL (4.3-11.0)
[2020-10-02 04:04] LABS: CHLORIDE 95 MMOL/L (98-107); POTASSIUM 3.8 MMOL/L (3.6-5.0); SODIUM 137 MMOL/L (135-145)
[2020-10-02 04:05] LABS: CALCIUM 7.8 MG/DL (8.5-10.1); GLUCOSE 146 MG/DL (70-105)
[2020-10-02 04:07] LABS: CARBON DIOXIDE 32 MMOL/L (21-32)
[2020-10-02 04:09] LABS: CREATININE SERUM 0.46 MG/DL (0.60-1.30); GFR ESTIMATED > 60; PHOSPHORUS 2.2 MG/DL (2.3-4.7)
[2020-10-02 04:10] LABS: BUN/CREATININE RATIO 30
[2020-10-02 04:11] LABS: MAGNESIUM 1.9 MG/DL (1.6-2.4)
[2020-10-02] MEDS ORDERED: POTASSIUM CL 10MEQ/50ML IVPB 50 ML IV SCH (05:15)
[2020-10-02] MEDS ORDERED: FUROSEMIDE 40 MG/4 ML INJ (LASIX) IVP ONE (05:15)
--- NOTE | 2020-10-02 05:16 | Pulmonary Progress Note ---
Subjective Time Seen by a Provider: 05:11 Subjective/Events-last exam Pt appears to be doing better. Sepsis Event Evaluation Height, Weight, BMI Height: 5'2.00" Weight: 90lbs. 6.0oz. 40.580565bw; 19.43 BMI Method: Focused Exam Lactate Level 09/30/20 20:20: Lactic Acid Level 3.12*H 09/30/20 22:34: Lactic Acid Level 1.07 Time of Focused Exam: 22:05 Exam Exam Vital Signs Date Time Temp Pulse Resp B/P (MAP) Pulse Ox O2 Delivery O2 Flow Rate FiO2 10/02/20 04:00 91 15 107/55 (72) 95 Trach Collar 10.00 50.00 10/02/20 03:00 97 20 105/49 (67) 94 Trach Collar 10.00 50.00 10/02/20 02:00 84 16 109/48 (68) 95 Trach Collar 10.00 50.00 10/02/20 01:58 91 20 94 35 10/02/20 01:00 90 10/02/20 01:00 92 22 111/55 (73) 95 Trach Collar 10.00 50.00 10/02/20 00:00 92 23 101/53 (69) 95 Trach Collar 10.00 50.00 10/01/20 23:00 106 31 108/52 (70) 92 Trach Collar 10.00 50.00 10/01/20 22:00 96 22 109/56 (73) 93 Trach Collar 10.00 50.00 10/01/20 21:45 112 20 95 35 10/01/20 21:00 89 16 112/58 (76) 94 Trach Collar 10.00 50.00 10/01/20 21:00 90 Mechanical Ventilator 80 10/01/20 20:29 37.0 10/01/20 20:00 91 21 111/72 (85) 94 Trach Collar 10.00 50.00 10/01/20 19:00 115 10/01/20 19:00 93 17 121/75 (90) 93 Trach Collar 10.00 50.00 10/01/20 18:43 109 27 95 35 10/01/20 18:00 100 19 109/56 (73) 87 Trach Collar 10.00 50.00 10/01/20 17:00 109 38 97/67 (77) 92 Trach Collar 10.00 50.00 10/01/20 16:00 36.9 10/01/20 16:00 107 35 92/71 (78) 94 Trach Collar 10.00 50.00 10/01/20 15:02 93 Trach Collar 10.00 50 10/01/20 15:00 111 29 111/60 (77) 90 Trach Collar 10.00 50.00 10/01/20 14:00 110 37 106/64 (78) 93 Trach Collar 10.00 50.00 10/01/20 13:35 37.3 10/01/20 13:00 111 31 103/63 (76) 94 Trach Collar 10.00 50.00 10/01/20 12:47 114 10/01/20 12:00 112 17 95/72 (80) 89 Trach Collar 10.00 50.00 10/01/20 11:00 121 28 83/55 (64) 92 Trach Collar 10.00 50.00 10/01/20 10:38 Trach Collar 10.00 50.00 10/01/20 10:10 90 Trach Collar 10.00 50 10/01/20 10:00 108 21 120/63 (82) 93 Mechanical Ventilator 35.00 10/01/20 09:08 Mechanical Ventilator 35.00 10/01/20 09:08 37.4 10/01/20 09:00 111 16 113/61 (78) 95 Mechanical Ventilator 50.00 10/01/20 09:00 90 T Piece 10.00 10/01/20 08:00 110 17 105/82 (90) 91 Mechanical Ventilator 50.00 10/01/20 07:35 Mechanical Ventilator 50.00 10/01/20 07:05 90 23 99 70 10/01/20 07:00 82 23 98/79 (85) 100 Mechanical Ventilator 100.00 10/01/20 06:44 94 10/01/20 06:00 87 16 90/56 (67) 100 Mechanical Ventilator 100.00 I & O 10/02/20 07:00 Intake Total 1200 ml Output Total 855 ml Balance 345 ml Height & Weight Height: 5'2.00" Weight: 90lbs. 6.0oz. 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 -Check ABG -Change solumedrol to prednisone 20mg daily x 2 days then d/c -Influenza is negative -MRSA swab pending -Pt has chronic pulmonary infiltrates 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 -Richter cultures pending Anemia -Monitor Metabolic lactic acidosis -IVF -Monitor Small bilateral pleural effusions Echo shows normal EF with grade 1 diastolic dysfunction -Start Lasix daily PT will need ECF upon hospital discharge. Both pt and are agreeable to ECF. NORAH FOUNTAIN DO Oct 02, 2020 05:16
[2020-10-02] MEDS: MAGNESIUM 1 GM/100 ML IVPB 100 ML IV SCH (06:22)
[2020-10-02] MEDS: KCL 20 MEQ TAB (K-DUR) PO SCH (06:22)
[2020-10-02] MEDS: POTASSIUM CL 10MEQ/50ML IVPB 50 ML IV SCH (06:22)
[2020-10-02] MEDS ORDERED: predniSONE 20 MG TAB PO SCH (07:00)
--- NOTE | 2020-10-02 07:23 | Progress Note ---
Subjective Date Seen by a Provider: Oct 02, 2020 Time Seen by a Provider: 06:50 Subjective/Events-last exam patient communicating well this morning. She he is in no acute distress. She has been taking nutritional drinks orally. Focused Exam Lactate Level 09/30/20 20:20: Lactic Acid Level 3.12*H 09/30/20 22:34: Lactic Acid Level 1.07 Time of Focused Exam: 22:05 Objective Exam Vital Signs Date Time Temp Pulse Resp B/P (MAP) Pulse Ox O2 Delivery O2 Flow Rate FiO2 10/02/20 06:00 90 22 109/68 (82) 94 Trach Collar 10.00 50.00 10/02/20 05:00 94 20 90/52 (65) 95 Trach Collar 10.00 50.00 10/02/20 04:00 91 15 107/55 (72) 95 Trach Collar 10.00 50.00 10/02/20 03:00 97 20 105/49 (67) 94 Trach Collar 10.00 50.00 10/02/20 02:00 84 16 109/48 (68) 95 Trach Collar 10.00 50.00 10/02/20 01:58 91 20 94 35 10/02/20 01:00 90 10/02/20 01:00 92 22 111/55 (73) 95 Trach Collar 10.00 50.00 10/02/20 00:00 92 23 101/53 (69) 95 Trach Collar 10.00 50.00 10/01/20 23:00 106 31 108/52 (70) 92 Trach Collar 10.00 50.00 10/01/20 22:00 96 22 109/56 (73) 93 Trach Collar 10.00 50.00 10/01/20 21:45 112 20 95 35 10/01/20 21:00 89 16 112/58 (76) 94 Trach Collar 10.00 50.00 10/01/20 21:00 90 Mechanical Ventilator 80 10/01/20 20:29 37.0 10/01/20 20:00 91 21 111/72 (85) 94 Trach Collar 10.00 50.00 10/01/20 19:00 115 10/01/20 19:00 93 17 121/75 (90) 93 Trach Collar 10.00 50.00 10/01/20 18:43 109 27 95 35 10/01/20 18:00 100 19 109/56 (73) 87 Trach Collar 10.00 50.00 10/01/20 17:00 109 38 97/67 (77) 92 Trach Collar 10.00 50.00 10/01/20 16:00 36.9 10/01/20 16:00 107 35 92/71 (78) 94 Trach Collar 10.00 50.00 10/01/20 15:02 93 Trach Collar 10.00 50 10/01/20 15:00 111 29 111/60 (77) 90 Trach Collar 10.00 50.00 10/01/20 14:00 110 37 106/64 (78) 93 Trach Collar 10.00 50.00 10/01/20 13:35 37.3 10/01/20 13:00 111 31 103/63 (76) 94 Trach Collar 10.00 50.00 10/01/20 12:47 114 10/01/20 12:00 112 17 95/72 (80) 89 Trach Collar 10.00 50.00 10/01/20 11:00 121 28 83/55 (64) 92 Trach Collar 10.00 50.00 10/01/20 10:38 Trach Collar 10.00 50.00 10/01/20 10:10 90 Trach Collar 10.00 50 10/01/20 10:00 108 21 120/63 (82) 93 Mechanical Ventilator 35.00 10/01/20 09:08 Mechanical Ventilator 35.00 10/01/20 09:08 37.4 10/01/20 09:00 111 16 113/61 (78) 95 Mechanical Ventilator 50.00 10/01/20 09:00 90 T Piece 10.00 10/01/20 08:00 110 17 105/82 (90) 91 Mechanical Ventilator 50.00 10/01/20 07:35 Mechanical Ventilator 50.00 I & O 10/02/20 07:00 Intake Total 1200 ml Output Total 1005 ml Balance 195 ml Capillary Refill : Less Than 3 Seconds General Appearance: No Apparent Distress Respiratory: Lungs Clear Cardiovascular: Regular Rate, Rhythm Gastrointestinal: soft Extremity: Normal Capillary Refill Neurologic/Psychiatric: Alert, Oriented x3 Results Lab Laboratory Tests 10/01/20 11:53: Blood Gas Puncture Site LR, Blood Gas Patient Temperature 36.5, Arterial Blood pH 7.48H, Arterial Blood Partial Pressure CO2 45, Arterial Blood Partial Pressure O2 140H, Arterial Blood HCO3 33H, Arterial Blood Total CO2 34.7H, Arterial Blood Oxygen Saturation 98, Arterial Blood Base Excess 9.3H, Kang Test YES-POS, Blood Gas Ventilator Setting NO, Blood Gas Inspired Oxygen 50% 10/02/20 03:03: White Blood Count 7.7, Red Blood Count 3.14L, Hemoglobin 8.5L, Hematocrit 27L, Mean Corpuscular Volume 87, Mean Corpuscular Hemoglobin 27, Mean Corpuscular Hemoglobin Concent 31L, Red Cell Distribution Width 15.9H, Platelet Count 495H, Mean Platelet Volume 9.8, Immature Granulocyte % (Auto) 0, Neutrophils (%) (Auto) 94H, Lymphocytes (%) (Auto) 4L, Monocytes (%) (Auto) 2, Eosinophils (%) (Auto) 0, Basophils (%) (Auto) 0, Neutrophils # (Auto) 7.3, Lymphocytes # (Auto) 0.3L, Monocytes # (Auto) 0.1, Eosinophils # (Auto) 0.0, Basophils # (Auto) 0.0, Immature Granulocyte # (Auto) 0.0, Sodium Level 137, Potassium Level 3.8, Chloride Level 95L, Carbon Dioxide Level 32, Anion Gap 10, Blood Urea Nitrogen 14, Creatinine 0.46L, Estimat Glomerular Filtration Rate > 60, BUN/Creatinine Ratio 30, Glucose Level 146H, Calcium Level 7.8L, Phosphorus Level 2.2L, Magnesium Level 1.9 Microbiology 09/30/20 Urine Culture - Final, Complete YEAST 09/30/20 Influenza Types A,B Antigen (HILLARY) - Final, Complete Assessment/Plan Assessment/Plan Assess & Plan/Chief Complaint 1. Sepsis -IV fluids initiated -Monitor CBC daily -Dr. Velazquez in consultation and his expertise appreciated 10/02 -white blood cell count has improved to 7.7 2. PneumoniaPseudomonas -ED initiated tobramycin -Also placed on meropenem 10/02 -meropenem continues 3. Acute on chronic respiratory failure -DME to help sort out her home ventilator issues. 10/02 -criminal justice social worker continuing to work on placement once discharged 4. Urinary tract infection -Await urine culture -Currently has antibiotic coverage Clinical Quality Measures Admission Status Admission Dx 1. Sepsis 2. PneumoniaPseudomonas 3. Acute on chronic respiratory failure 4. Urinary tract infection DVT/VTE Risk/Contraindication: Risk Factor Score Per Nursin RFS Level Per Nursing on Admit: 4+=Very High RAJESH DAVENPORT MD Oct 02, 2020 07:23
--- NOTE | 2020-10-02 07:46 | Diagnostic Imaging Report ---
Reason for examination: Sepsis and pneumonia. Upright AP portable chest was obtained and compared to 09/30/2020. Tracheostomy tube projects to the trachea. Right greater than left basilar atelectasis versus infiltrate with bilateral effusions. Not much overall change given the differences in technique. No pneumothorax or cavitary change. No air-fluid level. IMPRESSION: 1. Right greater than left basilar atelectasis versus infiltrate with small effusions. Not much overall change. Dictated by: Dictated on workstation # [id number]
[2020-10-02] MEDS: TOBRAMYCIN (NEBCIN) 80 MG/2 ML VIAL IH SCH ×2 (07:55→18:47)
--- NOTE | 2020-10-02 08:49 | Cardiology Progress Note ---
Subjective Date Seen by Provider: Oct 02, 2020 Time Seen by Provider: 08:47 Subjective/Events-last exam Patient is laying down in bed, feeling better, tachycardic today. Review of Systems General: No Chills, No Night Sweats; Fatigue; No Malaise, No Appetite, No Other HEENT: No Head Aches, No Visual Changes, No Eye Pain, No Ear Pain, No Dysphasia, No Sinus Congestion, No Post Nasal Drip, No Sore Throat, No Other Pulmonary: Dyspnea; No Cough, No Pleuritic Chest Pain; Other (a cast any, ventilator dependent) Cardiovascular: Palpitations; No: Chest Pain, Orthopnea, Edema, Lt Headedness, Other Focused Exam Lactate Level 09/30/20 20:20: Lactic Acid Level 3.12*H 09/30/20 22:34: Lactic Acid Level 1.07 Time of Focused Exam: 22:05 Objective-Cardiology Exam Last Set of Vital Signs Vital Signs 10/01/20 10/02/20 10/02/20 10/02/20 20:29 08:00 08:18 08:29 Temp 37.0 Pulse 129 Resp 29 B/P (MAP) 105/63 (77) Pulse Ox 88 O2 Delivery Trach Collar O2 Flow Rate 12.00 70.00 FiO2 50 Capillary Refill : Less Than 3 Seconds I&O Intake and Output 10/02/20 00:00 Intake Total 1450 ml Output Total 1475 ml Balance -25 ml Intake Oral 1200 ml IV Total 250 ml Output Urine Total 1475 ml Daily Weight Change Unsure/Unresponsive General: Alert, Oriented X3, Cooperative HEENT: Atraumatic, PERRLA Neck: Supple, No JVD, No Thyromegaly Lungs: Normal Air Movement, Other (tracheostomy, bilateral rhonchi) Heart: Normal S1, Normal S2, No Murmurs, Other (tachycardia) Abdomen: Normal Bowel Sounds, Soft, No Tenderness, No Hepatosplenomegaly, No Masses Extremities: No Clubbing, No Cyanosis, No Edema, Normal Pulses, No Tenderness/Swelling Skin: No Rashes, No Breakdown, No Significant Lesion Neuro: Normal Tone, Sensation Intact Psych/Mental Status: Mental Status NL, Mood NL Results Lab Laboratory Tests 10/02/20 03:03 A/P-Cardiology Admission Diagnosis Acute on chronic respiratory failure Elevated BNP PAF Leukocytosis Assessment/Plan Acute on chronic respiratory failure, 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 Was having worsening dyspnea and hypoxemia at home, currently in ICU. Mild elevation in BNP, 2D Echo done 09/21/2020 showed grade 1 diastolic dysfunction with EF 55-65%. PA 30-35mmHg. Continue on lasix and continue to monitor. Hypotension, conitnue to monitor blood pressure Sepsis, leukocytosis. managed by Dr. Velazquez History of paroxysmal atrial fibrillation, having few episodes of tachycardia, continue to monitor. Has been maintained on digoxin in the past. Maintained on Eliquis. I will try low-dose Toprol and evaluate tolerance and response History of COPD. Clinical Quality Measures DVT/VTE Risk/Contraindication: Risk Factor Score Per Nursin RFS Level Per Nursing on Admit: 4+=Very High PORTILLO MARROQUIN MD Oct 02, 2020 8:49 am
[2020-10-02] MEDS ORDERED: FUROSEMIDE 40 MG (LASIX) TAB PO SCH (09:00)
[2020-10-02] MEDS ORDERED: POTASSIUM BICARB 20 MEQ (EFFER-K) TABLET PO NR (09:00)
[2020-10-02] MEDS ORDERED: ALPRAZolam 0.25 MG (XANAX) TAB ONE (09:32)
[2020-10-02] MEDS: ALPRAZolam 0.25 MG (XANAX) TAB PEG PRN ×2 (09:37→21:00)
[2020-10-02] MEDS: APIXABAN 2.5 MG (ELIQUIS) TABLET PO SCH ×2 (09:38→21:00)
[2020-10-02] MEDS: MEROPENEM 2 GM/NS 100 ML IVPB IV SCH ×4 (09:38→21:00)
[2020-10-02] MEDS: FAMOTIDINE 20MG/2ML IV (PEPCID) IVP SCH (09:38)
[2020-10-02] MEDS ORDERED: NS IV 500 ML 500 ML ONE (10:29)
[2020-10-02] MEDS ORDERED: dilTIAZem DRIP PRE-MIX 125 ML IV ONE (10:29)
[2020-10-02] MEDS: dilTIAZem DRIP PRE-MIX 125 ML IV SCH (10:57)
[2020-10-02] MEDS ORDERED: NS IV 500 ML 500 ML IV ONE (11:00)
--- NOTE | 2020-10-02 11:47 | NUR ---
CM/SS: Telephone call to Giancarlo Oriana [phone] - spouse. He reports he will be talking to the Dr. Henderson this afternoon, and also has a call in to [facility] for recommendations.
--- NOTE | 2020-10-02 13:42 | NUR ---
I COMPLETED THE MED REC (09-22-2020) DURING PTS PREVIOUS VISIT. I SPOKE WITH PTS (MATTHEW) TODAY AND HE WAS ABLE TO VERIFY NO MEDICATIONS HAD BEEN CHANGED/DISCONTINUED- AND THE ONLY MEDICATION THAT WAS ADDED WAS MEROPENEM. SINCE THE PT WAS ONLY HOME 1 DAY BEFORE BEING READMITTED SHE HAD NOT RECEIVED DOSES OF MEROPENEM AT HOME- ACCORDING TO JIMMY THE MED CAME IN AFTER PT WAS ALREADY HERE. I AM LEAVING THE MEROPENEM ON THE MED REC AT THIS TIME FOR DISCHARGE PURPOSES THERE IS A NOTE REGARDING THE MED REC ON 09-22-2020 THAT HAS MORE INFORMATION IF NEEDED
[2020-10-02] MEDS: MELATONIN 10 MG TABLET PO SCH (21:03)
[2020-10-03] VITALS (26 sets, daily range): BP systolic 60–114; BP diastolic 38–102
[2020-10-03] MEDS: RT-ALBUTEROL SULF 2.5 MG/3 ML PRE-MIX VIAL INH SCH ×6 (02:07→22:44)
[2020-10-03 02:15] LABS: ABG BASE EXCESS 13.9 MMOL/L (-2.5-2.5); ABG OXYGEN SATURATION 98 % (94-100); ABG PCO2 54 MMHG (35-45); ABG PH 7.47 (7.37-7.43); ABG PO2 99 MMHG (79-93); ABG TCO2 40.2 MMOL/L (21.0-31.0); ALLENS TEST YES-POS; INSPIRED O2 35%; PATIENT TEMP 36.7; VENTILATOR NO
[2020-10-03 03:12] LABS: BASOPHILS % (AUTO) 0 % (0-10); EOSINOPHILS % (AUTO) 0 % (0-10); HEMATOCRIT 29 % (35-52); HEMOGLOBIN 8.8 g/dL (11.5-16.0); LYMPHOCYTES # (AUTO) 0.9 10^3/uL (1.0-4.0); LYMPHOCYTES % (AUTO) 10 % (12-44); MEAN CORPUSCULAR HEMOGLOBIN 27 pg (25-34); MEAN CORPUSCULAR HGB CONC 31 g/dL (32-36); MEAN CORPUSCULAR VOLUME 88 fL (80-99); MEAN PLATELET VOLUME 9.7 fL (9.0-12.2); MONOCYTES # (AUTO) 0.8 10^3/uL (0.0-1.0); MONOCYTES % (AUTO) 8 % (0-12); NEUTROPHILS # (AUTO) 7.7 10^3/uL (1.8-7.8); NEUTROPHILS % (AUTO) 82 % (42-75); PLATELET COUNT 498 10^3/uL (130-400); WHITE BLOOD COUNT 9.5 10^3/uL (4.3-11.0)
[2020-10-03 03:26] LABS: BUN/CREATININE RATIO 31; CALCIUM 7.9 MG/DL (8.5-10.1); CARBON DIOXIDE 33 MMOL/L (21-32); CHLORIDE 94 MMOL/L (98-107); CREATININE SERUM 0.49 MG/DL (0.60-1.30); GFR ESTIMATED > 60; GLUCOSE 116 MG/DL (70-105); MAGNESIUM 1.8 MG/DL (1.6-2.4); PHOSPHORUS 1.9 MG/DL (2.3-4.7); POTASSIUM 3.7 MMOL/L (3.6-5.0); SODIUM 138 MMOL/L (135-145)
--- NOTE | 2020-10-03 03:52 | Pulmonary Progress Note ---
Subjective Time Seen by a Provider: 03:50 Subjective/Events-last exam Pt is doing better. Sepsis Event Evaluation Height, Weight, BMI Height: 5'2.00" Weight: 90lbs. 6.0oz. 40.521385pa; 19.43 BMI Method: Focused Exam Lactate Level 09/30/20 20:20: Lactic Acid Level 3.12*H 09/30/20 22:34: Lactic Acid Level 1.07 Time of Focused Exam: 22:05 Exam Exam Vital Signs Date Time Temp Pulse Resp B/P (MAP) Pulse Ox O2 Delivery O2 Flow Rate FiO2 10/03/20 02:07 135 37 93 35 10/03/20 01:00 90 10/03/20 00:00 101 22 T Piece 3.00 10/02/20 23:00 101 22 92/44 (60) 95 T Piece 3.00 10/02/20 22:00 108 28 103/52 (69) 98 T Piece 3.00 10/02/20 21:00 90 Mechanical Ventilator 10/02/20 21:00 112 20 90/58 (69) 98 T Piece 3.00 10/02/20 20:00 113 19 104/74 (84) T Piece 3.00 10/02/20 20:00 36.8 10/02/20 19:00 130 10/02/20 19:00 121 12 104/67 (79) T Piece 3.00 10/02/20 18:48 135 37 93 35 10/02/20 18:00 111 34 115/58 (77) T Piece 3.00 10/02/20 17:00 114 16 99/57 (71) T Piece 3.00 10/02/20 16:00 125 13 94/63 (73) T Piece 3.00 10/02/20 15:24 95 T Piece 3.00 10/02/20 15:15 95 T Piece 3.00 10/02/20 15:00 116 14 99/52 (68) Mechanical Ventilator 35.00 10/02/20 14:00 116 14 100/68 (79) Mechanical Ventilator 35.00 10/02/20 13:00 130 31 110/63 (79) Mechanical Ventilator 35.00 10/02/20 12:24 132 10/02/20 12:00 36.4 10/02/20 12:00 154 10 105/54 (71) 92 Mechanical Ventilator 35.00 10/02/20 11:00 134 17 99/54 (69) 93 Mechanical Ventilator 35.00 10/02/20 10:10 165 30 92 35 10/02/20 10:09 Mechanical Ventilator 35.00 10/02/20 10:00 124 17 82/50 (61) 91 Trach Collar 12.00 70.00 10/02/20 09:15 36.6 10/02/20 09:00 158 102/73 (83) Trach Collar 12.00 70.00 10/02/20 09:00 90 Mechanical Ventilator 80 10/02/20 08:29 12.00 70.00 10/02/20 08:18 88 Trach Collar 12.00 50 10/02/20 08:00 129 29 105/63 (77) 96 Trach Collar 10.00 50.00 10/02/20 07:58 135 37 93 35 10/02/20 07:00 87 10/02/20 07:00 92 14 110/68 (82) 93 Trach Collar 10.00 50.00 10/02/20 06:00 90 22 109/68 (82) 94 Trach Collar 10.00 50.00 10/02/20 05:00 94 20 90/52 (65) 95 Trach Collar 10.00 50.00 10/02/20 04:00 91 15 107/55 (72) 95 Trach Collar 10.00 50.00 I & O 10/03/20 07:00 Intake Total 1795 ml Output Total 2105 ml Balance -310 ml Height & Weight Height: 5'2.00" Weight: 90lbs. 6.0oz. 40.801603cp; 19.43 BMI Method: General Appearance: No Apparent Distress HEENT: PERRL/EOMI, Normal ENT Inspection Neck: Other (Tracheostomy in good position with no significant inflammation) Respiratory: Lungs Clear Cardiovascular: Regular Rate, Rhythm Capillary Refill: Less Than 3 Seconds Gastrointestinal: soft Extremity: Normal Capillary Refill Neurologic/Psychiatric: Alert, Oriented x3 Results Lab Laboratory Tests 10/02/20 03:03 10/03/20 02:38 Assessment/Plan Assessment/Plan Acute on chronic respiratory failure s/p tracheostomy at [facility] -Continue ventilatory care -TTube during the day -Obtain home vent and will use that. 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 -Richter cultures pending AFib RVR -Currently on Cardizem -Cardiology is consulted Anemia -Monitor Metabolic lactic acidosis -IVF -Monitor Small bilateral pleural effusions Echo shows normal EF with grade 1 diastolic dysfunction -Start Lasix daily PT will need ECF upon hospital discharge. Both pt and are agreeable to ECF. NORAH FOUNTAIN DO Oct 03, 2020 03:52
[2020-10-03] MEDS: TOBRAMYCIN (NEBCIN) 80 MG/2 ML VIAL IH SCH ×2 (06:55→21:01)
--- NOTE | 2020-10-03 07:21 | Progress Note ---
Subjective Date Seen by a Provider: Oct 03, 2020 Time Seen by a Provider: 06:55 Subjective/Events-last exam patient continues to improve. She is in no respiratory distress. Focused Exam Lactate Level 09/30/20 20:20: Lactic Acid Level 3.12*H 09/30/20 22:34: Lactic Acid Level 1.07 Time of Focused Exam: 22:05 Objective Exam Vital Signs Date Time Temp Pulse Resp B/P (MAP) Pulse Ox O2 Delivery O2 Flow Rate FiO2 10/03/20 06:55 92 T Piece 3.00 10/03/20 06:00 104 22 108/50 (69) 95 T Piece 3.00 10/03/20 05:00 107 26 110/58 (75) 93 T Piece 3.00 10/03/20 04:00 100 18 109/48 (68) 94 T Piece 3.00 10/03/20 04:00 36.3 10/03/20 03:00 98 19 114/84 (94) 99 T Piece 3.00 10/03/20 02:07 135 37 93 35 10/03/20 02:00 109 22 111/83 (92) 100 T Piece 3.00 10/03/20 01:00 90 10/03/20 01:00 98 15 95/52 (66) 98 T Piece 3.00 10/03/20 00:00 101 22 T Piece 3.00 10/02/20 23:00 101 22 92/44 (60) 95 T Piece 3.00 10/02/20 22:00 108 28 103/52 (69) 98 T Piece 3.00 10/02/20 21:00 90 Mechanical Ventilator 10/02/20 21:00 112 20 90/58 (69) 98 T Piece 3.00 10/02/20 20:00 113 19 104/74 (84) T Piece 3.00 10/02/20 20:00 36.8 10/02/20 19:00 130 10/02/20 19:00 121 12 104/67 (79) T Piece 3.00 10/02/20 18:48 135 37 93 35 10/02/20 18:00 111 34 115/58 (77) T Piece 3.00 10/02/20 17:00 114 16 99/57 (71) T Piece 3.00 10/02/20 16:00 125 13 94/63 (73) T Piece 3.00 10/02/20 15:24 95 T Piece 3.00 10/02/20 15:15 95 T Piece 3.00 10/02/20 15:00 116 14 99/52 (68) Mechanical Ventilator 35.00 10/02/20 14:00 116 14 100/68 (79) Mechanical Ventilator 35.00 10/02/20 13:00 130 31 110/63 (79) Mechanical Ventilator 35.00 10/02/20 12:24 132 10/02/20 12:00 36.4 10/02/20 12:00 154 10 105/54 (71) 92 Mechanical Ventilator 35.00 10/02/20 11:00 134 17 99/54 (69) 93 Mechanical Ventilator 35.00 10/02/20 10:10 165 30 92 35 10/02/20 10:09 Mechanical Ventilator 35.00 10/02/20 10:00 124 17 82/50 (61) 91 Trach Collar 12.00 70.00 10/02/20 09:15 36.6 10/02/20 09:00 158 102/73 (83) Trach Collar 12.00 70.00 10/02/20 09:00 90 Mechanical Ventilator 80 10/02/20 08:29 12.00 70.00 10/02/20 08:18 88 Trach Collar 12.00 50 10/02/20 08:00 129 29 105/63 (77) 96 Trach Collar 10.00 50.00 10/02/20 07:58 135 37 93 35 I & O 10/03/20 07:00 Intake Total 1795 ml Output Total 2235 ml Balance -440 ml Capillary Refill : Less Than 3 Seconds General Appearance: No Apparent Distress Respiratory: Lungs Clear Cardiovascular: Regular Rate, Rhythm Gastrointestinal: soft Results Lab Laboratory Tests 10/03/20 02:00: Blood Gas Puncture Site RIGHT RADIAL, Blood Gas Patient Temperature 36.7, Arterial Blood pH 7.47H, Arterial Blood Partial Pressure CO2 54H, Arterial Blood Partial Pressure O2 99H, Arterial Blood HCO3 39H, Arterial Blood Total CO2 40.2H , Arterial Blood Oxygen Saturation 98, Arterial Blood Base Excess 13.9H, Kang Test YES-POS, Blood Gas Ventilator Setting NO, Blood Gas Inspired Oxygen 35% 10/03/20 02:38: White Blood Count 9.5, Red Blood Count 3.28L, Hemoglobin 8.8L, Hematocrit 29L, Mean Corpuscular Volume 88, Mean Corpuscular Hemoglobin 27, Mean Corpuscular Hemoglobin Concent 31L, Red Cell Distribution Width 16.2H, Platelet Count 498H, Mean Platelet Volume 9.7, Immature Granulocyte % (Auto) 0, Neutrophils (%) (Auto) 82H, Lymphocytes (%) (Auto) 10L, Monocytes (%) (Auto) 8, Eosinophils (%) (Auto) 0, Basophils (%) (Auto) 0, Neutrophils # (Auto) 7.7, Lymphocytes # (Auto) 0.9L, Monocytes # (Auto) 0.8, Eosinophils # (Auto) 0.0, Basophils # (Auto) 0.0, Immature Granulocyte # (Auto) 0.0, Sodium Level 138, Potassium Level 3.7, Ch loride Level 94L, Carbon Dioxide Level 33H, Anion Gap 11, Blood Urea Nitrogen 15, Creatinine 0.49L, Estimat Glomerular Filtration Rate > 60, BUN/Creatinine Ratio 31, Glucose Level 116H, Calcium Level 7.9L, Phosphorus Level 1.9L, Magnesium Level 1.8 Microbiology 09/30/20 Blood Culture - Preliminary, Resulted Staph, Coag Neg (EXECUTIVE COMMUNICATIONS MANAGER) 09/30/20 Urine Culture - Final, Complete YEAST 09/30/20 Influenza Types A,B Antigen (HILLARY) - Final, Complete Assessment/Plan Assessment/Plan Assess & Plan/Chief Complaint 1. Sepsis -IV fluids initiated -Monitor CBC daily -Dr. Velazquez in consultation and his expertise appreciated 10/02 -white blood cell count has improved to 7.7 2. PneumoniaPseudomonas -ED initiated tobramycin -Also placed on meropenem 10/02 -meropenem continues 3. Acute on chronic respiratory failure -DME to help sort out her home ventilator issues. 10/02 -social service technician continuing to work on placement once discharged 10/03 -we'll need to work out details on placement. emergency services professional continuing to check 4. Urinary tract infection -Await urine culture -Currently has antibiotic coverage Clinical Quality Measures Admission Status Admission Dx 1. Sepsis 2. PneumoniaPseudomonas 3. Acute on chronic respiratory failure 4. Urinary tract infection DVT/VTE Risk/Contraindication: Risk Factor Score Per Nursin RFS Level Per Nursing on Admit: 4+=Very High RAJESH DAVENPORT MD Oct 03, 2020 07:21
[2020-10-03] MEDS: MAGNESIUM 1 GM/100 ML IVPB 100 ML IV SCH (07:30)
[2020-10-03] MEDS: POTASSIUM CL 10MEQ/50ML IVPB 50 ML IV SCH (07:30)
[2020-10-03] MEDS: KCL 20 MEQ TAB (K-DUR) PO SCH (07:30)
--- NOTE | 2020-10-03 07:39 | Diagnostic Imaging Report ---
INDICATION: Respiratory failure, sepsis and pneumonia. EXAMINATION: Chest 10/03/2020 COMPARISON: 10/02/2020 FINDINGS: Bilateral pleural effusions right worse than left with bilateral infiltrates right greater than left. Heart is prominent and pulmonary vasculature is congested. There are findings of edema throughout both lungs perhaps slightly increased. Tracheostomy tube unremarkable. IMPRESSION: 1. Persistent bilateral infiltrates and effusions right worse than left. 2. Possible increasing pulmonary edema. Dictated by: Dictated on workstation # [id number]
[2020-10-03] MEDS: FAMOTIDINE 20MG/2ML IV (PEPCID) IVP SCH (08:11)
[2020-10-03] MEDS: MEROPENEM 2 GM/NS 100 ML IVPB IV SCH ×4 (08:11→19:44)
[2020-10-03] MEDS: FUROSEMIDE 40 MG (LASIX) TAB PO SCH (08:12)
[2020-10-03] MEDS: APIXABAN 2.5 MG (ELIQUIS) TABLET PO SCH ×2 (08:12→19:45)
[2020-10-03] MEDS: ALPRAZolam 0.25 MG (XANAX) TAB PEG PRN ×3 (08:12→19:44)
--- NOTE | 2020-10-03 08:18 | Physical Therapy Progress Note ---
Therapy Progress Note Performed (B) UE/LE PROM through multiple planes. ODILON NEELY PT Oct 03, 2020 08:18
[2020-10-03] MEDS: dilTIAZem DRIP PRE-MIX 125 ML IV SCH (08:26)
--- NOTE | 2020-10-03 10:27 | Cardiology Progress Note ---
Subjective Date Seen by Provider: Oct 03, 2020 Time Seen by Provider: 10:25 Subjective/Events-last exam Patient is laying down in bed. No new complaint. Ventilator dependent, able to communicate Review of Systems General: No Chills, No Night Sweats; Fatigue, Malaise; No Appetite, No Other Pulmonary: Dyspnea Cardiovascular: No: Chest Pain, Palpitations, Orthopnea, Paroxysmal Noc. Dyspnea, Edema, Lt Headedness, Other Focused Exam Lactate Level 09/30/20 20:20: Lactic Acid Level 3.12*H 09/30/20 22:34: Lactic Acid Level 1.07 Time of Focused Exam: 22:05 Objective-Cardiology Exam Last Set of Vital Signs Vital Signs 10/03/20 10/03/20 10/03/20 10/03/20 10/03/20 10/03/20 02:07 06:00 06:37 06:55 07:30 08:03 Temp 36.3 Pulse 105 Resp 22 B/P (MAP) 108/50 (69) Pulse Ox 92 O2 Delivery T Piece O2 Flow Rate 1.00 FiO2 35 Capillary Refill : Less Than 3 Seconds I&O Intake and Output 10/03/20 00:00 Intake Total 1795 ml Output Total 2310 ml Balance -515 ml Intake Oral 1295 ml IV Total 500 ml Output Urine Total 2310 ml General: Alert, Oriented X3, Cooperative HEENT: Atraumatic, PERRLA Neck: Supple, No JVD, No Thyromegaly Lungs: Normal Air Movement, Other (tracheostomy, bilateral rhonchi) Heart: Normal S1, Normal S2, No Murmurs, Other (tachycardia) Abdomen: Normal Bowel Sounds, Soft, No Tenderness, No Hepatosplenomegaly, No Masses Extremities: No Clubbing, No Cyanosis, No Edema, Normal Pulses, No Tenderness/Swelling Skin: No Rashes, No Breakdown, No Significant Lesion Neuro: Normal Tone, Sensation Intact Psych/Mental Status: Mental Status NL, Mood NL Results Lab Laboratory Tests 10/03/20 02:38 A/P-Cardiology Admission Diagnosis Acute on chronic respiratory failure Elevated BNP PAF Leukocytosis Assessment/Plan Acute on chronic respiratory failure, 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 Back to her baseline, she is ventilatory dependent and feeling better at this time. Atrial fibrillation with rapid ventricular response, history of paroxysmal atrial fibrillation, has been maintained on digoxin and Eliquis, I added Toprol. Continue to monitor her tolerance and response Mild elevation in BNP, 2D Echo done 09/21/2020 showed grade 1 diastolic dysfunction with EF 55-65%. PA 30-35mmHg. and tinea to monitor Hypotension, better now, started on Toprol. Monitor tolerance and response Sepsis, leukocytosis. managed by Dr. Velazquez History of COPD. Clinical Quality Measures DVT/VTE Risk/Contraindication: Risk Factor Score Per Nursin RFS Level Per Nursing on Admit: 4+=Very High PORTILLO MARROQUIN MD Oct 03, 2020 10:27
--- NOTE | 2020-10-03 10:30 | NUR ---
HOTEL DINING ROOM CASHIER alerted to pt fall at this time. Pt found by housekeeping laying next to ICU bed in her room. Staff assisted pt back to bed at this time. Physician (Dr. Velazquez) notified. Pt does not have any complaints of pain at this time. Will continue to closely monitor. Bed alarm set prior to this nurse exiting room.
--- NOTE | 2020-10-03 13:01 | Physician Query Clarification ---
PQ-Conflicting Diagnosis Admission/Discharge Admission Date: Sep 30, 2020 at 22:09 Discharge Date: Dr. Davenport, The medical record reflects the following clinical scenario: History/Risk Factors: Sepsis Pneumonia Acute on chronic respiratory failure/hypoxia Clinical Findings:WBC 21.6, T 36.0, P 141, Resp 30, BP 147/87 dropping to 89/60, Lactic acid 3.12. Treatment:IV Tobramycin, IV Rocephin, Mechanical ventilation. Question: Do you agree with the impression of Severe Sepsis per ED physician, Dr. Gallegos? Please document a response in Progress Note or Discharge Summary. 1. Yes 2. No 3. Other, with explanation of clinical findings 4. Clinically undetermined, no explanation for clinical findings. PHYSICIAN RESPONSE Do you agree w/Consulting Dx?: Other,explanation/clincal findings Explanation of clincal finding Sepsis with pseudomonas pneumonia Please remember a lack of response to the above will prompt a phone page by CDI/Coding staff. In responding to this query, please exercise your independent professional judgment. The purpose of this communication is to more accurately reflect the complexity of your patients condition. The fact that a question is asked does not imply that any particular answer is desired or expected. Thank you for your timely response to this clarification. Requestors name: Lauren Orr [facility] THIS PHYSICIAN QUERY FORM IS A PERMANENT PART OF THE MEDICAL RECORD LAUREN ORR Oct 03, 2020 13:01 RAJESH DAVENPORT MD Oct 05, 2020 07:16
[2020-10-03] MEDS ORDERED: NS IV 1000 ML 1,000 ML ONE (15:18)
--- NOTE | 2020-10-03 15:25 | NUR ---
Dr. Khan called at this time due to pt's afib HR 160-170s with cardizem at 7.5mg. Unable to increase cardizem gtt for HR d/t hypotension 70/40s. New orders received to give 1L bolus of NS and hold cardizem gtt for SBP less than 90. Will continue to monitor.
[2020-10-03] MEDS ORDERED: NS IV 1000 ML 1,000 ML IV SCH (15:30)
--- NOTE | 2020-10-03 15:37 | NUR ---
Note pt avg PO intake >75% x2d, per chart review. Would recommend swallow evaluation to determine diet advancement. Will continue to follow and reassess as pt needs, intake, and status change. Deepak Mejia, MS RD LD
[2020-10-03] MEDS ORDERED: ALBUMIN 25% 25 GM/100 ML 100 ML IV ONE (16:45)
--- NOTE | 2020-10-03 16:49 | NUR ---
EICU doctor notified of pt's continued elevated HR. New orders received.
[2020-10-03 17:13] LABS: BASOPHILS % (AUTO) 0 % (0-10); EOSINOPHILS # (AUTO) 0.1 10^3/uL (0.0-0.3); EOSINOPHILS % (AUTO) 1 % (0-10); HEMATOCRIT 32 % (35-52); HEMOGLOBIN 9.5 g/dL (11.5-16.0); LYMPHOCYTES # (AUTO) 0.6 10^3/uL (1.0-4.0); LYMPHOCYTES % (AUTO) 4 % (12-44); MEAN CORPUSCULAR HEMOGLOBIN 27 pg (25-34); MEAN CORPUSCULAR HGB CONC 30 g/dL (32-36); MEAN CORPUSCULAR VOLUME 90 fL (80-99); MEAN PLATELET VOLUME 9.4 fL (9.0-12.2); MONOCYTES # (AUTO) 0.9 10^3/uL (0.0-1.0); MONOCYTES % (AUTO) 7 % (0-12); NEUTROPHILS # (AUTO) 11.4 10^3/uL (1.8-7.8); NEUTROPHILS % (AUTO) 87 % (42-75); PLATELET COUNT 520 10^3/uL (130-400); WHITE BLOOD COUNT 13.1 10^3/uL (4.3-11.0)
[2020-10-03 17:28] LABS: BAND NEUTROPHILS 0 %; BASOPHILS % (MANUAL) 0 %; EOSINOPHILS % (MANUAL) 0 %; LYMPHOCYTES % (MANUAL) 5 %; MONOCYTES % (MANUAL) 2 %; NEUTROPHILS % (MANUAL) 93 %
[2020-10-03 17:29] LABS: ANISOCYTOSIS SLIGHT; ELLIPT/OVALOCYTES SLIGHT; HYPOCHROMASIA MODERATE; POLYCHROMASIA SLIGHT; TARGET CELLS SLIGHT
--- NOTE | 2020-10-03 17:54 | NUR ---
CM/SS follow up. CM/SS contacted [facility] and spoke with Panfilo. He reports the patient has been accepted. They will start insurance approval today and possibly have an acceptance Tuesday or Tuesday or this upcoming week. No further needs at this time.
[2020-10-03] MEDS ORDERED: AMIODARONE INJECTION 150 MG in D5W 100 ML IVPB 100 ML IV ONE (18:30)
[2020-10-03] MEDS: AMIODARONE INJECTION 450 MG in D5W IV SOLUTION (EXCEL) 250 ML IV SCH (19:40)
[2020-10-03] MEDS: morphine INJ 4 MG/ML 1 ML (VIAL/SYRINGE) IVP PRN (19:44)
[2020-10-03] MEDS: MELATONIN 10 MG TABLET PO SCH (19:45)
[2020-10-04] VITALS (20 sets, daily range): BP systolic 79–137; BP diastolic 53–93
[2020-10-04 02:50] LABS: BASOPHILS % (AUTO) 0 % (0-10); EOSINOPHILS # (AUTO) 0.4 10^3/uL (0.0-0.3); EOSINOPHILS % (AUTO) 6 % (0-10); HEMATOCRIT 26 % (35-52); HEMOGLOBIN 7.8 g/dL (11.5-16.0); LYMPHOCYTES # (AUTO) 0.6 10^3/uL (1.0-4.0); LYMPHOCYTES % (AUTO) 8 % (12-44); MEAN CORPUSCULAR HEMOGLOBIN 26 pg (25-34); MEAN CORPUSCULAR HGB CONC 30 g/dL (32-36); MEAN CORPUSCULAR VOLUME 88 fL (80-99); MEAN PLATELET VOLUME 9.6 fL (9.0-12.2); MONOCYTES # (AUTO) 0.7 10^3/uL (0.0-1.0); MONOCYTES % (AUTO) 9 % (0-12); NEUTROPHILS # (AUTO) 5.7 10^3/uL (1.8-7.8); NEUTROPHILS % (AUTO) 77 % (42-75); PLATELET COUNT 424 10^3/uL (130-400); WHITE BLOOD COUNT 7.4 10^3/uL (4.3-11.0)
[2020-10-04] MEDS: RT-ALBUTEROL SULF 2.5 MG/3 ML PRE-MIX VIAL INH SCH ×6 (02:58→22:53)
[2020-10-04] MEDS: AMIODARONE INJECTION 450 MG in D5W IV SOLUTION (EXCEL) 250 ML IV SCH (03:05)
[2020-10-04 03:06] LABS: CHLORIDE 94 MMOL/L (98-107); POTASSIUM 2.9 MMOL/L (3.6-5.0); SODIUM 139 MMOL/L (135-145)
[2020-10-04 03:07] LABS: CALCIUM 7.4 MG/DL (8.5-10.1)
[2020-10-04 03:08] LABS: GLUCOSE 97 MG/DL (70-105)
[2020-10-04 03:09] LABS: CARBON DIOXIDE 35 MMOL/L (21-32)
[2020-10-04 03:11] LABS: CREATININE SERUM 0.44 MG/DL (0.60-1.30); GFR ESTIMATED > 60; PHOSPHORUS 1.9 MG/DL (2.3-4.7)
[2020-10-04 03:12] LABS: BUN/CREATININE RATIO 27
[2020-10-04 03:14] LABS: MAGNESIUM 1.8 MG/DL (1.6-2.4)
--- NOTE | 2020-10-04 04:21 | Pulmonary Progress Note ---
Subjective Time Seen by a Provider: 04:18 Subjective/Events-last exam Pt is Afib RVR and currently on Ammio gtt. Sepsis Event Evaluation Height, Weight, BMI Height: 5'2.00" Weight: 90lbs. 6.0oz. 40.997428tf; 19.43 BMI Method: Focused Exam Lactate Level 10/03/20 19:00: Lactic Acid Level 4.60*H 10/03/20 20:50: Lactic Acid Level 2.96*H 10/03/20 23:43: Lactic Acid Level 1.72 Time of Focused Exam: 22:05 Exam Exam Vital Signs Date Time Temp Pulse Resp B/P (MAP) Pulse Ox O2 Delivery O2 Flow Rate FiO2 10/04/20 03:00 105 19 85/62 (70) 94 T Piece 3.00 10/04/20 02:58 103 24 96 10/04/20 02:00 106 19 103/78 (86) 95 T Piece 3.00 10/04/20 01:41 36.4 10/04/20 01:00 118 10/04/20 01:00 120 22 97/55 (69) 95 T Piece 3.00 10/04/20 00:00 121 30 79/53 (62) 95 T Piece 3.00 10/03/20 23:00 110 18 100/63 (75) 92 T Piece 3.00 10/03/20 22:44 95 27 96 10/03/20 22:00 115 24 89/55 (66) 94 T Piece 3.00 10/03/20 21:00 94 Mechanical Ventilator 10.00 10/03/20 21:00 124 20 93/70 (78) 97 T Piece 3.00 10/03/20 20:57 117 25 95 10/03/20 20:00 124 19 103/69 (80) 89 T Piece 3.00 10/03/20 20:00 36.1 10/03/20 19:00 140 10/03/20 19:00 137 20 94/60 (71) 100 T Piece 3.00 10/03/20 18:00 137 13 60/41 (47) 81 T Piece 1.00 10/03/20 17:00 160 22 87/72 (77) 89 T Piece 1.00 10/03/20 16:00 36.2 10/03/20 16:00 146 11 113/88 (96) 83 T Piece 1.00 10/03/20 15:00 122 15 113/102 (106) 88 T Piece 1.00 10/03/20 14:40 96 T Piece 4.00 10/03/20 14:00 129 10 96/77 (83) 82 T Piece 1.00 10/03/20 13:14 115 10/03/20 13:00 138 35 107/38 (61) 97 T Piece 1.00 10/03/20 12:00 137 16 93/47 (62) 95 T Piece 1.00 10/03/20 11:02 92 T Piece 5.00 10/03/20 11:00 112 15 101/65 (77) 90 T Piece 1.00 10/03/20 10:00 105 16 88/63 (71) 88 T Piece 1.00 10/03/20 09:00 122 23 103/69 (80) 92 T Piece 1.00 10/03/20 09:00 90 Mechanical Ventilator 10.00 10/03/20 08:03 36.3 10/03/20 08:00 147 17 103/69 (80) 91 T Piece 1.00 10/03/20 08:00 147 17 103/69 (80) 91 T Piece 1.00 10/03/20 07:30 T Piece 1.00 10/03/20 07:00 106 32 102/63 (76) 85 T Piece 3.00 10/03/20 06:55 92 T Piece 3.00 10/03/20 06:37 105 10/03/20 06:00 104 22 108/50 (69) 95 T Piece 3.00 10/03/20 05:00 107 26 110/58 (75) 93 T Piece 3.00 I & O 10/04/20 07:00 Intake Total 1010 ml Output Total 1770 ml Balance -760 ml Height & Weight Height: 5'2.00" Weight: 90lbs. 6.0oz. 40.062007kz; 19.43 BMI Method: General Appearance: No Apparent Distress HEENT: PERRL/EOMI, Normal ENT Inspection Neck: Other (Tracheostomy in good position with no significant inflammation) Respiratory: Lungs Clear Cardiovascular: Regular Rate, Rhythm Capillary Refill: Less Than 3 Seconds Gastrointestinal: soft Extremity: Normal Capillary Refill Neurologic/Psychiatric: Alert, Oriented x3 Results Lab Laboratory Tests 10/03/20 02:38 10/03/20 17:00 10/04/20 02:04 Assessment/Plan Assessment/Plan Acute on chronic respiratory failure s/p tracheostomy at [facility] -Continue ventilatory care -TTube during the day -Obtain home vent and will use that. 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 -Richter cultures pending AFib RVR -Currently on Ammio gtt -Cardiology is consulted Anemia -Monitor Metabolic lactic acidosis -IVF -Monitor Small bilateral pleural effusions Echo shows normal EF with grade 1 diastolic dysfunction -Start Lasix daily NORAH FOUNTAIN DO Oct 04, 2020 04:21
[2020-10-04] MEDS: KCL 20 MEQ TAB (K-DUR) PO SCH (05:10)
[2020-10-04] MEDS: POTASSIUM CL 10MEQ/50ML IVPB 50 ML IV SCH (05:10)
[2020-10-04] MEDS: MAGNESIUM 1 GM/100 ML IVPB 100 ML IV SCH (05:10)
[2020-10-04] MEDS ORDERED: DIGOXIN 0.25 MG/ML (LANOXIN) 2 ML AMP IV ONE (06:30)
[2020-10-04] MEDS: TOBRAMYCIN (NEBCIN) 80 MG/2 ML VIAL IH SCH ×2 (07:28→19:03)
--- NOTE | 2020-10-04 07:35 | Progress Note ---
Subjective Date Seen by a Provider: Oct 04, 2020 Time Seen by a Provider: 06:55 Subjective/Events-last exam patient resting comfortably this morning. I spoke with her yesterday late morning and through his insurance she will ultimately be owing to medical [facility] in [place] once released from the hospital. Focused Exam Lactate Level 10/03/20 19:00: Lactic Acid Level 4.60*H 10/03/20 20:50: Lactic Acid Level 2.96*H 10/03/20 23:43: Lactic Acid Level 1.72 Time of Focused Exam: 22:05 Objective Exam Vital Signs Date Time Temp Pulse Resp B/P (MAP) Pulse Ox O2 Delivery O2 Flow Rate FiO2 10/04/20 06:00 126 13 110/63 (79) 97 T Piece 3.00 10/04/20 05:00 111 17 90/64 (73) 90 T Piece 3.00 10/04/20 04:00 121 15 112/80 (91) 92 T Piece 3.00 10/04/20 03:00 105 19 85/62 (70) 94 T Piece 3.00 10/04/20 02:58 103 24 96 10/04/20 02:00 106 19 103/78 (86) 95 T Piece 3.00 10/04/20 01:41 36.4 10/04/20 01:00 118 10/04/20 01:00 120 22 97/55 (69) 95 T Piece 3.00 10/04/20 00:00 121 30 79/53 (62) 95 T Piece 3.00 10/03/20 23:00 110 18 100/63 (75) 92 T Piece 3.00 10/03/20 22:44 95 27 96 10/03/20 22:00 115 24 89/55 (66) 94 T Piece 3.00 10/03/20 21:00 94 Mechanical Ventilator 10.00 10/03/20 21:00 124 20 93/70 (78) 97 T Piece 3.00 10/03/20 20:57 117 25 95 10/03/20 20:00 124 19 103/69 (80) 89 T Piece 3.00 10/03/20 20:00 36.1 10/03/20 19:00 140 10/03/20 19:00 137 20 94/60 (71) 100 T Piece 3.00 10/03/20 18:00 137 13 60/41 (47) 81 T Piece 1.00 10/03/20 17:00 160 22 87/72 (77) 89 T Piece 1.00 10/03/20 16:00 36.2 10/03/20 16:00 146 11 113/88 (96) 83 T Piece 1.00 10/03/20 15:00 122 15 113/102 (106) 88 T Piece 1.00 10/03/20 14:40 96 T Piece 4.00 10/03/20 14:00 129 10 96/77 (83) 82 T Piece 1.00 10/03/20 13:14 115 10/03/20 13:00 138 35 107/38 (61) 97 T Piece 1.00 10/03/20 12:00 137 16 93/47 (62) 95 T Piece 1.00 10/03/20 11:02 92 T Piece 5.00 10/03/20 11:00 112 15 101/65 (77) 90 T Piece 1.00 10/03/20 10:00 105 16 88/63 (71) 88 T Piece 1.00 10/03/20 09:00 122 23 103/69 (80) 92 T Piece 1.00 10/03/20 09:00 90 Mechanical Ventilator 10.00 10/03/20 08:03 36.3 10/03/20 08:00 147 17 103/69 (80) 91 T Piece 1.00 10/03/20 08:00 147 17 103/69 (80) 91 T Piece 1.00 I & O 10/04/20 07:00 Intake Total 1010 ml Output Total 1790 ml Balance -780 ml Capillary Refill : Less Than 3 Seconds General Appearance: No Apparent Distress Neck: Supple Respiratory: Lungs Clear Cardiovascular: Tachycardia (with a rate of 110) Gastrointestinal: soft Results Lab Laboratory Tests 10/03/20 11:38: Glucometer 110 10/03/20 17:00: White Blood Count 13.1H, Red Blood Count 3.57L, Hemoglobin 9.5L, Hematocrit 32L, Mean Corpuscular Volume 90, Mean Corpuscular Hemoglobin 27, Mean Corpuscular Hemoglobin Concent 30L, Red Cell Distribution Width 16.4H, Platelet Count 520H, Mean Platelet Volume 9.4, Immature Granulocyte % (Auto) 1, Neutrophils (%) (Auto) 87H, Lymphocytes (%) (Auto) 4L, Monocytes (%) (Auto) 7, Eosinophils (%) (Auto) 1, Basophils (%) (Auto) 0, Neutrophils # (Auto) 11.4H, Lymphocytes # (Auto) 0.6L, Monocytes # (Auto) 0.9, Eosinophils # (Auto) 0.1, Basophils # (Auto) 0.0, Immature Granulocyte # (Auto) 0.1, Neutrophils % (Manual) 93, Lymphocytes % (Manual) 5, Monocytes % (Manual) 2, Eosinophils % (Manual) 0, Basophils % (Manual) 0, Band Neutrophils 0, Polychromasia SLIGHT, Hypochromasia MODERATE, Anisocytosis SLIGHT, Macrocytosis SLIGHT, Target Cells SLIGHT, Elliptocytes SLIGHT, Lactic Acid Level 4.09*H, B-Type Natriuretic Peptide 1278.7H, Procalcitonin 0.35H 10/03/20 17:47: Glucometer 111H 10/03/20 19:00: Lactic Acid Level 4.60*H 10/03/20 20:46: Glucometer 108 10/03/20 20:50: Lactic Acid Level 2.96*H 10/03/20 23:43: Lactic Acid Level 1.72 10/04/20 02:04: White Blood Count 7.4, Red Blood Count 2.95L, Hemoglobin 7.8L, Hematocrit 26L, Mean Corpuscular Volume 88, Mean Corpuscular Hemoglobin 26, Mean Corpuscular Hemoglobin Concent 30L, Red Cell Distribution Width 16.5H, Platelet Count 424H, Mean Platelet Volume 9.6, Immature Granulocyte % (Auto) 0, Neutrophils (%) (Auto) 77H, Lymphocytes (%) (Auto) 8L, Monocytes (%) (Auto) 9, Eosinophils (%) (Auto) 6, Basophils (%) (Auto) 0, Neutrophils # (Auto) 5.7, Lymphocytes # (Auto) 0.6L, Monocytes # (Auto) 0.7, Eosinophils # (Auto) 0.4H, Basophils # (Auto) 0.0, Immature Granulocyte # (Auto) 0.0, Sodium Level 139, Potassium Level 2.9L, Chloride Level 94L, Carbon Dioxide Level 35H, Anion Gap 10, Blood Urea Nitrogen 12, Creatinine 0.44L, Estimat Glomerular Filtration Rate > 60, BUN/Creatinine Ratio 27, Glucose Level 97, Calcium Level 7.4L, Phosphorus Level 1.9L, Magnesium Level 1.8 Microbiology 09/30/20 Blood Culture - Preliminary, Resulted Staph, Coag Neg (DENTAL ASSISTANT MEDICAL ASSISTANT) 09/30/20 Urine Culture - Final, Complete YEAST 09/30/20 Influenza Types A,B Antigen (HILLARY) - Final, Complete Assessment/Plan Assessment/Plan Assess & Plan/Chief Complaint 1. Sepsis -IV fluids initiated -Monitor CBC daily -Dr. Velazquez in consultation and his expertise appreciated 10/02 -white blood cell count has improved to 7.7 2. PneumoniaPseudomonas -ED initiated tobramycin -Also placed on meropenem 10/02 -meropenem continues 10/04 -she'll receive a full 14 days before dismissed 3. Acute on chronic respiratory failure -DME to help sort out her home ventilator issues. 10/02 -social secretary continuing to work on placement once discharged 10/03 -we'll need to work out details on placement. instructional support services director continuing to check 4. Urinary tract infection -Await urine culture -Currently has antibiotic coverage 5. Atrial fibrillation with rapid ventricular response -Cardiology managing -She is on Eliquis an metoprolol has been added on during the course of her stay 6. Anemiaexpected this is related to chronic illness -Hemoglobin will be rechecked in the morning Clinical Quality Measures Admission Status Admission Dx 1. Sepsis 2. PneumoniaPseudomonas 3. Acute on chronic respiratory failure 4. Urinary tract infection DVT/VTE Risk/Contraindication: Risk Factor Score Per Nursin RFS Level Per Nursing on Admit: 4+=Very High RAJESH DAVENPORT MD Oct 04, 2020 07:35
--- NOTE | 2020-10-04 07:44 | Diagnostic Imaging Report ---
INDICATION: Respiratory failure. Time of exam: 3:25 AM Correlation is made with prior chest from one day earlier. Tracheostomy tube has tip above the maci. Heart size is stable. Airspace consolidation and pleural fluid in the right base persists. Left basilar effusion is unchanged. Upper lung isidro remain clear. No pneumothorax is seen. IMPRESSION: No significant change in bilateral infiltrates and effusions when compared with exam one day earlier. Dictated by: Dictated on workstation # [id number]
[2020-10-04] MEDS: FAMOTIDINE 20MG/2ML IV (PEPCID) IVP SCH (08:11)
[2020-10-04] MEDS: FUROSEMIDE 40 MG (LASIX) TAB PO SCH (08:11)
[2020-10-04] MEDS: morphine INJ 4 MG/ML 1 ML (VIAL/SYRINGE) IVP PRN ×4 (08:11→23:17)
[2020-10-04] MEDS: APIXABAN 2.5 MG (ELIQUIS) TABLET PO SCH ×2 (08:11→20:11)
[2020-10-04] MEDS ORDERED: POTASSIUM PHOSPHATE INJ 30 MM in NS (IVPB) 250 ML IV ONE (09:00)
[2020-10-04] MEDS: MEROPENEM 2 GM/NS 100 ML IVPB IV SCH ×4 (09:18→20:11)
[2020-10-04] MEDS: dilTIAZem DRIP PRE-MIX 125 ML IV SCH (09:18)
[2020-10-04] MEDS: DIGOXIN 0.125 MG (LANOXIN) TAB PO SCH (09:18)
--- NOTE | 2020-10-04 09:51 | Cardiology Progress Note ---
Subjective Date Seen by Provider: Oct 04, 2020 Time Seen by Provider: 09:49 Subjective/Events-last exam Patient was seen and evaluated, laying down in bed, feeling better today, still tachycardic Review of Systems General: Fatigue Pulmonary: Dyspnea, Other (has tracheostomy, ventilator dependent) Cardiovascular: Palpitations; No: Chest Pain, Orthopnea, Paroxysmal Noc. Dyspnea, Edema, Lt Headedness, Other Focused Exam Lactate Level 10/03/20 19:00: Lactic Acid Level 4.60*H 10/03/20 20:50: Lactic Acid Level 2.96*H 10/03/20 23:43: Lactic Acid Level 1.72 Time of Focused Exam: 22:05 Objective-Cardiology Exam Last Set of Vital Signs Vital Signs 10/04/20 10/04/20 10/04/20 10/04/20 07:29 07:48 08:00 08:35 Temp 36.2 Pulse 118 Resp 16 B/P (MAP) 115/88 (97) Pulse Ox 90 O2 Delivery Mechanical Ventilator O2 Flow Rate 10.00 FiO2 21 Capillary Refill : Less Than 3 Seconds I&O Intake and Output 10/04/20 00:00 Intake Total 1010 ml Output Total 2005 ml Balance -995 ml Intake Oral 1010 ml Output Urine Total 2005 ml General: Alert, Oriented X3, Cooperative HEENT: Atraumatic, PERRLA Neck: Supple, No JVD, No Thyromegaly Lungs: Normal Air Movement, Other (tracheostomy, bilateral rhonchi) Heart: Normal S1, Normal S2, No Murmurs, Other (atrial fibrillation with rapid ventricular response) Abdomen: Normal Bowel Sounds, Soft, No Tenderness, No Hepatosplenomegaly, No M asses Extremities: No Clubbing, No Cyanosis, No Edema, Normal Pulses, No Tende rness/Swelling Skin: No Rashes, No Breakdown, No Significant Lesion Neuro: Normal Tone, Sensation Intact Psych/Mental Status: Mental Status NL, Mood NL Results Lab Laboratory Tests 10/03/20 17:00 10/04/20 02:04 A/P-Cardiology Admission Diagnosis Acute on chronic respiratory failure Elevated BNP PAF Leukocytosis Assessment/Plan Status post acute respiratory failure due to recurrent Pseudomonas pneumonia, has tracheostomy and chronic ventilatory dependent. Came with acute respiratory failure that has improved, she is back to her baseline on the ventilator and doing well. Paroxysmal atrial fibrillation, currently in atrial fibrillation with rapid ventricular response, having borderline hypotension. Maintained on amiodarone, Cardizem drip and Eliquis, having difficulty controlling her heart rate. I am planning to proceed with cardioversion tomorrow if she did not convert on her own. Mild elevation in BNP, 2D Echo done 09/21/2020 showed grade 1 diastolic dysfunction with EF 55-65%. PA 30-35mmHg. and tinea to monitor Hypotension, better now, started on Toprol. Monitor tolerance and response Sepsis, leukocytosis. managed by Dr. Velazquez History of COPD. Clinical Quality Measures DVT/VTE Risk/Contraindication: Risk Factor Score Per Nursin RFS Level Per Nursing on Admit: 4+=Very High PORTILLO MARROQUIN MD Oct 04, 2020 09:51
[2020-10-04] MEDS: ALPRAZolam 0.25 MG (XANAX) TAB PEG PRN ×2 (10:48→20:10)
[2020-10-04] MEDS ORDERED: AMIODARONE 200 MG (CORDARONE) TAB ONE (19:44)
[2020-10-04] MEDS: MELATONIN 10 MG TABLET PO SCH (20:10)
[2020-10-04] MEDS: AMIODARONE 200 MG (CORDARONE) TAB PO SCH (20:11)
[2020-10-05] VITALS (13 sets, daily range): BP systolic 85–133; BP diastolic 52–87
[2020-10-05] MEDS: RT-ALBUTEROL SULF 2.5 MG/3 ML PRE-MIX VIAL INH SCH ×6 (02:33→22:37)
[2020-10-05 03:29] LABS: BASOPHILS % (AUTO) 0 % (0-10); EOSINOPHILS # (AUTO) 0.7 10^3/uL (0.0-0.3); EOSINOPHILS % (AUTO) 6 % (0-10); HEMATOCRIT 32 % (35-52); HEMOGLOBIN 9.9 g/dL (11.5-16.0); LYMPHOCYTES % (AUTO) 8 % (12-44); MEAN CORPUSCULAR HEMOGLOBIN 27 pg (25-34); MEAN CORPUSCULAR HGB CONC 31 g/dL (32-36); MEAN CORPUSCULAR VOLUME 88 fL (80-99); MEAN PLATELET VOLUME 9.5 fL (9.0-12.2); MONOCYTES # (AUTO) 0.8 10^3/uL (0.0-1.0); MONOCYTES % (AUTO) 7 % (0-12); NEUTROPHILS # (AUTO) 9.7 10^3/uL (1.8-7.8); NEUTROPHILS % (AUTO) 79 % (42-75); PLATELET COUNT 502 10^3/uL (130-400); WHITE BLOOD COUNT 12.3 10^3/uL (4.3-11.0)
[2020-10-05 03:43] LABS: CHLORIDE 94 MMOL/L (98-107); POTASSIUM 3.1 MMOL/L (3.6-5.0); SODIUM 142 MMOL/L (135-145)
[2020-10-05] MEDS: morphine INJ 4 MG/ML 1 ML (VIAL/SYRINGE) IVP PRN ×4 (03:43→21:13)
[2020-10-05 03:44] LABS: CALCIUM 7.6 MG/DL (8.5-10.1); GLUCOSE 102 MG/DL (70-105)
[2020-10-05 03:46] LABS: CARBON DIOXIDE 37 MMOL/L (21-32)
[2020-10-05 03:48] LABS: CREATININE SERUM 0.48 MG/DL (0.60-1.30); GFR ESTIMATED > 60; PHOSPHORUS 2.5 MG/DL (2.3-4.7)
[2020-10-05 03:49] LABS: BUN/CREATININE RATIO 21
[2020-10-05 03:50] LABS: MAGNESIUM 1.9 MG/DL (1.6-2.4)
--- NOTE | 2020-10-05 04:02 | Pulmonary Progress Note ---
Subjective Time Seen by a Provider: 04:01 Subjective/Events-last exam Plan is for Cardioversion today. Sepsis Event Evaluation Height, Weight, BMI Height: 5'2.00" Weight: 90lbs. 6.0oz. 40.753255pt; 19.43 BMI Method: Focused Exam Lactate Level 10/03/20 19:00: Lactic Acid Level 4.60*H 10/03/20 20:50: Lactic Acid Level 2.96*H 10/03/20 23:43: Lactic Acid Level 1.72 Time of Focused Exam: 22:05 Exam Exam Vital Signs Date Time Temp Pulse Resp B/P (MAP) Pulse Ox O2 Delivery O2 Flow Rate FiO2 10/05/20 03:41 36.1 111 12 104/76 (85) 96 Mechanical Ventilator 3.00 10/05/20 02:33 100 Mechanical Ventilator 2.00 10/05/20 01:00 100 10/04/20 23:11 36.6 118 16 106/53 (70) 94 Mechanical Ventilator 5.00 10/04/20 23:00 105 22 106/53 (70) 91 Mechanical Ventilator 3.00 10/04/20 22:53 95 Mechanical Ventilator 2.00 10/04/20 22:30 99 Mechanical Ventilator 3.00 10/04/20 21:00 Mechanical Ventilator 5.00 10/04/20 21:00 106 13 96/65 (75) 91 Mechanical Ventilator 5.00 40.00 10/04/20 20:20 99 Mechanical Ventilator 5.00 40.00 10/04/20 20:00 92 20 105/73 (84) 93 Mechanical Ventilator 5.00 40.00 10/04/20 20:00 36.8 10/04/20 19:03 96 Mechanical Ventilator 2.00 10/04/20 19:00 91 10/04/20 19:00 101 19 111/78 (89) 97 Mechanical Ventilator 5.00 40.00 10/04/20 18:56 94 Mechanical Ventilator 2.00 10/04/20 16:00 36.6 10/04/20 16:00 109 19 117/70 (86) 91 T Piece 3.00 10/04/20 15:04 115 18 97 30 10/04/20 13:00 140 10/04/20 12:00 140 27 113/77 (89) 95 T Piece 3.00 10/04/20 11:35 36.6 10/04/20 10:52 134 20 93 30 10/04/20 08:35 90 Mechanical Ventilator 10.00 10/04/20 08:00 118 16 115/88 (97) 94 T Piece 3.00 10/04/20 07:48 36.2 10/04/20 07:29 126 18 91 21 10/04/20 07:00 116 10/04/20 07:00 116 12 99/77 (84) 96 T Piece 3.00 10/04/20 06:00 126 13 110/63 (79) 97 T Piece 3.00 10/04/20 05:00 111 17 90/64 (73) 90 T Piece 3.00 I & O 10/05/20 07:00 Intake Total 960 ml Output Total 1675 ml Balance -715 ml Height & Weight Height: 5'2.00" Weight: 90lbs. 6.0oz. 40.415022pt; 19.43 BMI Method: General Appearance: No Apparent Distress HEENT: PERRL/EOMI, Normal ENT Inspection Neck: Supple Respiratory: Lungs Clear Cardiovascular: Tachycardia (with a rate of 110) Capillary Refill: Less Than 3 Seconds Gastrointestinal: soft Extremity: Normal Capillary Refill Neurologic/Psychiatric: Alert, Oriented x3 Results Lab Laboratory Tests 10/03/20 17:00 10/04/20 02:04 10/05/20 03:17 Assessment/Plan Assessment/Plan Acute on chronic respiratory failure s/p tracheostomy at [facility] -Continue ventilatory care -TTube during the day -Obtain home vent and will use that. -Influenza is negative -MRSA swab pending -Pt has chronic pulmonary infiltrates 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 -Richter cultures pending AFib RVR -Currently on Ammio gtt -Cardiology is consulted Anemia -Monitor Metabolic lactic acidosis -IVF -Monitor Small bilateral pleural effusions Echo shows normal EF with grade 1 diastolic dy sfunction -Start Lasix daily NORAH FOUNTAIN DO Oct 05, 2020 04:02
[2020-10-05] MEDS ORDERED: NS IV 1000 ML 1,000 ML IV ONE (05:00)
[2020-10-05] MEDS: POTASSIUM CL 10MEQ/50ML IVPB 50 ML IV SCH ×6 (05:26→12:13)
[2020-10-05] MEDS: TOBRAMYCIN (NEBCIN) 80 MG/2 ML VIAL IH SCH ×2 (06:53→19:03)
--- NOTE | 2020-10-05 07:10 | Progress Note ---
Subjective Date Seen by a Provider: Oct 05, 2020 Time Seen by a Provider: 07:00 Subjective/Events-last exam patient didn't sleep very well last night and was restless. She appears to be resting comfortably this morning however. Focused Exam Lactate Level 10/03/20 19:00: Lactic Acid Level 4.60*H 10/03/20 20:50: Lactic Acid Level 2.96*H 10/03/20 23:43: Lactic Acid Level 1.72 Time of Focused Exam: 22:05 Objective Exam Vital Signs Date Time Temp Pulse Resp B/P (MAP) Pulse Ox O2 Delivery O2 Flow Rate FiO2 10/05/20 03:41 36.1 111 12 104/76 (85) 96 Mechanical Ventilator 3.00 10/05/20 02:33 100 Mechanical Ventilator 2.00 10/05/20 01:00 100 10/04/20 23:11 36.6 118 16 106/53 (70) 94 Mechanical Ventilator 5.00 10/04/20 23:00 105 22 106/53 (70) 91 Mechanical Ventilator 3.00 10/04/20 22:53 95 Mechanical Ventilator 2.00 10/04/20 22:30 99 Mechanical Ventilator 3.00 10/04/20 21:00 Mechanical Ventilator 5.00 10/04/20 21:00 106 13 96/65 (75) 91 Mechanical Ventilator 5.00 40.00 10/04/20 20:20 99 Mechanical Ventilator 5.00 40.00 10/04/20 20:00 92 20 105/73 (84) 93 Mechanical Ventilator 5.00 40.00 10/04/20 20:00 36.8 10/04/20 19:03 96 Mechanical Ventilator 2.00 10/04/20 19:00 91 10/04/20 19:00 101 19 111/78 (89) 97 Mechanical Ventilator 5.00 40.00 10/04/20 18:56 94 Mechanical Ventilator 2.00 10/04/20 16:00 36.6 10/04/20 16:00 109 19 117/70 (86) 91 T Piece 3.00 10/04/20 15:04 115 18 97 30 10/04/20 13:00 140 10/04/20 12:00 140 27 113/77 (89) 95 T Piece 3.00 10/04/20 11:35 36.6 10/04/20 10:52 134 20 93 30 10/04/20 08:35 90 Mechanical Ventilator 10.00 10/04/20 08:00 118 16 115/88 (97) 94 T Piece 3.00 10/04/20 07:48 36.2 10/04/20 07:29 126 18 91 21 I & O 10/05/20 07:00 Intake Total 1369 ml Output Total 1850 ml Balance -481 ml Capillary Refill : Less Than 3 Seconds General Appearance: No Apparent Distress Respiratory: Lungs Clear Cardiovascular: Regular Rate, Rhythm Gastrointestinal: soft Extremity: No Pedal Edema Results Lab Laboratory Tests 10/04/20 11:47: Glucometer 85 10/04/20 15:39: Glucometer 88 10/04/20 23:00: Glucometer 92 10/05/20 03:17: White Blood Count 12.3H, Red Blood Count 3.67L, Hemoglobin 9.9#L, Hematocrit 32L , Mean Corpuscular Volume 88, Mean Corpuscular Hemoglobin 27, Mean Corpuscular Hemoglobin Concent 31L, Red Cell Distribution Width 16.3H, Platelet Count 502H, Mean Platelet Volume 9.5, Immature Granulocyte % (Auto) 0, Neutrophils (%) (Auto) 79H, Lymphocytes (%) (Auto) 8L, Monocytes (%) (Auto) 7, Eosinophils (%) (Auto) 6, Basophils (%) (Auto) 0, Neutrophils # (Auto) 9.7H, Lymphocytes # (Auto) 1.0, Monocytes # (Auto) 0.8, Eosinophils # (Auto) 0.7H, Basophils # (Auto) 0.0, Immature Granulocyte # (Auto) 0.0, Sodium Level 142, Potassium Level 3.1L, Chloride Level 94L, Carbon Dioxide Level 37H, Anion Gap 11, Blood Urea Nitrogen 10, Creatinine 0.48L, Estimat Glomerular Filtration Rate > 60, BUN/Creatinine Ratio 21, Glucose Level 102, Calcium Level 7.6L, Phosphorus Level 2.5, Magnesium Level 1.9 Microbiology 09/30/20 Blood Culture - Preliminary, Resulted Staph, Coag Neg (COMPUTATIONAL GENETICIST) 09/30/20 Urine Culture - Final, Complete YEAST 09/30/20 Influenza Types A,B Antigen (HILLARY) - Final, Complete Assessment/Plan Assessment/Plan Assess & Plan/Chief Complaint 1. Sepsis -IV fluids initiated -Monitor CBC daily -Dr. Velazquez in consultation and his expertise appreciated 10/02 -white blood cell count has improved to 7.7 2. PneumoniaPseudomonas -ED initiated tobramycin -Also placed on meropenem 10/02 -meropenem continues 10/04 -she'll receive a full 14 days before dismissed 10/05 -approaching the last few days of meropenem 3. Acute on chronic respiratory failure -DME to help sort out her home ventilator issues. 10/02 -social welfare research worker continuing to work on placement once discharged 10/03 -we'll need to work out details on placement. conference services coordinator continuing to check 4. Urinary tract infection -Await urine culture -Currently has antibiotic coverage 5. Atrial fibrillation with rapid ventricular response -Cardiology managing -She is on Eliquis an metoprolol has been added on during the course of her stay 10/05 -discussion of cardioversion. Cardiology following and will make the final decision 6. Anemiaexpected this is related to chronic illness -Hemoglobin will be rechecked in the morning 10/05 -hemoglobin improved to 9.9 this morning Clinical Quality Measures Admission Status Admission Dx 1. Sepsis 2. PneumoniaPseudomonas 3. Acute on chronic respiratory failure 4. Urinary tract infection DVT/VTE Risk/Contraindication: Risk Factor Score Per Nursin RFS Level Per Nursing on Admit: 4+=Very High RAJESH DAVENPORT MD Oct 05, 2020 07:10
--- NOTE | 2020-10-05 08:25 | Diagnostic Imaging Report ---
INDICATION: Respiratory failure. Time of exam: 3:41 AM Correlation is made with prior chest from one day earlier. Tracheostomy tube has tip above the maci. Extensive right-sided infiltrate and pleural fluid shows no real change. Left basilar infiltrate is unchanged as well with small left effusion. Upper lung isidro remain clear. There is no pneumothorax. IMPRESSION: Stable bilateral infiltrates and effusions when compared with exam one day earlier. Dictated by: Dictated on workstation # [id number]
[2020-10-05] MEDS: MEROPENEM 2 GM/NS 100 ML IVPB IV SCH ×4 (09:00→21:12)
[2020-10-05] MEDS: FUROSEMIDE 40 MG (LASIX) TAB PO SCH (09:00)
[2020-10-05] MEDS: APIXABAN 2.5 MG (ELIQUIS) TABLET PO SCH ×2 (09:00→21:12)
[2020-10-05] MEDS: FAMOTIDINE 20MG/2ML IV (PEPCID) IVP SCH (09:00)
[2020-10-05] MEDS: DIGOXIN 0.125 MG (LANOXIN) TAB PO SCH (09:00)
[2020-10-05] MEDS: AMIODARONE 200 MG (CORDARONE) TAB PO SCH ×2 (09:00→21:13)
[2020-10-05] MEDS ORDERED: MIDAZOLAM 2 MG/2 ML (VERSED) VIAL ONE (09:35)
[2020-10-05] MEDS ORDERED: proPOfol 200 MG/20 ML (DIPRIVAN) VIAL IV ONE (09:55)
[2020-10-05] MEDS ORDERED: POTASSIUM PHOSPHATE INJ 30 MM in NS (IVPB) 250 ML IV ONE (10:00)
--- NOTE | 2020-10-05 10:00 | NUR ---
TIMELINE 919 -CONSENT OBTAINED FOR CARDIOVERSION. 929 -ANESTHESIA AT BEDSIDE. PT SET UP FOR CARDIOVERSION. 939 -DR MARROQUIN AT BEDSIDE. 943 -DR MARROQUIN ORDERED 120 JOULES TO BE DELIVERED. PT CONVERTED TO NSR. EKG OBTAINED AND PLACED ON CHART. CLAUDIA MILLAN AT BEDSIDE TO MONITOR. VITALS ARE STABLE. PT DENIES PAIN. PT RESTING COMFORTABLY. WILL CONTINUE TO MONITOR.
--- NOTE | 2020-10-05 10:06 | Anesthesia-General Post-Op ---
MAC Patient Condition Mental Status/LOC: Same as Preop Cardiovascular: Satisfactory Nausea/Vomiting: Absent Respiratory: Satisfactory Pain: Controlled Complications: Absent Post Op Complications Complications None Follow Up Care/Instructions Patient Instructions None needed. Anesthesiology Discharge Order Discharge Order Patient is doing well, no complaints, stable vital signs, no apparent adverse anesthesia problems. No complications reported per nursing. GEGE BILL CRNA Oct 05, 2020 10:06
--- NOTE | 2020-10-05 10:21 | Cardiac Procedure Note-CS/ASA ---
Pre-Procedure Note Pre-Op Procedure Note H&P Reviewed The H&P was reviewed, patient examined and no changes noted. Date H&P Reviewed: Oct 05, 2020 Time H&P Reviewed: 09:00 Conscious Sedation Pre-Proced Time 09:00 ASA Score 3 For ASA 3 and 4: Consider anesthesia and medical clearance. Also, for patients with a history of failed moderate sedation consider anesthesia. Airway Lungs Heart ASA score ASA 1: a normal healthy patient ASA 2: a patient with a mild systemic disease (mid diabetes, controlled hypertension, obesity ASA 3: a patient with a severe systemic disease that limits activity (angina, COPD, prior Myocardial infarction) x ASA 4: a patient with an incapacitating disease that is a constant threat to life (CHF, renal failure) ASA 5: a moribund patient not expected to survive 24 hrs. (ruptured aneurysm) ASA 6: a declared brain- patient whose organs are being harvested. For emergent operations, add the letter E after the classification Mallampati Classification Grade 2 Sedation Plan Analgesia, Amnesia, Plan communicated to team members, Discussed options with patient/fam, Discussed risks with patient/fam The patient is an appropriate candidate to undergo the planned procedure, sedation, and anesthesia. The patient immediately re-assessed prior to indication. PORTILLO MARROQUIN MD Oct 05, 2020 10:21
--- NOTE | 2020-10-05 10:22 | Cardioversion ---
Cardioversion PROCEDURE PHYSICIAN: Portillo Khan DATE OF PROCEDURE: 10/05/20 DIRECT EXTERNAL ELECTRICAL CARDIOVERSION: Indications: Atrial Fibrillation with rapid ventricular rate Preoperative diagnoses: Atrial Fibrillation with rapid ventricular rate Postoperative diagnosis: Sinus rhythm, Successful Electrical Cardioversion History: Anesthesia: By Anesthesia services Complications: None Specimen: None Contrast: 0 Flouroscopy: none Procedure Details: The patient was brought the director geophysical laboratory after informed consent was taken, all the risks and complications were explained including the risk of stroke. Electrical cardioversion was carried out with anesthesia support with propofol. 120 joules of synchronized shock was delivered through external patches which promptly restored sinus rhythm. The patient tolerated the procedure well. Conclusions: Successful electrical cardioversion in terminating atrial fibrillation with no complication PORTILLO KHAN MD Oct 05, 2020 10:22
--- NOTE | 2020-10-05 10:24 | Cardiology Progress Note ---
Subjective Date Seen by Provider: Oct 05, 2020 Time Seen by Provider: 10:22 Subjective/Events-last exam Patient is laying down in bed, ventilator dependent, feeling well, still tachycardic Review of Systems General: No Chills, No Night Sweats; Fatigue, Malaise; No Appetite, No Other HEENT: No Head Aches, No Visual Changes, No Eye Pain, No Ear Pain, No Dysphasia, No Sinus Congestion, No Post Nasal Drip, No Sore Throat, No Other Pulmonary: Dyspnea; No Cough, No Pleuritic Chest Pain, No Other Cardiovascular: No: Chest Pain, Palpitations, Orthopnea, Paroxysmal Noc. Dyspnea, Edema, Lt Headedness, Other Focused Exam Lactate Level 10/03/20 19:00: Lactic Acid Level 4.60*H 10/03/20 20:50: Lactic Acid Level 2.96*H 10/03/20 23:43: Lactic Acid Level 1.72 Time of Focused Exam: 22:05 Objective-Cardiology Exam Last Set of Vital Signs Vital Signs 10/04/20 10/05/20 10/05/20 15:04 07:41 10:00 Temp 35.9 Pulse 71 Resp 11 B/P (MAP) 94/56 (69) Pulse Ox 90 O2 Delivery Mechanical Ventilator O2 Flow Rate 3.00 FiO2 30 Capillary Refill : Less Than 3 Seconds I&O Intake and Output 10/05/20 00:00 Intake Total 1319 ml Output Total 1715 ml Balance -396 ml Intake Oral 960 ml IV Total 359 ml Output Urine Total 1715 ml General: Alert, Oriented X3, Cooperative HEENT: Atraumatic, PERRLA Neck: Supple, No JVD, No Thyromegaly Lungs: Normal Air Movement, Other (tracheostomy, bilateral rhonchi) Heart: Normal S1, Normal S2, No Murmurs, Other (atrial fibrillation with rapid ventricular response) Abdomen: Normal Bowel Sounds, Soft, No Tenderness, No Hepatosplenomegaly, No Masses Extremities: No Clubbing, No Cyanosis, No Edema, Normal Pulses, No Tenderness/Swelling Skin: No Rashes, No Breakdown, No Significant Lesion Neuro: Normal Tone, Sensation Intact Psych/Mental Status: Mental Status NL, Mood NL Results Lab Laboratory Tests 10/05/20 03:17 A/P-Cardiology Admission Diagnosis Acute on chronic respiratory failure Elevated BNP PAF Leukocytosis Assessment/Plan Status post acute respiratory failure due to recurrent Pseudomonas pneumonia, has tracheostomy and chronic ventilatory dependent. Came with acute respiratory failure that has improved, she is back to her baseline on the ventilator and doing well. Paroxysmal atrial fibrillation, difficult to control, maintained on amiodarone drip, Cardizem drip, hypotensive, I did proceed with electrical cardioversion which was successful in terminating atrial fibrillation. Continue on oral anticoagulation. Mild elevation in BNP, 2D Echo done 09/21/2020 showed grade 1 diastolic dysfunction with EF 55-65%. PA 30-35mmHg. continue to monitor Hypotension, better now, started on Toprol. Monitor tolerance and response Sepsis, leukocytosis. managed by Dr. Velazquez History of COPD. Clinical Quality Measures DVT/VTE Risk/Contraindication: Risk Factor Score Per Nursin RFS Level Per Nursing on Admit: 4+=Very High PORTILLO MARROQUIN MD Oct 05, 2020 10:24 am
[2020-10-05] MEDS: dilTIAZem DRIP PRE-MIX 125 ML IV SCH (12:13)
[2020-10-05] MEDS ORDERED: MELATONIN 3 MG TABLET ONE (20:14)
[2020-10-05] MEDS: MELATONIN 3 MG TABLET PO SCH (21:12)
[2020-10-05] MEDS: ALPRAZolam 0.25 MG (XANAX) TAB PEG PRN (21:33)
[2020-10-06] VITALS (7 sets, daily range): BP systolic 92–113; BP diastolic 47–58
[2020-10-06] MEDS: RT-ALBUTEROL SULF 2.5 MG/3 ML PRE-MIX VIAL INH SCH ×6 (02:30→21:19)
[2020-10-06 03:37] LABS: BASOPHILS % (AUTO) 0 % (0-10); EOSINOPHILS # (AUTO) 0.5 10^3/uL (0.0-0.3); EOSINOPHILS % (AUTO) 4 % (0-10); HEMATOCRIT 31 % (35-52); HEMOGLOBIN 9.3 g/dL (11.5-16.0); LYMPHOCYTES # (AUTO) 0.8 10^3/uL (1.0-4.0); LYMPHOCYTES % (AUTO) 6 % (12-44); MEAN CORPUSCULAR HEMOGLOBIN 27 pg (25-34); MEAN CORPUSCULAR HGB CONC 30 g/dL (32-36); MEAN CORPUSCULAR VOLUME 88 fL (80-99); MEAN PLATELET VOLUME 9.5 fL (9.0-12.2); MONOCYTES # (AUTO) 0.7 10^3/uL (0.0-1.0); MONOCYTES % (AUTO) 5 % (0-12); NEUTROPHILS # (AUTO) 11.7 10^3/uL (1.8-7.8); NEUTROPHILS % (AUTO) 85 % (42-75); PLATELET COUNT 470 10^3/uL (130-400); WHITE BLOOD COUNT 13.7 10^3/uL (4.3-11.0)
[2020-10-06 03:48] LABS: CHLORIDE 97 MMOL/L (98-107); SODIUM 141 MMOL/L (135-145)
[2020-10-06 03:49] LABS: CALCIUM 7.7 MG/DL (8.5-10.1)
[2020-10-06 03:50] LABS: GLUCOSE 102 MG/DL (70-105)
[2020-10-06 03:51] LABS: CARBON DIOXIDE 33 MMOL/L (21-32)
[2020-10-06 03:53] LABS: PHOSPHORUS 2.9 MG/DL (2.3-4.7)
[2020-10-06 03:54] LABS: BUN/CREATININE RATIO 21; CREATININE SERUM 0.48 MG/DL (0.60-1.30); GFR ESTIMATED > 60
[2020-10-06 03:56] LABS: MAGNESIUM 1.8 MG/DL (1.6-2.4)
--- NOTE | 2020-10-06 05:36 | Pulmonary Progress Note ---
Subjective Time Seen by a Provider: 05:34 Subjective/Events-last exam no complications noted. Sepsis Event Evaluation Height, Weight, BMI Height: 5'2.00" Weight: 90lbs. 6.0oz. 40.760898xa; 19.43 BMI Method: Focused Exam Lactate Level 10/03/20 19:00: Lactic Acid Level 4.60*H 10/03/20 20:50: Lactic Acid Level 2.96*H 10/03/20 23:43: Lactic Acid Level 1.72 Time of Focused Exam: 22:05 Exam Exam Vital Signs Date Time Temp Pulse Resp B/P (MAP) Pulse Ox O2 Delivery O2 Flow Rate FiO2 10/06/20 03:33 36.7 85 14 105/58 (74) 92 Mechanical Ventilator 2.00 10/06/20 02:30 100 Mechanical Ventilator 3.00 10/06/20 01:00 65 10/06/20 00:00 65 17 113/52 (72) 100 Mechanical Ventilator 3.00 10/05/20 22:37 100 Mechanical Ventilator 15.00 10/05/20 20:00 76 28 128/70 (89) 93 Mechanical Ventilator 3.00 10/05/20 19:56 36.4 10/05/20 19:03 90 Mechanical Ventilator 3.00 10/05/20 19:00 75 10/05/20 18:58 90 Mechanical Ventilator 3.00 10/05/20 18:00 71 26 127/52 (77) Mechanical Ventilator 3.00 10/05/20 17:00 61 13 104/85 (91) 90 Mechanical Ventilator 3.00 10/05/20 16:00 61 13 132/74 (93) 92 Mechanical Ventilator 3.00 10/05/20 15:00 73 18 133/69 (90) 90 Mechanical Ventilator 3.00 10/05/20 14:56 94 Mechanical Ventilator 2.00 10/05/20 14:00 74 18 105/87 (93) 90 Mechanical Ventilator 3.00 10/05/20 13:00 82 10/05/20 13:00 64 7 105/73 (84) 99 Mechanical Ventilator 3.00 10/05/20 12:00 89 24 98/68 (78) 94 Mechanical Ventilator 3.00 10/05/20 11:03 96 Mechanical Ventilator 2.00 10/05/20 11:00 67 12 104/56 (72) 96 Mechanical Ventilator 3.00 10/05/20 10:11 71 10/05/20 10:00 71 11 94/56 (69) 90 Mechanical Ventilator 3.00 10/05/20 09:45 83 13 85/52 (63) 93 Mechanical Ventilator 3.00 10/05/20 09:00 Mechanical Ventilator 4.00 10/05/20 08:00 114 12 93 Mechanical Ventilator 3.00 10/05/20 07:41 35.9 10/05/20 07:08 100 Mechanical Ventilator 2.00 10/05/20 07:07 100 Mechanical Ventilator 2.00 10/05/20 07:00 109 I & O 10/06/20 07:00 Intake Total 1175 ml Output Total 1875 ml Balance -700 ml Height & Weight Height: 5'2.00" Weight: 90lbs. 6.0oz. 40.231254mw; 19.43 BMI Method: General Appearance: No Apparent Distress HEENT: PERRL/EOMI, Normal ENT Inspection Neck: Supple Respiratory: Lungs Clear Cardiovascular: Regular Rate, Rhythm Capillary Refill: Less Than 3 Seconds Gastrointestinal: soft Extremity: No Pedal Edema Neurologic/Psychiatric: Alert, Oriented x3 Results Lab Laboratory Tests 10/05/20 03:17 10/06/20 03:29 Assessment/Plan Assessment/Plan Acute on chronic respiratory failure s/p tracheostomy at [facility] -Continue ventilatory care -TTube during the day -Obtain home vent and will use that. -Influenza is negative -MRSA swab pending -Pt has chronic pulmonary infiltrates Pneumonia with sepsis hx of resistent Pseudomonus -Continue Merrem -Will need total abx of 14 days -Repeat sputum culture -Continue Chuy breathing treatments. -Richter cultures pending AFib RVR -Currently on Ammio gtt -Cardiology is consulted Anemia -Monitor Metabolic lactic acidosis -IVF -Monitor Small bilateral pleural effusions Echo shows normal EF with grade 1 diastolic dysfunction -Start Lasix daily NORAH FOUNTAIN DO Oct 06, 2020 05:36
[2020-10-06] MEDS ORDERED: KCL 20 MEQ TAB (K-DUR) PO ONE ×2 (05:45→09:00)
[2020-10-06] MEDS: HYDROcodone/APAP 5 MG/325 MG (LORTAB) TAB PO PRN ×2 (06:35→20:33)
--- NOTE | 2020-10-06 06:56 | Progress Note ---
Subjective Date Seen by a Provider: Oct 06, 2020 Time Seen by a Provider: 06:50 Subjective/Events-last exam patient feeling better this morning. She appears to be in no distress. She tolerated cardioversion well yesterday. Focused Exam Lactate Level 10/03/20 19:00: Lactic Acid Level 4.60*H 10/03/20 20:50: Lactic Acid Level 2.96*H 10/03/20 23:43: Lactic Acid Level 1.72 Time of Focused Exam: 22:05 Objective Exam Vital Signs Date Time Temp Pulse Resp B/P (MAP) Pulse Ox O2 Delivery O2 Flow Rate FiO2 10/06/20 03:33 36.7 85 14 105/58 (74) 92 Mechanical Ventilator 2.00 10/06/20 02:30 100 Mechanical Ventilator 3.00 10/06/20 01:00 65 10/06/20 00:00 65 17 113/52 (72) 100 Mechanical Ventilator 3.00 10/05/20 22:37 100 Mechanical Ventilator 15.00 10/05/20 21:00 Mechanical Ventilator 3.00 10/05/20 20:00 76 28 128/70 (89) 93 Mechanical Ventilator 3.00 10/05/20 19:56 36.4 10/05/20 19:03 90 Mechanical Ventilator 3.00 10/05/20 19:00 75 10/05/20 18:58 90 Mechanical Ventilator 3.00 10/05/20 18:00 71 26 127/52 (77) Mechanical Ventilator 3.00 10/05/20 17:00 61 13 104/85 (91) 90 Mechanical Ventilator 3.00 10/05/20 16:00 61 13 132/74 (93) 92 Mechanical Ventilator 3.00 10/05/20 15:00 73 18 133/69 (90) 90 Mechanical Ventilator 3.00 10/05/20 14:56 94 Mechanical Ventilator 2.00 10/05/20 14:00 74 18 105/87 (93) 90 Mechanical Ventilator 3.00 10/05/20 13:00 82 10/05/20 13:00 64 7 105/73 (84) 99 Mechanical Ventilator 3.00 10/05/20 12:00 89 24 98/68 (78) 94 Mechanical Ventilator 3.00 10/05/20 11:03 96 Mechanical Ventilator 2.00 10/05/20 11:00 67 12 104/56 (72) 96 Mechanical Ventilator 3.00 10/05/20 10:11 71 10/05/20 10:00 71 11 94/56 (69) 90 Mechanical Ventilator 3.00 10/05/20 09:45 83 13 85/52 (63) 93 Mechanical Ventilator 3.00 10/05/20 09:00 Mechanical Ventilator 4.00 10/05/20 08:00 114 12 93 Mechanical Ventilator 3.00 10/05/20 07:41 35.9 10/05/20 07:08 100 Mechanical Ventilator 2.00 10/05/20 07:07 100 Mechanical Ventilator 2.00 10/05/20 07:00 109 I & O 10/06/20 07:00 Intake Total 1225 ml Output Total 2100 ml Balance -875 ml Capillary Refill : Less Than 3 Seconds General Appearance: No Apparent Distress Respiratory: Lungs Clear Cardiovascular: Regular Rate, Rhythm Gastrointestinal: soft Extremity: No Pedal Edema Results Lab Laboratory Tests 10/05/20 11:55: Glucometer 106 10/05/20 17:47: Glucometer 86 10/05/20 21:10: Glucometer 89 10/06/20 03:29: White Blood Count 13.7H, Red Blood Count 3.47L, Hemoglobin 9.3L, Hematocrit 31L, Mean Corpuscular Volume 88, Mean Corpuscular Hemoglobin 27, Mean Corpuscular Hemoglobin Concent 30L, Red Cell Distribution Width 16.5H, Platelet Count 470H, Mean Platelet Volume 9.5, Immature Granulocyte % (Auto) 0, Neutrophils (%) (Auto) 85H, Lymphocytes (%) (Auto) 6L, Monocytes (%) (Auto) 5, Eosinophils (%) (Auto) 4, Basophils (%) (Auto) 0, Neutrophils # (Auto) 11.7H, Lymphocytes # (Auto) 0.8L, Monocytes # (Auto) 0.7, Eosinophils # (Auto) 0.5H, Basophils # (Auto) 0.0, Immature Granulocyte # (Auto) 0.1, Sodium Level 141, Potassium Level 4.0, Chloride Level 97L, Carbon Dioxide Level 33H, Anion Gap 11, Blood Urea Nitrogen 10, Creatinine 0.48L, Estimat Glomerular Filtration Rate > 60, BUN/Creatinine Ratio 21, Glucose Level 102, Calcium Level 7.7L, Phosphorus Level 2.9, Magnesium Level 1.8 Microbiology 09/30/20 Blood Culture - Preliminary, Resulted Staph, Coag Neg (PUMPER GAGER APPRENTICE) 09/30/20 Urine Culture - Final, Complete YEAST 09/30/20 Influenza Types A,B Antigen ([facility]) - Final, Complete Assessment/Plan Assessment/Plan Assess & Plan/Chief Complaint 1. Sepsis -IV fluids initiated -Monitor CBC daily -Dr. Velazquez in consultation and his expertise appreciated 10/02 -white blood cell count has improved to 7.7 10/06 -white blood cell count 13.7 today -I understand sputum culture has been ordered 2. PneumoniaPseudomonas -ED initiated tobramycin -Also placed on meropenem 10/02 -meropenem continues 10/04 -she'll receive a full 14 days before dismissed 10/05 -approaching the last few days of meropenem 10/06 -pharmacy to check on the number of days meropenem 3. Acute on chronic respiratory failure -DME to help sort out her home ventilator issues. 10/02 -social media community manager continuing to work on placement once discharged 10/03 -we'll need to work out details on placement. food services manager continuing to check 4. Urinary tract infection -Await urine culture -Currently has antibiotic coverage 5. Atrial fibrillation with rapid ventricular response -Cardiology managing -She is on Eliquis an metoprolol has been added on during the course of her stay 10/05 -discussion of cardioversion. Cardiology following and will make the final decision 10/06 -cardioversion yesterday converted her to normal rate. Her rate this morning 77 6. Anemiaexpected this is related to chronic illness -Hemoglobin will be rechecked in the morning 10/05 -hemoglobin improved to 9.9 this morning Clinical Quality Measures Admission Status Admission Dx 1. Sepsis 2. PneumoniaPseudomonas 3. Acute on chronic respiratory failure 4. Urinary tract infection DVT/VTE Risk/Contraindication: Risk Factor Score Per Nursin RFS Level Per Nursing on Admit: 4+=Very High RAJESH DAVENPORT MD Oct 06, 2020 06:56
[2020-10-06] MEDS: APIXABAN 2.5 MG (ELIQUIS) TABLET PO SCH ×2 (07:58→20:33)
[2020-10-06] MEDS: DIGOXIN 0.125 MG (LANOXIN) TAB PO SCH (07:58)
[2020-10-06] MEDS: FUROSEMIDE 40 MG (LASIX) TAB PO SCH (07:58)
[2020-10-06] MEDS: FAMOTIDINE 20MG/2ML IV (PEPCID) IVP SCH (07:59)
[2020-10-06] MEDS: PANTOPRAZOLE 40 MG (PROTONIX) VIAL IV SCH (07:59)
[2020-10-06] MEDS: MEROPENEM 2 GM/NS 100 ML IVPB IV SCH ×4 (07:59→20:33)
[2020-10-06] MEDS: AMIODARONE 200 MG (CORDARONE) TAB PO SCH ×2 (07:59→20:33)
[2020-10-06] MEDS: TOBRAMYCIN (NEBCIN) 80 MG/2 ML VIAL IH SCH ×2 (08:14→21:18)
--- NOTE | 2020-10-06 09:56 | Cardiology Progress Note ---
Subjective Date Seen by Provider: Oct 06, 2020 Time Seen by Provider: 09:55 Subjective/Events-last exam Patient is laying down in bed. No new complaint Review of Systems General: No Chills, No Night Sweats; Fatigue, Malaise; No Appetite, No Other HEENT: No Head Aches, No Visual Changes, No Eye Pain, No Ear Pain, No Dysphasia, No Sinus Congestion, No Post Nasal Drip, No Sore Throat, No Other Pulmonary: Dyspnea; No Cough, No Pleuritic Chest Pain, No Other Cardiovascular: No: Chest Pain, Palpitations, Orthopnea, Paroxysmal Noc. Dyspnea, Edema, Lt Headedness, Other Focused Exam Lactate Level 10/03/20 19:00: Lactic Acid Level 4.60*H 10/03/20 20:50: Lactic Acid Level 2.96*H 10/03/20 23:43: Lactic Acid Level 1.72 Time of Focused Exam: 22:05 Objective-Cardiology Exam Last Set of Vital Signs Vital Signs 10/06/20 10/06/20 10/06/20 03:33 07:31 08:33 Temp 36.4 Pulse 85 Resp 14 B/P (MAP) 105/58 (74) Pulse Ox 93 O2 Delivery Trach Collar O2 Flow Rate 8.00 FiO2 40 Capillary Refill : Less Than 3 Seconds I&O Intake and Output 10/06/20 00:00 Intake Total 1225 ml Output Total 2050 ml Balance -825 ml Intake Oral 1175 ml IV Total 50 ml Output Urine Total 2050 ml General: Alert, Oriented X3, Cooperative HEENT: Atraumatic, PERRLA Neck: Supple, No JVD, No Thyromegaly Lungs: Normal Air Movement, Other (tracheostomy, bilateral rhonchi) Heart: Normal S1, Normal S2, No Murmurs, Other (atrial fibrillation with rapid ventricular response) Abdomen: Normal Bowel Sounds, Soft, No Tenderness, No Hepatosplenomegaly, No Masses Extremities: No Clubbing, No Cyanosis, No Edema, Normal Pulses, No Tenderness/Swelling Skin: No Rashes, No Breakdown, No Significant Lesion Neuro: Normal Tone, Sensation Intact Psych/Mental Status: Mental Status NL, Mood NL Results Lab Laboratory Tests 10/06/20 03:29 A/P-Cardiology Admission Diagnosis Acute on chronic respiratory failure Elevated BNP PAF Leukocytosis Assessment/Plan Status post acute respiratory failure due to recurrent Pseudomonas pneumonia, has tracheostomy and chronic ventilatory dependent. Came with acute respiratory failure that has improved, she is back to her baseline on the ventilator and doing well. Paroxysmal atrial fibrillation, difficult to control, status post electrical cardioversion done on October 05, 2020, currently in sinus rhythm, blood pressure is stable, was on amiodarone drip and it was changed to oral loading dose with 400 mg twice daily, planning to cut down to 200 mg twice daily in one week. Continue to monitor Mild elevation in BNP, 2D Echo done 09/21/2020 showed grade 1 diastolic dysfu nction with EF 55-65%. PA 30-35mmHg. continue to monitor Hypotension, better now, started on Toprol. Monitor tolerance and response Sepsis, leukocytosis. managed by Dr. Velazquez History of COPD. Clinical Quality Measures DVT/VTE Risk/Contraindication: Risk Factor Score Per Nursin RFS Level Per Nursing on Admit: 4+=Very High PORTILLO MARROQUIN MD Oct 06, 2020 9:56 am
--- NOTE | 2020-10-06 09:57 | NUR ---
PT TRANSFERRED TO ROOM 511 VIA BED W/ STAFF/PERSONAL BELONGINGS. REPORT GIVEN TO JOEL MILLAN, NO QUESTIONS/CONCERNS VOICED.
--- NOTE | 2020-10-06 10:00 | NUR ---
PATIENT ARRIVED TO ROOM 511 AT THIS TIME, RT AT BEDSIDE TO SUCTION PATIENT AND SET UP OXYGEN. SBAR REPORT RECEIVED FROM MONTY MITCHELL. I AGREE WITH PREVIOUS RN'S ASSESSMENT AND WILL ASSUME CARE AT THIS TIME. ALL BELONGINGS IN REACH. PRN XANAX GIVEN FOR ANXIETY. WILL CONTINUE TO MONITOR.
[2020-10-06] MEDS: ALPRAZolam 0.25 MG (XANAX) TAB PEG PRN ×2 (10:16→18:11)
--- NOTE | 2020-10-06 13:57 | NUR ---
CM/SS: Pt has been Accepted to [facility], they are waiting on the authorization from [employer] insurance.
--- NOTE | 2020-10-06 13:58 | NUR ---
CM/SS: Stalin has requested a peer to peer from physician - Dr. Henderson is notified and given the information to call [facility] - [phone] option 5. Physician has until 9am tomorrow to call. He is given the pt's date of as the insurance will request the information. He will call at the end of the day for approval for pt to go to [facility].
--- NOTE | 2020-10-06 15:02 | NUR ---
provided prayer and tiny piece of Communion.
[2020-10-06] MEDS: MELATONIN 3 MG TABLET PO SCH (20:33)
[2020-10-07] VITALS: BP 110/56
[2020-10-07] MEDS: RT-ALBUTEROL SULF 2.5 MG/3 ML PRE-MIX VIAL INH SCH ×6 (01:17→21:26)
[2020-10-07 04:00] VITALS: BP 104/53
[2020-10-07 04:28] LABS: BASOPHILS % (AUTO) 0 % (0-10); EOSINOPHILS % (AUTO) 9 % (0-10); HEMATOCRIT 29 % (35-52); HEMOGLOBIN 8.8 g/dL (11.5-16.0); LYMPHOCYTES # (AUTO) 0.7 10^3/uL (1.0-4.0); LYMPHOCYTES % (AUTO) 7 % (12-44); MEAN CORPUSCULAR HEMOGLOBIN 26 pg (25-34); MEAN CORPUSCULAR HGB CONC 30 g/dL (32-36); MEAN CORPUSCULAR VOLUME 88 fL (80-99); MEAN PLATELET VOLUME 9.6 fL (9.0-12.2); MONOCYTES # (AUTO) 0.6 10^3/uL (0.0-1.0); MONOCYTES % (AUTO) 6 % (0-12); NEUTROPHILS # (AUTO) 8.4 10^3/uL (1.8-7.8); NEUTROPHILS % (AUTO) 77 % (42-75); PLATELET COUNT 468 10^3/uL (130-400); WHITE BLOOD COUNT 10.8 10^3/uL (4.3-11.0)
[2020-10-07 04:39] LABS: CHLORIDE 98 MMOL/L (98-107); SODIUM 140 MMOL/L (135-145)
[2020-10-07 04:40] LABS: CALCIUM 7.1 MG/DL (8.5-10.1)
[2020-10-07 04:41] LABS: GLUCOSE 86 MG/DL (70-105)
[2020-10-07 04:42] LABS: CARBON DIOXIDE 35 MMOL/L (21-32)
[2020-10-07 04:44] LABS: CREATININE SERUM 0.47 MG/DL (0.60-1.30); GFR ESTIMATED > 60; PHOSPHORUS 2.3 MG/DL (2.3-4.7)
[2020-10-07 04:45] LABS: BUN/CREATININE RATIO 21
[2020-10-07 04:46] LABS: MAGNESIUM 1.8 MG/DL (1.6-2.4)
[2020-10-07] MEDS: ALPRAZolam 0.25 MG (XANAX) TAB PEG PRN ×2 (04:56→12:33)
--- NOTE | 2020-10-07 05:48 | Pulmonary Progress Note ---
Subjective Time Seen by a Provider: 05:47 Subjective/Events-last exam No complications noted. Sepsis Event Evaluation Height, Weight, BMI Height: 5'2.00" Weight: 90lbs. 6.0oz. 40.255659rf; 19.43 BMI Method: Focused Exam Time of Focused Exam: 22:05 Exam Exam Vital Signs Date Time Temp Pulse Resp B/P (MAP) Pulse Ox O2 Delivery O2 Flow Rate FiO2 10/07/20 01:17 96 Trach Collar 8.00 30 10/07/20 01:00 60 10/07/20 00:00 36.4 57 20 110/56 (74) 94 Trach Collar 8.00 30.00 10/06/20 22:33 96 Trach Collar 8.00 30 10/06/20 21:00 Trach Collar 8.00 30 10/06/20 19:19 36.8 76 26 92/47 (62) 94 Trach Collar 8.00 8.00 10/06/20 19:00 74 10/06/20 17:55 96 Trach Collar 8.00 30 10/06/20 16:09 36.7 74 17 97/56 (70) 97 Trach Collar 8.00 8.00 10/06/20 16:00 67 33 97/56 (70) 94 Trach Collar 8.00 8.00 10/06/20 13:25 92 Trach Collar 8.00 30 10/06/20 12:29 93 10/06/20 12:00 36.6 79 16 96/54 (68) 97 Trach Collar 8.00 8.00 10/06/20 10:56 96 Trach Collar 8.00 40 10/06/20 08:33 93 Trach Collar 8.00 40 10/06/20 08:30 Trach Collar 8.00 40.00 10/06/20 08:30 Mechanical Ventilator 2.00 10/06/20 08:14 97 Mechanical Ventilator 2.00 10/06/20 08:00 85 14 100/47 (64) 93 Trach Collar 2.00 10/06/20 07:31 36.4 10/06/20 06:48 83 I & O 10/07/20 07:00 Intake Total 1615 ml Output Total 1125 ml Balance 490 ml Height & Weight Height: 5'2.00" Weight: 90lbs. 6.0oz. 40.243928jl; 19.43 BMI Method: General Appearance: No Apparent Distress HEENT: PERRL/EOMI, Normal ENT Inspection Neck: Supple Respiratory: Lungs Clear Cardiovascular: Regular Rate, Rhythm Capillary Refill: Less Than 3 Seconds Gastrointestinal: soft Extremity: No Pedal Edema Neurologic/Psychiatric: Alert, Oriented x3 Results Lab Laboratory Tests 10/06/20 03:29 10/07/20 04:12 Assessment/Plan Assessment/Plan Acute on chronic respiratory failure s/p tracheostomy at [facility] -Continue ventilatory care -TTube during the day -Obtain home vent and will use that. -Influenza is negative -MRSA swab pending -Pt has chronic pulmonary infiltrates Pneumonia with sepsis hx of resistent Pseudomonus -Continue Merrem -Will need total abx of 14 days -Repeat sputum culture -Continue Cuhy breathing treatments. -Richter cultures pending AFib RVR -Currently on Ammio gtt -Cardiology is consulted Anemia -Monitor Metabolic lactic acidosis -IVF -Monitor Small bilateral pleural effusions Echo shows normal EF with grade 1 diastolic dysfunction -Start Lasix daily [facility] NORAH FOUNTAIN DO Oct 07, 2020 05:48
[2020-10-07] MEDS ORDERED: DIGO125T18 PO (06:58)
[2020-10-07] MEDS ORDERED: [UNRECOGNIZED DRUG - CODE] NEB (06:58)
[2020-10-07] MEDS ORDERED: AMIO200T6 PO (06:58)
[2020-10-07] MEDS ORDERED: ALBU2.5V4 INH (06:58)
--- NOTE | 2020-10-07 07:01 | NUR ---
PT WAS INCREASED TO 40% WITH A LITER FLOW OF 10 WHEN RT CAME INTO ROOM. PT WAS DECREASED TO 30% WITH A LITER FLOW OF 8. RT MADE THE CHANGE. PT'S WATER WAS COMPLETELY OUT. PT'S TRACH CARE WAS DONE AT THIS TIME.
--- NOTE | 2020-10-07 07:03 | Discharge Inst-Skilled Nursing ---
Discharge Inst-Skilled NF Reconcile Patient Problems Problems Reviewed?: Yes Consult/Follow Up/Orders Follow Up Appt.: Dr Davenport in 1 week via Zoom. Skilled NF Admit to: [facility] (for intermediate care) Certification (SNF) I certify that ICF services are required to be given on an inpatient basis because of the above named patient's need for intermediate care on a continuing basis for the conditions(s) for which he/she was receiving inpatient hospital services prior to his/her transfer to the [facility] Facility Order: Other (trach and vent care) Oxygen Delivery Method: Trach Collar Discharge Diet: Soft Diet Daily Activity as Tolerated: Yes Resuscitation Status: Full Code New & Resume Previous Orders Rajesh Davenport Oct 07, 2020 07:00 RAJESH DAVENPORT MD Oct 07, 2020 07:03
--- NOTE | 2020-10-07 07:14 | Discharge Summary ---
Diagnosis/Chief Complaint Date of Admission Sep 30, 2020 at 22:09 Date of Discharge October 07, 2020 Discharge Date: Oct 07, 2020 Admission Diagnosis Admission Diagnosis 1. Sepsis 2. PneumoniaPseudomonas 3. Acute on chronic respiratory failure 4. Urinary tract infection Discharge Diagnosis Assess & Plan/Chief Complaint 1. Sepsis 2. PneumoniaPseudomonas 3. Acute on chronic respiratory failure 4. Urinary tract infection 5. Atrial fibrillation with rapid ventricular response 6. Anemiaexpected this is related to chronic illness Reason Hospital Visit 80-year-old female presents to emergency room via EMS after apparently respiratory failure at home. Patient was released from hospital on September 29 on ventilator support. She has a tracheostomy that was placed at [facility] in [place]. She is currently receiving meropenem twice daily for pneumonia with Pseudomonas growing from her sputum on recent hospitalization. In the ED her oxygen saturation ranging anywhere from 30-50 percent. In the emergency department she had tachycardia with irregular cardiac rhythm. Discharge Summary Hospital Course Was the Problem List Reviewed?: Yes Hospital Course 80-year-old female admitted through emergency department during the evening of September 30, 2020 with respiratory distress and hypoxemia. She had been in the hospital prior to this with Pseudomonas pneumonia. She had been receiving home health twice daily meropenem given through her IV. She was felt to be septic and was placed in ICU. Dr. Velazquez restarted patient on meropenem and provided pulmonary support. She has tracheostomy. She was admitted for full 14 days of the meropenem. She has received 7 already prior. She was felt to have acute on chronic respiratory failure. Her respiratory effort improved during the course of her stay. She received breathing treatments via respiratory therapy. Cardiology was also consulted since she had atrial fibrillation. During her hospital stay she was found to have A. fib with rapid ventricular response. Medications were ineffective on converting her to a normal cardiac rate. She ultimately underwent cardioversion with successful rate control. Also during the course of her stay she was found to have urinary tract infection but this was covered with her meropenem. Also monitored during the course of her hospital stay was anemia. She did not require any blood transfusion. Her CBC was monitored daily. Ultimately through planning she was ready for dismissal to [facility] [place] [facility]. They will provide intermediate care as she ultimately would like to go back home under care of her . Addendum: patient was not admitted to [facility]. She stayed and additional day while coordination of care made. She ultimately when home with Home health care on October 08, 2020. [facility] Labs Laboratory Tests 10/08/20 05:43: Red Blood Count 3.42L, Hemoglobin 9.0L, Hematocrit 30L, Mean Corpuscular Hemoglobin Concent 30L, Red Cell Distribution Width 16.6H, Platelet Count 487H, Neutrophils (%) (Auto) 78H, Lymphocytes (%) (Auto) 6L, Lymphocytes # (Auto) 0.6L , Eosinophils # (Auto) 0.8H, Potassium Level 3.4L, Chloride Level 92L, Carbon Dioxide Level 39H, Creatinine 0.47L, Calcium Level 7.3L Procedures cardioversioncardiology Discharge Physical Examination Allergies: Coded Allergies: budesonide (Unverified Allergy, Mild, NAUSEA, 01/06/16) PT REPORTS NAUSEA, FLUSHING AND NIGHTMARES formoterol (Unverified Allergy, Mild, NAUSEA, 01/06/16) PT REPORTS NAUSEA, FLUSHING AND NIGHTMARES Vitals & I&Os Vital Signs Date Time Temp Pulse Resp B/P (MAP) Pulse Ox O2 Delivery O2 Flow Rate FiO2 10/08/20 16:30 36.4 62 20 100/50 89 Trach Collar 8.00 10/08/20 10:39 40 General Appearance: No Acute Distress Respiratory: Clear to Auscultation Cardiovascular: Other (irregular rhythm but rate controlled) Abdominal: Soft Skin: No Rashes Neuro: Normal Speech (but limited by trach) Discharge Home Medications Reviewed and agree with Discharge Medication list on patient's Discharge I nstruction sheet Instructions to Patient/Family Please see electronic discharge instructions given to patient. Clinical Quality Measures DVT/VTE Risk/Contraindication: Risk Factor Score Per Nursin RFS Level Per Nursing on Admit: 4+=Very High RAJESH DAVENPORT MD Oct 07, 2020 07:14
[2020-10-07 07:46] VITALS: BP 105/57
--- NOTE | 2020-10-07 08:12 | Diagnostic Imaging Report ---
CHEST 1 VIEW, AP/PA ONLY Indication: Acute respiratory failure, sepsis Comparison: 10/05/2020 Findings: Stable tracheostomy tube. Multifocal heterogeneous consolidations throughout the lungs remain most confluent in the right lung base. No pneumothorax. Small bilateral pleural effusions are unchanged. Grossly stable cardiomediastinal silhouette. Impression: 1. No change in bilateral pulmonary consolidations and small pleural effusions. Dictated by: Dictated on workstation # [id number]
[2020-10-07] MEDS: DIGOXIN 0.125 MG (LANOXIN) TAB PO SCH (09:12)
[2020-10-07] MEDS: MEROPENEM 2 GM/NS 100 ML IVPB IV SCH ×4 (09:12→22:11)
[2020-10-07] MEDS: APIXABAN 2.5 MG (ELIQUIS) TABLET PO SCH ×2 (09:12→22:11)
[2020-10-07] MEDS: FUROSEMIDE 40 MG (LASIX) TAB PO SCH (09:12)
[2020-10-07] MEDS: PANTOPRAZOLE 40 MG (PROTONIX) VIAL IV SCH (09:12)
[2020-10-07] MEDS: FAMOTIDINE 20MG/2ML IV (PEPCID) IVP SCH (09:12)
[2020-10-07] MEDS: AMIODARONE 200 MG (CORDARONE) TAB PO SCH ×2 (09:12→22:11)
--- NOTE | 2020-10-07 10:18 | NUR ---
CM/SS: Peer to peer completed by Dr Henderson- Pt is denied skilled placement per [employer] based on her being at her prior level of function - baseline - Pt requires minimal care in a hospital setting.
--- NOTE | 2020-10-07 10:21 | NUR ---
Telephone call to Giancarlo - spouse - [phone] - letting him know that the insurance has denied skilled placement for pt at this time due to her being at her prior level of function - baseline. Spouse is given the information as to private pay at the facility being $172.00 to $200.00 per day. He is also given the phone number to [employer] to call if he were to request a appeal. Spouse is given the information previously recommended by Dr. Velazquez of pt would need to go to a facility or be discharged on hospice. Spouse reports he has not talked with Dr Velazquez. He does express some frustration with Dr. Velazquez and his lack of communication. He reminds this worker of the last time or time before when pt was in the hospital related to lack of communication. Spouse reports he wants to reach out to Dr Henderson. He is also asked to follow up with this worker. He reports he will follow up once he knows what plan he wants to pursue.
--- NOTE | 2020-10-07 10:29 | NUR ---
CM/SS: Telephone call from Cynthia Veronica [place] - indicating that [employer] has denied pt baed on her being at her prior level of functioning, at her baseline, and requiring minimal care in the hospital. Therefore the stay at the facility would be private pay. The cost is $172.00 to $200.00 per day approximately $5,000 per month. This worker will call and talk with spouse as to the above information.
[2020-10-07 12:14] VITALS: BP 105/58
--- NOTE | 2020-10-07 14:01 | NUR ---
provided prayer and tiny piece of Communion.
[2020-10-07] MEDS: TOBRAMYCIN (NEBCIN) 80 MG/2 ML VIAL IH SCH (14:54)
--- NOTE | 2020-10-07 15:10 | NUR ---
CM/SS: Several phone calls to spouse Giancarlo - [phone] - about the pt not being approved by [facility] for the skilled stay. Spouse reports he will talk with Dr. Henderson about pt being able to come home with home care. Giancarlo reports he called and he is ok for him to take the pt home on tomorrow with home care services.
[2020-10-07] MEDS: HYDROcodone/APAP 5 MG/325 MG (LORTAB) TAB PO PRN ×2 (15:17→22:12)
--- NOTE | 2020-10-07 15:18 | NUR ---
CM/SS: Visited with pt as to the plan for discharge and her going home with home care and not going to [facility] alf. Pt is reminded that they may need to hire some private caregivers to assist in her care. Pt shakes her head and verbalizes understanding. Pt thanks this worker for her help.
[2020-10-07 16:00] VITALS: BP 108/54
[2020-10-07 20:00] VITALS: BP 103/58
[2020-10-07] MEDS: MELATONIN 3 MG TABLET PO SCH (22:10)
[2020-10-08 00:01] VITALS: BP 98/48
[2020-10-08] MEDS: RT-ALBUTEROL SULF 2.5 MG/3 ML PRE-MIX VIAL INH SCH ×3 (02:46→10:38)
[2020-10-08] MEDS: ALPRAZolam 0.25 MG (XANAX) TAB PEG PRN (03:56)
[2020-10-08 04:57] VITALS: BP 108/54
[2020-10-08 06:31] LABS: BASOPHILS % (AUTO) 0 % (0-10); EOSINOPHILS # (AUTO) 0.8 10^3/uL (0.0-0.3); EOSINOPHILS % (AUTO) 9 % (0-10); HEMATOCRIT 30 % (35-52); LYMPHOCYTES # (AUTO) 0.6 10^3/uL (1.0-4.0); LYMPHOCYTES % (AUTO) 6 % (12-44); MEAN CORPUSCULAR HEMOGLOBIN 26 pg (25-34); MEAN CORPUSCULAR HGB CONC 30 g/dL (32-36); MEAN CORPUSCULAR VOLUME 89 fL (80-99); MEAN PLATELET VOLUME 9.8 fL (9.0-12.2); MONOCYTES # (AUTO) 0.6 10^3/uL (0.0-1.0); MONOCYTES % (AUTO) 7 % (0-12); NEUTROPHILS # (AUTO) 7.5 10^3/uL (1.8-7.8); NEUTROPHILS % (AUTO) 78 % (42-75); PLATELET COUNT 487 10^3/uL (130-400); WHITE BLOOD COUNT 9.5 10^3/uL (4.3-11.0)
[2020-10-08 06:40] LABS: CHLORIDE 92 MMOL/L (98-107); POTASSIUM 3.4 MMOL/L (3.6-5.0); SODIUM 136 MMOL/L (135-145)
[2020-10-08 06:41] LABS: CALCIUM 7.3 MG/DL (8.5-10.1)
[2020-10-08 06:42] LABS: GLUCOSE 92 MG/DL (70-105)
[2020-10-08 06:43] LABS: CARBON DIOXIDE 39 MMOL/L (21-32)
[2020-10-08 06:45] LABS: PHOSPHORUS 2.5 MG/DL (2.3-4.7)
[2020-10-08 06:46] LABS: CREATININE SERUM 0.47 MG/DL (0.60-1.30); GFR ESTIMATED > 60
--- NOTE | 2020-10-08 06:46 | Progress Note ---
Subjective Date Seen by a Provider: Oct 08, 2020 Time Seen by a Provider: 07:00 Subjective/Events-last exam Rayna is resting comfortably. We are awaiting placement whether a long-term care facility or at home with home care. Focused Exam Time of Focused Exam: 22:05 Objective Exam Vital Signs Date Time Temp Pulse Resp B/P (MAP) Pulse Ox O2 Delivery O2 Flow Rate FiO2 10/08/20 04:57 36.3 59 18 108/54 (72) 93 Trach Collar 9.00 10/08/20 02:48 Trach Collar 8.00 30 10/08/20 00:01 36.2 67 18 98/48 (65) 95 Trach Collar 9.00 10/07/20 21:53 Trach Collar 8.00 30 10/07/20 20:40 Trach Collar 8.00 30 10/07/20 20:00 36.2 72 18 103/58 (73) 98 Trach Collar 9.00 10/07/20 16:00 70 28 108/54 (72) 96 Trach Collar 8.00 30.00 10/07/20 14:54 95 Trach Collar 8.00 30 10/07/20 12:14 36.6 75 20 105/58 (74) 90 Trach Collar 8.00 30.00 10/07/20 10:49 90 Trach Collar 8.00 30 10/07/20 09:00 Trach Collar 8.00 30 10/07/20 07:46 37.0 64 20 105/57 (73) 97 Trach Collar 10/07/20 07:19 57 10/07/20 06:57 100 Trach Collar 8.00 30 I & O 10/08/20 07:00 Intake Total 760 ml Output Total 1775 ml Balance -1015 ml Capillary Refill : Less Than 3 Seconds General Appearance: No Apparent Distress Respiratory: Lungs Clear Cardiovascular: Other (rate controlled) Gastrointestinal: soft Results Lab Laboratory Tests 10/08/20 05:43: White Blood Count 9.5, Red Blood Count 3.42L, Hemoglobin 9.0L, Hematocrit 30L, Mean Corpuscular Volume 89, Mean Corpuscular Hemoglobin 26, Mean Corpuscular Hemoglobin Concent 30L, Red Cell Distribution Width 16.6H, Platelet Count 487H, Mean Platelet Volume 9.8, Immature Granulocyte % (Auto) 0, Neutrophils (%) (Auto) 78H, Lymphocytes (%) (Auto) 6L, Monocytes (%) (Auto) 7, Eosinophils (%) (Auto) 9, Basophils (%) (Auto) 0, Neutrophils # (Auto) 7.5, Lymphocytes # (Auto) 0.6L, Monocytes # (Auto) 0.6, Eosinophils # (Auto) 0.8H, Basophils # (Auto) 0.0, Immature Granulocyte # (Auto) 0.0, Sodium Level 136, Potassium Level 3.4L, Chloride Level 92L, Anion Gap 5, Glucose Level 92, Calcium Level 7.3L Microbiology 10/06/20 Gram Stain - Final, Resulted 10/06/20 Sputum Culture - Preliminary, Resulted YEAST 09/30/20 Blood Culture - Final, Complete Staph, Coag Neg (MOLECULAR MODELER) 09/30/20 Urine Culture - Final, Complete YEAST Assessment/Plan Assessment/Plan Assess & Plan/Chief Complaint 1. Sepsis -IV fluids initiated -Monitor CBC daily -Dr. Velazquez in consultation and his expertise appreciated 10/02 -white blood cell count has improved to 7.7 10/06 -white blood cell count 13.7 today -I understand sputum culture has been ordered 2. PneumoniaPseudomonas -ED initiated tobramycin -Also placed on meropenem 10/02 -meropenem continues 10/04 -she'll receive a full 14 days before dismissed 10/05 -approaching the last few days of meropenem 10/06 -pharmacy to check on the number of days meropenem 10/08 -Awaiting placement 3. Acute on chronic respiratory failure -[facility] to help sort out her home ventilator issues. 10/02 -social work administrator continuing to work on placement once discharged 10/03 -we'll need to work out details on placement. environmental services manager continuing to check 4. Urinary tract infection -Await urine culture -Currently has antibiotic coverage 5. Atrial fibrillation with rapid ventricular response -Cardiology managing -She is on Eliquis an metoprolol has been added on during the course of her stay 10/05 -discussion of cardioversion. Cardiology following and will make the final decision 10/06 -cardioversion yesterday converted her to normal rate. Her rate this morning 77 6. Anemiaexpected this is related to chronic illness -Hemoglobin will be rechecked in the morning 10/05 -hemoglobin improved to 9.9 this morning Clinical Quality Measures Admission Status Admission Dx 1. Sepsis 2. PneumoniaPseudomonas 3. Acute on chronic respiratory failure 4. Urinary tract infection DVT/VTE Risk/Contraindication: Risk Factor Score Per Nursin RFS Level Per Nursing on Admit: 4+=Very High RAJESH DAVENPORT MD Oct 08, 2020 06:46
[2020-10-08 06:47] LABS: BUN/CREATININE RATIO 23
[2020-10-08 06:48] LABS: MAGNESIUM 1.7 MG/DL (1.6-2.4)
[2020-10-08 07:27] VITALS: BP 100/50
[2020-10-08] MEDS: PANTOPRAZOLE 40 MG (PROTONIX) VIAL IV SCH (08:04)
[2020-10-08] MEDS: FAMOTIDINE 20MG/2ML IV (PEPCID) IVP SCH (08:04)
[2020-10-08] MEDS: DIGOXIN 0.125 MG (LANOXIN) TAB PO SCH (08:04)
[2020-10-08] MEDS: FUROSEMIDE 40 MG (LASIX) TAB PO SCH (08:04)
[2020-10-08] MEDS: MEROPENEM 2 GM/NS 100 ML IVPB IV SCH ×2 (08:04)
[2020-10-08] MEDS: APIXABAN 2.5 MG (ELIQUIS) TABLET PO SCH (08:05)
[2020-10-08] MEDS: AMIODARONE 200 MG (CORDARONE) TAB PO SCH (08:05)
[2020-10-08] MEDS: HYDROcodone/APAP 5 MG/325 MG (LORTAB) TAB PO PRN ×2 (08:06→14:59)
--- NOTE | 2020-10-08 10:18 | D/C HH Face to Face Order ---
D/C Face to Face Orders Reconcile Patient Problems Problems Reviewed?: Yes Instructions for Patient Via [employer], Patient Instructions/FollowUp: Dr Davenport 1week. suspect will arrange a Zoom meeting Physician to follow Patient: Yes Discharge Diet for Home: Soft Diet Patient Data-Allergies,Ht & Wt Patient Allergies: Coded Allergies: budesonide (Unverified Allergy, Mild, NAUSEA, 01/06/16) PT REPORTS NAUSEA, FLUSHING AND NIGHTMARES formoterol (Unverified Allergy, Mild, NAUSEA, 01/06/16) PT REPORTS NAUSEA, FLUSHING AND NIGHTMARES Height (Feet): 5 Height (Inches): 2.00 Weight (Pounds): 90 Weight (Ounces): 6.0 Home Health Need/Face to Face Date of Face to Face: Oct 08, 2020 Clinical Findings: Other-list in note (ventilator and trach) I have seen Pt [id number]: Yes Discharged To: Home Diagnosis/Conditions: Pseudomonas pneumonia--treated, COPD Patient is Homebound due to: Muscle weakness, Shortness of breath/distress Homebound Status Due to the above stated illness, injury or surgical procedure (medical condition or diagnosis) and associated clinical findings, the patient is homebound because of his/her inability to leave home except with aid of a supportive device and/or person AND leaving the home requires a considerable and taxing effort or is medically contraindicated. Pt req the following assistanc: Aid of another person Home Health Nursing Orders Home Health Services Order: Nursing Services, Professor Of Archaeology-Evaluate & Treat, Physical Therapy-Evaluate & Treat Home Health Infusion Therapy Line Start Date: Sep 30, 2020 Certify Stmt I certify that this patient is under my care and that I, a nurse practitioner or a physician; a metal forger's assistant working with me, had a face to face encounter that - meets the physician face to face encounter requirements with this patient as dated. RAJESH DAVENPORT MD Oct 08, 2020 10:17
--- NOTE | 2020-10-08 14:23 | NUR ---
"RD ASSESSMENT PMHx: hypercholesterolemia; HTN; dementia; chronic UTI; PT INTERACTION: Pt was awake and pleasant during nutrition follow-up. Pt states current appetite is good. Note avg PO intake 56% x4d, per chart review. Pt states no issues with nausea, vomiting, or diarrhea since last assessment. Pt states some issues with constipation. Note no BM has been recorded, and pt not currently on bowel regimen per chart review. Pt states no current issues with chewing/swallowing food. ABNORMAL NUTRITION-RELATED LAB VALUES LOW: K 3.4; Cl 92; cr 0.47; Ca 7.3; HIGH: Est. kcal needs: 7536-9281 kcal | 30-35 kcal/kg Est. Pro needs: 49-57 g Pro | 1.2-1.4 g Pro/kg PES STATEMENT: Inadequate oral intake (NI-2.1) related to constipation as evidenced by pt interview and avg PO intake 56% x4d. INTERVENTION: Note pt currently on Clear Liquid diet. Would recommend swallow evaluation for diet advancement. Pt states no issues with chewing/swallowing food. Note pt currently has PEG tube placed. Would recommend initiation of enteral nutrition to meet nutritional needs. Would recommend Jevity 1.5 at 15ml/hr with flushes of 25ml water q4h. Will continue to follow and reassess as pt needs, intake, and status change. Deepak Mejia, MS RD LD"
--- NOTE | 2020-10-08 15:25 | NUR ---
CM/SS: Visit with pt as to plan for discharge Plan: Pt will return home with [place] at home, home care services resumed Summary: Pt is dressed and has her hair combed and in bed at the time of the visit. She is eager to go home and is reminded of the plan to leave today with [place] at home. She is also reminded that Peter, spouse has been reminded about hiring someone to assist pt in her cares. Pt shakes her head as to that being a good idea. Pt is reminded about being suctioned every so often and being able to remain at home. Pt is reminded that she will go home non emergent EMS. Pt is wished well and thanked this worker for her help.
--- NOTE | 2020-10-08 15:46 | NUR ---
CM/SS: Spouse Giancarlo is here to drop off clothing for pt. He is given the list of Caregivers and private care agencies and educated that he needed to reach out to them - it would be out of pocket cost and it was a good idea to get some help in the home. Spouse verbalizes understanding. He is aware that pt will be going non emergent EMS for the transfer. Pt thanks this worker her help. Spouse is wished well.
[2020-10-08 16:30] VITALS: BP 100/50
== END 2020-10-08 16:30 | disposition home health service (06) | DRG 870 ==
LOC: EDUNIT# 20:05 → ER 20:06 → ICU 22:09 → CSD 10-06 09:58 → 4TH 10-07 18:06
PROVIDERS: ADMIT Family Medicine; ATTEND Family Medicine
PROC: 5A1955Z Respiratory Ventilation, Greater than 96 Consecutive Hours (ICD-10-PCS; principal; 2020-09-30)
PROC: 5A2204Z Restoration of Cardiac Rhythm, Single (ICD-10-PCS; 2020-10-05)
DX: A41.9 Sepsis, unspecified organism (principal); J96.21 Acute and chronic respiratory failure with hypoxia; J15.1 Pneumonia due to Pseudomonas; E87.2 Acidosis; J90 Pleural effusion, not elsewhere classified; N39.0 Urinary tract infection, site not specified; J44.0 Chronic obstructive pulmonary disease with (acute) lower respiratory infection; I48.0 Paroxysmal atrial fibrillation; Z20.828 Contact with and (suspected) exposure to other viral communicable diseases; Z93.0 Tracheostomy status; F03.90 Unspecified dementia, unspecified severity, without behavioral disturbance, psychotic disturbance, mood disturbance, and anxiety; M19.91 Primary osteoarthritis, unspecified site; I49.1 Atrial premature depolarization; I10 Essential (primary) hypertension; I95.9 Hypotension, unspecified; D63.8 Anemia in other chronic diseases classified elsewhere
CPT/HCPCS: 36415; 36600; 71045; 80048; 80053; 80061; 81000; 82533; 82805; 82962; 83605; 83615; 83735; 83874; 83880; 84100; 84145; 84484; 85007; 85025; 85027; 85610; 85730; 86141; 87040; 87070; 87088; 87205; 87635; 87804; 93005; 93041; 94002; 94003; 94640; 94799; 96361; 96365; 96375

== ENCOUNTER 2020-10-10 19:15 | Emergency (ER) | payer MEDICARE ==
[~2020-10-10] VITALS: Ht 165.1 cm; Wt 31.7 kg
[~2020-10-10 19:15] MED LIST changes: +ALBU2.5V4 INH; +AMIO200T6 PO; +DIGO125T18 PO
--- NOTE | 2020-10-10 19:44 | ED Respiratory ---
General Chief Complaint: Catheter/Drain/Tube Problems Stated Complaint: TRACH OUT Nursing Triage Note: accidentally dislodged trach at home. arrives via ems to room 5. patient s alert and oriented, non verbal at this time. answers yes and no questions with nodding and shaking of head. Source: patient, EMS Exam Limitations: no limitations History of Present Illness Date Seen by Provider: Oct 10, 2020 Time Seen by Provider: 19:41 Initial Comments To ER by EMS from home with reports that her tracheostomy tube has come out. She wears a size 6 Shiley tracheostomy tube. This came out this evening. She is occasionally on the ventilator at home otherwise has been feeling well without systemic complaints. Timing/Duration: this evening Severity: mild Associated Symptoms: denies symptoms Allergies and Home Medications Allergies Coded Allergies: budesonide (Unverified Allergy, Mild, NAUSEA, 01/06/16) PT REPORTS NAUSEA, FLUSHING AND NIGHTMARES formoterol (Unverified Allergy, Mild, NAUSEA, 01/06/16) PT REPORTS NAUSEA, FLUSHING AND NIGHTMARES Home Medications ALPRAZolam 0.25 Mg Tablet, 0.25 MG Q6H PRN for ANXIETY/SLEEP, (Reported) Acetaminophen 650 Mg/20.3 Ml Oral.susp, 650 MG PO Q6H PRN for PAIN-MILD (1-4) OR TEMPATURE, (Reported) Acetylcysteine 200 Mg/1 Ml Vial, 3 ML NEB QID Prescribed by: RAJESH DAVENPORT on 10/07/20657 Albuterol Sulfate 2.5 Mg/3 Ml Vial.neb, 2.5 MG INH RTQ4HR Prescribed by: RAJESH DAVENPORT on 10/07/20657 Amiodarone HCl 200 Mg Tablet, 400 MG PO BID Prescribed by: RAJESH DAVENPORT on 10/07/20657 Apixaban 5 Mg Tablet, 5 MG BID, (Reported) Cholecalciferol (Vitamin D3) 25 Mcg Capsule, 100 MCG DAILY, (Reported) TAKES 4 (25MCG) TABS Digoxin 125 Mcg Tablet, 0.125 MG PO DAILY Prescribed by: RAJESH DAVENPORT on 10/07/20657 Furosemide 20 Mg Tablet, 20 MG DAILY, (Reported) Hydrocodone/Acetaminophen 1 Each Tablet, 1 EA BID PRN for PAIN-SEVERE (8-10), (R eported) Ipratropium/Albuterol Sulfate 3 Ml Ampul.neb, 3 ML NEB BID, (Reported) Levothyroxine Sodium 75 Mcg Tablet, 75 MCG DAILY, (Reported) Melatonin 3 Mg Tablet, 3 MG PO HS PRN for SLEEP, (Reported) Pantoprazole Sodium 40 Mg Tablet.dr, 40 MG DAILY, (Reported) Potassium Chloride 10 Meq Tab.er.prt, 10 MEQ DAILY, (Reported) Sennosides/Docusate Sodium 1 Each Tablet, 2 EACH HS, (Reported) Sertraline HCl 50 Mg Tablet, 50 MG DAILY, (Reported) Patient Home Medication List Home Medication List Reviewed: Yes Review of Systems Review of Systems Constitutional: see HPI EENTM: see HPI Respiratory: no symptoms reported Cardiovascular: no symptoms reported Genitourinary: no symptoms reported Musculoskeletal: no symptoms reported Skin: no symptoms reported Psychiatric/Neurological: No Symptoms Reported Hematologic/Lymphatic: No Symptoms Reported Immunological/Allergic: no symptoms reported Past Smsmrda-Cwciro-Mafpdy Hx Patient Social History Alcohol Use: Denies Use Recreational Drug Use: No 2nd Hand Smoke Exposure: No Recent Foreign Travel: No Contact w/Someone Who Travel: No Recent Infectious Disease Expo: No Recent Hopitalizations: Yes Physical Abuse: No Sexual Abuse: No Mistreated: No Fear: No Immunizations Up To Date Date of Pneumonia Vaccine: Aug 21, 2014 Date of Influenza Vaccine: Aug 21, 2015 Past Medical History Surgeries: Yes ( HERNIA REPAIR; FEEDING TUBE ; BILATERAL CATARACTS) Abdominal, Eye Surgery, Tracheostomy Respiratory: Yes (COPD; TRACH PLACED 05/2020; PULMONARY EDEMA) Pneumonia, COPD Cardiac: Yes Atrial Fibrillation, Hypertension Neurological: No Dementia Reproductive Disorders: No Genitourinary: Yes UTI-Chronic Gastrointestinal: Yes (FEEDING TUBE IN PLACE 05/2020) Musculoskeletal: Yes Arthritis Endocrine: No HEENT: Yes Cataract Cancer: No Psychosocial: No Integumentary: No Blood Disorders: No Adverse Reaction/Blood Tranf: No (BLOOD TRANSFUSION AFTER CHILDBIRTH) Family Medical History Cardiovascular disease G8 BROTHER Congenital heart disease G8 BROTHER FH: cancer G8 SISTER (UTERINE) Glaucoma 19 MOTHER Hypertension G8 SISTER Respiratory disorder 19 FATHER No Pertinent Family Hx Physical Exam Vital Signs - First Documented 10/10/20 10/10/20 19:17 19:50 Temp 36.0 Pulse 98 Resp 20 B/P (MAP) 142/75 (97) Pulse Ox 94 O2 Delivery Non Rebreather O2 Flow Rate 15.00 FiO2 50 Capillary Refill : Less Than 3 Seconds Height: 5'2.00" Weight: 90lbs. 6.0oz. 40.686020nt; 11.00 BMI Method: General Appearance: WD/WN, no apparent distress Eyes: Bilateral Eye Normal Inspection, Bilateral Eye PERRL, Bilateral Eye EOMI Neck: non-tender, full range of motion Respiratory: no respiratory distress, no accessory muscle use, other (No respiratory distress. The tracheostomy tube is all the way out. We were able to fit a size 4 Shiley tracheostomy tube back in through the stoma. Size 5 is not available, unable to fit size 6 back in.) Gastrointestinal: normal bowel sounds, non tender, soft Extremities: normal range of motion, non-tender Neurologic/Psychiatric: alert, normal mood/affect, oriented x 3 Skin: normal color, warm/dry Procedures/Interventions Date of ETT Placement: Sep 23, 2020 Progress/Results/Core Measures Suspected Sepsis Recent Fever Within 48 Hours: No Infection Criteria Present: None New/Unexplained Altered Menta: No Sepsis Screen: No Definite Risk SIRS Temperature: Pulse: 98 Respiratory Rate: 20 Blood Pressure 142 /75 Mean: 97 Results/Orders Vital Signs/I&O 10/10/20 10/10/20 10/10/20 19:17 19:50 20:30 Temp 36.0 36.0 Pulse 98 98 Resp 20 20 B/P (MAP) 142/75 (97) 142/75 (97) Pulse Ox 94 92 92 O2 Delivery Non Rebreather Trach Collar Trach Collar O2 Flow Rate 15.00 15.00 FiO2 50 Capillary Refill : Less Than 3 Seconds Blood Pressure Mean: 97 Departure Impression Primary Impression: Encounter for tracheostomy tube change Disposition: HOME, SELF-CARE Condition: Stable Departure-Patient Inst. Decision time for Depature: 19:44 Referrals: RAJESH DAVENPORT MD (PCP/Family) Primary Care Physician Patient Instructions: How to Care for a Tracheostomy Add. Discharge Instructions: 1. Follow-up with Dr. Davenport next week. Return to ER for any concerns. All discharge instructions reviewed with patient and/or family. Voiced understanding. MATTHEW RAMIREZ FULLING MILL OPERATOR Oct 10, 2020 19:44
--- NOTE | 2020-10-10 19:47 | NUR ---
Pt arrives by EMS with her trach out. Pt has a 6.0 Shiley and it came out approx 20minutes prior to arrival. Pt is 100% on NRM. Pt appears to be in no distress at this time. Rosalino Emanuel in room with RT and attempt made to reinsert new 6.0 without success. 4.0 inserted with success. Pt tolerated well. Pt maintaining sp02 at 94% on 15lpm blow by. Attempted to reinsert the 6.0 again was unsuccessful. RT at bedside and pt was suctioned multiple times. Pt is A&Ox4 with no current complaints.
--- NOTE | 2020-10-10 20:28 | NUR ---
EMS here for patient; care assumed by EMS and pt d/c at this time.
[2020-10-10 20:30] VITALS: BP 142/75
== END 2020-10-10 20:31 | disposition home or self-care (01) ==
LOC: EDUNIT# 19:15 → ER 19:16
DX: Z43.0 Encounter for attention to tracheostomy (principal); I48.91 Unspecified atrial fibrillation; J44.9 Chronic obstructive pulmonary disease, unspecified; Z20.828 Contact with and (suspected) exposure to other viral communicable diseases; Z82.49 Family history of ischemic heart disease and other diseases of the circulatory system; Z80.49 Family history of malignant neoplasm of other genital organs; Z88.8 Allergy status to other drugs, medicaments and biological substances; Z79.01 Long term (current) use of anticoagulants
CPT/HCPCS: 99283

== ENCOUNTER 2020-10-22 13:09 | Emergency (ER) | payer MEDICARE ==
[~2020-10-22] VITALS: Ht 154 cm; Wt 39.4 kg
[~2020-10-22 13:09] MED LIST changes: -ACET200V4 NEB; -ACET650T41 PO; -CEFU250T80 PO; -DIGO125T3 PO; -MELA3TAB39 PEG; +MELA3TAB39 PO; +PANT40TA52; -PANT40TA52 PEG; -PROPOFOL DRIP (ICU) 100 ML IV ONE; +SENN-109; -SENN-109 PEG; +SERT50TA9; -SERT50TA9 PEG
--- NOTE | 2020-10-22 13:31 | NUR ---
PT ARRIVED AT 1239 TO ER BY [facility]. INITIALLY HAD INCORRECT PATIENT THIS PATIENT SO TIMES ARE NOW CHARTED AT 1309.
--- NOTE | 2020-10-22 13:44 | ED Respiratory ---
General Chief Complaint: Respiratory Problems Stated Complaint: HYPOXIA Nursing Triage Note: PT ARRIVES TO THE ER BY [facility] WITH C/O RESPIRATORY DISTRESS BY HOME HEALTH STAFF. STAFF WAS AT HER HOUSE TO HELP SET UP HER HOME VENT AND SAID SHE WAS "AIR HUNGRY" PT RECEIVED 50 OF FENTANYL AND 5 OF VERSED IN ROUTE BY EMS. Source: EMS Exam Limitations: clinical condition History of Present Illness Date Seen by Provider: Oct 22, 2020 Time Seen by Provider: 13:10 Initial Comments Patient is an 80-year-old female who presents to the emergency department from home today after her home health staff called EMS for respiratory distress. Patient has a longstanding tracheotomy with intermittent ventilator use at night when she sleeps. Reportedly that the nursing staff said that she had lots of sputum that was blood-tinged at home today. EMS reports that they did suction out some pink-tinged sputum. Patient was given 5 of Versed and 50 mcg of fenta nyl prior to arrival for her "air hunger". The patient did not report any chest pain apparently to EMS. No abdominal pain. And unfortunately at the time of the patient's arrival she is so sedated she is unable to answer questions. She does grimace to painful stimuli and appeared to localize painful stimuli but is currently on the ventilator. Review of systems is unable to be obtained as the patient is so sedated. Timing/Duration: just prior to arrival Prior Episodes/Possible Cause: frequent episodes Modifying Factors: Improves With Albuterol Inhaler Allergies and Home Medications Allergies Coded Allergies: budesonide (Unverified Allergy, Mild, NAUSEA, 01/06/16) PT REPORTS NAUSEA, FLUSHING AND NIGHTMARES formoterol (Unverified Allergy, Mild, NAUSEA, 01/06/16) PT REPORTS NAUSEA, FLUSHING AND NIGHTMARES Home Medications ALPRAZolam 0.25 Mg Tablet, 0.25 MG Q6H PRN for ANXIETY/SLEEP, (Reported) Acetaminophen 650 Mg/20.3 Ml Oral.susp, 650 MG PO Q6H PRN for PAIN-MILD (1-4) OR TEMPATURE, (Reported) Acetylcysteine 200 Mg/1 Ml Vial, 3 ML NEB QID Prescribed by: RAJESH DAVENPORT on 10/07/20 0658 Albuterol Sulfate 2.5 Mg/3 Ml Vial.neb, 2.5 MG INH RTQ4HR Prescribed by: RAJESH DAVENPORT on 10/07/20657 Amiodarone HCl 200 Mg Tablet, 400 MG PO BID Prescribed by: RAJESH DAVENPORT on 10/07/20657 Apixaban 5 Mg Tablet, 5 MG BID, (Reported) Cholecalciferol (Vitamin D3) 25 Mcg Capsule, 100 MCG DAILY, (Reported) TAKES 4 (25MCG) TABS Digoxin 125 Mcg Tablet, 0.125 MG PO DAILY Prescribed by: RAJESH DAVENPORT on 10/07/20657 Furosemide 20 Mg Tablet, 20 MG DAILY, (Reported) Hydrocodone/Acetaminophen 1 Each Tablet, 1 EA BID PRN for PAIN-SEVERE (8-10), (Reported) Ipratropium/Albuterol Sulfate 3 Ml Ampul.neb, 3 ML NEB BID, (Reported) Levothyroxine Sodium 75 Mcg Tablet, 75 MCG DAILY, (Reported) Melatonin 3 Mg Tablet, 3 MG PO HS PRN for SLEEP, (Reported) Pantoprazole Sodium 40 Mg Tablet.dr, 40 MG DAILY, (Reported) Potassium Chloride 10 Meq Tab.er.prt, 10 MEQ DAILY, (Reported) Sennosides/Docusate Sodium 1 Each Tablet, 2 EACH HS, (Reported) Sertraline HCl 50 Mg Tablet, 50 MG DAILY, (Reported) Patient Home Medication List Home Medication List Reviewed: Yes Review of Systems Review of Systems Constitutional: no symptoms reported I am unable to obtain a review of systems from this patient secondary to her level of sedation Past Fkmvldb-Jekiqb-Uvprbs Hx Patient Social History Alcohol Use: Denies Use Recreational Drug Use: No 2nd Hand Smoke Exposure: No Recent Foreign Travel: No Contact w/Someone Who Travel: No Recent Infectious Disease Expo: No Recent Hopitalizations: Yes Immunizations Up To Date Date of Pneumonia Vaccine: Aug 21, 2014 Date of Influenza Vaccine: Aug 21, 2015 Past Medical History Surgeries: Yes ( HERNIA REPAIR; FEEDING TUBE ; BILATERAL CATARACTS) Abdominal, Eye Surgery, Tracheostomy Respiratory: Yes (COPD; TRACH PLACED 05/2020; PULMONARY EDEMA) Pneumonia, COPD Cardiac: Yes Atrial Fibrillation, Hypertension Neurological: No Dementia Reproductive Disorders: No Genitourinary: Yes UTI-Chronic Gastrointestinal: Yes (FEEDING TUBE IN PLACE 05/2020) Musculoskeletal: Yes Arthritis Endocrine: No HEENT: Yes Cataract Cancer: No Psychosocial: No Integumentary: No Blood Disorders: No Adverse Reaction/Blood Tranf: No (BLOOD TRANSFUSION AFTER CHILDBIRTH) Family Medical History Cardiovascular disease G8 BROTHER Congenital heart disease G8 BROTHER FH: cancer G8 SISTER (UTERINE) Glaucoma 19 MOTHER Hypertension G8 SISTER Respiratory disorder 19 FATHER No Pertinent Family Hx Physical Exam Vital Signs - First Documented 10/22/20 10/22/20 13:09 14:54 Temp 35.6 Pulse 52 Resp 27 B/P (MAP) 118/62 (80) Pulse Ox 100 O2 Delivery Trach Collar FiO2 60 Capillary Refill : Less Than 3 Seconds Height: 5'2.00" Weight: 90lbs. 6.0oz. 40.621108aw; 16.00 BMI Method: General Appearance: no apparent distress, cachetic, thin Eyes: Bilateral Eye PERRL Neck: other (Patient has tracheostomy tube in place currently connected to the ventilator) Respiratory: lungs clear, normal breath sounds, no respiratory distress, no accessory muscle use Cardiovascular: regular rate, rhythm Gastrointestinal: soft Neurologic/Psychiatric: other (Patient is currently sedated with Versed and fentanyl) Skin: normal color, warm/dry Procedures/Interventions Date of ETT Placement: Sep 23, 2020 Progress/Results/Core Measures Suspected Sepsis Recent Fever Within 48 Hours: No Infection Criteria Present: None New/Unexplained Altered Menta: No Sepsis Screen: No Definite Risk SIRS Temperature: Pulse: 52 Respiratory Rate: 27 Laboratory Tests 10/22/20 12:55: White Blood Count 9.0 Blood Pressure 118 /62 Mean: 80 Laboratory Tests 10/22/20 12:55: Creatinine 0.56L, Platelet Count 486H Results/Orders Lab Results Laboratory Tests Test 10/22/20 12:55 10/22/20 13:00 10/22/20 14:19 Range/Units White Blood Count 9.0 4.3-11.0 10^3/uL Red Blood Count 3.92 L 4.35-5.85 10^6/uL Hemoglobin 10.2 L 11.5-16.0 G/DL Hematocrit 35 35-52 % Mean Corpuscular Volume 88 80-99 FL Mean Corpuscular Hemoglobin 26 25-34 PG Mean Corpuscular Hemoglobin Concent 30 L 32-36 G/DL Red Cell Distribution Width 17.0 H 10.0-14.5 % Platelet Count 486 H 130-400 10^3/uL Mean Platelet Volume 9.7 7.4-10.4 FL Immature Granulocyte % (Auto) 0 % Neutrophils (%) (Auto) 86 H 42-75 % Lymphocytes (%) (Auto) 5 L 12-44 % Monocytes (%) (Auto) 5 0-12 % Eosinophils (%) (Auto) 4 0-10 % Basophils (%) (Auto) 0 0-10 % Neutrophils # (Auto) 7.7 1.8-7.8 X 10^3 Lymphocytes # (Auto) 0.4 L 1.0-4.0 X 10^3 Monocytes # (Auto) 0.4 0.0-1.0 X 10^3 Eosinophils # (Auto) 0.3 0.0-0.3 10^3/uL Basophils # (Auto) 0.0 0.0-0.1 10^3/uL Immature Granulocyte # (Auto) 0.0 0.0-0.1 10^3/uL Neutrophils % (Manual) 85 % Lymphocytes % (Manual) 5 % Monocytes % (Manual) 3 % Eosinophils % (Manual) 3 % Basophils % (Manual) 1 % Band Neutrophils 3 % Hypochromasia SLIGHT Anisocytosis SLIGHT Sodium Level 141 135-145 MMOL/L Potassium Level 3.2 L 3.6-5.0 MMOL/L Chloride Level 94 L 98-107 MMOL/L Carbon Dioxide Level 37 H 21-32 MMOL/L Anion Gap 10 5-14 MMOL/L Blood Urea Nitrogen 12 7-18 MG/DL Creatinine 0.56 L 0.60-1.30 MG/DL Estimat Glomerular Filtration Rate > 60 BUN/Creatinine Ratio 21 Glucose Level 132 H 70-105 MG/DL Calcium Level 7.9 L 8.5-10.1 MG/DL Coronavirus 2018 (EMILY) Negative Negative My Orders Orders - ALMA MILIAN MD Cbc With Automated Diff (10/22/20 13:38) Basic Metabolic Panel (10/22/20 13:38) Arterial Blood Gas (10/22/20 13:38) Covid 19 Inhouse Test (10/22/20 13:38) Chest 1 View, Ap/Pa Only (10/22/20 13:38) Manual Differential (10/22/20 12:55) Vital Signs/I&O 10/22/20 10/22/20 13:09 14:54 Temp 35.6 Pulse 52 Resp 27 B/P (MAP) 118/62 (80) Pulse Ox 100 O2 Delivery Trach Collar FiO2 60 Capillary Refill : Less Than 3 Seconds Blood Pressure Mean: 80 Progress Note : Time: 13:43 Progress Note 80-year-old female presents by EMS after an episode of respiratory distress at home. Patient was placed on the ventilator with maximal assist after being sedated with 5 of Versed and 50 mcg of fentanyl. The patient is unable to prov narinder history currently secondary to her level of sedation. I have uncertain as to the extent to the level of other symptomatology that the patient may have been experiencing prior to her level of sedation. At this time the patient will likely be admitted observation until her medications have worn off. 1548 Patient is quite awake alert and oriented at this time. She denies any c omplaints whatsoever and states that she feels so much better. Patient states that she did have some hemoptysis earlier today coughing up "3 blood clots". But she believes however that this is due to her deep suctioning her. Patient has no complaints of fevers, chills other productive cough. No GI or symptoms. No sore throat, runny nose or congestion. She is tolerating the ventilator very well. Basic laboratory studies have been reviewed and are all within normal limits. Patient's chest x-ray is unchanged from previous, the patient continues to have consolidation in the right lower lobe as well as bilateral consolidating pleural effusions. These have been stable chest x-ray findings for many weeks. I have discussed the plan of care with the patient which includes going home and resuming prior level of care. She is comfortable with the plan of care she verbalizes understanding, all questions are sought and answered and she is stable for discharge to home. Patient will be transferred back to home by ambulance. Diagnostic Imaging Diagonstic Imaging: Xray Plain Films/CT/US/NM/MRI: chest Comments [facility], [place] NAME: CLAUDIA MEEKS [facility] REC#: [id number] PT STATUS: REG ER : 1940 PHYSICIAN: ALMA MILIAN MD ADMIT DATE: 10/22/20/ER Draft Date of Exam:10/22/20 CHEST 1 VIEW, AP/PA ONLY History: Shortness of breath COMPARISON: 10/07/2020 TECHNIQUE: Frontal view of the chest FINDINGS: There are small bilateral pleural effusions, which appear similar to the prior exam. There are dense airspace consolidation in the lung bases bilaterally. The tracheostomy tube is stable. No pneumothorax is seen. There is thickening or loculated fluid in the right upper lung. This appears stable. The cardiac silhouette is unchanged in size. No pneumothorax is seen. IMPRESSION: 1. Stable small bilateral pleural effusions with dense airspace consolidations bilaterally. Overall aeration appears similar to the prior exam. Dictated on workstation # [id number] Dict: 10/22/20 1456 Trans: 10/22/20 1500 [facility] [id number] Interpreted by: LETTY MCGUIRE MD Electronically signed by: Departure Impression Primary Impression: Respiratory distress Disposition: 01 HOME, SELF-CARE Condition: Stable Departure-Patient Inst. Decision time for Depature: 15:51 Referrals: RAJESH DAVENPORT MD (PCP/Family) Primary Care Physician Patient Instructions: Shortness of Breath (Dyspnea) Add. Discharge Instructions: Resume prior home medications and care. Please follow-up with your primary care physician this week. Come back to the emergency department for any worsening symptoms, fevers, worsening of coughing up blood or any other emergent concerns. ALMA MILIAN MD Oct 22, 2020 13:44
--- NOTE | 2020-10-22 15:00 | Diagnostic Imaging Report ---
History: Shortness of breath COMPARISON: 10/07/2020 TECHNIQUE: Frontal view of the chest FINDINGS: There are small bilateral pleural effusions, which appear similar to the prior exam. There are dense airspace consolidation in the lung bases bilaterally. The tracheostomy tube is stable. No pneumothorax is seen. There is thickening or loculated fluid in the right upper lung. This appears stable. The cardiac silhouette is unchanged in size. No pneumothorax is seen. IMPRESSION: 1. Stable small bilateral pleural effusions with dense airspace consolidations bilaterally. Overall aeration appears similar to the prior exam. Dictated by: Dictated on workstation # [id number]
[2020-10-22 15:27] LABS: HEMATOCRIT 35 % (35-52); HEMOGLOBIN 10.2 G/DL (11.5-16.0); MEAN CORPUSCULAR HEMOGLOBIN 26 PG (25-34); MEAN CORPUSCULAR HGB CONC 30 G/DL (32-36); MEAN CORPUSCULAR VOLUME 88 FL (80-99); MEAN PLATELET VOLUME 9.7 FL (7.4-10.4); PLATELET COUNT 486 10^3/uL (130-400)
[2020-10-22 15:28] LABS: BASOPHILS % (AUTO) 0 % (0-10); EOSINOPHILS # (AUTO) 0.3 10^3/uL (0.0-0.3); EOSINOPHILS % (AUTO) 4 % (0-10); LYMPHOCYTES # (AUTO) 0.4 X 10^3 (1.0-4.0); LYMPHOCYTES % (AUTO) 5 % (12-44); MONOCYTES # (AUTO) 0.4 X 10^3 (0.0-1.0); MONOCYTES % (AUTO) 5 % (0-12); NEUTROPHILS # (AUTO) 7.7 X 10^3 (1.8-7.8); NEUTROPHILS % (AUTO) 86 % (42-75)
[2020-10-22 15:33] LABS: ANISOCYTOSIS SLIGHT; BAND NEUTROPHILS 3 %; BASOPHILS % (MANUAL) 1 %; EOSINOPHILS % (MANUAL) 3 %; HYPOCHROMASIA SLIGHT; LYMPHOCYTES % (MANUAL) 5 %; MONOCYTES % (MANUAL) 3 %; NEUTROPHILS % (MANUAL) 85 %
[2020-10-22 15:34] LABS: CHLORIDE 94 MMOL/L (98-107); POTASSIUM 3.2 MMOL/L (3.6-5.0); SODIUM 141 MMOL/L (135-145)
[2020-10-22 15:35] LABS: BUN/CREATININE RATIO 21; CALCIUM 7.9 MG/DL (8.5-10.1); CARBON DIOXIDE 37 MMOL/L (21-32); CREATININE SERUM 0.56 MG/DL (0.60-1.30); GFR ESTIMATED > 60; GLUCOSE 132 MG/DL (70-105)
[2020-10-22 15:41] LABS: ABG BASE EXCESS 16.3 MMOL/L (-2.5-2.5); ABG OXYGEN SATURATION 100 % (94-100); ABG PCO2 58 MMHG (35-45); ABG PH 7.46 (7.37-7.43); ABG PO2 213 MMHG (79-93); ABG TCO2 43.4 MMOL/L (21.0-31.0)
[2020-10-22 15:46] LABS: INSPIRED O2 100%; PATIENT TEMP 96.6; VENTILATOR NO
--- NOTE | 2020-10-22 15:48 | NUR ---
CALLED EMS [facility] TO TAKE PATIENT HOME ON VENT
[2020-10-22 16:13] VITALS: BP 132/61
--- NOTE | 2020-10-22 16:15 | NUR ---
HOME PER EMS ON VENT
[2020-10-23] MEDS ORDERED: CEFU250T80 PO (20:05)
== END 2020-10-22 16:13 | disposition home or self-care (01) ==
LOC: EDUNIT# 13:09 → ER 13:11 → UNMERGE 13:11 → MERGE 13:11 → ER 16:13
DX: R06.03 Acute respiratory distress (principal); I48.91 Unspecified atrial fibrillation; J44.9 Chronic obstructive pulmonary disease, unspecified; Z20.828 Contact with and (suspected) exposure to other viral communicable diseases; Z82.49 Family history of ischemic heart disease and other diseases of the circulatory system; Z80.49 Family history of malignant neoplasm of other genital organs; Z88.8 Allergy status to other drugs, medicaments and biological substances; Z79.01 Long term (current) use of anticoagulants
CPT/HCPCS: 71045; 80048; 82805; 85007; 85027; 94002; U0002; 36415; 87635

== ENCOUNTER → 2020-10-22 | Emergency (ER) | payer OTHER ==
[~2020-10-22] MED LIST changes: +ACET200V4 NEB; +ACET650T41 PO; +CEFU250T80 PO; +DIGO125T3 PO; +MELA3TAB39 PEG; -MELA3TAB39 PO; -PANT40TA52; +PANT40TA52 PEG; +PROPOFOL DRIP (ICU) 100 ML IV ONE; -SENN-109; +SENN-109 PEG; -SERT50TA9; +SERT50TA9 PEG
[2020-10-22 13:10] VITALS: BP 114/62
== END ==
LOC: EDBD → MERGE 12:51 → ER 12:51
DX: R09.02 Hypoxemia (principal)
CPT/HCPCS: 94002

== ENCOUNTER 2020-10-23 17:26 | Emergency (ER) | payer MEDICARE, OTHER ==
[~2020-10-23] VITALS: Ht 157 cm; Wt 48.0 kg
[~2020-10-23 17:26] MED LIST changes: +MELA3TAB39 PEG; -MELA3TAB39 PO; -PANT40TA52; +PANT40TA52 PEG; -SENN-109; +SENN-109 PEG; -SERT50TA9; +SERT50TA9 PEG
--- NOTE | 2020-10-23 17:36 | ED Respiratory ---
General Chief Complaint: Respiratory Problems Stated Complaint: WEAKNESS/SOA Source: family, EMS Exam Limitations: no limitations History of Present Illness Date Seen by Provider: Oct 23, 2020 Time Seen by Provider: 17:35 Initial Comments To ER per EMS from home with reports of respiratory failure. She is ventilator dependent and well-known to the emergency room. Timing/Duration: just prior to arrival Severity: moderate Associated Symptoms: denies symptoms Allergies and Home Medications Allergies Coded Allergies: budesonide (Unverified Allergy, Mild, NAUSEA, 10/23/20) PT REPORTS NAUSEA, FLUSHING AND NIGHTMARES formoterol (Unverified Allergy, Mild, NAUSEA, 10/23/20) PT REPORTS NAUSEA, FLUSHING AND NIGHTMARES Home Medications ALPRAZolam 0.25 Mg Tablet, 0.25 MG Q6H PRN for ANXIETY/SLEEP, (Reported) Acetaminophen 650 Mg/20.3 Ml Oral.susp, 650 MG PO Q6H PRN for PAIN-MILD (1-4) OR TEMPATURE, (Reported) Acetylcysteine 200 Mg/1 Ml Vial, 3 ML NEB QID Prescribed by: RAJESH DAVENPORT on 10/07/20657 Albuterol Sulfate 2.5 Mg/3 Ml Vial.neb, 2.5 MG INH RTQ4HR Prescribed by: RAJESH DAVENPORT on 10/07/20657 Amiodarone HCl 200 Mg Tablet, 400 MG PO BID Prescribed by: RAJESH DAVENPORT on 10/07/20657 Apixaban 5 Mg Tablet, 5 MG BID, (Reported) Cholecalciferol (Vitamin D3) 25 Mcg Capsule, 100 MCG DAILY, (Reported) TAKES 4 (25MCG) TABS Digoxin 125 Mcg Tablet, 0.125 MG PO DAILY Prescribed by: RAJESH DAVENPORT on 10/07/20657 Furosemide 20 Mg Tablet, 20 MG DAILY, (Reported) Hydrocodone/Acetaminophen 1 Each Tablet, 1 EA BID PRN for PAIN-SEVERE (8-10), (Reported) Ipratropium/Albuterol Sulfate 3 Ml Ampul.neb, 3 ML NEB BID, (Reported) Levothyroxine Sodium 75 Mcg Tablet, 75 MCG DAILY, (Reported) Melatonin 3 Mg Tablet, 3 MG PO HS PRN for SLEEP, (Reported) Pantoprazole Sodium 40 Mg Tablet.dr, 40 MG DAILY, (Reported) Potassium Chloride 10 Meq Tab.er.prt, 10 MEQ DAILY, (Reported) Sennosides/Docusate Sodium 1 Each Tablet, 2 EACH HS, (Reported) Sertraline HCl 50 Mg Tablet, 50 MG DAILY, (Reported) Patient Home Medication List Home Medication List Reviewed: Yes Review of Systems Review of Systems Constitutional: see HPI EENTM: see HPI Respiratory: no symptoms reported Cardiovascular: no symptoms reported Genitourinary: no symptoms reported Musculoskeletal: see HPI Skin: no symptoms reported Psychiatric/Neurological: No Symptoms Reported Hematologic/Lymphatic: No Symptoms Reported Past Efpgfor-Hekxeo-Npkcnl Hx Patient Social History Physical Abuse: No Sexual Abuse: No Mistreated: No Fear: No Family Medical History Cardiovascular disease G8 BROTHER Congenital heart disease G8 BROTHER FH: cancer G8 SISTER (UTERINE) Glaucoma 19 MOTHER Hypertension G8 SISTER Respiratory disorder 19 FATHER Physical Exam Vital Signs - First Documented 10/23/20 17:31 Temp 36.0 Pulse 58 Resp 30 B/P (MAP) 135/57 (83) Pulse Ox 100 O2 Delivery Trach Collar Capillary Refill : Height: '" Weight: lbs. oz. kg; BMI Method: General Appearance: WD/WN, no apparent distress, thin, other (Cachectic. This is her baseline. On her home ventilator her oxygen saturation is 100% at baseline 8 L. Respiratory rate is in the low 20s.) Eyes: Bilateral Eye Normal Inspection, Bilateral Eye PERRL, Bilateral Eye EOMI Neck: non-tender, full range of motion Respiratory: normal breath sounds, no respiratory distress, no accessory muscle use, decreased breath sounds Neurologic/Psychiatric: alert, normal mood/affect Skin: normal color, warm/dry Progress/Results/Core Measures Suspected Sepsis SIRS Temperature: Pulse: Respiratory Rate: Laboratory Tests 10/23/20 17:54: White Blood Count 9.0 Blood Pressure / Mean: Laboratory Tests 10/23/20 17:54: Creatinine 0.57L, Platelet Count 512H Results/Orders Lab Results Laboratory Tests Test 10/23/20 17:54 10/23/20 19:40 Range/Units White Blood Count 9.0 4.3-11.0 10^3/uL Red Blood Count 4.15 3.80-5.11 10^6/uL Hemoglobin 10.7 L 11.5-16.0 g/dL Hematocrit 37 35-52 % Mean Corpuscular Volume 89 80-99 fL Mean Corpuscular Hemoglobin 26 25-34 pg Mean Corpuscular Hemoglobin Concent 29 L 32-36 g/dL Red Cell Distribution Width 17.1 H 10.0-14.5 % Platelet Count 512 H 130-400 10^3/uL Mean Platelet Volume 9.4 9.0-12.2 fL Immature Granulocyte % (Auto) 1 % Neutrophils (%) (Auto) 84 H 42-75 % Lymphocytes (%) (Auto) 6 L 12-44 % Monocytes (%) (Auto) 6 0-12 % Eosinophils (%) (Auto) 3 0-10 % Basophils (%) (Auto) 1 0-10 % Neutrophils # (Auto) 7.5 1.8-7.8 10^3/uL Lymphocytes # (Auto) 0.6 L 1.0-4.0 10^3/uL Monocytes # (Auto) 0.5 0.0-1.0 10^3/uL Eosinophils # (Auto) 0.3 0.0-0.3 10^3/uL Basophils # (Auto) 0.1 0.0-0.1 10^3/uL Immature Granulocyte # (Auto) 0.1 0.0-0.1 10^3/uL Neutrophils % (Manual) 88 % Lymphocytes % (Manual) 5 % Monocytes % (Manual) 6 % Eosinophils % (Manual) 1 % Basophils % (Manual) 0 % Band Neutrophils 0 % Polychromasia SLIGHT Anisocytosis MODERATE Target Cells SLIGHT Sodium Level 139 135-145 MMOL/L Potassium Level 3.3 L 3.6-5.0 MMOL/L Chloride Level 93 L 98-107 MMOL/L Carbon Dioxide Level 37 H 21-32 MMOL/L Anion Gap 9 5-14 MMOL/L Blood Urea Nitrogen 12 7-18 MG/DL Creatinine 0.57 L 0.60-1.30 MG/DL Estimat Glomerular Filtration Rate > 60 BUN/Creatinine Ratio 21 Glucose Level 144 H 70-105 MG/DL Calcium Level 8.2 L 8.5-10.1 MG/DL Procalcitonin 0.05 <0.10 NG/ML Urine Color YELLOW Urine Clarity CLEAR Urine pH 6.5 5-9 Urine Specific [place] 1.020 1.016-1.022 Urine Protein NEGATIVE NEGATIVE Urine Glucose (UA) NEGATIVE NEGATIVE Urine Ketones NEGATIVE NEGATIVE Urine Nitrite NEGATIVE NEGATIVE Urine Bilirubin NEGATIVE NEGATIVE Urine Urobilinogen 0.2 < = 1.0 MG/DL Urine Leukocyte Esterase 1+ H NEGATIVE Urine RBC (Auto) NEGATIVE NEGATIVE Urine RBC 0-2 /HPF Urine WBC 5-10 H /HPF Urine Squamous Epithelial Cells RARE /HPF Urine Crystals PRESENT H /LPF Urine Amorphous Sediment FEW SABINE URATES H /LPF Urine Bacteria FEW H /HPF Urine Casts PRESENT /LPF Urine Hyaline Casts 0-2 H /LPF Urine Mucus SMALL H /LPF Urine Culture Indicated YES My Orders Orders - MATTHEW RAMIREZ TOGGLE PRESS OPERATOR Cbc With Automated Diff (10/23/20 17:34) Basic Metabolic Panel (10/23/20 17:34) Chest 1 View, Ap/Pa Only (10/23/20 17:34) Ed Iv/Invasive Line Start (10/23/20 17:34) Ns Iv 500 Ml (Sodium Chloride 0.9%) (10/23/20 17:45) Procalcitonin (Pct) (10/23/20 17:36) Fentanyl Injection (Sublimaze Injection (10/23/20 18:00) Manual Differential (10/23/20 17:54) Ua Culture If Indicated (10/23/20 18:12) Urine Culture (10/23/20 19:40) Ceftriaxone For Iv Use (Rocephin For I (10/23/20 20:00) Medications Given in ED Current Medications Medications Dose Ordered Sig/Virgie Route Start Time Stop Time Status Last Admin Dose Admin Fentanyl Citrate 25 mcg ONCE PRN IVP 10/23/20 18:00 10/23/20 18:04 25 MCG Vital Signs/I&O 10/23/20 17:31 Temp 36.0 Pulse 58 Resp 30 B/P (MAP) 135/57 (83) Pulse Ox 100 O2 Delivery Trach Collar Capillary Refill : Departure Communication (Admissions) RT suctioned, got a fair amount of mucus out. The increased opacity in the lung base is likely reflective of atelectasis given the mucous plugging of the airways as the white count is normal she is afebrile and has a normal procalcitonin. Impression Primary Impression: Mucus plugging of bronchi Additional Impression: Chronic respiratory failure Disposition: 01 HOME, SELF-CARE Condition: Stable Departure-Patient Inst. Decision time for Depature: 20:04 Patient Instructions: NO INSTRUCTIONS GIVEN Add. Discharge Instructions: 1. Return to ER for any concerns 2. Antibiotics as directed 3. Follow-up with your doctor next week 4. All discharge instructions reviewed with patient and/or family. Voiced understanding. Scripts Cefuroxime Axetil (Cefuroxime) 250 Mg Tablet 250 MG PO BID, #10 TAB Prov: MATTHEW RAMIREZ APRN 10/23/20 MATTHEW RAMIREZ APRN Oct 23, 2020 17:36
[2020-10-23] MEDS ORDERED: NS IV 500 ML 500 ML IV SCH (17:45)
[2020-10-23 18:00] LABS: BASOPHILS # (AUTO) 0.1 10^3/uL (0.0-0.1); BASOPHILS % (AUTO) 1 % (0-10); EOSINOPHILS # (AUTO) 0.3 10^3/uL (0.0-0.3); EOSINOPHILS % (AUTO) 3 % (0-10); HEMATOCRIT 37 % (35-52); HEMOGLOBIN 10.7 g/dL (11.5-16.0); LYMPHOCYTES # (AUTO) 0.6 10^3/uL (1.0-4.0); LYMPHOCYTES % (AUTO) 6 % (12-44); MEAN CORPUSCULAR HEMOGLOBIN 26 pg (25-34); MEAN CORPUSCULAR HGB CONC 29 g/dL (32-36); MEAN CORPUSCULAR VOLUME 89 fL (80-99); MEAN PLATELET VOLUME 9.4 fL (9.0-12.2); MONOCYTES # (AUTO) 0.5 10^3/uL (0.0-1.0); MONOCYTES % (AUTO) 6 % (0-12); NEUTROPHILS # (AUTO) 7.5 10^3/uL (1.8-7.8); NEUTROPHILS % (AUTO) 84 % (42-75); PLATELET COUNT 512 10^3/uL (130-400)
[2020-10-23] MEDS ORDERED: fentaNYL INJECTION 100 MCG/2 ML AMP IVP PRN (18:00)
[2020-10-23 18:11] LABS: CHLORIDE 93 MMOL/L (98-107); POTASSIUM 3.3 MMOL/L (3.6-5.0); SODIUM 139 MMOL/L (135-145)
[2020-10-23 18:12] LABS: CALCIUM 8.2 MG/DL (8.5-10.1)
[2020-10-23 18:13] LABS: GLUCOSE 144 MG/DL (70-105)
[2020-10-23 18:14] LABS: CARBON DIOXIDE 37 MMOL/L (21-32)
--- NOTE | 2020-10-23 18:16 | Diagnostic Imaging Report ---
EXAMINATION: Chest 1 view HISTORY: chronic respiratory failure COMPARISON: Chest radiograph 10/22/2020. FINDINGS: Heart size and pulmonary vasculature are stable. Tracheostomy tube is unchanged.. Stable bilateral pleural effusions. Bilateral mid and lower lung patchy airspace opacities, right greater than left, slightly increased compared to 10/22/2020. Stable diffuse interstitial opacities throughout both lungs. The osseous structures are intact. IMPRESSION: 1. Mild increased patchy consolidation within the bilateral mid and lower lungs. 2. Stable interstitial opacities throughout both lungs. Stable bilateral pleural effusions. Dictated by: Dictated on workstation # [id number]
[2020-10-23 18:17] LABS: CREATININE SERUM 0.57 MG/DL (0.60-1.30); GFR ESTIMATED > 60
[2020-10-23 18:18] LABS: BUN/CREATININE RATIO 21
[2020-10-23 18:46] LABS: ANISOCYTOSIS MODERATE; BAND NEUTROPHILS 0 %; BASOPHILS % (MANUAL) 0 %; EOSINOPHILS % (MANUAL) 1 %; LYMPHOCYTES % (MANUAL) 5 %; MONOCYTES % (MANUAL) 6 %; NEUTROPHILS % (MANUAL) 88 %; POLYCHROMASIA SLIGHT; TARGET CELLS SLIGHT
[2020-10-23 19:51] LABS: BILIRUBIN,URINE NEGATIVE (NEGATIVE); CLARITY,URINE CLEAR; COLOR,URINE YELLOW; GLUCOSE, URINE (UA) NEGATIVE (NEGATIVE); KETONES,URINE NEGATIVE (NEGATIVE); LEUKOCYTE ESTERASE ,URINE 1+ (NEGATIVE); NITRITE,URINE NEGATIVE (NEGATIVE); PH,URINE 6.5 (5-9); PROTEIN,URINE NEGATIVE (NEGATIVE)
[2020-10-23 19:57] LABS: BACTERIA,URINE FEW /HPF; RBC,URINE 0-2 /HPF; SQUAMOUS EPITHELIAL CELL,UR RARE /HPF
[2020-10-23 19:58] LABS: AMORPHOUS SEDIMENT,UR FEW AMOR URATES /LPF; HYALINE CASTS, URINE 0-2 /LPF
[2020-10-23] MEDS ORDERED: cefTRIAXone FOR IV USE 1,000 MG in WATER (STERILE) FOR INJECTION 10 ML IV ONE (20:00)
[2020-10-23] MEDS ORDERED: CEFU250T80 PO (20:05)
[2020-10-23 20:42] VITALS: BP 154/69
== END 2020-10-23 20:41 | disposition home or self-care (01) ==
LOC: EDUNIT# 17:26 → MERGE 17:27 → ER 17:27
DX: T17.890A Other foreign object in other parts of respiratory tract causing asphyxiation, initial encounter (principal); J96.10 Chronic respiratory failure, unspecified whether with hypoxia or hypercapnia; Z99.11 Dependence on respirator [ventilator] status; Z88.8 Allergy status to other drugs, medicaments and biological substances; Z82.49 Family history of ischemic heart disease and other diseases of the circulatory system; Z80.49 Family history of malignant neoplasm of other genital organs; Z79.01 Long term (current) use of anticoagulants; X58.XXXA Exposure to other specified factors, initial encounter
CPT/HCPCS: 36415; 71045; 80048; 81000; 84145; 85007; 85027; 87088

== ENCOUNTER 2020-10-25 13:47 | Inpatient (IN) | payer MEDICARE ==
[~2020-10-25] VITALS: Ht 157 cm; Wt 50.1 kg
[~2020-10-25 13:47] MED LIST changes: +CEFU250T80 PO
--- NOTE | 2020-10-25 13:58 | ED Cough/URI ---
General Chief Complaint: Respiratory Problems Source: EMS Exam Limitations: no limitations History of Present Illness Date Seen by Provider: Oct 25, 2020 Time Seen by Provider: 13:58 Initial Comments To ER by EMS from home with reports of oxygen saturation of 30%. She is on a home ventilator via tracheostomy. History of mucous plugging of airways. Timing/Duration: constant Severity/Quality: moderate Allergies and Home Medications Allergies Coded Allergies: budesonide (Unverified Allergy, Mild, NAUSEA, 01/06/16) PT REPORTS NAUSEA, FLUSHING AND NIGHTMARES formoterol (Unverified Allergy, Mild, NAUSEA, 01/06/16) PT REPORTS NAUSEA, FLUSHING AND NIGHTMARES Home Medications ALPRAZolam 0.25 Mg Tablet, 0.25 MG Q6H PRN for ANXIETY/SLEEP, (Reported) Acetaminophen 650 Mg/20.3 Ml Oral.susp, 650 MG PO Q6H PRN for PAIN-MILD (1-4) OR TEMPATURE, (Reported) Acetylcysteine 200 Mg/1 Ml Vial, 3 ML NEB QID Prescribed by: RAJESH DAVENPORT on 10/07/20657 Albuterol Sulfate 2.5 Mg/3 Ml Vial.neb, 2.5 MG INH RTQ4HR Prescribed by: RAJESH DAVENPORT on 10/07/20657 Amiodarone HCl 200 Mg Tablet, 400 MG PO BID Prescribed by: RAJESH DAVENPORT on 10/07/20657 Apixaban 5 Mg Tablet, 5 MG BID, (Reported) Cefuroxime Axetil 250 Mg Tablet, 250 MG PO BID Prescribed by: MATTHEW RAMIREZ on 10/23/202004 Cholecalciferol (Vitamin D3) 25 Mcg Capsule, 100 MCG DAILY, (Reported) TAKES 4 (25MCG) TABS Digoxin 125 Mcg Tablet, 0.125 MG PO DAILY Prescribed by: RAJESH DAVENPORT on 10/07/20657 Furosemide 20 Mg Tablet, 20 MG DAILY, (Reported) Hydrocodone/Acetaminophen 1 Each Tablet, 1 EA BID PRN for PAIN-SEVERE (8-10), (Reported) Ipratropium/Albuterol Sulfate 3 Ml Ampul.neb, 3 ML NEB BID, (Reported) Levothyroxine Sodium 75 Mcg Tablet, 75 MCG DAILY, (Reported) Melatonin 3 Mg Tablet, 3 MG PO HS PRN for SLEEP, (Reported) Pantoprazole Sodium 40 Mg Tablet.dr, 40 MG DAILY, (Reported) Potassium Chloride 10 Meq Tab.er.prt, 10 MEQ DAILY, (Reported) Sennosides/Docusate Sodium 1 Each Tablet, 2 EACH HS, (Reported) Sertraline HCl 50 Mg Tablet, 50 MG DAILY, (Reported) Patient Home Medication List Home Medication List Reviewed: Yes Review of Systems Review of Systems Constitutional: see HPI, other (Unable to obtain) Past Lbldnex-Isrbbf-Clmnne Hx Patient Social History Alcohol Use: Denies Use Recreational Drug Use: No Smoking Status: Never a Smoker 2nd Hand Smoke Exposure: No Recent Hopitalizations: Yes Physical Abuse: No Sexual Abuse: No Mistreated: No Fear: No Immunizations Up To Date Date of Pneumonia Vaccine: Aug 21, 2014 Date of Influenza Vaccine: Aug 21, 2015 Past Medical History Surgeries: Yes ( HERNIA REPAIR; FEEDING TUBE ; BILATERAL CATARACTS) Abdominal, Eye Surgery, Tracheostomy Respiratory: Yes (COPD; TRACH PLACED 05/2020; PULMONARY EDEMA) Pneumonia, COPD Cardiac: Yes Atrial Fibrillation, Hypertension Neurological: No Dementia Reproductive Disorders: No Genitourinary: Yes UTI-Chronic Gastrointestinal: Yes (FEEDING TUBE IN PLACE 05/2020) Musculoskeletal: Yes Arthritis Endocrine: No HEENT: Yes Cataract Cancer: No Psychosocial: No Integumentary: No Blood Disorders: No Adverse Reaction/Blood Tranf: No (BLOOD TRANSFUSION AFTER CHILDBIRTH) Family Medical History Cardiovascular disease G8 BROTHER Congenital heart disease G8 BROTHER FH: cancer G8 SISTER (UTERINE) Glaucoma 19 MOTHER Hypertension G8 SISTER Respiratory disorder 19 FATHER No Pertinent Family Hx Physical Exam Vital Signs - First Documented 10/25/20 10/25/20 13:50 14:28 Temp 34.6 Pulse 73 Resp 34 B/P (MAP) 106/86 (93) Pulse Ox 90 O2 Delivery Ambu Bag O2 Flow Rate 15.00 FiO2 40 Capillary Refill : Height: 5'2.00" Weight: 90lbs. 6.0oz. 40.299910lt; 16.00 BMI Method: General Appearance: thin, other (cachectic, unresponsive. Sats 80%, did deep suctioning got a very large amount of purulent pinkish material aspirated ) Eyes: Bilateral Eye Normal Inspection, Bilateral Eye PERRL Neck: non-tender Respiratory: no respiratory distress, no accessory muscle use Gastrointestinal: normal bowel sounds, non tender Extremities: normal range of motion Neurologic/Psychiatric: alert, normal mood/affect, oriented x 3 Skin: normal color, warm/dry Focused Exam Lactate Level 10/25/20 14:03: Lactic Acid Level 1.86 Lactic Acid Level Laboratory Tests Test 10/25/20 14:03 Lactic Acid Level 1.86 MMOL/L (0.50-2.00) Procedures/Interventions Date of ETT Placement: Sep 23, 2020 Progress/Results/Core Measures Suspected Sepsis SIRS Temperature: Pulse: Respiratory Rate: Laboratory Tests 10/25/20 14:00: White Blood Count 17.1H Blood Pressure / Mean: 10/25/20 14:03: Lactic Acid Level 1.86 Laboratory Tests 10/25/20 14:00: Creatinine 0.59L, Platelet Count 613H, Total Bilirubin 0.2 Results/Orders Lab Results Laboratory Tests Test 10/25/20 14:00 10/25/20 14:03 10/25/20 14:07 Range/Units White Blood Count 17.1 H 4.3-11.0 10^3/uL Red Blood Count 3.78 L 3.80-5.11 10^6/uL Hemoglobin 9.6 L 11.5-16.0 g/dL Hematocrit 34 L 35-52 % Mean Corpuscular Volume 90 80-99 fL Mean Corpuscular Hemoglobin 25 25-34 pg Mean Corpuscular Hemoglobin Concent 28 L 32-36 g/dL Red Cell Distribution Width 17.1 H 10.0-14.5 % Platelet Count 613 H 130-400 10^3/uL Mean Platelet Volume 9.5 9.0-12.2 fL Immature Granulocyte % (Auto) 1 % Neutrophils (%) (Auto) 68 42-75 % Lymphocytes (%) (Auto) 16 12-44 % Monocytes (%) (Auto) 7 0-12 % Eosinophils (%) (Auto) 8 0-10 % Basophils (%) (Auto) 1 0-10 % Neutrophils # (Auto) 11.7 H 1.8-7.8 10^3/uL Lymphocytes # (Auto) 2.7 1.0-4.0 10^3/uL Monocytes # (Auto) 1.2 H 0.0-1.0 10^3/uL Eosinophils # (Auto) 1.3 H 0.0-0.3 10^3/uL Basophils # (Auto) 0.1 0.0-0.1 10^3/uL Immature Granulocyte # (Auto) 0.2 H 0.0-0.1 10^3/uL Sodium Level 143 135-145 MMOL/L Potassium Level 3.8 3.6-5.0 MMOL/L Chloride Level 97 L 98-107 MMOL/L Carbon Dioxide Level 35 H 21-32 MMOL/L Anion Gap 11 5-14 MMOL/L Blood Urea Nitrogen 14 7-18 MG/DL Creatinine 0.59 L 0.60-1.30 MG/DL Estimat Glomerular Filtration Rate > 60 BUN/Creatinine Ratio 24 Glucose Level 176 H 70-105 MG/DL Calcium Level 7.9 L 8.5-10.1 MG/DL Corrected Calcium 8.9 8.5-10.1 MG/DL Total Bilirubin 0.2 0.1-1.0 MG/DL Aspartate Amino Transf (AST/SGOT) 19 5-34 U/L Alanine Aminotransferase (ALT/SGPT) 18 0-55 U/L Alkaline Phosphatase 92 40-136 U/L Total Protein 6.7 6.4-8.2 GM/DL Albumin 2.8 L 3.2-4.5 GM/DL Lactic Acid Level 1.86 0.50-2.00 MMOL/L Blood Gas Puncture Site RT RAD Blood Gas Patient Temperature 35.0 Arterial Blood pH 7.24 *L 7.37-7.43 Arterial Blood Partial Pressure CO2 89 *H 35-45 MMHG Arterial Blood Partial Pressure O2 172 H 79-93 MMHG Arterial Blood HCO3 38 H 23-27 MMOL/L Arterial Blood Total CO2 41.3 H 21.0-31.0 MMOL/L Arterial Blood Oxygen Saturation 100 94-100 % Arterial Blood Base Excess 10.5 H -2.5-2.5 MMOL/L Kang Test YES-POS Blood Gas Ventilator Setting YES Blood Gas Inspired Oxygen 60% My Orders Orders - MATTHEW RAMIREZ MANAGER [employer] Cbc With Automated Diff (10/25/20 13:57) Comprehensive Metabolic Panel (10/25/20 13:57) Chest 1 View, Ap/Pa Only (10/25/20 13:57) Blood Culture (10/25/20 13:57) Lactic Acid Analyzer (10/25/20 13:57) Arterial Blood Gas (10/25/20 14:08) Piperacillin Sodium/Tazobactam (Zosyn Vi (10/25/20 14:30) Ns Iv 1000 Ml (Sodium Chloride 0.9%) (10/25/20 14:45) Arterial Blood Draw (10/25/20 ) Palliative Care Consult (10/25/20 14:54) Vital Signs/I&O 10/25/20 10/25/20 13:50 14:28 Temp 34.6 Pulse 73 68 Resp 34 25 B/P (MAP) 106/86 (93) Pulse Ox 90 92 O2 Delivery Ambu Bag O2 Flow Rate 15.00 FiO2 40 Capillary Refill : Departure Communication (Admissions) Time/Spoke to Admitting Phy: 14:[address] Davenport, will admit ICU and consult eICU. I spoke with Dr. Ruff from eICU. has already been here to see the patient, (must've been called by patient's ). 1427-patient is now awake alert and talking. Arterial blood gas shows an uncompensated respiratory acidosis. She has subsequently been attached our ventilator and this should improve. The settings are as follows, FiO2 40%, mode A/C, rate 18, tidal volume 400, PEEP 5. I discussed CODE STATUS with her. I posed the question if her heart should stop does she want CPR and she is adamant that she does. I discussed with her the futility of this and that her quality of life afterward and the likelihood of this being successful resuscitation efforts would be very poor and DO NOT RESUSCITATE would be the best option for her. However she is insistent she wants resuscitation attempted so we will honor those wishes. Impression Primary Impression: Respiratory distress Additional Impressions: RLL pneumonia Respiratory acidosis Disposition: ADMITTED INPATIENT Condition: Stable Admissions Decision to Admit Reason: Admit from ER (General) Decision to Admit/Date: Oct 25, 2020 Time/Decision to Admit Time: 14:29 Departure-Patient Inst. Referrals: RAJESH DAVENPORT MD (PCP/Family) Primary Care Physician MATTHEW RAMIREZ APRN Oct 25, 2020 13:58
[2020-10-25 14:06] LABS: BASOPHILS # (AUTO) 0.1 10^3/uL (0.0-0.1); BASOPHILS % (AUTO) 1 % (0-10); EOSINOPHILS # (AUTO) 1.3 10^3/uL (0.0-0.3); EOSINOPHILS % (AUTO) 8 % (0-10); HEMATOCRIT 34 % (35-52); HEMOGLOBIN 9.6 g/dL (11.5-16.0); LYMPHOCYTES # (AUTO) 2.7 10^3/uL (1.0-4.0); LYMPHOCYTES % (AUTO) 16 % (12-44); MEAN CORPUSCULAR HEMOGLOBIN 25 pg (25-34); MEAN CORPUSCULAR HGB CONC 28 g/dL (32-36); MEAN CORPUSCULAR VOLUME 90 fL (80-99); MEAN PLATELET VOLUME 9.5 fL (9.0-12.2); MONOCYTES # (AUTO) 1.2 10^3/uL (0.0-1.0); MONOCYTES % (AUTO) 7 % (0-12); NEUTROPHILS # (AUTO) 11.7 10^3/uL (1.8-7.8); NEUTROPHILS % (AUTO) 68 % (42-75); PLATELET COUNT 613 10^3/uL (130-400); WHITE BLOOD COUNT 17.1 10^3/uL (4.3-11.0)
[2020-10-25 14:16] LABS: ABG BASE EXCESS 10.5 MMOL/L (-2.5-2.5); ABG OXYGEN SATURATION 100 % (94-100); ABG PO2 172 MMHG (79-93); ABG TCO2 41.3 MMOL/L (21.0-31.0)
[2020-10-25 14:17] LABS: ABG PCO2 89 MMHG (35-45); ABG PH 7.24 (7.37-7.43); ALLENS TEST YES-POS
[2020-10-25 14:17] LABS: ALBUMIN 2.8 GM/DL (3.2-4.5); CHLORIDE 97 MMOL/L (98-107); POTASSIUM 3.8 MMOL/L (3.6-5.0); SODIUM 143 MMOL/L (135-145)
[2020-10-25 14:18] LABS: INSPIRED O2 60%; VENTILATOR YES
[2020-10-25 14:18] LABS: CALCIUM 7.9 MG/DL (8.5-10.1)
[2020-10-25 14:19] LABS: GLUCOSE 176 MG/DL (70-105)
[2020-10-25 14:20] LABS: TOTAL PROTEIN 6.7 GM/DL (6.4-8.2)
--- NOTE | 2020-10-25 14:20 | NUR ---
Pt arrives by EMS with significant sob and AMS. Pt is on a home vent with a trach and has a hx of mucous plugging and pneumonia. Pt bagged via BVM upon arrival. Pt sp02 in the 80's but noted to increase with bagging. Rosalino Emanuel at bedside and performs deeps suctions with lavage. Pt noted to improve significantly and has increase in her sp02 to the mid 90's. RT at bedside preparing vent. Pt to vent and continued to improve.
[2020-10-25 14:21] LABS: BILIRUBIN,TOTAL 0.2 MG/DL (0.1-1.0); CARBON DIOXIDE 35 MMOL/L (21-32)
[2020-10-25 14:23] LABS: ALKALINE PHOSPHATASE 92 U/L (40-136); CREATININE SERUM 0.59 MG/DL (0.60-1.30); GFR ESTIMATED > 60
[2020-10-25 14:24] LABS: BUN/CREATININE RATIO 24
--- NOTE | 2020-10-25 14:24 | Diagnostic Imaging Report ---
Indication: Cough Portable chest shows normal heart size. There are persistent bilateral infiltrates with consolidation in the right lower lobe. There are pleural effusions. A tracheostomy tube remains in place. These findings are similar to the 10/23/2020 study. IMPRESSION: Stable chest. Dictated by: Dictated on workstation # [id number]
[2020-10-25 14:26] LABS: ALANINE AMINOTRANSFERASE 18 U/L (0-55)
[2020-10-25 14:28] VITALS: BP 108/50
[2020-10-25] MEDS ORDERED: PIPERACILLIN SODIUM/TAZOBACTAM 4.5 GM in NS (IVPB) 100 ML IV ONE (14:30)
[2020-10-25] MEDS ORDERED: NS IV 1000 ML 1,000 ML IV SCH (14:45)
--- NOTE | 2020-10-25 14:45 | NUR ---
Pt noted to become responsive and appropriate to situation. Pt able to communicate with this nurse that she started to become more sob 3 days ago. Pt reports she is now feeling better although she continues to feel sob.
[2020-10-25 16:54] VITALS: BP 100/50
[2020-10-25] MEDS: LACTATED RINGERS 1,000 ML IV SCH (17:18)
--- NOTE | 2020-10-25 18:11 | History & Physicial ---
History of Present Illness History of Present Illness Reason for visit/HPI 80-year-old female admitted through emergency department during the afternoon of October 25, 2020 after having episode of hypoxia and difficulty breathing despite mechanical ventilation at home. She was brought in today by EMS after apparently having oxygen saturations at 30 percent at home. She does have a history of mucous plugging of the airways. Her has discussed this with me a few times this last week. Typically she is on anywhere from 6-8 on her oxygen. Home health is coming out to see her as well. Her does a lot of the suctioning of the tracheostomy. She has not been having any fever. Date of Admission Oct 25, 2020 at 14:54 Date Seen by a Provider: Oct 25, 2020 Time Seen by a Provider: 18:00 I consulted on this patient on 10/25/20 18:09 Attending Physician Mike Davenport MD Admitting Physician Mike Davenport MD Consult Allergies and Home Medications Allergies Coded Allergies: budesonide (Unverified Allergy, Mild, NAUSEA, 01/06/16) PT REPORTS NAUSEA, FLUSHING AND NIGHTMARES formoterol (Unverified Allergy, Mild, NAUSEA, 01/06/16) PT REPORTS NAUSEA, FLUSHING AND NIGHTMARES Home Medications ALPRAZolam 0.25 Mg Tablet, 0.25 MG Q6H PRN for ANXIETY/SLEEP, (Reported) Acetaminophen 650 Mg/20.3 Ml Oral.susp, 650 MG PO Q6H PRN for PAIN-MILD (1-4) OR TEMPATURE, (Reported) Acetylcysteine 200 Mg/1 Ml Vial, 3 ML NEB QID Prescribed by: MIKE DAVENPORT on 10/07/20657 Albuterol Sulfate 2.5 Mg/3 Ml Vial.neb, 2.5 MG INH RTQ4HR Prescribed by: MIKE DAVENPORT on 10/07/20657 Amiodarone HCl 200 Mg Tablet, 400 MG PO BID Prescribed by: MIKE DAVENPORT on 10/07/20657 Apixaban 5 Mg Tablet, 5 MG BID, (Reported) Cefuroxime Axetil 250 Mg Tablet, 250 MG PO BID Prescribed by: MATTHEW RAMIREZ on 10/23/202004 Cholecalciferol (Vitamin D3) 25 Mcg Capsule, 100 MCG DAILY, (Reported) TAKES 4 (25MCG) TABS Digoxin 125 Mcg Tablet, 0.125 MG PO DAILY Prescribed by: MIKE DAVENPORT on 10/07/20 0658 Furosemide 20 Mg Tablet, 20 MG DAILY, (Reported) Hydrocodone/Acetaminophen 1 Each Tablet, 1 EA BID PRN for PAIN-SEVERE (8-10), (Reported) Ipratropium/Albuterol Sulfate 3 Ml Ampul.neb, 3 ML NEB BID, (Reported) Levothyroxine Sodium 75 Mcg Tablet, 75 MCG DAILY, (Reported) Melatonin 3 Mg Tablet, 3 MG PO HS PRN for SLEEP, (Reported) Pantoprazole Sodium 40 Mg Tablet.dr, 40 MG DAILY, (Reported) Potassium Chloride 10 Meq Tab.er.prt, 10 MEQ DAILY, (Reported) Sennosides/Docusate Sodium 1 Each Tablet, 2 EACH HS, (Reported) Sertraline HCl 50 Mg Tablet, 50 MG DAILY, (Reported) Patient Home Medication List Home Medication List Reviewed: Yes Past Zmauhwf-Upwpvu-Vqhlmt Hx Patient Social History Marrital Status: Alcohol Use: Denies Use Recreational Drug Use: No Smoking Status: Never a Smoker 2nd Hand Smoke Exposure: No Recent Foreign Travel: No Contact w/other who traveled: No Recent Hopitalizations: Yes Recent Infectious Disease Expo: No Immunizations Up To Date Date of Pneumonia Vaccine: Aug 21, 2014 Date of Influenza Vaccine: Aug 21, 2020 Surgeries Yes ( HERNIA REPAIR; FEEDING TUBE ; BILATERAL CATARACTS) Abdominal, Eye Surgery, Tracheostomy Respiratory Yes (COPD; TRACH PLACED 05/2020; PULMONARY EDEMA) Pneumonia Cardiovascular Yes Atrial Fibrillation, Hypertension Neurological No Dementia Reproductive System Hx Reproductive Disorders: No Genitourinary Yes UTI-Chronic Gastrointestinal Yes (FEEDING TUBE IN PLACE 05/2020) Musculoskeletal Yes Arthritis Endocrine History of Endocrine Disorders: No HEENT History of HEENT Disorders: Yes HEENT Disorders: Cataract Cancer No Psychosocial History of Psychiatric Problem: No Integumentary History of Skin or Integumenta: No Blood Transfusions History of Blood Disorders: No Adverse Reaction to a Blood Tr: No (BLOOD TRANSFUSION AFTER CHILDBIRTH) Family Medical History Significant Family History: No Pertinent Family Hx Family Hx: Cardiovascular disease G8 BROTHER Congenital heart disease G8 BROTHER FH: cancer G8 SISTER (UTERINE) Glaucoma 19 MOTHER Hypertension G8 SISTER Respiratory disorder 19 FATHER Review of Systems Constitutional: see HPI Physical Exam Vital Signs Vital Signs - First Documented 10/25/20 10/25/20 13:50 14:28 Temp 34.6 Pulse 73 Resp 34 B/P (MAP) 106/86 (93) Pulse Ox 90 O2 Delivery Ambu Bag O2 Flow Rate 15.00 FiO2 40 Capillary Refill : Less Than 3 Seconds Height, Weight, BMI Height: 5'2.00" Weight: 90lbs. 6.0oz. 40.757810gt; 36.00 BMI Method: General Appearance: No Apparent Distress (in ICU) Eyes: Bilateral Eye Normal Inspection Neck: Supple, Other (tracheostomy tube in place) Respiratory: No Accessory Muscle Use; Crackles, Rhonci Cardiovascular: Regular Rate, Rhythm (with a rate of 50) Gastrointestinal: Soft Rectal: Deferred Back: Normal Inspection Extremity: Normal Capillary Refill Neurologic/Psychiatric: Alert (difficult to communicate as she has tracheostomy. Reading of lips and she appears appropriate in conversation), Oriented x3 Comments [facility]. [place], [place] NAME: CLAUDIA MEEKS [facility] REC#: [id number] PT STATUS: REG ER : 1940 PHYSICIAN: MATTHEW RAMIREZ APRN ADMIT DATE: 10/25/20/ER Signed Date of Exam:10/25/20 CHEST 1 VIEW, AP/PA ONLY Indication: Cough Portable chest shows normal heart size. There are persistent bilateral infiltrates with consolidation in the right lower lobe. There are pleural effusions. A tracheostomy tube remains in place. These findings are similar to the 10/23/2020 study. IMPRESSION: Stable chest. Dictated by: Dictated on workstation # [id number] Dict: 10/25/20 1419 Trans: 10/25/20 1458 [facility] [id number] Interpreted by: CHANCE LOW MD Electronically signed by: CHANCE LOW MD 10/25/20 1458 Assessment/Plan Assessment and Plan 1. Acute respiratory distress with hypoxia -patient is doing better now that suctioning aggressively was performed in ED. She is admitted for the pneumonia as well as white count now being at 17,000 2. Right lower lobe pneumonia. History of Pseudomonas pneumonia -Zosyn has been initiated in ED -Sputum culture to be obtained 3. Respiratory acidosis -repeat ABG Admission Diagnosis 1. Acute respiratory distress with hypoxia 2. Right lower lobe pneumonia. History of Pseudomonas pneumonia 3. Respiratory acidosis Admission Status: Inpatient Order (span 2 midnights) Reason for Inpatient Admission: further respiratory care and mechanical ventilation. Pulmonary care. IV antibiotics for the pneumonia. Clinical Quality Measures DVT/VTE Risk/Contraindication: Risk Factor Score Per Nursin RFS Level Per Nursing on Admit: 4+=Very High MIKE DAVENPORT MD Oct 25, 2020 18:11
[2020-10-25] MEDS: ENOXAPARIN 40 MG/0.4 ML (LOVENOX) SYR SC SCH (18:16)
[2020-10-25 18:19] VITALS: BP 104/54
[2020-10-25 19:27] VITALS: BP 106/86
[2020-10-25] MEDS ORDERED: RT-ALBUTEROL/IPRATROPIUM 3 ML (DUONEB) VIAL INH PRN (19:45)
[2020-10-25 20:50] VITALS: BP 114/57
[2020-10-25] MEDS: RT-ALBUTEROL/IPRATROPIUM 3 ML (DUONEB) VIAL INH SCH (20:50)
[2020-10-25] MEDS ORDERED: MELATONIN 3 MG TABLET ONE (21:12)
[2020-10-25] MEDS: PIPERACILLIN/TAZO 4.5 GM/NS 100 ML IV SCH ×2 (21:18)
[2020-10-26] VITALS (8 sets, daily range): BP systolic 96–127; BP diastolic 51–68
[2020-10-26] MEDS: RT-ALBUTEROL/IPRATROPIUM 3 ML (DUONEB) VIAL INH SCH ×6 (02:00→23:08)
[2020-10-26 04:41] LABS: BASOPHILS % (AUTO) 0 % (0-10); EOSINOPHILS # (AUTO) 0.1 10^3/uL (0.0-0.3); EOSINOPHILS % (AUTO) 1 % (0-10); HEMATOCRIT 24 % (35-52); LYMPHOCYTES # (AUTO) 0.3 10^3/uL (1.0-4.0); LYMPHOCYTES % (AUTO) 4 % (12-44); MEAN CORPUSCULAR HEMOGLOBIN 26 pg (25-34); MEAN CORPUSCULAR HGB CONC 29 g/dL (32-36); MEAN CORPUSCULAR VOLUME 88 fL (80-99); MEAN PLATELET VOLUME 9.7 fL (9.0-12.2); MONOCYTES # (AUTO) 0.5 10^3/uL (0.0-1.0); MONOCYTES % (AUTO) 5 % (0-12); NEUTROPHILS # (AUTO) 8.7 10^3/uL (1.8-7.8); NEUTROPHILS % (AUTO) 90 % (42-75); PLATELET COUNT 379 10^3/uL (130-400); WHITE BLOOD COUNT 9.8 10^3/uL (4.3-11.0)
[2020-10-26 04:54] LABS: ALBUMIN 2.1 GM/DL (3.2-4.5)
[2020-10-26 04:55] LABS: CHLORIDE 98 MMOL/L (98-107); POTASSIUM 3.6 MMOL/L (3.6-5.0); SODIUM 142 MMOL/L (135-145)
[2020-10-26 04:56] LABS: CALCIUM 7.1 MG/DL (8.5-10.1)
[2020-10-26 04:57] LABS: GLUCOSE 118 MG/DL (70-105); TOTAL PROTEIN 4.6 GM/DL (6.4-8.2)
[2020-10-26 04:58] LABS: CARBON DIOXIDE 35 MMOL/L (21-32)
[2020-10-26 04:59] LABS: BILIRUBIN,TOTAL 0.2 MG/DL (0.1-1.0)
[2020-10-26 05:00] LABS: ALKALINE PHOSPHATASE 56 U/L (40-136)
[2020-10-26 05:01] LABS: CREATININE SERUM 0.52 MG/DL (0.60-1.30); GFR ESTIMATED > 60
[2020-10-26 05:02] LABS: BUN/CREATININE RATIO 25
[2020-10-26 05:04] LABS: ALANINE AMINOTRANSFERASE 12 U/L (0-55)
[2020-10-26] MEDS: PIPERACILLIN/TAZO 4.5 GM/NS 100 ML IV SCH ×6 (05:04→20:27)
[2020-10-26] MEDS: LACTATED RINGERS 1,000 ML IV SCH ×3 (05:04→22:25)
--- NOTE | 2020-10-26 07:05 | Progress Note ---
Subjective Date Seen by a Provider: Oct 26, 2020 Time Seen by a Provider: 07:15 Subjective/Events-last exam patient rested comfortably during the evening and informatics spec. Her breathing is nonlabored. She had quite a bit of mucus, from the tracheostomy tube Focused Exam Lactate Level 10/25/20 14:03: Lactic Acid Level 1.86 Objective Exam Vital Signs Date Time Temp Pulse Resp B/P (MAP) Pulse Ox O2 Delivery O2 Flow Rate FiO2 10/26/20 06:00 58 18 18/93 93 Mechanical Ventilator 40.00 10/26/20 05:00 64 17 108/50 92 Mechanical Ventilator 40.00 10/26/20 04:00 36.8 10/26/20 04:00 61 95/47 92 Mechanical Ventilator 40.00 10/26/20 03:00 64 9 94/65 92 Mechanical Ventilator 40.00 10/26/20 02:01 60 18 93 40 10/26/20 02:00 59 17 96/53 92 Mechanical Ventilator 40.00 10/26/20 01:00 67 19 95/48 91 Mechanical Ventilator 40.00 10/26/20 00:47 71 10/26/20 00:00 36.2 10/26/20 00:00 62 14 93/40 90 Mechanical Ventilator 40.00 10/25/20 23:00 65 36 99/44 89 Mechanical Ventilator 40.00 10/25/20 22:00 72 15 95/42 89 Mechanical Ventilator 40.00 10/25/20 21:00 56 30 102/50 91 Mechanical Ventilator 40.00 10/25/20 20:50 54 18 92 40 10/25/20 20:00 51 12 114/53 92 Mechanical Ventilator 40.00 10/25/20 20:00 92 Mechanical Ventilator 40.00 10/25/20 19:55 36.4 10/25/20 19:27 73 70 10/25/20 19:00 47 7 114/52 94 Mechanical Ventilator 40.00 10/25/20 18:41 48 10/25/20 18:19 51 18 93 40 10/25/20 18:00 49 17 106/52 93 Mechanical Ventilator 40.00 10/25/20 17:30 95 Mechanical Ventilator 40 10/25/20 17:05 55 10/25/20 17:00 55 14 95/59 91 Mechanical Ventilator 40.00 10/25/20 16:54 58 19 93 40 10/25/20 16:50 36.2 56 14 112/59 94 Mechanical Ventilator 10/25/20 15:39 56 22 108/50 95 Mechanical Ventilator 10/25/20 14:28 68 25 92 40 10/25/20 13:50 34.6 73 34 106/86 (93) 90 Ambu Bag 15.00 I & O 10/26/20 07:00 Intake Total 1965 ml Output Total 380 ml Balance 1585 ml Capillary Refill : Less Than 3 Seconds General Appearance: No Apparent Distress Neck: Supple Respiratory: Other (coarse breath sounds) Cardiovascular: Regular Rate, Rhythm Gastrointestinal: soft Extremity: Normal Capillary Refill Results Lab Laboratory Tests 10/25/20 14:00: White Blood Count 17.1H, Red Blood Count 3.78L, Hemoglobin 9.6L, Hematocrit 34L, Mean Corpuscular Volume 90, Mean Corpuscular Hemoglobin 25, Mean Corpuscular Hemoglobin Concent 28L, Red Cell Distribution Width 17.1H, Platelet Count 613H, Mean Platelet Volume 9.5, Immature Granulocyte % (Auto) 1, Neutrophils (%) (Auto) 68, Lymphocytes (%) (Auto) 16, Monocytes (%) (Auto) 7, Eosinophils (%) (Auto) 8, Basophils (%) (Auto) 1, Neutrophils # (Auto) 11.7H, Lymphocytes # (Auto) 2.7, Monocytes # (Auto) 1.2H, Eosinophils # (Auto) 1.3H, Basophils # (Auto) 0.1, Immature Granulocyte # (Auto) 0.2H, Sodium Level 143, Potassium Level 3.8, Chloride Level 97L, Carbon Dioxide Level 35H, Anion Gap 11, Blood Urea Nitrogen 14, Creatinine 0.59L, Estimat Glomerular Filtration Rate > 60, BUN/Creatinine Ratio 24, Glucose Level 176H, Calcium Level 7.9L, Corrected Calcium 8.9, Total Bilirubin 0.2, Aspartate Amino Transf (AST/SGOT) 19, Alanine Aminotransferase (ALT/SGPT) 18, Alkaline Phosphatase 92, Total Protein 6.7, Albumin 2.8L 10/25/20 14:03: Lactic Acid Level 1.86 10/25/20 14:07: Blood Gas Puncture Site RT RAD, Blood Gas Patient Temperature 35.0, Arterial Blood pH 7.24*L, Arterial Blood Partial Pressure CO2 89*H, Arterial Blood Partial Pressure O2 172H, Arterial Blood HCO3 38H, Arterial Blood Total CO2 41.3H, Arterial Blood Oxygen Saturation 100, Arterial Blood Base Excess 10.5H, Kang Test YES-POS, Blood Gas Ventilator Setting YES, Blood Gas Inspired Oxygen 60% 10/26/20 04:13: White Blood Count 9.8, Red Blood Count 2.73L, Hemoglobin 7.0L, Hematocrit 24L, Mean Corpuscular Volume 88, Mean Corpuscular Hemoglobin 26, Mean Corpuscular H emoglobin Concent 29L, Red Cell Distribution Width 17.2H, Platelet Count 379, Mean Platelet Volume 9.7, Immature Granulocyte % (Auto) 1, Neutrophils (%) (Auto) 90H, Lymphocytes (%) (Auto) 4L, Monocytes (%) (Auto) 5, Eosinophils (%) (Auto) 1, Basophils (%) (Auto) 0, Neutrophils # (Auto) 8.7H, Lymphocytes # (Auto) 0.3L, Monocytes # (Auto) 0.5, Eosinophils # (Auto) 0.1, Basophils # (Auto) 0.0, Immature Granulocyte # (Auto) 0.1, Sodium Level 142, Potassium Level 3.6, Chloride Level 98, Carbon Dioxide Level 35H, Anion Gap 9, Blood Urea Nitrogen 13, Creatinine 0.52L, Estimat Glomerular Filtration Rate > 60, BU N/Creatinine Ratio 25, Glucose Level 118H, Calcium Level 7.1L, Corrected Calcium 8.6, Total Bilirubin 0.2, Aspartate Amino Transf (AST/SGOT) 11, Alanine Aminotransferase (ALT/SGPT) 12, Alkaline Phosphatase 56, Total Protein 4.6L, Albumin 2.1L Assessment/Plan Assessment/Plan Assess & Plan/Chief Complaint 1. Acute respiratory distress with hypoxia -patient is doing better now that suctioning aggressively was performed in ED. She is admitted for the pneumonia as well as white count now being at 17,000 2. Right lower lobe pneumonia. History of Pseudomonas pneumonia -Zosyn has been initiated in ED -Sputum culture to be obtained 10/26 -WBC has improved -awaiting sputum culture results 3. Respiratory acidosis -repeat ABG 10/26 -ABG was canceled on repeat Clinical Quality Measures Admission Status Admission Dx 1. Acute respiratory distress with hypoxia 2. Right lower lobe pneumonia. History of Pseudomonas pneumonia 3. Respiratory acidosis DVT/VTE Risk/Contraindication: Risk Factor Score Per Nursin RFS Level Per Nursing on Admit: 4+=Very High RAJESH DAVENPORT MD Oct 26, 2020 07:05
[2020-10-26] MEDS: PANTOPRAZOLE 40 MG (PROTONIX) VIAL IV SCH (09:33)
--- NOTE | 2020-10-26 09:37 | Diagnostic Imaging Report ---
CHEST 1 VIEW, AP/PA ONLY Indication: Respiratory distress Comparison: 10/25/2020 Findings: Stable tracheostomy tube. Coarse heterogeneous opacities in right lung base are unchanged. Patchy heterogeneous opacities in the left mid and lower lung zone are stable. No pneumothorax. Small bilateral pleural effusions are unchanged. Stable cardiomediastinal silhouette. Impression: 1. No adverse development or interval improvement. Dictated by: Dictated on workstation # [id number]
[2020-10-26] MEDS: HYDROcodone/APAP 5 MG/325 MG (LORTAB) TAB PEG PRN (10:50)
[2020-10-26] MEDS: inSUlin ASPART (NovoLOG) 1 UNIT/0.01 ML (CHARGE PER UNIT) SC SCH ×2 (13:12→18:22)
[2020-10-26] MEDS ORDERED: aCETylcysteine 20% (MUCOMYST) 30ML SOLN VIAL ONE (13:58)
--- NOTE | 2020-10-26 14:05 | NUR ---
THIS NURSE NOTIFIED DR DAVENPORT PT IS VERY ANXIOUS, RR ARE 30-40, RT IS AT BEDSIDE AND HAS SUCTIONED PT A COUPLE TIMES. PT STILL FEELS SOA. ORDER GIVEN FOR BREATHING TX AND XANAX. SEE ORDER HX. WILL CONTINUE TO MONITOR.
--- NOTE | 2020-10-26 14:15 | NUR ---
THIS NURSE UPDATED DR CA OF PT CONDITION. ORDER GIVEN FOR IV ATIVAN. SEE ORDER HX. WILL CONTINUE TO MONITOR.
[2020-10-26] MEDS ORDERED: RT-ALBUTEROL SULF 2.5 MG/3 ML PRE-MIX VIAL ONE (14:21)
[2020-10-26] MEDS ORDERED: RT-ALBUTEROL SULF 2.5 MG/3 ML PRE-MIX VIAL IH PRN (14:30)
[2020-10-26] MEDS ORDERED: LORazepam INJ 2 MG/ML (ATIVAN) VIAL IVP PRN (14:30)
--- NOTE | 2020-10-26 15:20 | NUR ---
THIS NURSE NOTIFIED EICU PT RR ARE STILL 30-40. PT IS RESTING COMFORTABLY AND STATES SHE DOES NOT FEEL SOA. TIDAL VOLUMES ARE LOW. ORDER GIVEN FOR PRECEDEX. SEE ORDER HX.
[2020-10-26] MEDS: DexMEDEtomidine PRE MIX 100 ML IV SCH ×2 (15:46→22:27)
--- NOTE | 2020-10-26 16:10 | NUR ---
THIS NURSE UPDATED DR CA WITH EICU OF PT CONDITION. PT RR ARE STILL 30-40 WITH LOW TIDAL VOLUMES. PT O2 SATURATIONS ARE 92-95%. DR CA CAMERA IN. ORDER GIVEN TO KEEP PRECEDEX FOR NOW AND GIVE ATIVAN NEEDED UNTIL PT IS NOT TACHYPNEIC. WILL CONTINUE TO MONITOR.
[2020-10-26] MEDS: ENOXAPARIN 40 MG/0.4 ML (LOVENOX) SYR SC SCH (18:22)
--- NOTE | 2020-10-26 18:45 | NUR ---
THIS NURSE NOTIFIED DR DAVENPORT PT URINE OUT PUT HAS BEEN LOW. ORDER GIVEN TO INCREASE IVF. SEE ORDER HX. WILL CONTINUE TO MONITOR.
[2020-10-26] MEDS: aCETylcysteine 20% (MUCOMYST) 30ML SOLN VIAL INH PRN ×2 (19:08→23:08)
[2020-10-26] MEDS: MELATONIN 3 MG TABLET PO SCH (20:27)
[2020-10-27] MEDS: inSUlin ASPART (NovoLOG) 1 UNIT/0.01 ML (CHARGE PER UNIT) SC SCH ×5 (00:59→23:11)
[2020-10-27] MEDS: HYDROcodone/APAP 5 MG/325 MG (LORTAB) TAB PEG PRN ×3 (02:27→17:47)
[2020-10-27] MEDS: RT-ALBUTEROL/IPRATROPIUM 3 ML (DUONEB) VIAL INH SCH ×6 (02:30→21:49)
[2020-10-27] MEDS: aCETylcysteine 20% (MUCOMYST) 30ML SOLN VIAL INH PRN (02:30)
[2020-10-27 02:31] VITALS: BP 105/54
[2020-10-27 04:09] LABS: BASOPHILS % (AUTO) 0 % (0-10); EOSINOPHILS # (AUTO) 0.2 10^3/uL (0.0-0.3); EOSINOPHILS % (AUTO) 3 % (0-10); HEMATOCRIT 23 % (35-52); LYMPHOCYTES # (AUTO) 0.3 10^3/uL (1.0-4.0); LYMPHOCYTES % (AUTO) 5 % (12-44); MEAN CORPUSCULAR HEMOGLOBIN 25 pg (25-34); MEAN CORPUSCULAR HGB CONC 29 g/dL (32-36); MEAN CORPUSCULAR VOLUME 87 fL (80-99); MEAN PLATELET VOLUME 9.7 fL (9.0-12.2); MONOCYTES # (AUTO) 0.4 10^3/uL (0.0-1.0); MONOCYTES % (AUTO) 6 % (0-12); NEUTROPHILS # (AUTO) 5.7 10^3/uL (1.8-7.8); NEUTROPHILS % (AUTO) 85 % (42-75); PLATELET COUNT 395 10^3/uL (130-400); WHITE BLOOD COUNT 6.7 10^3/uL (4.3-11.0)
[2020-10-27 04:15] LABS: HEMOGLOBIN 6.8 g/dL (11.5-16.0)
[2020-10-27 04:28] LABS: CHLORIDE 98 MMOL/L (98-107); POTASSIUM 3.5 MMOL/L (3.6-5.0); SODIUM 140 MMOL/L (135-145)
[2020-10-27 04:29] LABS: CALCIUM 7.1 MG/DL (8.5-10.1)
[2020-10-27 04:30] LABS: GLUCOSE 107 MG/DL (70-105)
[2020-10-27 04:31] LABS: TOTAL PROTEIN 4.5 GM/DL (6.4-8.2)
[2020-10-27 04:32] LABS: BILIRUBIN,TOTAL 0.2 MG/DL (0.1-1.0); CARBON DIOXIDE 33 MMOL/L (21-32)
[2020-10-27 04:34] LABS: ALKALINE PHOSPHATASE 54 U/L (40-136); CREATININE SERUM 0.49 MG/DL (0.60-1.30); GFR ESTIMATED > 60; PHOSPHORUS 3.7 MG/DL (2.3-4.7)
[2020-10-27 04:35] LABS: BUN/CREATININE RATIO 22
[2020-10-27 04:37] LABS: ALANINE AMINOTRANSFERASE 10 U/L (0-55); MAGNESIUM 1.8 MG/DL (1.6-2.4)
[2020-10-27] MEDS ORDERED: POTASSIUM CL 10MEQ/50ML IVPB 100 ML IV ONE (05:06)
--- NOTE | 2020-10-27 05:08 | NUR ---
0508 this nurse notified of patients decreased urine output and hgb of 6.8. 0540 this nurse notified of patients decreased urine output and hgb of 6.8.
[2020-10-27] MEDS ORDERED: POTASSIUM CL 10MEQ/50ML IVPB 50 ML IV SCH (05:15)
--- NOTE | 2020-10-27 05:37 | Pulmonary Consultation ---
History of Present Illness History of Present Illness Date Seen by Provider: Oct 27, 2020 Time Seen by Provider: 05:32 Date of Admission Allergies and Home Medications Allergies Coded Allergies: budesonide (Unverified Allergy, Mild, NAUSEA, 01/06/16) PT REPORTS NAUSEA, FLUSHING AND NIGHTMARES formoterol (Unverified Allergy, Mild, NAUSEA, 01/06/16) PT REPORTS NAUSEA, FLUSHING AND NIGHTMARES Home Medications ALPRAZolam 0.25 Mg Tablet, 0.25 MG Q6H PRN for ANXIETY/SLEEP, (Reported) Acetaminophen 650 Mg/20.3 Ml Oral.susp, 650 MG PO Q6H PRN for PAIN-MILD (1-4) OR TEMPATURE, (Reported) Acetylcysteine 200 Mg/1 Ml Vial, 3 ML NEB QID Prescribed by: RAJESH DAVENPORT on 10/07/20657 Albuterol Sulfate 2.5 Mg/3 Ml Vial.neb, 2.5 MG INH RTQ4HR Prescribed by: RAJESH DAVENPORT on 10/07/20657 Amiodarone HCl 200 Mg Tablet, 400 MG PO BID Prescribed by: RAJESH DAVENPORT on 10/07/20657 Apixaban 5 Mg Tablet, 5 MG BID, (Reported) Cefuroxime Axetil 250 Mg Tablet, 250 MG PO BID Prescribed by: MATTHEW RAMIREZ on 10/23/202004 Cholecalciferol (Vitamin D3) 25 Mcg Capsule, 100 MCG DAILY, (Reported) TAKES 4 (25MCG) TABS Digoxin 125 Mcg Tablet, 0.125 MG PO DAILY Prescribed by: RAJESH DAVENPORT on 10/07/20657 Furosemide 20 Mg Tablet, 20 MG DAILY, (Reported) Hydrocodone/Acetaminophen 1 Each Tablet, 1 EA BID PRN for PAIN-SEVERE (8-10), (Reported) Ipratropium/Albuterol Sulfate 3 Ml Ampul.neb, 3 ML NEB BID, (Reported) Levothyroxine Sodium 75 Mcg Tablet, 75 MCG DAILY, (Reported) Melatonin 3 Mg Tablet, 3 MG PO HS PRN for SLEEP, (Reported) Pantoprazole Sodium 40 Mg Tablet.dr, 40 MG DAILY, (Reported) Potassium Chloride 10 Meq Tab.er.prt, 10 MEQ DAILY, (Reported) Sennosides/Docusate Sodium 1 Each Tablet, 2 EACH HS, (Reported) Sertraline HCl 50 Mg Tablet, 50 MG DAILY, (Reported) Past Kzedohc-Yyablt-Yyxrcx Hx Patient Social History Alcohol Use: Denies Use Recreational Drug Use: No Smoking Status: Never a Smoker 2nd Hand Smoke Exposure: No Recent Foreign Travel: No Contact w/Someone Who Travel: No Recent Infectious Disease Expo: No Recent Hopitalizations: Yes Physical Abuse: No Sexual Abuse: No Mistreated: No Fear: No Immunizations Up To Date Date of Pneumonia Vaccine: Aug 21, 2014 Date of Influenza Vaccine: Aug 21, 2020 Past Medical History Surgeries: Yes ( HERNIA REPAIR; FEEDING TUBE ; BILATERAL CATARACTS) Abdominal, Eye Surgery, Tracheostomy Respiratory: Yes (COPD; TRACH PLACED 05/2020; PULMONARY EDEMA) Pneumonia, COPD Cardiac: Yes Atrial Fibrillation, Hypertension Neurological: No Dementia Reproductive Disorders: No Genitourinary: Yes UTI-Chronic Gastrointestinal: Yes (FEEDING TUBE IN PLACE 05/2020) Musculoskeletal: Yes Arthritis Endocrine: No HEENT: Yes Cataract Cancer: No Psychosocial: No Integumentary: No Blood Disorders: No Adverse Reaction/Blood Tranf: No (BLOOD TRANSFUSION AFTER CHILDBIRTH) Family Medical History Cardiovascular disease G8 BROTHER Congenital heart disease G8 BROTHER FH: cancer G8 SISTER (UTERINE) Glaucoma 19 MOTHER Hypertension G8 SISTER Respiratory disorder 19 FATHER No Pertinent Family Hx Review of Systems Time Seen by Provider: 05:44 Sepsis Event Evaluation Height, Weight, BMI Height: 5'2.00" Weight: 90lbs. 6.0oz. 40.547861ei; 19.83 BMI Method: Exam Exam Vital Signs Date Time Temp Pulse Resp B/P (MAP) Pulse Ox O2 Delivery O2 Flow Rate FiO2 10/27/20 05:00 53 17 115/56 98 Mechanical Ventilator 50.00 10/27/20 04:00 55 18 111/54 98 Mechanical Ventilator 50.00 10/27/20 03:00 64 38 109/56 99 Mechanical Ventilator 50.00 10/27/20 02:31 56 18 95 50 10/27/20 02:00 51 21 113/56 97 Mechanical Ventilator 50.00 10/27/20 01:00 57 27 98/49 96 Mechanical Ventilator 50.00 10/27/20 01:00 57 10/27/20 00:10 36.0 10/27/20 00:00 63 32 94/52 91 Mechanical Ventilator 50.00 10/26/20 23:08 56 18 95 50 10/26/20 23:08 76 27 92 40 10/26/20 23:00 53 18 113/57 97 Mechanical Ventilator 50.00 10/26/20 22:27 36.4 58 18 103/55 95 Mechanical Ventilator 40.00 10/26/20 22:00 53 18 118/60 98 Mechanical Ventilator 50.00 10/26/20 21:00 36.4 10/26/20 21:00 56 18 130/64 99 Mechanical Ventilator 50.00 10/26/20 20:00 95 Mechanical Ventilator 40.00 10/26/20 20:00 62 18 98/52 96 Mechanical Ventilator 50.00 10/26/20 19:16 58 18 97 50 10/26/20 19:08 56 18 97 50 10/26/20 19:00 56 17 104/54 97 Mechanical Ventilator 50.00 10/26/20 19:00 56 10/26/20 18:00 59 101/48 97 Mechanical Ventilator 50.00 10/26/20 17:00 63 94/47 95 Mechanical Ventilator 50.00 10/26/20 16:08 36.8 10/26/20 16:00 72 107/51 92 Mechanical Ventilator 50.00 10/26/20 15:46 108/55 10/26/20 15:00 89 34 108/55 92 Mechanical Ventilator 50.00 10/26/20 14:47 Mechanical Ventilator 50.00 10/26/20 14:21 50 10/26/20 14:11 76 27 92 40 10/26/20 14:00 84 35 145/71 90 Mechanical Ventilator 40.00 10/26/20 13:38 76 27 92 40 10/26/20 13:00 71 18 103/51 92 Mechanical Ventilator 40.00 10/26/20 12:26 72 10/26/20 12:00 70 18 100/51 92 Mechanical Ventilator 40.00 10/26/20 11:05 73 22 93 40 10/26/20 11:00 68 12 111/61 91 Mechanical Ventilator 40.00 10/26/20 10:00 65 19 110/50 93 Mechanical Ventilator 40.00 10/26/20 09:00 75 25 115/55 Mechanical Ventilator 40.00 10/26/20 08:02 36.9 10/26/20 08:00 78 22 111/51 93 Mechanical Ventilator 40.00 10/26/20 07:46 95 Mechanical Ventilator 40.00 10/26/20 07:13 64 22 91 40 10/26/20 07:00 77 10/26/20 07:00 73 12 127/68 Mechanical Ventilator 40.00 10/26/20 06:00 58 18 18/93 93 Mechanical Ventilator 40.00 I & O 10/27/20 07:00 Intake Total 465 ml Output Total 325 ml Balance 140 ml Height & Weight Height: 5'2.00" Weight: 90lbs. 6.0oz. 40.443896uz; 19.83 BMI Method: General Appearance: No Apparent Distress Neck: Supple Respiratory: Other (coarse breath sounds) Cardiovascular: Regular Rate, Rhythm Capillary Refill: Less Than 3 Seconds Gastrointestinal: soft Extremity: Normal Capillary Refill Neurologic/Psychiatric: Alert (difficult to communicate as she has tracheostomy. Reading of lips and she appears appropriate in conversation), Oriented x3 Results Lab Laboratory Tests 10/25/20 14:00 10/26/20 04:13 10/27/20 03:10 Assessment/Plan Assessment/Plan Acute on chronic respiratory failure -Multiple hospitalizations -Pt has been refusing ECF She is currently living at home with her . Pt needs fdc and/or hospice care -Obtain home vent Hx of MDR pseudomonas PNA with colonization -Check PCT and BNP -Currently Zosyn -Richter cultures pending AFib- hx of RVR -Monitor Anemia -Transfuse 1 unit of PRBC -Monitor Small bilateral pleural effusions Echo shows normal EF with grade 1 diastolic dysfunction -restart Lasix daily -SL IVF for now and continue to monitor NORAH FOUNTAIN DO Oct 27, 2020 05:37
[2020-10-27] MEDS ORDERED: FUROSEMIDE 40 MG/4 ML INJ (LASIX) IVP ONE (05:45)
[2020-10-27] MEDS ORDERED: KCL 20 MEQ TAB (K-DUR) PO ONE (05:45)
[2020-10-27] MEDS ORDERED: LORazepam INJ 2 MG/ML (ATIVAN) VIAL IVP PRN (05:45)
[2020-10-27] MEDS: POTASSIUM CL 10MEQ/50ML IVPB 50 ML IV SCH ×4 (06:19→11:06)
[2020-10-27] MEDS: PIPERACILLIN/TAZO 4.5 GM/NS 100 ML IV SCH ×4 (06:21→20:03)
[2020-10-27] MEDS: KCL 20 MEQ TAB (K-DUR) PO SCH (06:24)
[2020-10-27] MEDS: MAGNESIUM 1 GM/100 ML IVPB 100 ML IV SCH (06:24)
[2020-10-27] MEDS ORDERED: NS IV 500 ML 500 ML IV SCH (06:45)
--- NOTE | 2020-10-27 06:46 | Progress Note ---
Subjective Date Seen by a Provider: Oct 27, 2020 Time Seen by a Provider: 06:40 Subjective/Events-last exam Feeling fine currently and without labored breathing. Anxiolytic is helpful. Focused Exam Lactate Level 10/25/20 14:03: Lactic Acid Level 1.86 Objective Exam Vital Signs Date Time Temp Pulse Resp B/P (MAP) Pulse Ox O2 Delivery O2 Flow Rate FiO2 10/27/20 05:00 53 17 115/56 98 Mechanical Ventilator 50.00 10/27/20 04:00 55 18 111/54 98 Mechanical Ventilator 50.00 10/27/20 03:00 64 38 109/56 99 Mechanical Ventilator 50.00 10/27/20 02:31 56 18 95 50 10/27/20 02:00 51 21 113/56 97 Mechanical Ventilator 50.00 10/27/20 01:00 57 27 98/49 96 Mechanical Ventilator 50.00 10/27/20 01:00 57 10/27/20 00:10 36.0 10/27/20 00:00 63 32 94/52 91 Mechanical Ventilator 50.00 10/26/20 23:08 56 18 95 50 10/26/20 23:08 76 27 92 40 10/26/20 23:00 53 18 113/57 97 Mechanical Ventilator 50.00 10/26/20 22:27 36.4 58 18 103/55 95 Mechanical Ventilator 40.00 10/26/20 22:00 53 18 118/60 98 Mechanical Ventilator 50.00 10/26/20 21:00 36.4 10/26/20 21:00 56 18 130/64 99 Mechanical Ventilator 50.00 10/26/20 20:00 95 Mechanical Ventilator 40.00 10/26/20 20:00 62 18 98/52 96 Mechanical Ventilator 50.00 10/26/20 19:16 58 18 97 50 10/26/20 19:08 56 18 97 50 10/26/20 19:00 56 17 104/54 97 Mechanical Ventilator 50.00 10/26/20 19:00 56 10/26/20 18:00 59 101/48 97 Mechanical Ventilator 50.00 10/26/20 17:00 63 94/47 95 Mechanical Ventilator 50.00 10/26/20 16:08 36.8 10/26/20 16:00 72 107/51 92 Mechanical Ventilator 50.00 10/26/20 15:46 108/55 10/26/20 15:00 89 34 108/55 92 Mechanical Ventilator 50.00 10/26/20 14:47 Mechanical Ventilator 50.00 10/26/20 14:21 50 10/26/20 14:11 76 27 92 40 10/26/20 14:00 84 35 145/71 90 Mechanical Ventilator 40.00 10/26/20 13:38 76 27 92 40 10/26/20 13:00 71 18 103/51 92 Mechanical Ventilator 40.00 10/26/20 12:26 72 10/26/20 12:00 70 18 100/51 92 Mechanical Ventilator 40.00 10/26/20 11:05 73 22 93 40 10/26/20 11:00 68 12 111/61 91 Mechanical Ventilator 40.00 10/26/20 10:00 65 19 110/50 93 Mechanical Ventilator 40.00 10/26/20 09:00 75 25 115/55 Mechanical Ventilator 40.00 10/26/20 08:02 36.9 10/26/20 08:00 78 22 111/51 93 Mechanical Ventilator 40.00 10/26/20 07:46 95 Mechanical Ventilator 40.00 10/26/20 07:13 64 22 91 40 10/26/20 07:00 77 10/26/20 07:00 73 12 127/68 Mechanical Ventilator 40.00 I & O 10/27/20 07:00 Intake Total 465 ml Output Total 325 ml Balance 140 ml Capillary Refill : Less Than 3 Seconds General Appearance: No Apparent Distress Neck: Supple Respiratory: Lungs Clear (with coarseness diffuse) Cardiovascular: Regular Rate, Rhythm Gastrointestinal: soft Results Lab Laboratory Tests 10/26/20 13:09: Glucometer 110 10/26/20 18:17: Glucometer 133H 10/27/20 00:08: Glucometer 115H 10/27/20 03:10: White Blood Count 6.7, Red Blood Count 2.69L, Hemoglobin 6.8*L, Hematocrit 23L, Mean Corpuscular Volume 87, Mean Corpuscular Hemoglobin 25, Mean Corpuscular Hem oglobin Concent 29L, Red Cell Distribution Width 17.2H, Platelet Count 395, Mean Platelet Volume 9.7, Immature Granulocyte % (Auto) 1, Neutrophils (%) (Auto) 85H , Lymphocytes (%) (Auto) 5L, Monocytes (%) (Auto) 6, Eosinophils (%) (Auto) 3, Basophils (%) (Auto) 0, Neutrophils # (Auto) 5.7, Lymphocytes # (Auto) 0.3L, Monocytes # (Auto) 0.4, Eosinophils # (Auto) 0.2, Basophils # (Auto) 0.0, Immature Granulocyte # (Auto) 0.0, Sodium Level 140, Potassium Level 3.5L, Chloride Level 98, Carbon Dioxide Level 33H, Anion Gap 9, Blood Urea Nitrogen 11, Creatinine 0.49L, Estimat Glomerular Filtration Rate > 60, BUN/Creatinine Ratio 22, Glucose Level 107H, Calcium Level 7.1L, Corrected Calcium 8.7, Ph osphorus Level 3.7, Magnesium Level 1.8, Total Bilirubin 0.2, Aspartate Amino Transf (AST/SGOT) 10, Alanine Aminotransferase (ALT/SGPT) 10, Alkaline Phosphatase 54, B-Type Natriuretic Peptide 342.6H, Total Protein 4.5L, Albumin 2.0L, Procalcitonin 0.11H Microbiology 10/25/20 Blood Culture - Preliminary, Resulted No growth Assessment/Plan Assessment/Plan Assess & Plan/Chief Complaint 1. Acute respiratory distress with hypoxia -patient is doing better now that suctioning aggressively was performed in ED. She is admitted for the pneumonia as well as white count now being at 17,000 10/27 -Will obtain home vent 2. Right lower lobe pneumonia. History of Pseudomonas pneumonia -Zosyn has been initiated in ED -Sputum culture to be obtained 10/26 -WBC has improved -awaiting sputum culture results 10/27 -day 3 zosyn 3. Respiratory acidosis -repeat ABG 10/26 -ABG was canceled on repeat 4. Anemia -Dr Velazquez has ordered 1 U PRBC -monitor cbc Clinical Quality Measures Admission Status Admission Dx 1. Acute respiratory distress with hypoxia 2. Right lower lobe pneumonia. History of Pseudomonas pneumonia 3. Respiratory acidosis DVT/VTE Risk/Contraindication: Risk Factor Score Per Nursin RFS Level Per Nursing on Admit: 4+=Very High RAJESH DAVENPORT MD Oct 27, 2020 06:46
--- NOTE | 2020-10-27 07:10 | NUR ---
Per nursing communication, This nurse contacted patients to see if he could bring the powercord to the patients home ventilator so it could be used for the patient. Patients stated that he would bring the power cord today.
--- NOTE | 2020-10-27 07:36 | Diagnostic Imaging Report ---
INDICATION: Ventilated patient. COMPARISON: 10/26/2020 FINDINGS: Single frontal radiographic view of the chest was obtained and demonstrates indwelling tracheostomy tube with tip at the clavicular heads. Lungs continue to show diffuse coarse prominence of the interstitium with probable bibasilar effusions, right greater than left. There is also associated bibasilar airspace disease. Overall, aeration is not significantly changed compared to prior exam. There is no pneumothorax. Cardiac silhouette partially obscured, but appears stable. Osseous structures are unchanged. IMPRESSION: 1. Stable exam of the chest showing diffuse scattered interstitial infiltrate with bibasilar effusions and probable associated bibasilar atelectasis, right greater than left. Dictated by: Dictated on workstation # [id number]
[2020-10-27] MEDS: PANTOPRAZOLE 40 MG (PROTONIX) VIAL IV SCH (08:38)
[2020-10-27] MEDS: ALPRAZolam 0.25 MG (XANAX) TAB PEG PRN ×2 (09:43→17:47)
[2020-10-27] MEDS ORDERED: NS IV 500 ML 500 ML ONE (10:50)
--- NOTE | 2020-10-27 11:29 | NUR ---
Pt s Scientologist. Anointed Tuesday by Fr Call.
[2020-10-27] MEDS ORDERED: AMIO200T6 PO (11:40)
[2020-10-27] MEDS ORDERED: DIGO125T3 PO (11:40)
[2020-10-27] MEDS ORDERED: CEFU250T80 PO (11:40)
[2020-10-27] MEDS ORDERED: ACET650T41 PO (11:40)
[2020-10-27] MEDS ORDERED: ACET200V4 NEB (11:43)
--- NOTE | 2020-10-27 11:52 | NUR ---
SPOKE WITH THE PTS (MATTHEW) AND WENT THRU THE EXT MED HISTORY TO COMPLETE THE MED REC MATTHEW AND I WENT OVER ALL THE PTS MEDICATIONS- SHE WAS DISCHARGE A COUPLE WEEKS AGO AND WAS STARTED ON NEW MEDICATIONS- AND ACCORDING TO MATTHEW THOSE ALL HAVE BEEN STARTED. OTC MEDS: SENNA-A MELATONIN VIT D TYLENOL 650MG
--- NOTE | 2020-10-27 12:23 | NUR ---
CM/SS: Telephone Call from Giancarlo- spouse. He reports pt being here for same reasons as last time and that he has talked to Dr Henderson and the goal would be for pt to return home with Hospice services when it is time to discharge. Spouse has not idea of which hospice. He is given information about Hospice and seems ok with that. Briefly discussed code status. He is ok for this worker to talk with pt about Hospice services. He plans to bring power cord to the home vent. He will call this worker when he arrives. Telephone call from Giancarlo - he is at the Emergency Entrance and has the power cord. This worker picks up the power cord and talks with spouse as to pt's code status and hospice. He seems realistic and reports they have an order to get a hospital bed, but has not received it as of yet. He is informed that pt could get a bed, with being on Hospice. Spouse will follow up with questions, and this worker will follow up with pt and have discussion around Hospice.
--- NOTE | 2020-10-27 12:35 | NUR ---
CM/SS: Visit with pt as per request of spouse Giancarlo, conversation related to Hospice services. Palliative Care MONTY Lazar is present as well. Plan: Undetermined at this time. Pt is from home and will return there, likely with Hospice, Specific Hospice to be identified. Summary: Pt reports her hand hurting at arrival. Hand does appear puffy and swollen. RN is notified of the concern related to pt's hand. Hospice information is discussed. Pt seems open to that at this time. Palliative Care RN Nagi discussed code status. Pt appears to want to have CPR if she were to stop breathing at this time. Pt does shake her head as an indicator that she seems ok with Hospice, knowing that the goal is to keep her out of the hospital and home and comfortable. Pt is informed that once one is selected, the process of getting pt a hospital bed and other equipment in place prior to discharge is the plan. Pt seems agreeable. This worker will follow up.
[2020-10-27 15:02] VITALS: BP 112/54
[2020-10-27 15:41] VITALS: BP 112/54
[2020-10-27 15:41] LABS: ABG BASE EXCESS 12.1 MMOL/L (-2.5-2.5); ABG OXYGEN SATURATION 97 % (94-100); ABG PCO2 65 MMHG (35-45); ABG PH 7.38 (7.37-7.43); ABG PO2 85 MMHG (79-93); ABG TCO2 39.7 MMOL/L (21.0-31.0)
[2020-10-27 15:43] LABS: ALLENS TEST YES-POS; INSPIRED O2 10L; PATIENT TEMP 98.1; VENTILATOR YES
--- NOTE | 2020-10-27 15:44 | NUR ---
PALLIATIVE CARE RN all and spoke with Giancarlo, patient's . We discussed several different things related to her critical illness. He had spoken to Dr. Henderson about hospice and so I encouraged him to call and speak to the [facility] hospice organizations to determine who he would like to have in his home to care for her. I called Dr. Henderson and left message for him to call me back regarding his thoughts on this patient! Addendum: 10/27/20 at 1600 by OFELIA SILVA RN [address] Henderson did call back and I updated him on our discussion. I also filled him in on my conversation with Alicia ziegler [facility] regarding a new piece to try for the ventilator.
[2020-10-27] MEDS: morphine INJ 4 MG/ML 1 ML (VIAL/SYRINGE) IVP PRN ×3 (15:53→20:58)
[2020-10-27 15:56] VITALS: BP 108/54
[2020-10-27] MEDS: ENOXAPARIN 40 MG/0.4 ML (LOVENOX) SYR SC SCH (18:15)
[2020-10-27 19:04] VITALS: BP 108/54
[2020-10-27] MEDS: MELATONIN 3 MG TABLET PO SCH (20:58)
[2020-10-27 21:50] VITALS: BP 101/51
[2020-10-28 02:10] VITALS: BP 101/51
[2020-10-28] MEDS: PIPERACILLIN/TAZO 4.5 GM/NS 100 ML IV SCH ×6 (02:10→20:05)
[2020-10-28] MEDS: RT-ALBUTEROL/IPRATROPIUM 3 ML (DUONEB) VIAL INH SCH ×5 (02:10→18:45)
[2020-10-28 04:14] LABS: BASOPHILS % (AUTO) 0 % (0-10); EOSINOPHILS # (AUTO) 0.4 10^3/uL (0.0-0.3); EOSINOPHILS % (AUTO) 5 % (0-10); HEMATOCRIT 31 % (35-52); LYMPHOCYTES # (AUTO) 0.4 10^3/uL (1.0-4.0); LYMPHOCYTES % (AUTO) 5 % (12-44); MEAN CORPUSCULAR HEMOGLOBIN 26 pg (25-34); MEAN CORPUSCULAR HGB CONC 29 g/dL (32-36); MEAN CORPUSCULAR VOLUME 88 fL (80-99); MEAN PLATELET VOLUME 9.6 fL (9.0-12.2); MONOCYTES # (AUTO) 0.7 10^3/uL (0.0-1.0); MONOCYTES % (AUTO) 8 % (0-12); NEUTROPHILS # (AUTO) 6.5 10^3/uL (1.8-7.8); NEUTROPHILS % (AUTO) 81 % (42-75); PLATELET COUNT 403 10^3/uL (130-400)
[2020-10-28 04:42] LABS: CHLORIDE 97 MMOL/L (98-107); POTASSIUM 3.9 MMOL/L (3.6-5.0); SODIUM 140 MMOL/L (135-145)
[2020-10-28 04:43] LABS: CALCIUM 7.2 MG/DL (8.5-10.1); GLUCOSE 79 MG/DL (70-105)
[2020-10-28 04:45] LABS: CARBON DIOXIDE 34 MMOL/L (21-32)
[2020-10-28 04:47] LABS: CREATININE SERUM 0.51 MG/DL (0.60-1.30); GFR ESTIMATED > 60; PHOSPHORUS 3.4 MG/DL (2.3-4.7)
[2020-10-28 04:48] LABS: BUN/CREATININE RATIO 18
[2020-10-28 04:50] LABS: MAGNESIUM 1.7 MG/DL (1.6-2.4)
[2020-10-28] MEDS: HYDROcodone/APAP 5 MG/325 MG (LORTAB) TAB PEG PRN ×2 (05:04→21:14)
[2020-10-28] MEDS: POTASSIUM CL 10MEQ/50ML IVPB 50 ML IV SCH (05:10)
[2020-10-28] MEDS: MAGNESIUM 1 GM/100 ML IVPB 100 ML IV SCH (05:10)
[2020-10-28] MEDS: inSUlin ASPART (NovoLOG) 1 UNIT/0.01 ML (CHARGE PER UNIT) SC SCH ×4 (05:11→23:03)
[2020-10-28] MEDS: KCL 20 MEQ TAB (K-DUR) PO SCH (05:11)
--- NOTE | 2020-10-28 07:31 | Diagnostic Imaging Report ---
EXAMINATION: Chest 1 view HISTORY: Respiratory distress. Ventilator. COMPARISON: 10/27/2020. FINDINGS: A tracheostomy is visualized in stable configuration. Consolidative opacities are seen in the right mid and lower lung with patchy opacities throughout the remainder of the lungs. Bilateral pleural effusions are unchanged. No evidence of pneumothorax. Stable cardiac silhouette. No acute osseous abnormalities. IMPRESSION: 1. Stable consolidative opacities in the right mid and lower lung with unchanged patchy opacities throughout the remainder of the lungs. These findings are concerning for infection superimposed on chronic fibrotic changes. 2. Stable bilateral pleural effusions. Dictated by: Dictated on workstation # [id number]
[2020-10-28 07:33] VITALS: BP 117/58
[2020-10-28 11:22] VITALS: BP 128/55
[2020-10-28] MEDS: aCETylcysteine 20% (MUCOMYST) 30ML SOLN VIAL INH SCH ×3 (11:22→18:45)
[2020-10-28] MEDS: FUROSEMIDE 40 MG/4 ML INJ (LASIX) IVP SCH (12:31)
[2020-10-28] MEDS: PANTOPRAZOLE 40 MG (PROTONIX) VIAL IV SCH (12:31)
[2020-10-28] MEDS ORDERED: DEXTROSE 50% 50 ML (IMS) SYR ONE (12:34)
[2020-10-28] MEDS ORDERED: ONDANSETRON 4 MG/2 ML (SDV) Z0FRAN ONE (13:37)
--- NOTE | 2020-10-28 13:54 | NUR ---
provided a small manageable piece of Communion for pt. This has been important to her and she had been receiving it at home as well. It is a bit difficult to understand her but she tries very hard. [employer] provided prayer and companionship.
--- NOTE | 2020-10-28 14:29 | NUR ---
CM/SS: Telephone call to Giancarlo - [phone]- Following up with him to see if he has had the opportunity to speak with different Hospice Agencies. He reports that he has been able to talk with most of the ones he was given on yesterday. He confirms that he has choses to go with [facility]. He has talked with Elpidio at [facility]. This worker will follow up and send over information on pt. Giancarlo verbalizes understanding, and thanks this worker for calling.
--- NOTE | 2020-10-28 14:39 | NUR ---
PALLIATIVE CARE RN has just spoken with Dr. Henderson regarding patient. Discussed whether she should be made CCMO or discharged to home with hospice. At this time CCMO is not an option due to Rayna wanting to be FULL CODE . SHe is agreeable to hospice however. I then called Giancarlo, patients who had tried to call me and learned that they had chosen [facility] and are expecting to discharge tomorrow to home with continued vent and with hospice. I or myself will send referral to [facility].
--- NOTE | 2020-10-28 14:39 | Progress Note ---
Subjective Date Seen by a Provider: Oct 28, 2020 Time Seen by a Provider: 07:00 Subjective/Events-last exam patient was resting comfortably this morning. She is not having any current mucus plugging in her tracheostomy. Objective Exam Vital Signs Date Time Temp Pulse Resp B/P (MAP) Pulse Ox O2 Delivery O2 Flow Rate FiO2 10/28/20 14:24 76 18 100 60 10/28/20 11:22 86 25 97 60 10/28/20 08:00 36.6 10/28/20 07:33 63 21 97 60 10/28/20 06:00 58 18 114/54 98 Mechanical Ventilator 60.00 10/28/20 05:00 60 19 123/56 97 Mechanical Ventilator 60.00 10/28/20 04:00 61 20 105/45 98 Mechanical Ventilator 60.00 10/28/20 03:30 36.5 Mechanical Ventilator 60.00 10/28/20 03:00 61 24 107/54 96 Mechanical Ventilator 50.00 10/28/20 02:10 73 23 96 60 10/28/20 02:00 56 14 104/47 98 Mechanical Ventilator 50.00 10/28/20 01:00 56 18 104/50 99 Mechanical Ventilator 50.00 10/28/20 01:00 64 10/28/20 00:00 67 26 109/54 95 Mechanical Ventilator 50.00 10/27/20 23:11 Mechanical Ventilator 50.00 10/27/20 23:00 69 19 104/49 96 Mechanical Ventilator 60.00 10/27/20 23:00 35.9 18 Mechanical Ventilator 60.00 10/27/20 22:00 62 18 100/44 98 Mechanical Ventilator 60.00 10/27/20 21:50 62 23 98 60 10/27/20 21:00 68 22 101/51 98 Mechanical Ventilator 60.00 10/27/20 20:00 68 10 102/52 99 Mechanical Ventilator 60.00 10/27/20 20:00 102/52 10/27/20 19:50 36.1 18 Mechanical Ventilator 60.00 10/27/20 19:45 100 Mechanical Ventilator 60 10/27/20 19:04 65 23 100 60 10/27/20 19:00 63 19 100 Mechanical Ventilator 50.00 10/27/20 19:00 63 10/27/20 16:35 36.5 10/27/20 15:56 36.7 76 17 108/54 94 Trach Collar 6.00 10/27/20 15:41 36.8 77 21 112/54 97 Trach Collar 6.00 10/27/20 15:02 62 14 99 40 I & O 10/28/20 07:00 Intake Total 2570 ml Output Total 3285 ml Balance -715 ml Capillary Refill : Less Than 3 Seconds General Appearance: No Apparent Distress Respiratory: Lungs Clear (in the apical areas) Cardiovascular: Regular Rate, Rhythm (with rate controlled) Gastrointestinal: soft Extremity: Normal Capillary Refill Results Lab Laboratory Tests 10/27/20 15:30: Blood Gas Puncture Site RR, Blood Gas Patient Temperature 98.1, Arterial Blood pH 7.38, Arterial Blood Partial Pressure CO2 65H, Arterial Blood Partial Pressure O2 85, Arterial Blood HCO3 38H, Arterial Blood Total CO2 39.7H, Arterial Blood Oxygen Saturation 97, Arterial Blood Base Excess 12.1H, Kang Test YES-POS, Blood Gas Ventilator Setting YES, Blood Gas Inspired Oxygen 10L 10/27/20 18:26: Glucometer 100 10/27/20 23:10: Glucometer 88 10/28/20 04:00: White Blood Count 8.0, Red Blood Count 3.47L, Hemoglobin 9.0#L, Hematocrit 31L, Mean Corpuscular Volume 88, Mean Corpuscular Hemoglobin 26, Mean Corpuscular Hemoglobin Concent 29L, Red Cell Distribution Width 16.8H, Platelet Count 403H, Mean Platelet Volume 9.6, Immature Granulocyte % (Auto) 0, Neutrophils (%) (Auto) 81H, Lymphocytes (%) (Auto) 5L, Monocytes (%) (Auto) 8, Eosinophils (%) (Auto) 5, Basophils (%) (Auto) 0, Neutrophils # (Auto) 6.5, Lymphocytes # (Auto) 0.4L, Monocytes # (Auto) 0.7, Eosinophils # (Auto) 0.4H, Basophils # (Auto) 0.0, Immature Granulocyte # (Auto) 0.0, Sodium Level 140, Potassium Level 3.9, Chloride Level 97L, Carbon Dioxide Level 34H, Anion Gap 9, Blood Urea Nitrogen 9, Creatinine 0.51L, Estimat Glomerular Filtration Rate > 60, BUN/Creatinine Ratio 18, Glucose Level 79, Calcium Level 7.2L, Phosphorus Level 3.4, Magnesium Level 1.7 10/28/20 12:34: Glucometer 40*L 10/28/20 12:37: Glucometer 41*L 10/28/20 13:28: Glucometer 117H 10/28/20 14:32: Glucometer 109 Microbiology 10/26/20 Gram Stain, Resulted Pending 10/26/20 Sputum Culture - Preliminary, Resulted Pseudomonas aeruginosa Klebsiella pneumoniae 10/25/20 Blood Culture - Preliminary, Resulted No growth Assessment/Plan Assessment/Plan Assess & Plan/Chief Complaint 1. Acute respiratory distress with hypoxia -patient is doing better now that suctioning aggressively was performed in ED. She is admitted for the pneumonia as well as white count now being at 17,000 10/27 -Will obtain home vent 10/28 -as of this morning the home vent is available but not utilized -currently in communication with her regarding hospice. 2. Right lower lobe pneumonia. History of Pseudomonas pneumonia -Zosyn has been initiated in ED -Sputum culture to be obtained 10/26 -WBC has improved -awaiting sputum culture results 10/27 -day 3 zosyn 10/28 -day for Zosyn -Her white count is noted to be normalized 3. Respiratory acidosis -repeat ABG 10/26 -ABG was canceled on repeat 4. Anemia -Dr Velazquez has ordered 1 U PRBC -monitor cbc Clinical Quality Measures Admission Status Admission Dx 1. Acute respiratory distress with hypoxia 2. Right lower lobe pneumonia. History of Pseudomonas pneumonia 3. Respiratory acidosis DVT/VTE Risk/Contraindication: Risk Factor Score Per Nursin RFS Level Per Nursing on Admit: 4+=Very High RAJESH DAVENPORT MD Oct 28, 2020 14:39
[2020-10-28] MEDS ORDERED: ONDANSETRON 4 MG/2 ML (SDV) Z0FRAN IVP PRN (14:45)
--- NOTE | 2020-10-28 15:33 | NUR ---
"RD ASSESSMENT PMHx: pneumonia; COPD (trach placement 05/2020); afib; dementia; chronic UTI; PT INTERACTION: Pt was awake and pleasant during nutrition assessment. Pt states current appetite is poor. Note avg PO intake <25% x2d, per chart review. Note pt has PEG tube. Pt states some recent issues with constipation, and that her last BM was /6. Note recent 46# wt loss x5mon, per chart review. This is significant wt loss at 27% wt loss. Upon visual assessment, pt appears very undernourished with visible signs of muscle/fat loss, and a BMI of 21.8 (Underweight BMI for age). Given PO intake, wt hx, and visual assessment, pt meets criteria for malnutrition per ASPEN guidelines. ABNORMAL NUTRITION-RELATED LAB VALUES LOW: Cl 97; cr 0.51; Ca 7.2; HIGH: Est. kcal needs: 4437-6279 kcal | 30-35 kcal/kg Est. Pro needs: 54-64 g Pro | 1.0-1.2 g Pro/kg PES STATEMENT: Inadequate oral intake (NI-2.1) related to loss of appetite, and constipation, as evidenced by pt interview and avg PO intake <25% x2d. INTERVENTION: Continue with current diet order of Clear Liquid diet. Would recommend initiation of TF via PEG tube. Recommend Pulmocare at 15ml/hr with 25ml free water flushes q4h for hydration. Increase by 10ml q12h, as medically able and as tolerated. Goal rate is 40ml/hr. Will continue to follow and reassess as pt needs, intake, and status change. Keith FLETCHER MS RD LD [phone] cell"
--- NOTE | 2020-10-28 15:38 | NUR ---
This RN went in to talk to patient about the conversation with Dr. Henderson and Giancarlo, . Patient is still in agreement with discharge to home tomorrow with [facility], [facility]. SARANYA Alarcon has sent a packet to [facility] and asked for BED, CONT VENTILATOR SUPPORT AND SUCTION EQUIPMENT prior to going home. She will need to be discharge with comfort medications as well.
[2020-10-28] MEDS: ENOXAPARIN 40 MG/0.4 ML (LOVENOX) SYR SC SCH (20:06)
[2020-10-28] MEDS: MELATONIN 3 MG TABLET PO SCH (21:14)
[2020-10-29] MEDS: RT-ALBUTEROL/IPRATROPIUM 3 ML (DUONEB) VIAL INH SCH ×2 (01:09→07:01)
[2020-10-29] MEDS: PIPERACILLIN/TAZO 4.5 GM/NS 100 ML IV SCH ×2 (02:41)
[2020-10-29 04:50] LABS: BASOPHILS % (AUTO) 0 % (0-10); EOSINOPHILS # (AUTO) 0.1 10^3/uL (0.0-0.3); EOSINOPHILS % (AUTO) 1 % (0-10); HEMATOCRIT 31 % (35-52); HEMOGLOBIN 8.8 g/dL (11.5-16.0); LYMPHOCYTES # (AUTO) 0.3 10^3/uL (1.0-4.0); LYMPHOCYTES % (AUTO) 3 % (12-44); MEAN CORPUSCULAR HEMOGLOBIN 25 pg (25-34); MEAN CORPUSCULAR HGB CONC 28 g/dL (32-36); MEAN CORPUSCULAR VOLUME 89 fL (80-99); MEAN PLATELET VOLUME 9.2 fL (9.0-12.2); MONOCYTES # (AUTO) 0.5 10^3/uL (0.0-1.0); MONOCYTES % (AUTO) 5 % (0-12); NEUTROPHILS # (AUTO) 9.1 10^3/uL (1.8-7.8); NEUTROPHILS % (AUTO) 90 % (42-75); PLATELET COUNT 488 10^3/uL (130-400); WHITE BLOOD COUNT 10.1 10^3/uL (4.3-11.0)
[2020-10-29 04:54] LABS: CHLORIDE 96 MMOL/L (98-107); POTASSIUM 3.4 MMOL/L (3.6-5.0); SODIUM 141 MMOL/L (135-145)
[2020-10-29 04:55] LABS: CALCIUM 7.7 MG/DL (8.5-10.1); GLUCOSE 82 MG/DL (70-105)
[2020-10-29 04:57] LABS: CARBON DIOXIDE 34 MMOL/L (21-32)
[2020-10-29 04:59] LABS: CREATININE SERUM 0.57 MG/DL (0.60-1.30); GFR ESTIMATED > 60; PHOSPHORUS 3.9 MG/DL (2.3-4.7)
[2020-10-29 05:00] LABS: BUN/CREATININE RATIO 16
[2020-10-29 05:01] LABS: MAGNESIUM 1.7 MG/DL (1.6-2.4)
--- NOTE | 2020-10-29 05:31 | Pulmonary Progress Note ---
Subjective Date Seen by a Provider: Oct 28, 2020 (late note) Time Seen by a Provider: 05:26 Subjective/Events-last exam Pt is still on hospital vent. Sepsis Event Evaluation Height, Weight, BMI Height: 5'2.00" Weight: 90lbs. 6.0oz. 40.292165bn; 19.83 BMI Method: Exam Exam Vital Signs Date Time Temp Pulse Resp B/P (MAP) Pulse Ox O2 Delivery O2 Flow Rate FiO2 10/29/20 01:56 75 16 114/45 (68) 96 Mechanical Ventilator 65.00 10/29/20 01:10 81 28 97 65 10/29/20 01:00 74 10/29/20 00:25 Mechanical Ventilator 65.00 10/28/20 23:42 36.7 10/28/20 20:00 Mechanical Ventilator 75 10/28/20 19:00 Mechanical Ventilator 75.00 10/28/20 19:00 93 10/28/20 18:45 86 42 96 60 10/28/20 15:53 36.8 10/28/20 15:45 111 9 95/54 (68) 98 Mechanical Ventilator 60.00 10/28/20 15:00 82 29 100 Mechanical Ventilator 60.00 10/28/20 14:24 76 18 100 60 10/28/20 14:00 75 32 97 Mechanical Ventilator 60.00 10/28/20 13:00 90 100 Mechanical Ventilator 60.00 10/28/20 12:48 90 10/28/20 12:00 90 18 118/57 (77) 100 Mechanical Ventilator 60.00 10/28/20 11:22 86 25 97 60 10/28/20 11:00 86 25 128/55 (79) 95 Mechanical Ventilator 60.00 10/28/20 10:00 89 28 126/59 (81) 96 Mechanical Ventilator 60.00 10/28/20 09:00 97 35 127/63 (84) 89 Mechanical Ventilator 60.00 10/28/20 08:00 101 40 133/69 (90) 89 Mechanical Ventilator 60.00 10/28/20 08:00 36.6 10/28/20 08:00 100 Mechanical Ventilator 60 10/28/20 07:33 63 21 97 60 10/28/20 07:00 67 16 117/58 (77) 99 Mechanical Ventilator 60.00 10/28/20 06:32 106 10/28/20 06:00 58 18 114/54 98 Mechanical Ventilator 60.00 I & O 10/29/20 07:00 Intake Total 1350 ml Output Total 1075 ml Balance 275 ml Height & Weight Height: 5'2.00" Weight: 90lbs. 6.0oz. 40.637622af; 19.83 BMI Method: General Appearance: No Apparent Distress Neck: Supple Respiratory: Crackles, Decreased Breath Sounds Cardiovascular: Regular Rate, Rhythm (with rate controlled) Capillary Refill: Less Than 3 Seconds Gastrointestinal: soft Extremity: Normal Capillary Refill Neurologic/Psychiatric: Alert Skin: Normal Color, Warm/Dry, Damp Results Lab Laboratory Tests 10/28/20 04:00 10/29/20 04:27 Assessment/Plan Assessment/Plan Acute on chronic respiratory failure -Multiple hospitalizations -Pt has been refusing ECF She is currently living at home with her . Pt needs fdc and/or hospice care -Trial pt back to home vent. Hx of MDR pseudomonas PNA with colonization -Repeat PCT -Currently Zosyn -Richter cultures pending AFib- hx of RVR -Monitor Anemia -Transfuse 1 unit of PRBC -Monitor Small bilateral pleural effusions Echo shows normal EF with grade 1 diastolic dysfunction -Lasix daily -SL IVF for now and continue to monitor Pt needs ECF and/or Hospice. Pt is currently a full code. NORAH FOUTNAIN DO Oct 29, 2020 05:31
[2020-10-29] MEDS: POTASSIUM CL 10MEQ/50ML IVPB 50 ML IV SCH (06:06)
[2020-10-29] MEDS: MAGNESIUM 1 GM/100 ML IVPB 100 ML IV SCH (06:06)
[2020-10-29] MEDS: KCL 20 MEQ TAB (K-DUR) PO SCH (06:06)
[2020-10-29] MEDS: inSUlin ASPART (NovoLOG) 1 UNIT/0.01 ML (CHARGE PER UNIT) SC SCH (06:18)
[2020-10-29] MEDS: HYDROcodone/APAP 5 MG/325 MG (LORTAB) TAB PEG PRN (06:19)
[2020-10-29] MEDS: aCETylcysteine 20% (MUCOMYST) 30ML SOLN VIAL INH SCH (07:01)
--- NOTE | 2020-10-29 08:02 | Pulmonary Progress Note ---
Subjective Time Seen by a Provider: 08:01 Subjective/Events-last exam Nagi Murphy and myself called and discussed pt's current condition and plan of care with . After explain current condition and answering all questions to the best of out ability he agrees with making pt DNR and proceeding with [employer] SOFTWARE CONSULTANT. After discussing with we went and talked to patient. She voices understanding of current condition and acceptance of plan for [employer]. I also called and discussed with Dr. Henderson who also agrees. Sepsis Event Evaluation Height, Weight, BMI Height: 5'2.00" Weight: 90lbs. 6.0oz. 40.436402ji; 19.83 BMI Method: Exam Exam Vital Signs Date Time Temp Pulse Resp B/P (MAP) Pulse Ox O2 Delivery O2 Flow Rate FiO2 10/29/20 07:01 69 19 100 60 10/29/20 06:00 Mechanical Ventilator 60.00 10/29/20 03:00 81 21 128/46 (73) 92 Mechanical Ventilator 65.00 10/29/20 01:56 75 16 114/45 (68) 96 Mechanical Ventilator 65.00 10/29/20 01:10 81 28 97 65 10/29/20 01:00 74 10/29/20 00:25 Mechanical Ventilator 65.00 10/28/20 23:42 36.7 10/28/20 20:00 Mechanical Ventilator 75 10/28/20 19:00 Mechanical Ventilator 75.00 10/28/20 19:00 93 10/28/20 18:45 86 42 96 60 10/28/20 15:53 36.8 10/28/20 15:45 111 9 95/54 (68) 98 Mechanical Ventilator 60.00 10/28/20 15:00 82 29 100 Mechanical Ventilator 60.00 10/28/20 14:24 76 18 100 60 10/28/20 14:00 75 32 97 Mechanical Ventilator 60.00 10/28/20 13:00 90 100 Mechanical Ventilator 60.00 10/28/20 12:48 90 10/28/20 12:00 90 18 118/57 (77) 100 Mechanical Ventilator 60.00 10/28/20 11:22 86 25 97 60 10/28/20 11:00 86 25 128/55 (79) 95 Mechanical Ventilator 60.00 10/28/20 10:00 89 28 126/59 (81) 96 Mechanical Ventilator 60.00 10/28/20 09:00 97 35 127/63 (84) 89 Mechanical Ventilator 60.00 I & O 10/29/20 07:00 Intake Total 1520 ml Output Total 1175 ml Balance 345 ml Height & Weight Height: 5'2.00" Weight: 90lbs. 6.0oz. 40.403072ek; 19.83 BMI Method: General Appearance: No Apparent Distress Neck: Supple Respiratory: Crackles, Decreased Breath Sounds Cardiovascular: Regular Rate, Rhythm (with rate controlled) Capillary Refill: Less Than 3 Seconds Gastrointestinal: soft Extremity: Normal Capillary Refill Neurologic/Psychiatric: Alert Skin: Normal Color, Warm/Dry, Damp Results Lab Laboratory Tests 10/28/20 04:00 10/29/20 04:27 Assessment/Plan Assessment/Plan Acute on chronic respiratory failure -Multiple hospitalizations Hx of MDR pseudomonas PNA with colonization Hypokalemia AFib- hx of RVR Anemia Small bilateral pleural effusions Echo shows normal EF with grade 1 diastolic dysfunction Will proceed with [employer] SOFTWARE CONSULTANT. Critical Care: Critically Ill Patient Time spent with patient (mins): 120 Advance Care discuss with: patient, family member (s) End of Life Care: Comfort Measures Advance Care Discussion: initiate discussion, clarifying prognosis, identified end-of-life goals NORAH FOUNTAIN DO Oct 29, 2020 08:02
[2020-10-29] MEDS: PANTOPRAZOLE 40 MG (PROTONIX) VIAL IV SCH (08:22)
[2020-10-29] MEDS: FUROSEMIDE 40 MG/4 ML INJ (LASIX) IVP SCH (08:22)
--- NOTE | 2020-10-29 08:29 | Diagnostic Imaging Report ---
INDICATION: Respiratory failure Frontal chest obtained at 0540 a.m. and compared to 10/28/2020 Heart is enlarged. There is extensive bilateral infiltrate throughout both lungs which appears similar to the prior study. Bilateral pleural effusions are also unchanged. There is no pneumothorax. Tracheostomy tube is stable. IMPRESSION: Unchanged extensive bilateral infiltrates compared to yesterday with bilateral pleural effusions also stable. Dictated by: Dictated on workstation # [id number]
[2020-10-29] MEDS ORDERED: KCL 20 MEQ TAB (K-DUR) PO ONE (09:00)
[2020-10-29] MEDS ORDERED: HALOPERIDOL 5 MG/ML (HALDOL) VIAL IV PRN (10:00)
[2020-10-29] MEDS: HALOPERIDOL 5 MG/ML (HALDOL) VIAL IV PRN ×2 (10:06→16:55)
[2020-10-29] MEDS: morphine INJ 4 MG/ML 1 ML (VIAL/SYRINGE) IVP PRN ×3 (10:06→22:42)
[2020-10-29] MEDS ORDERED: SALIVA STIMULANT MOUTH SPRAY (BIOTENE) 1.5 OZ MM PRN (11:45)
[2020-10-29] MEDS ORDERED: RT-ALBUTEROL/IPRATROPIUM 3 ML (DUONEB) VIAL INH PRN (11:45)
[2020-10-29] MEDS ORDERED: ARTIFICAL TEARS 0.4 ML UNIT DOSE (REFRESH PLUS) OU PRN (11:45)
[2020-10-29] MEDS ORDERED: GLYCOPYRROLATE 0.2 MG/ML (ROBINUL) 2 ML VIAL IV PRN (11:45)
[2020-10-29] MEDS ORDERED: LORazepam INJ 2 MG/ML (ATIVAN) VIAL IVP PRN (12:15)
--- NOTE | 2020-10-29 15:33 | NUR ---
Pt's called Fr De Guzman who came to provide sacraments.
--- NOTE | 2020-10-29 16:21 | NUR ---
Palliative Care RN went to check on patient....however Father was in giving Last Rights so did not interrupt. Will p transition to trac tube when they are finished. Nurse reports that she was without complaints when she visited last.
--- NOTE | 2020-10-29 16:25 | Physician Query Clarification ---
"Physician Query-General Query to Physician: The medical record reflects the following clinical scenario: History/Risk factors: Chronic Vent per trach, Pneumonia Clinical Findings: RR 34, Temp 34.6, WBC 17.1 CXR: RLL consolidation Treatment: Zosyn IV and IV Fluid bolus in ER Question: What condition best reflects the above clinical scenario? Please document response in the Progress notes or Discharge Summary. 1. Sepsis due to Pneumonia present on admission 2. Pneumonia (as currently documented) 3. Other , with explanation of the clinical findings 4. Clinically undetermined, no explanation for the clinical findings Please remember a lack of response to the above will prompt a phone page by CDI/coding staff In responding to this query, please exercise your independent professional judgment. The purpose of this communication is to more accurately reflect the complexity of your patients condition. The fact that a question is asked does not imply that any particular answer is desired or expected. Thank you for timely response to this clarification. Daphney Bhagat, MSN, RN RN Specialist-Clinical Doc Improvement CD -Health Info Mgmt Operations [address] [facility] t: [phone] | f: [phone] If you are unable to reach me at my extension, I may be working from home. Please contact me at [phone] PHYSICIAN RESPONSE: Based on the clinical findings in the record, please respond to the query above on this document as an addendum. Physician Response: Physician Response on admission, dx was pneumonia. If you have questions please contact: Parking Lot Manager: Ext: Thank you for your time and cooperation. Clinical House Visitor/Parking Lot Manager This is a permanent part of the medical recor d DAPHNEY BHAGAT Oct 29, 2020 16:25 RAJESH DAVENPORT MD Nov 04, 2020 06:44"
--- NOTE | 2020-10-29 17:51 | NUR ---
CM/SS: Follow up with spouse and pt as to their current emotional status. Spouse Giancarlo reports he is doing ok and that he does have support of family and friends. He reports he is emotionally doing good. Pt is finishing brushing her teeth with assistance from spouse. Pt is alert and speaks to this worker. Spouse request to speak with this worker in the [place]. He shares that pt is doing really good at this time. End of life is discussed, and that pts sometimes have really good days and times - such as a rally and then they can decline. Spouse reports he is aware of this. Spouse does share that he does not want pt's to be rushed and that he thinks that if feels like it. He wants pt to be comfortable, but does not want to speed up her . He reports he talked with Father about it and he reports they do not want to hasten her either. He is encouraged to talk with Dr Henderson on tomorrow and is assured we want him to feel comfortable with the process. He verbalizes understanding, and thanks this worker for visiting.
[2020-10-29] MEDS: MELATONIN 3 MG TABLET PO SCH (20:36)
--- NOTE | 2020-10-30 06:55 | Progress Note ---
Subjective Date Seen by a Provider: Oct 29, 2020 Time Seen by a Provider: 06:50 Subjective/Events-last exam patient resting comfortably in the ICU. She does respond to questions by nodding. Objective Exam Vital Signs Date Time Temp Pulse Resp B/P (MAP) Pulse Ox O2 Delivery O2 Flow Rate FiO2 10/30/20 03:54 36.4 66 18 114/58 (76) 100 Mechanical Ventilator 60.00 10/30/20 00:12 36.5 79 18 111/62 (78) 94 Mechanical Ventilator 60.00 10/29/20 20:00 Mechanical Ventilator 60 10/29/20 16:15 37.0 64 16 113/46 (68) 99 Mechanical Ventilator 65.00 10/29/20 08:00 96 Mechanical Ventilator 75 10/29/20 07:01 69 19 100 60 I & O 10/30/20 07:00 Intake Total 1635 ml Output Total 2000 ml Balance -365 ml Capillary Refill : Less Than 3 Seconds General Appearance: No Apparent Distress Respiratory: Lungs Clear (overall but there is coarseness noted) Cardiovascular: Regular Rate, Rhythm (with rate controlled) Gastrointestinal: soft Results Lab Microbiology 10/26/20 Gram Stain, Resulted Pending 10/26/20 Sputum Culture - Preliminary, Resulted Pseudomonas aeruginosa Klebsiella pneumoniae 10/25/20 Blood Culture - Preliminary, Resulted No growth Assessment/Plan Assessment/Plan Assess & Plan/Chief Complaint 1. Acute respiratory distress with hypoxia -patient is doing better now that suctioning aggressively was performed in ED. She is admitted for the pneumonia as well as white count now being at 17,000 10/27 -Will obtain home vent 10/28 -as of this morning the home vent is available but not utilized -currently in communication with her regarding hospice. 10/29 -today I spoke with regarding her condition. He does understand that she probably is not going to get better. He is leaning towards [facility] 2. Right lower lobe pneumonia. History of Pseudomonas pneumonia -Zosyn has been initiated in ED -Sputum culture to be obtained 10/26 -WBC has improved -awaiting sputum culture results 10/27 -day 3 zosyn 10/28 -day 4 Zosyn -Her white count is noted to be normalized 10/29 -day 5 Zosyn 3. Respiratory acidosis -repeat ABG 10/26 -ABG was canceled on repeat 4. Anemia -Dr Velazquez has ordered 1 U PRBC -monitor cbc Clinical Quality Measures Admission Status Admission Dx 1. Acute respiratory distress with hypoxia 2. Right lower lobe pneumonia. History of Pseudomonas pneumonia 3. Respiratory acidosis DVT/VTE Risk/Contraindication: Risk Factor Score Per Nursin RFS Level Per Nursing on Admit: 4+=Very High RAJESH DAVENPORT MD Oct 30, 2020 06:55
--- NOTE | 2020-10-30 06:57 | Progress Note ---
Subjective Date Seen by a Provider: Oct 30, 2020 Time Seen by a Provider: 06:45 Subjective/Events-last exam patient is on cardiac stepdown. She is now on comfort care management. This morning she is resting comfortably. Objective Exam Vital Signs Date Time Temp Pulse Resp B/P (MAP) Pulse Ox O2 Delivery O2 Flow Rate FiO2 10/30/20 03:54 36.4 66 18 114/58 (76) 100 Mechanical Ventilator 60.00 10/30/20 00:12 36.5 79 18 111/62 (78) 94 Mechanical Ventilator 60.00 10/29/20 20:00 Mechanical Ventilator 60 10/29/20 16:15 37.0 64 16 113/46 (68) 99 Mechanical Ventilator 65.00 10/29/20 08:00 96 Mechanical Ventilator 75 10/29/20 07:01 69 19 100 60 I & O 10/30/20 07:00 Intake Total 1635 ml Output Total 2000 ml Balance -365 ml Capillary Refill : Less Than 3 Seconds General Appearance: No Apparent Distress Respiratory: Other (coarse breath sounds) Cardiovascular: Regular Rate, Rhythm Results Lab Microbiology 10/26/20 Gram Stain, Resulted Pending 10/26/20 Sputum Culture - Preliminary, Resulted Pseudomonas aeruginosa Klebsiella pneumoniae 10/25/20 Blood Culture - Preliminary, Resulted No growth Assessment/Plan Assessment/Plan Assess & Plan/Chief Complaint 1. Acute respiratory distress with hypoxia -patient is doing better now that suctioning aggressively was performed in ED. She is admitted for the pneumonia as well as white count now being at 17,000 10/27 -Will obtain home vent 10/28 -as of this morning the home vent is available but not utilized -currently in communication with her regarding hospice. 10/29 -today I spoke with regarding her condition. He does understand that she probably is not going to get better. He is leaning towards [facility] 10/30 -patient is now DO NOT RESUSCITATE and receiving comfort care management. 2. Right lower lobe pneumonia. History of Pseudomonas pneumonia -Zosyn has been initiated in ED -Sputum culture to be obtained 10/26 -WBC has improved -awaiting sputum culture results 10/27 -day 3 zosyn 10/28 -day 4 Zosyn -Her white count is noted to be normalized 10/29 -day 5 Zosyn 3. Respiratory acidosis -repeat ABG 10/26 -ABG was canceled on repeat 4. Anemia -Dr Velazquez has ordered 1 U PRBC -monitor cbc 10/30 -CBC not monitored Clinical Quality Measures Admission Status Admission Dx 1. Acute respiratory distress with hypoxia 2. Right lower lobe pneumonia. History of Pseudomonas pneumonia 3. Respiratory acidosis DVT/VTE Risk/Contraindication: Risk Factor Score Per Nursin RFS Level Per Nursing on Admit: 4+=Very High RAJESH DAVENPORT MD Oct 30, 2020 06:57
--- NOTE | 2020-10-30 08:21 | NUR ---
THIS NURSE NOTIFIED MATTHEW THE PT PT IS MORE LETHARGIC THIS MORNING AND HE SHOULD COME TO BEDSIDE. MATTHEW SAID HE WOULD BE THERE SHORTLY.
--- NOTE | 2020-10-30 08:35 | NUR ---
Patient was placed on LTA at this time at 6 l/m 28%
--- NOTE | 2020-10-30 08:45 | NUR ---
PALLIATIVE CARE RN in to see patient. She is unresponsive at this time and is anticipated to pass this morning. She does appear quite comfortable. arrives to room and is questioning her o2 delievery in the night. I explained that her vent tube had popped off at some point and that she fell into her sleep then. He is left to speak to her and pray. When the RN and I returned to the room we confirmed that she had passed. Time is 0855. THis RN notified Dr. Henderson and Dr Velazquez. Addendum: 10/30/20 at 0930 by OFELIA SILVA RN In addition: When speaking with Giancarlo, after patient had passed we told him he could stay as long as he needed and then we would notify the Home of choice. He verbalized that arrangements will be through [facility]. He was calling his kids when I left he room.
--- NOTE | 2020-10-30 09:27 | NUR ---
THIS NURSE WAS NOTIFIED BY [facility] THAT PT MAY BE RELEASED TO THE HOME.
--- NOTE | 2020-10-30 10:21 | NUR ---
CM/SS: Was informed that pt has passed from the Pallative Care RN. This worker went to the room to provide Giancarlo, spouse emotional support. He reports that pt went very peaceful and that he was present at the time of her . Giancarlo reports he is doing ok. He is holding pt's hand and able to do some life review. He is also in the process of notifying his children. He seems to be a peace and is able to say they had a good 60 years together. He shares how they met and talked about their children and shares the struggles that pt has had the last 10 years related to her health. Spouse thanks this worker for the care, and time given to pt and him during all of her hospital stays. This worker shares that they are glad that they could help. This worker returned to the room to have Giancarlo, spouse sign the mortuary release form. He confirms that the home is [facility]. He signs the form and reports that they can be called. He reports he will remain in the room calling family and notifying of pts ; until the home arrives. MONTY Padilla is given the form back with signature and notified to call [facility] per spouse request.
--- NOTE | 2020-10-30 15:21 | Physician Query Clarification ---
"Physician Query-General Query to Physician: The medical record reflects the following clinical scenario: History/Risk factors: Pneumonia, Chronic Respiratory failure/Trach on home vent Clinical Findings: RR 34, Sat 90% on 100% FIO2, SOA at rest Treatment: Mechanical Vent, Albuterol Breathing Rx, IV ABX Question: Do you agree with the impression of Acute on Chronic Respiratory Failure per Dr. Raman Velazquez? If you agree, please document in Progress Notes or Discharge Summary. 1. Yes; will document Acute on Chronic Respiratory failure in the Progress Notes/Dismissal Summary 2. No; will continue to document Acute Respiratory Distress in the Progress Notes/Dismissal Summary 3. Other; will document explanation of clinical findings 4. Clinically undetermined; no explanation for clinical findings Please remember a lack of response to the above will prompt a phone page by CDI/coding staff In responding to this query, please exercise your independent professional judgment. The purpose of this communication is to more accurately reflect the complexity of your patients condition. The fact that a question is asked does not imply that any particular answer is desired or expected. Thank you for timely response to this clarification. Daphney Canas, MSN, RN RN Specialist-Clinical Doc Improvement CD -Health Info Mgmt Operations [address] [facility] t: [phone] | f: [phone] If you are unable to reach me at my extension, I may be working from home. Please contact me at [phone] PHYSICIAN RESPONSE: Based on the clinical findings in the record, please respond to the query above on this document as an addendum. Physician Response: Physician Response yes acute on chronic respiratory failure If you have questions please contact: Technical Manager: Ext: Thank you for your time and cooperation. Clinical Sdc Teacher/Technical Manager This is a permanent part of the medical record DAPHNEY CANAS Oct 30, 2020 15:21 RAJESH DAVENPORT MD Nov 04, 2020 06:45"
--- NOTE | 2020-10-30 16:02 | NUR ---
THIS NURSE ATTEMPTED TO CONTACT MATTHEW ABOUT PT BELONGINGS. WILL TRY AGAIN LATER
== END 2020-10-30 12:50 | disposition expired | DRG 207 ==
LOC: EDUNIT# 13:47 → ER 13:47 → ICU 14:54 → CSD 10-29 12:55
PROVIDERS: ADMIT Family Medicine; ATTEND Family Medicine
PROC: 5A1955Z Respiratory Ventilation, Greater than 96 Consecutive Hours (ICD-10-PCS; principal; 2020-10-25)
DX: J96.21 Acute and chronic respiratory failure with hypoxia (principal); J18.9 Pneumonia, unspecified organism; E87.2 Acidosis; J91.8 Pleural effusion in other conditions classified elsewhere; T17.890A Other foreign object in other parts of respiratory tract causing asphyxiation, initial encounter; J44.9 Chronic obstructive pulmonary disease, unspecified; D64.9 Anemia, unspecified; Z93.0 Tracheostomy status; Z66 Do not resuscitate; Z51.5 Encounter for palliative care; E87.6 Hypokalemia; I48.91 Unspecified atrial fibrillation; I10 Essential (primary) hypertension; F03.90 Unspecified dementia, unspecified severity, without behavioral disturbance, psychotic disturbance, mood disturbance, and anxiety; M19.91 Primary osteoarthritis, unspecified site
CPT/HCPCS: 36415; 36600; 51702; 71045; 80048; 80053; 82805; 82962; 83605; 83735; 83880; 84100; 84145; 85025; 86850; 86900; 86901; 86920; 87040; 87070; 87077; 87081; 87181; 87184; 87186; 87205; 94002; 94003; 94640; 94799; 96361; 96365